=== PATIENT | female | born 1950 | race Caucasian/White ===

== ENCOUNTER 2022-08-27 09:41 | Outpatient (CLI) | payer OTHER, SELFPAY | END 2022-08-27 09:42 | disposition home or self-care (01) | LOC: FRMREF 09:42 | PROVIDERS: PCP Physician Assistant Medical; Visit Provider Physician Assistant Medical | DX: I10 Essential (primary) hypertension (principal); E78.5 Hyperlipidemia, unspecified; E03.9 Hypothyroidism, unspecified | CPT/HCPCS: 80053; 80061; 84443 ==

== ENCOUNTER 2023-01-20 12:47 | Outpatient (CLI) | payer OTHER, SELFPAY ==
--- NOTE | 2023-01-20 13:00 | CRLHL7_ITS ---
For Patients: As a result of the Cures Act, medical imaging exams and procedure reports are released immediately into your electronic medical record. You may view this report before your referring provider. If you have questions, please contact your health care provider. DXA BONE MINERAL DENSITY STUDY, 01/20/2023 Reason for exam: Postmenopausal status. Current height (inches): 63 Weight (lbs.): 188 Menopause age: 44 Ethnicity: White 1. Have you had a previous hip or vertebral fracture? No. 2. Have you had any fractures during your adult life which did not result from significant trauma (e.g., auto accident)? No. 3. Did either of your parents have a hip fracture? No. 4. Do you smoke? No. 5. Have you ever taken Glucocorticoids? No. 6. Do you have rheumatoid arthritis? No. 7. Do you have secondary osteoporosis? No. 8. Do you drink 3 or more alcoholic drinks per day? No. 9. Are you being treated for osteoporosis? No. 10. Have you ever taken any of the following medications: Actonel, Evista, Fosamax, Miacalcin, Reclast, Boniva, Forteo, HRT (i.e., estrogen/hormone therapy), Protelos, Prolia, Vitamin D, Calcium, other ??? please specify. ANSWER: Yes; vitamin D. 11. Do you have any of the following medical conditions: Anorexia or bulimia, asthma or emphysema, end stage renal disease, hyperparathyroidism, any seizure disorders, cancer, inflammatory bowel diseases, hysterectomy, other ??? please specify. ANSWER: No. 12. What was your maximum height (inches)? 64.5. 13. Do you perform weightbearing exercise regularly? No. 14. Do you regularly consume dairy products? No. 15. Do you drink caffeinated beverages? Yes. 16. At what age did your period start? 15. 17. Are you premenopausal? No. 18. How many full-term pregnancies have you had? 3. 19. Have you ever missed your period for more than 6 months in a row (not including or menopause)? No. TECHNIQUE: Bone mineral density study was performed using the [facility]. FINDINGS: The results of the study expressed as bone mineral density (BMD) are as follows: Lumbar Spine L1 to L3: BMD: 0.517 g/cm2. T-score: -4.6. Z-score: -2.5. Neck Left: BMD: 0.537 g/cm2. T-score: -2.8. Z-score: -1.0. Right: BMD: 0.604 g/cm2. T-score: -2.2. Z-score: -0.4. Total Left: BMD: 0.644 g/cm2. T-score: -2.4. Z-score: -0.9. Right: BMD: 0.700 g/cm2. T-score: -2.0. Z-score: -0.5. IMPRESSION: Osteoporosis. DERIC MONROY M.D. Diagnostic Radiologist [email or web address] Transcribed: 3:[address]/Dictated by: Deric Monroy MD @ 01/21/2023 1:47:00 PM (Electronically Signed)
== END 2023-01-20 12:48 | disposition home or self-care (01) ==
PROVIDERS: PCP Physician Assistant Medical; Visit Provider Physician Assistant Medical
DX: Z78.0 Asymptomatic menopausal state (principal); M81.0 Age-related osteoporosis without current pathological fracture
CPT/HCPCS: 77080

== ENCOUNTER 2023-12-09 10:43 | Outpatient (CLI) | payer OTHER, SELFPAY | END 2023-12-09 10:44 | disposition home or self-care (01) | LOC: NFLDREF 12-20 13:07 | PROVIDERS: PCP Physician Assistant Medical; Referring Provider Physician Assistant Medical; Visit Provider Physician Assistant Medical | DX: E03.9 Hypothyroidism, unspecified (principal); E78.2 Mixed hyperlipidemia; I10 Essential (primary) hypertension; M81.0 Age-related osteoporosis without current pathological fracture; K21.9 Gastro-esophageal reflux disease without esophagitis; Z79.01 Long term (current) use of anticoagulants; I71.40 Abdominal aortic aneurysm, without rupture, unspecified | CPT/HCPCS: 80053; 80061; 84443 ==

== ENCOUNTER 2024-02-20 14:13 | Emergency (ER) | payer OTHER, SELFPAY ==
[2024-02-20 14:22] VITALS: BP 157/94; PULSE 96; RESP 18; TEMP 37.4; O2SAT 99; BMI 31.9
--- NOTE | 2024-02-20 14:48 | ED_ITS ---
HPI - General Adult General Chief complaint: Epistaxis/Nosebleed Stated complaint: Bloody nose since 1:10p-on Warfarin Time Seen by Provider: 02/20/24 14:15 History of Present Illness HPI narrative: Patient is a 73-year-old female who has anticoagulation and takes Coumadin for a aortic valve replacement. She has had multiple nosebleeds over the last month. Today it. Started and has not stopped. It has been bleeding for couple of hours. The patient is not lightheaded or dizzy or have chest pain. She denies trauma or injury. Related Data Home Medications Medication Instructions Recorded Confirmed meperidine 100 mg/mL injection 100 mg IM ONCE PRN 05/06/22 02/20/24 solution albuterol sulfate 90 mcg/actuation g inhalation 08/28/22 12/23/23 aerosol inhaler bimatoprost 0.01 % eye drops drp ophthalmic (eye) 08/28/22 12/23/23 (Lumigan) oxycodone-acetaminophen 5 mg-325 1 tab PO PRN 08/28/22 12/23/23 mg tablet timolol maleate 0.25 % eye drops 1 drp ophthalmic (eye) BID 08/28/22 02/20/24 diphenhydramine HCl 50 mg/mL 50 mg IM Q4-6H PRN 04/21/23 02/20/24 injection solution Previous Rx's Medication Instructions Recorded warfarin 2 mg tablet 2 mg PO DIRECTED #90 tabs 02/11/23 warfarin 4 mg tablet 4 mg PO DIRECTED #90 tabs 09/01/23 atorvastatin 80 mg tablet 80 mg PO .HS #90 tabs 12/09/23 levothyroxine 100 mcg tablet 100 mcg PO DAILY #90 tabs 12/09/23 losartan 25 mg tablet 25 mg PO DAILY #90 tabs 12/09/23 metoprolol tartrate 25 mg tablet 25 mg PO DAILY #90 tabs 12/09/23 topiramate 100 mg tablet 100 mg PO QHS #90 tabs 12/09/23 cholecalciferol (vitamin D3) 25 See Rx Instructions .Route 01/04/24 mcg (1,000 unit) tablet .COMPLEX #90 tabs famotidine 20 mg tablet 20 mg PO QHS #90 tabs 01/06/24 hydroxyzine HCl 50 mg tablet 50 mg PO TID PRN for 02/09/24 nausea/vomiting #90 tabs aspirin 81 mg tablet,delayed 81 mg PO DAILY #90 tabs 02/17/24 release warfarin 3 mg tablet 9 mg (3 x 3 mg) PO .ud #39 tabs 02/17/24 cephalexin 500 mg capsule 500 mg PO QID 5 days #20 caps 02/20/24 Allergies Allergy/AdvReac Type Severity Reaction Status Date / Time alendronate sodium AdvReac Intermediate Headache Verified 02/20/24 14:27 Review of Systems Status of ROS: Reports: 6 or more systems reviewed and unremarkable except as noted in History and below [facility] Medical History Depression ?F32.A - Depression, unspecified (ICD-10) Incidental pulmonary nodule ?R91.1 - Solitary pulmonary nodule (ICD-10) History of compression fracture of spine ?Z87.81 - Personal history of (healed) traumatic fracture (ICD-10) Surgical History History of right cataract extraction ?Z98.41 - Cataract extraction status, right eye (ICD-10) History of repair of left rotator cuff (02/22/19) ?Z98.890 - Other specified postprocedural states (ICD-10) Status post transposition of nerve ?Z98.890 - Other specified postprocedural states (ICD-10) History of cataract extraction with lens replacement History of colonoscopy ?Z98.890 - Other specified postprocedural states (ICD-10) History of tubal ligation ?Z98.51 - Tubal ligation status (ICD-10) History of appendectomy ?Z90.49 - Acquired absence of other specified parts of digestive tract (ICD- 10) History of laparoscopic adjustable gastric banding ?Z98.84 - Bariatric surgery status (ICD-10) History of aortic valve replacement ?Z95.2 - Presence of prosthetic heart valve (ICD-10) Family History Mother Diabetes Father Heart disease Social History Narrative: does not drink alcohol, does not use illicit drugs, nonsmoker What is your current living situation?: I presently have a place to live Problems where you live: no known problems In the past 12 months, utilities in danger of being shut off: no In past 12 months, lack of transportation kept you from medical appts, meetings, work, or getting things needed for daily living: no In the past 12 mos, have been you worried that your food would run out before you had money to buy more?: never true In the past 12 mos, the food you bought just didn't last and you didn't have money to buy more?: never true Smoking Status: Never smoker Do you use any of these nicotine containing products: None Second hand tobacco smoke exposure: No How often do you have a drink containing alcohol: never AUDIT-C Alcohol total score: 0 Non-prescribed substance use: denies use How often does anyone, including family, friends and others, physically hurt you : never How often does anyone, including family, friends and others, insult or talk down to you: never How often does anyone, including family, friends and others, threaten you with harm: never How often does anyone, including family, friends and others, scream or curse at you: never Little interest or pleasure in doing things: not at all Feeling down, depressed, or hopeless: not at all Exam Narrative: Exam Narrative: Objective: Patient's vital signs look largely within normal limits She is alert oriented x3 HEENT shows a lot of blood along the septum on the left and friability of the part of the septum and I can see the right nostril appears fairly clear. She does report that the left nostril is been the 1 that is been primarily bleeding. She has also had some blood coming out of her mouth. She reports she gets a INR done weekly and last time it was about 3. Const: Vital Signs, click to edit/add: Vital Signs - 24 hr 02/20/24 14:22 Temperature 99.4 F Pulse Rate [Pulse Oximeter] 96 Respiratory Rate 18 Blood Pressure [Ri ght Upper Arm] 157/94 H Pulse Oximetry 99 Oxygen Delivery Me thod Room Air Course Vital Signs Vital signs: Initial Vital Signs Temperature 99.4 F 02/20/24 14:22 Temperature Source Temporal Artery Scan 02/20/24 14:22 Pulse Rate 96 02/20/24 14:22 Respiratory Rate 18 02/20/24 14:22 Blood Pressure 157/94 H 02/20/24 14:22 Blood Pressure Mean 115 H 02/20/24 14:22 Blood Pressure Position Sitting 02/20/24 14:22 Pulse Oximetry 99 02/20/24 14:22 Oxygen Delivery Method Room Air 02/20/24 14:22 Vital Signs Temperature 99.4 F 02/20/24 14:22 Pulse Rate 96 02/20/24 14:22 Respiratory Rate 18 02/20/24 14:22 Blood Pressure 157/94 H 02/20/24 14:22 Pulse Oximetry 99 02/20/24 14:22 Oxygen Delivery Method Room Air 02/20/24 14:22 Temperature 99.4 F 02/20/24 14:22 Pulse Rate 96 02/20/24 14:22 Respiratory Rate 18 02/20/24 14:22 Blood Pressure 157/94 H 02/20/24 14:22 Pulse Oximetry 99 02/20/24 14:22 Oxygen Delivery Method Room Air 02/20/24 14:22 Medications Administered Medications: Discontinued Medications Generic Name Dose Route Start Last Admin Trade Name Freq PRN Reason Stop Dose Admin Cephalexin HCl 500 mg 02/20/24 15:04 02/20/24 15:13 Cephalexin 500 Mg Capsule PO 02/20/24 15:05 500 mg ONCE ONE Administration Medical Decision Making MDM Narrative Medical decision making narrative: 73-year-old female on Coumadin with a nose bleed. CT based on the patient's pretty significant bleeding right now a large rhino rocket was placed with relative ease x1 on the left nostril. She has pure to have pretty good stoppage of bleeding there still little bit of dripping in a nasal sling was placed. Will check a CBC and an INR. She will need to see Dr. Russo and in follow-up, she does have an appointment in March but I think it be reasonable to see him ashly farhana. She will need to be put on Keflex antibiotic for the next 5 days and recommend nasal pack removal in about 3 days provided that it does stop the bleeding today. Addendum 3:41 p.m.: The patient's INR is 2-1/2, hemoglobin is normal. Her bleeding has stopped. She has a nasal sling on as tolerated that well. I think she should be on Keflex for 5 days also be faxed into her pharmacy will also have her see Dr. Russo in if you could please give her number 2 Dr. Russo to call to be seen sooner than March. Needs to see primary care in the next 2 days to get nasal pack removed. Return if problems or concerns avoid no nasal trauma or injury or rubbing. Return as needed Lab Data Labs: Lab Results 02/20/24 Range/Units 15:08 WBC 4.43 L (4.50-11.00) K/uL RBC 4.24 (4.00-5.20) m/uL Hgb 13.0 (12.0-16.0) gm/dL Hct 38.7 (33.0-51.0) % MCV 91 (80-100) fL MCH 31 (26-34) pg MCHC 34 (32-36) gm/dL RDW Coeff of Fan 13.3 (11.5-15.5) % Plt Count 264 (140-440) K/uL Neut % (Auto) 62.6 (42.0-72.0) % Lymph % (Auto) 21.4 (20-44) % Murray % (Auto) 8.8 (0.0-11.0) % Eos % (Auto) 6.8 (0.0-7.0) % Baso % (Auto) 0.2 (0.0-3.0) % Neut # (Auto) 2.80 (1.7-7.0) K/uL Lymph # (Auto) 0.90 (0.90-2.90) K/uL Murray # (Auto) 0.40 (0.00-0.90) K/UL Eos # (Auto) 0.30 (0.00-0.50) K/uL Baso # (Auto) 0.00 (0.00-0.30) K/uL Abs Immat Gran (auto) 0.00 (0.00-0.30) K/uL Imm/Tot Granulo (auto) 0.2 % INR 2.69 H (0.91-1.10) Discharge Plan Discharge Clinical Impression: Epistaxis, watermaster current use of anticoagulants with INR goal of 2.0-3.0 Patient Disposition: Home w/ Parent or Adult Condition: Improved Additional Instructions: Please give Dr. Fall number to be seen within the next week, should see primary care within the next 2 days to get pack removed. Keflex 500 q.i.d. x5 days. Light activity recommended. Return if heavy bleeding or other concern. May continue home medications including Coumadin. Activity Level: Light activity Discharge Diet: Regular Prescriptions: New cephalexin 500 mg capsule 500 mg PO QID 5 Days Qty: 20 0RF No Action diphenhydramine HCl 50 mg/mL solution 50 mg IM Q4-6H PRN timolol maleate 0.25 % drops 1 drp ophthalmic (eye) BID oxycodone-acetaminophen 5-325 mg tablet 1 tab PO PRN Lumigan 0.01 % drops ophthalmic (eye) albuterol sulfate 90 mcg/actuation HFA aerosol inhaler inhalation Patient Comments: INHALE 2 PUFFS EVERY 4 HOURS NEEDED meperidine 100 mg/mL solution 100 mg IM ONCE PRN warfarin 2 mg tablet 2 mg PO DIRECTED Qty: 90 0RF Protocol: Dose Management Condition: Wednesday Dose/Route: 3 mg Instruction: 1 x 3 mg tablet Condition: Wednesday Dose/Route: 4 mg Instruction: 1 x 4 mg tablet Condition: Wednesday Dose/Route: 4 mg Instruction: 1 x 4 mg tablet Condition: Wednesday Dose/Route: 4 mg Instruction: 1 x 4 mg tablet Condition: Dose/Route: 4 mg Instruction: 1 x 4 mg tablet Condition: Wednesday Dose/Route: 4 mg Instruction: 1 x 4 mg tablet Condition: Wednesday Dose/Route: 3 mg Instruction: 1 x 3 mg tablet Protocol Text: Adjustment Start Date: Wednesday02/16/24 INR Value: 3.0 INR Date: 02/16/24 Recheck Date: 02/23/24 Rx Instructions: Take 3mg , , Wed; 4mg Wed, Wed, Wed, Wed. warfarin 4 mg tablet 4 mg PO DIRECTED Qty: 90 0RF Protocol: Dose Management Condition: Wednesday Dose/Route: 3 mg Instruction: 1 x 3 mg tablet Condition: Wednesday Dose/Route: 4 mg Instruction: 1 x 4 mg tablet Condition: Wednesday Dose/Route: 4 mg Instruction: 1 x 4 mg tablet Condition: Wednesday Dose/Route: 4 mg Instruction: 1 x 4 mg tablet Condition: Dose/Route: 4 mg Instruction: 1 x 4 mg tablet Condition: Wednesday Dose/Route: 4 mg Instruction: 1 x 4 mg tablet Condition: Wednesday Dose/Route: 3 mg Instruction: 1 x 3 mg tablet Protocol Text: Adjustment Start Date: Wednesday02/16/24 INR Value: 3.0 INR Date: 02/16/24 Recheck Date: 02/23/24 Rx Instructions: Take 4mg Mon, Wed, Wed; and 3mg all other days of the week. atorvastatin 80 mg tablet 80 mg PO .HS Qty: 90 3RF levothyroxine 100 mcg tablet 100 mcg PO DAILY Qty: 90 3RF losartan 25 mg tablet 25 mg PO DAILY Qty: 90 3RF metoprolol tartrate 25 mg tablet 25 mg PO DAILY Qty: 90 3RF topiramate 100 mg tablet 100 mg PO QHS Qty: 90 3RF cholecalciferol (vitamin D3) 25 mcg (1,000 unit) tablet See Rx Instructions .ROUTE .COMPLEX Qty: 90 3RF Dose Instruction: TAKE 1 TABLET BY MOUTH EVERY DAY Rx Instructions: TAKE 1 TABLET BY MOUTH EVERY DAY famotidine 20 mg tablet 20 mg PO QHS Qty: 90 0RF hydroxyzine HCl 50 mg tablet 50 mg PO TID PRN (Reason: for nausea/vomiting) Qty: 90 1RF aspirin 81 mg tablet,delayed release (DR/EC) 81 mg PO DAILY Qty: 90 3RF warfarin 3 mg tablet 9 mg PO .ud Qty: 39 2RF Follow Up/Referrals: Kimberly Tierney PA-C [Primary Care Provider] - Stand Alone Forms: [facility] Info Instructions
[2024-02-20] MEDS: cephALEXin 500 MG CAPSULE PO (15:13)
[2024-02-20 15:14] LABS: Basophils Percent Auto 0.2 % (0.0-3.0); Eosinophils Percent Auto 6.8 % (0.0-7.0); Hematocrit 38.7 % (33.0-51.0); Immature Granulocytes Pct Auto 0.2 %; Lymphocytes Percent Auto 21.4 % (20-44); Mean Corpuscular HGB Conc 34 gm/dL (32-36); Mean Corpuscular Hemoglobin 31 pg (26-34); Mean Corpuscular Volume 91 fL (80-100); Monocytes Percent Auto 8.8 % (0.0-11.0); Neutrophils Percent Auto 62.6 % (42.0-72.0); Platelet Count* 264 K/uL (140-440); RDW Coefficient of Variation % 13.3 % (11.5-15.5); Red Blood Count 4.24 m/uL (4.00-5.20); White Blood Count* 4.43 K/uL (4.50-11.00)
[2024-02-20 15:17] LABS: Slide Review Reflex No
[2024-02-20 15:29] LABS: INR 2.69 (0.91-1.10); Prothrombin Time 30.7 Seconds
== END 2024-02-20 15:55 | disposition home or self-care (01) ==
PROVIDERS: Emergency Provider Family Medicine; PCP Physician Assistant Medical
DX: R04.0 Epistaxis (principal); Z79.01 Long term (current) use of anticoagulants
CPT/HCPCS: 30901; 36415; 85025; 85610; 99283; 99284; A9270

== ENCOUNTER 2024-02-21 11:32 | Emergency (ER) | payer OTHER, SELFPAY ==
[2024-02-21 11:38] VITALS: BP 133/85; PULSE 99; RESP 18; TEMP 36.5; O2SAT 98; BMI 31.9
--- NOTE | 2024-02-21 12:09 | ED.EPISTAXIS ---
History of Present Illness General Chief Complaint: Epistaxis/Nosebleed Stated Complaint: nose bleed Time Seen by Provider: 02/21/24 11:41 History of Present Illness HPI Narrative: This 73-year-old female comes in because of recurrent epistaxis. She was seen yesterday and had a Merocel placed. She comes back today because of persistent bleeding in the anterior left nostril. She states that she has had 9 episodes of bleeding from her left nostril over the past couple months. She is on Coumadin and did hold her Coumadin last evening. She was seen yesterday and had labs drawn. Her INR was in therapeutic range. She does not report any lightheadedness or shortness of breath. She states that she does have a mild headache. Related Data Home Medications Medication Instructions Recorded Confirmed meperidine 100 mg/mL injection 100 mg IM ONCE PRN 05/06/22 02/20/24 solution albuterol sulfate 90 mcg/actuation g inhalation 08/28/22 12/23/23 aerosol inhaler bimatoprost 0.01 % eye drops drp ophthalmic (eye) 08/28/22 12/23/23 (Erasmoigan) oxycodone-acetaminophen 5 mg-325 1 tab PO PRN 08/28/22 12/23/23 mg tablet timolol maleate 0.25 % eye drops 1 drp ophthalmic (eye) BID 08/28/22 02/20/24 diphenhydramine HCl 50 mg/mL 50 mg IM Q4-6H PRN 04/21/23 02/20/24 injection solution Previous Rx's Medication Instructions Recorded warfarin 2 mg tablet 2 mg PO DIRECTED #90 tabs 02/11/23 warfarin 4 mg tablet 4 mg PO DIRECTED #90 tabs 09/01/23 atorvastatin 80 mg tablet 80 mg PO .HS #90 tabs 12/09/23 levothyroxine 100 mcg tablet 100 mcg PO DAILY #90 tabs 12/09/23 losartan 25 mg tablet 25 mg PO DAILY #90 tabs 12/09/23 metoprolol tartrate 25 mg tablet 25 mg PO DAILY #90 tabs 12/09/23 topiramate 100 mg tablet 100 mg PO QHS #90 tabs 12/09/23 cholecalciferol (vitamin D3) 25 See Rx Instructions .Route 01/04/24 mcg (1,000 unit) tablet .COMPLEX #90 tabs famotidine 20 mg tablet 20 mg PO QHS #90 tabs 01/06/24 hydroxyzine HCl 50 mg tablet 50 mg PO TID PRN for 02/09/24 nausea/vomiting #90 tabs aspirin 81 mg tablet,delayed 81 mg PO DAILY #90 tabs 02/17/24 release warfarin 3 mg tablet 9 mg (3 x 3 mg) PO .ud #39 tabs 02/17/24 cephalexin 500 mg capsule 500 mg PO QID 5 days #20 caps 02/20/24 Allergies Allergy/AdvReac Type Severity Reaction Status Date / Time alendronate sodium AdvReac Intermediate Headache Verified 02/20/24 14:27 Review of Systems Status of ROS: Reports: 10 or more systems reviewed and unremarkable except as noted in History and below Narrative: Constitutional: No fevers, no weight gain or loss. Eyes: No discharge. No vision changes. HENT: No congestion, no sore throat, no ear pain. Recurrent epistaxis as described above. Cardiovascular: No chest pain, no palpitations. Respiratory: No shortness of breath, no wheezes, no cough. Gastrointestinal: No abdominal pain, no vomiting, no diarrhea. Genitourinary: No dysuria, no hematuria. Musculoskeletal: Normal range of motion. Skin: No rashes, no pruritis. Neurological: No dizziness, weakness, sensory change, speech change. Endo/Heme/Allergies: No bruising or bleeding. No polydipsia. Pysch: no suicidality, no anxiety, no insomnia. All other systems reviewed and are negative. [facility] Medical History Depression ?F32.A - Depression, unspecified (ICD-10) Incidental pulmonary nodule ?R91.1 - Solitary pulmonary nodule (ICD-10) History of compression fracture of spine ?Z87.81 - Personal history of (healed) traumatic fracture (ICD-10) Surgical History History of right cataract extraction ?Z98.41 - Cataract extraction status, right eye (ICD-10) History of repair of left rotator cuff (02/22/19) ?Z98.890 - Other specified postprocedural states (ICD-10) Status post transposition of nerve ?Z98.890 - Other specified postprocedural states (ICD-10) History of cataract extraction with lens replacement History of colonoscopy ?Z98.890 - Other specified postprocedural states (ICD-10) History of tubal ligation ?Z98.51 - Tubal ligation status (ICD-10) History of appendectomy ?Z90.49 - Acquired absence of other specified parts of digestive tract (ICD-10) History of laparoscopic adjustable gastric banding ?Z98.84 - Bariatric surgery status (ICD-10) History of aortic valve replacement ?Z95.2 - Presence of prosthetic heart valve (ICD-10) Family History Mother Diabetes Father Heart disease Social History Narrative: does not drink alcohol, does not use illicit drugs, nonsmoker What is your current living situation?: I presently have a place to live Problems where you live: no known problems In the past 12 months, utilities in danger of being shut off: no In past 12 months, lack of transportation kept you from medical appts, meetings, work, or getting things needed for daily living: no In the past 12 mos, have been you worried that your food would run out before you had money to buy more?: never true In the past 12 mos, the food you bought just didn't last and you didn't have money to buy more?: never true Smoking Status: Never smoker Do you use any of these nicotine containing products: None Second hand tobacco smoke exposure: No How often do you have a drink containing alcohol: never AUDIT-C Alcohol total score: 0 Non-prescribed substance use: denies use How often does anyone, including family, friends and others, physically hurt you: never How often does anyone, including family, friends and others, insult or talk down to you: never How often does anyone, including family, friends and others, threaten you with harm: never How often does anyone, including family, friends and others, scream or curse at you: never Little interest or pleasure in doing things: not at all Feeling down, depressed, or hopeless: not at all Exam Narrative: Exam Narrative: Constitutional: Well-developed, well-nourished, no acute distress. HEENT: Normocephalic, atraumatic. No active bleeding in the left nostril currently but there is bright red blood in the anterior aspect. Posterior to this is a Merocel in place. No evidence of blood in the oropharynx or other sign of posterior bleeding. Neck: Normal range of motion. Nontender. Supple. Heart: Intact distal pulses. Lungs: No chest discomfort. No wheezes, rhonchi, or rales. Abdomen: Nontender. Back: Normal range of motion. Extremities: Normal range of motion. No injury. Skin: Intact. No rash. Warm. No erythema or pallor. Neurologic: No altered sensation. No weakness. Alert and oriented. Psychiatric: No suicidality. No anxiety or depression. No insomnia. Nursing notes and vitals signs are reviewed. Const: Vital Signs, click to edit/add: Vital Signs - 24 hr 02/21/24 11:38 Temperature 97.7 F Pulse Rate [Right Pulse Oximeter] 99 Respiratory Rate 18 Blood Pressure [Ri ght Upper Arm] 133/85 Pulse Oximetry 98 Oxygen Delivery Me thod Room Air Course Vital Signs Vital signs: Initial Vital Signs Temperature 97.7 F 02/21/24 11:38 Temperature Source Temporal Artery Scan 02/21/24 11:38 Pulse Rate 99 02/21/24 11:38 Pulse Rhythm Regular 02/21/24 11:38 Respiratory Rate 18 02/21/24 11:38 Blood Pressure 133/85 02/21/24 11:38 Blood Pressure Mean 101 02/21/24 11:38 Blood Pressure Position Sitting 02/21/24 11:38 Pulse Oximetry 98 02/21/24 11:38 Oxygen Delivery Method Room Air 02/21/24 11:38 Vital Signs Temperature 97.7 F 02/21/24 11:38 Pulse Rate 99 02/21/24 11:38 Respiratory Rate 18 02/21/24 11:38 Blood Pressure 133/85 02/21/24 11:38 Pulse Oximetry 98 02/21/24 11:38 Oxygen Delivery Method Room Air 02/21/24 11:38 Temperature 97.7 F 02/21/24 11:38 Pulse Rate 99 02/21/24 11:38 Respiratory Rate 18 02/21/24 11:38 Blood Pressure 133/85 02/21/24 11:38 Pulse Oximetry 98 02/21/24 11:38 Oxygen Delivery Method Room Air 02/21/24 11:38 MDM - Epistaxis MDM Narrative Medical decision making narrative: This patient has recurrent nose bleeds and is on Coumadin because of a mechanical heart valve. Her INR has been therapeutic and she did not take her Coumadin last evening. She has a Merocel in place but comes in today because of bleeding anterior to nasal tampon. She does not have any active bleeding currently. There is bright red blood on the septum of the left nostril on the anterior aspect. It seems appropriate to leave the Merocel in place. I did pack her anterior nose with cotton soaked in TXA. She is not having any current bleeding. She does have a follow-up appointment with your nose and throat clinic in 2 days. She does have a nasal clamp and understands what measures to take if rebleeding occurs. If needed she can always return here. 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 Follow up with ear nose and throat clinic as scheduled. Return if worsening. Prescriptions: No Action diphenhydramine HCl 50 mg/mL solution 50 mg IM Q4-6H PRN timolol maleate 0.25 % drops 1 drp ophthalmic (eye) BID oxycodone-acetaminophen 5-325 mg tablet 1 tab PO PRN Lumigan 0.01 % drops ophthalmic (eye) albuterol sulfate 90 mcg/actuation HFA aerosol inhaler inhalation Patient Comments: INHALE 2 PUFFS EVERY 4 HOURS NEEDED cephalexin 500 mg capsule 500 mg PO QID 5 Days Qty: 20 0RF meperidine 100 mg/mL solution 100 mg IM ONCE PRN warfarin 2 mg tablet 2 mg PO DIRECTED Qty: 90 0RF Protocol: Dose Management Condition: Wednesday Dose/Route: 3 mg Instruction: 1 x 3 mg tablet Condition: Wednesday Dose/Route: 4 mg Instruction: 1 x 4 mg tablet Condition: Wednesday Dose/Route: 4 mg Instruction: 1 x 4 mg tablet Condition: Wednesday Dose/Route: 4 mg Instruction: 1 x 4 mg tablet Condition: Dose/Route: 4 mg Instruction: 1 x 4 mg tablet Condition: Wednesday Dose/Route: 4 mg Instruction: 1 x 4 mg tablet Condition: Wednesday Dose/Route: 3 mg Instruction: 1 x 3 mg tablet Protocol Text: Adjustment Start Date: Wednesday02/16/24 INR Value: 3.0 INR Date: 02/16/24 Recheck Date: 02/23/24 Rx Instructions: Take 3mg , , Wed; 4mg Sun, Wed, Wed, Wed. warfarin 4 mg tablet 4 mg PO DIRECTED Qty: 90 0RF Protocol: Dose Management Condition: Wednesday Dose/Route: 3 mg Instruction: 1 x 3 mg tablet Condition: Wednesday Dose/Route: 4 mg Instruction: 1 x 4 mg tablet Condition: Wednesday Dose/Route: 4 mg Instruction: 1 x 4 mg tablet Condition: Wednesday Dose/Route: 4 mg Instruction: 1 x 4 mg tablet Condition: Dose/Route: 4 mg Instruction: 1 x 4 mg tablet Condition: Wednesday Dose/Route: 4 mg Instruction: 1 x 4 mg tablet Condition: Wednesday Dose/Route: 3 mg Instruction: 1 x 3 mg tablet Protocol Text: Adjustment Start Date: Wednesday02/16/24 INR Value: 3.0 INR Date: 02/16/24 Recheck Date: 02/23/24 Rx Instructions: Take 4mg Wed, Wed, Wed; and 3mg all other days of the week. atorvastatin 80 mg tablet 80 mg PO .HS Qty: 90 3RF levothyroxine 100 mcg tablet 100 mcg PO DAILY Qty: 90 3RF losartan 25 mg tablet 25 mg PO DAILY Qty: 90 3RF metoprolol tartrate 25 mg tablet 25 mg PO DAILY Qty: 90 3RF topiramate 100 mg tablet 100 mg PO QHS Qty: 90 3RF cholecalciferol (vitamin D3) 25 mcg (1,000 unit) tablet See Rx Instructions .ROUTE .COMPLEX Qty: 90 3RF Dose Instruction: TAKE 1 TABLET BY MOUTH EVERY DAY Rx Instructions: TAKE 1 TABLET BY MOUTH EVERY DAY famotidine 20 mg tablet 20 mg PO QHS Qty: 90 0RF hydroxyzine HCl 50 mg tablet 50 mg PO TID PRN (Reason: for nausea/vomiting) Qty: 90 1RF aspirin 81 mg tablet,delayed release (DR/EC) 81 mg PO DAILY Qty: 90 3RF warfarin 3 mg tablet 9 mg PO .ud Qty: 39 2RF Follow Up/Referrals: Kimberly Tierney, PAStalinC [Primary Care Provider] - Stand Alone Forms: [facility] Info Instructions
[2024-02-21] MEDS: TRANEXAMIC ACID 100 MG/ML INJ 1000 MG TOPICAL (12:15)
== END 2024-02-21 12:52 | disposition home or self-care (01) ==
PROVIDERS: Emergency Provider Emergency Medicine Emergency Medical Services; PCP Physician Assistant Medical
DX: R04.0 Epistaxis (principal)
CPT/HCPCS: 30901; 99283; 99284

== ENCOUNTER 2025-01-03 13:45 | Outpatient (CLI) | payer OTHER, SELFPAY | END 2025-01-03 13:46 | disposition home or self-care (01) | PROVIDERS: PCP Physician Assistant Medical; Referring Provider Physician Assistant Medical; Visit Provider Physician Assistant Medical | DX: I10 Essential (primary) hypertension (principal); E03.9 Hypothyroidism, unspecified; E78.2 Mixed hyperlipidemia; R05.9 Cough, unspecified; M81.0 Age-related osteoporosis without current pathological fracture; G43.409 Hemiplegic migraine, not intractable, without status migrainosus; G47.33 Obstructive sleep apnea (adult) (pediatric); R05.2 Subacute cough | CPT/HCPCS: 80053; 80061; 82728; 84439; 84443 ==

== ENCOUNTER 2025-03-29 14:17 | Outpatient (CLI) | payer OTHER, SELFPAY ==
--- OUTSIDE RECORDS SUMMARY | 2023-07-08 07:15 | XMS_ITS | Continuity of Care Document ---
Author Organization [facility] enter Address [address] [place] [phone] Phone Care Team Providers Care Energy Project Engineer Name Role Phone [facility] Unavailable Unava ilable Procedures Procedure Date Dest by neurolytic agt, genicular nv br w\guid Dest by neurolytic agt, genicular nv br w\guid FLUOROGUIDE FOR SPINE INJECT Inj anes agt/steroid; gen ne br,w/guidan ce Inj anes agt/steroid; gen ne br,w/guidan ce Inj anes agt/steroid; gen ne br,w/guidan ce Inj anes agt/steroid; gen ne br,w/guidan ce Advance Directives Directive Yes / No Effective Date File Name No Information Encounters Encounter Description Practice Location Reason(s) For Visit Diagnoses Date Provider Providers Copied on Encounter [facility], [address] [place] [address], [id number], [place] tel:[phone] [facility] No Information [facility]. [address] [place] [address], [id number], . tel:[phone] Referring Provider: Jeane Day, [address] [facility] [place], [address] . tel:[phone] [facility], [address] [place] [address], [id number], tel:[phone] [facility] No Information [facility]. [address] [place] [address], [id number], . tel:[phone] Referring Provider: Jeane Day, [address] [facility] [place], [address] . tel:[phone] [facility], [address] [place] [address], [id number], tel:[phone] [place] [address] No Information [facility]. [address] [place] [address], [id number], . tel:[phone] Referring Provider: Jeane Day, [address] [facility] [place], [address] . tel:[phone] Family History Family Member Type Diagnosis Age At Onset No Information Payers Payer name Insurance type Covered constitution party ID Omar denise(s) ABIGAIL TOBIN [facility] [place] [id number] Social History Type Description Quantity Date Captured Comments Sex Female Smoking Status No Information Chief Complaint And Reason For Visit No Information Reason For Referral Reason For Referral No Information History Of Present Illness Encounter Date Complaint History Of Prese nt Illness No Information Functional Status Date Functional Assessmen t No Information Instructions Date Instruction Additional Infor mation No Information Assessments Type Assessment Date No Information Patient Care Teams Name Effective Dates (start - stop) Status Members No Information
--- OUTSIDE RECORDS SUMMARY | 2023-07-13 09:03 | XMS_ITS | Continuity of Care Document ---
Author Organization [facility] Address [address] [place] [address] Care Team Providers Care It Risk Advisor Name Role Phone Gilles Echevarria CRNA Unavailable Unavailable Procedures Procedure Date ANESTH, NERVE BLOCK/INJ ANESTH, NERVE BLOCK/INJ Advance Directives Directive Yes / No Effective Date File Name No Information Encounters Encounter Description Practice Location Reason(s) For Visit Diagnoses Date Provider Providers Copied on Encounter [facility], [address] [place] [address], [id number], [facility] No Information [address] [address]. [address] [place] [address], [place], [place], [id number] , . [phone] Referring Provider: Jeane Day, [address] [place] [address], [address] . tel:[phone] [facility], [address] [place] [address], [id number], [facility] No Information 3 Shawnee Shaw. [facility], [address] [place] [address], [id number] , . tel:[phone] Referring Provider: Jeane Day, [address] [place] [address], [address] . tel:[phone] Family History Family Member Type Diagnosis Age At Onset No Information Payers Payer name Insurance type Covered green party ID Omar denise(s) ABIGAIL TOBIN [facility] Replacement [id number] Social History Type Description Quantity Date Captured [...]
--- OUTSIDE RECORDS SUMMARY | 2024-08-02 06:37 | XMS_ITS | Continuity of Care Document ---
Author Organization [facility] Address [address] [place] [address] Phone Care Team Providers Care Pricing Clerk Name Role Phone Cassy Gibbs DNP Unavailable Unavailab le Allergies, Adverse Reactions, Alerts Substance Reaction Status Criticality No Known Allergies Active No Inform ation Medications Medication Instructions Dosage Effective Dates (start - stop) Status Comments metoprolol succinate ER 25 mg tablet,extended release 24 hr Take 1 tablet (25 mg) by mouth daily - Active Vitamin D2 1,250 mcg (50,000 unit) capsule daily - Active Aimovig Autoinjector 70 mg/mL subcutaneous auto-injector inject (70MG) by subcutaneous route every month in the abdomen, thigh, or outer area of upper arm 70 MG - Active fluticasone propionate 50 mcg/actuation nasal spray,suspension [place] 1 spray into both nostrils daily - Active timolol maleate 0.5 % eye drops Place 1 drop into both eyes daily. - Active warfarin 2.5 mg tablet take 1 tablet by oral route every day 2.5 MG - Active atorvastatin 80 mg tablet take 1 tablet by oral route every day 80 MG - Active Tirosint 75 mcg capsule take 1 capsule by oral route every day 75 MCG - Active losartan 25 mg tablet take 1 tablet by oral route every day 25 MG - Active metoprolol tartrate 25 mg tablet take 1 tablet by oral route 2 times every day 25 MG - Active aspirin 81 mg chewable tablet chew 1 tablet by oral route every day 81 MG - Active topiramate 25 mg tablet take 1 tablet by oral route every day 25 MG - Active Lumigan 0.01 % eye drops - Active latanoprost 0.005 % eye drops instill 1 drop by ophthalmic route every day into affected eye(s) in the evening 1.00 drop - Active Betimol 0.25 % eye drops instill 1 drop by ophthalmic route 2 times every day into affected eye(s) 1.00 drop - Active Percocet 5 mg-325 mg tablet Take 1 tablet every 8 hours as needed for chronic pain for 30 days - No Longer Active Procedures Procedure Date OFFICE VISIT, EST TELEMEDICINE OFFICE/OUTPATIENT VISIT, EST Drug test def 15-21 classes Drug Urine Toxology With Chromatography OFFICE VISIT, EST TELEMEDICINE OFFICE VISIT, EST TELEMEDICINE OFFICE/OUTPATIENT VISIT, EST INJ TRIGGER POINT, 1/2 MUSCL Kenalog Triamcinolone acetonide inj Drug Urine Toxology With Chromatography Drug test def 15-21 classes No Charge For Visit Per Prov RT Major Joint Or Bursa Inj With Ultraso und Kenalog Triamcinolone acetonide inj OFFICE VISIT, EST TELEMEDICINE OFFICE VISIT, EST TELEMEDICINE OFFICE/OUTPATIENT VISIT, EST Drug Urine Toxology With Chromatography RF genicular nerve With Imaging FLUOROGUIDE FOR SPINE INJECTION OFFICE VISIT, EST TELEMEDICINE Inj anes agt/steroid; gen [place] br,w/chalino thompson Bilat OFFICE VISIT, EST TELEMEDICINE Inj anes agt/steroid; gen ne br,w/chalino thompson Bilat OFFICE/OUTPATIENT VISIT, EST OFFICE VISIT, EST TELEMEDICINE Foll-up eval q3mo opiod tx OFFICE VISIT, EST TELEMEDICINE OFFICE/OUTPATIENT VISIT, EST Foll-up eval q3mo opiod tx Drug Urine Toxology With Chromatography Drug test def 15-21 classes Foll-up eval q3mo opiod tx OFFICE VISIT, EST TELEMEDICINE Foll-up eval q3mo opiod tx PT-FOCUSED HLTH RISK ASSMT OFFICE/OUTPATIENT VISIT, EST Drug Urine Toxology With Chromatography Foll-up eval q3mo opiod tx OFFICE VISIT, EST TELEMEDICINE Foll-up eval q3mo opiod tx OFFICE VISIT, EST TELEMEDICINE Foll-up eval q3mo opiod tx OFFICE VISIT, EST TELEMEDICINE OFFICE/OUTPATIENT VISIT, EST Drug Urine Toxology With Chromatography Drug test def 8-14 classes Foll-up eval q3mo opiod tx OFFICE VISIT, EST TELEMEDICINE Foll-up eval q3mo opiod tx OFFICE VISIT, EST TELEMEDICINE 22 Foll-up eval q3mo opiod tx OFFICE VISIT, EST TELEMEDICINE Botulinum toxin a per unit Botulinum toxin a per unit Destroy Nerve Face For Chronic Migraine Foll-up eval q3mo opiod tx OFFICE VISIT, EST TELEMEDICINE Foll-up eval q3mo opiod tx OFFICE VISIT, EST TELEMEDICINE Foll-up eval q3mo opiod tx OFFICE/OUTPATIENT VISIT, EST ROUTINE BLOOD DRAW Drug Urine Toxology With Chromatography Botulinum toxin a per unit Botulinum toxin a per unit Destroy Nerve Face For Chronic Migraine Foll-up eval q3mo opiod tx OFFICE/OUTPATIENT VISIT, EST Foll-up eval q3mo opiod tx OFFICE/OUTPATIENT VISIT, EST Botulinum toxin a per unit Destroy Nerve Face For Chronic Migraine Botulinum toxin a per unit Foll-up eval q3mo opiod tx OFFICE/OUTPATIENT VISIT, EST Foll-up eval q3mo opiod tx OFFICE/OUTPATIENT VISIT, EST Botulinum toxin a per unit Destroy Nerve Face For Chronic Migraine Botulinum toxin a per unit Foll-up eval q3mo opiod tx OFFICE VISIT, EST TELEMEDICINE OFFICE VISIT, EST TELEMEDICINE Foll-up eval q3mo opiod tx Botulinum toxin a per unit Destroy Nerve Face For Chronic Migraine Botulinum toxin a per unit OFFICE VISIT, EST TELEMEDICINE Foll-up eval q3mo opiod tx OFFICE VISIT, EST TELEMEDICINE Foll-up eval q3mo opiod tx Botulinum toxin a per unit Destroy Nerve Face For Chronic Migraine Botulinum toxin a per unit Foll-up eval q3mo opiod tx OFFICE/OUTPATIENT VISIT, EST Foll-up eval q3mo opiod tx OFFICE/OUTPATIENT VISIT, EST Foll-up eval q3mo opiod tx OFFICE/OUTPATIENT VISIT, EST Botulinum toxin a per unit Destroy Nerve Face For Chronic Migraine Botulinum toxin a per unit Foll-up eval q3mo opiod tx OFFICE VISIT, EST TELEMEDICINE Foll-up eval q3mo opiod tx OFFICE VISIT, EST TELEMEDICINE 20 Foll-up eval q3mo opiod tx OFFICE VISIT, EST TELEMEDICINE 20 Botulinum toxin a per unit Destroy Nerve Face For Chronic Migraine Botulinum toxin a per unit Drug test def 8-14 classes Drug Urine Toxology With Chromatography Foll-up eval q3mo opiod tx OFFICE/OUTPATIENT VISIT, EST Foll-up eval q3mo opiod tx OFFICE/OUTPATIENT VISIT, EST Botulinum toxin a per unit Destroy Nerve Face For Chronic Migraine OFFICE/OUTPATIENT VISIT, EST Foll-up eval q3mo opiod tx Foll-up eval q3mo opiod tx OFFICE/OUTPATIENT VISIT, EST OFFICE/OUTPATIENT VISIT, EST Botulinum toxin a per unit Destroy Nerve Face For Chronic Migraine OFFICE/OUTPATIENT VISIT, EST PT-FOCUSED HLTH RISK ASSMT OFFICE/OUTPATIENT VISIT, NEW Drug test def 22+ classes Drug Urine Toxology With Chromatography Advance Directives Directive Yes / No Effective Date File Name No Information Encounters Encounter Description Practice Location Reason(s) For Visit Diagnoses Date Provider Providers Copied on Encounter [facility], [address] [place], [place], [id number] , [place] tel:[phone] [facility] Gary No Information 4 Bernie Cassy. [address], [place], [place], [id number], [place]. tel:[phone] OFFICE VISIT, EST TELEMEDICINE [facility], [address], [place], [id number] , [place] tel:[phone] [facility] headache (chief complaint) Hemiplegic migraine, intractable, without status migrainosusChro seb pain syndromeLong term (current) use of opiate analgesic 4 Bernie Madera. [address], [place], [place], [id number], [place]. tel:[phone] OFFICE/OUTPAT IENT VISIT, [facility], [address] [place] [address], [id number] , [place] tel:[phone] [facility] headache (chief complaint) Hemiplegic migraine, intractable, without status migrainosusChro seb pain syndromeLong term (current) use of opiate analgesicEncoun ter for therapeutic drug level monitoring 4 Lynnette Donaldson. [address] [place] [address], [id number], [place]. tel:[phone] Referring Provider: Mendoza Schumacher, [address] [place] [address], [id number]. tel:[phone] OFFICE VISIT, [facility] TELEMEDICINE [facility], [address] [place] [address], [id number] , [place] tel:[phone] [facility] headache (chief complaint) Hemiplegic migraine, intractable, without status migrainosusChro seb migraine without aura, intractable, without status migrainosusChro seb pain syndromeBilater al primary osteoarthritis of kneePrimary OA of right kneePain in right shoulderPain in right kneePain in left kneeLong term (current) use of opiate analgesic 4 Melissa Postview, [address] [facility], [place], [address], [place]. tel:[phone] OFFICE VISIT, [facility] TELEMEDICINE [facility], [address] [place] [address], [id number] , [place] tel:[phone] [facility] headache (chief complaint) Hemiplegic migraine, intractable, without status migrainosusChro seb migraine without aura, intractable, without status migrainosusChro seb pain syndromeBilater al primary osteoarthritis of kneePrimary OA of right kneePain in right shoulderPain in right kneePain in left kneeMyalgia, other siteLong term (current) use of opiate analgesic 4 Melissa Suazo [place], [address] [place], [address], [place]. tel:[phone] Referring Provider: Mendoza Schumacher, [address] [place] [address], [id number]. tel:[phone] OFFICE/OUTPAT IENT VISIT, EST [facility], [address] [place] [address], [id number] , [place] tel:[phone] [facility] headache (chief complaint) Hemiplegic migraine, intractable, without status migrainosusChro seb migraine without aura, intractable, without status migrainosusChro seb pain syndromeBilater al primary osteoarthritis of kneePrimary OA of right kneePain in right kneePain in left kneeLong term (current) use of opiate analgesicPain in right shoulderMyalgia , other siteEncounter for therapeutic drug level monitoring 4 Melissa Suazo [place], [address] [place], [address], [place]. tel:[phone] Referring Provider: Mendoza Schumacher, [address] [place] [address], [id number]. tel:[phone] [facility], [address] [place] [address], [id number] , [place] tel:[phone] [facility] No Information 4 Will Mendoza. [address] [place] [address], [id number], [place]. tel:[phone] Referring Provider: Mendoza Schumacher, [address] [place] [address], [id number]. tel:[phone] [facility], [address] [place] [address], [id number] , [place] tel:[phone] [facility] Pain in right knee 4 Will Mendoza. [address] [place] [address], [id number], [place]. tel:[phone] OFFICE VISIT, EST TELEMEDICINE [facility], [address] [place] [address], [id number] , [place] tel:[phone] [facility] headache (chief complaint) Hemiplegic migraine, intractable, without status migrainosusChro seb migraine without aura, intractable, without status migrainosusChro seb pain syndromeBilater al primary osteoarthritis of kneePain in right kneePain in left kneeLong term (current) use of opiate analgesicPrimar y OA of right knee Viraj- 4 Melissa Postview, [address] [place], [address], [place]. [phone] OFFICE VISIT, EST TELEMEDICINE [facility], [address], [place], [id number] , [place] [phone] [facility] headache (chief complaint) Hemiplegic migraine, intractable, without status migrainosusChro seb migraine without aura, intractable, without status migrainosusChro seb pain syndromeBilater al primary osteoarthritis of kneePain in right kneePain in left kneeLong term (current) use of opiate analgesic Sep- 3 Melissa Varela, [address] [place], [address], [place]. [phone] OFFICE/OUTPAT IENT VISIT, [facility], [address] [place] [address], [id number] , [place] tel:[phone] [facility] headache (chief complaint) Hemiplegic migraine, intractable, without status migrainosusChro seb migraine without aura, intractable, without status migrainosusChro seb pain syndromeBilater al primary osteoarthritis of kneePain in right kneePain in left kneeLong term (current) use of opiate analgesicEncoun ter for therapeutic drug level monitoring 3 Melissa Postview, [address] [place], [address], [place]. tel:[phone] Referring Provider: Mendoza Schumacher, [address] [place], [address]. tel:[phone] [facility], [address], [place], [id number] , [place] tel:[phone] [facility] No Information Nov-0 3 Torres Kelvin. [place], [address] [place], [address], [place]. [phone] [facility], [address] [place] [address], [id number] , [place] [phone] [facility] Pain in right kneePain in left knee Sep-2 3 Barb Jeane. [address] [place] [address], [id number], [place]. tel:[phone] Referring Provider: Mendoza Schumacher, [address] [place] [address], [id number]. tel:[phone] OFFICE VISIT, EST TELEMEDICINE [facility], [address] [place] [address], [id number] , [place] tel:[phone] [facility] headache (chief complaint) Hemiplegic migraine, intractable, without status migrainosusChro seb migraine without aura, intractable, without status migrainosusChro seb pain syndromeBilater al primary osteoarthritis of kneeLong term (current) use of opiate analgesicPain in left kneePain in right knee Sep-1 3 Torres Kelvin. [place], [address] [place], [address], [place]. [phone] [facility], [address] [place] [address], [id number] , [place] tel:[phone] [facility] Pain in left kneePain in right knee Sep-0 3 Torres Kelvin. [place], [address] [place], [address], [place]. [phone] [facility], [address] [place] [address], [id number] , [place] tel: [phone] [facility] Pain in right kneePain in left knee Aug-3 3 Kokayejose Jeane. [address] [place] [address], [id number], [place]. tel:[phone] Referring Provider: Mendoza Schumacher, [address] [place] [address], [id number]. tel:[phone] OFFICE VISIT, EST TELEMEDICINE [facility], [address] [place] [address], [id number] , [place] [phone] [facility] headache (chief complaint) Hemiplegic migraine, intractable, without status migrainosusChro seb migraine without aura, intractable, without status migrainosusChro seb pain syndromeBilater al primary osteoarthritis of kneeLong term (current) use of opiate analgesic 3 Melissa Suazo [place], [address] [place], [address], [place]. tel:[phone] [facility], [address] [place] [address], [id number] , [place] [phone] [facility] Pain in left kneePain in right knee 3 Melissa Suazo [place], [address] [place], [address], [place]. [phone] [facility], [address] [place] [address], [id number] , [place] [phone] [facility] Bilateral primary osteoarthritis of knee 3 Barb Ching. [address] [place] [address], [id number], [place]. tel:[phone] Referring Provider: Mendoza Schumacher, [address] [place] [address], [id number]. tel:[phone] OFFICE/OUTPAT IENT VISIT, [facility], [address] [place] [address], [id number] , [place] [phone] [facility] headache (chief complaint) Hemiplegic migraine, intractable, without status migrainosusChro seb migraine without aura, intractable, without status migrainosusChro seb pain syndromeBilater al primary osteoarthritis of kneeLong term (current) use of opiate analgesic 3 Melissa [place], [address] [place], [address], [place]. tel:[phone] Referring Provider: Mendoza Schumacher, [address] [place] [address], [id number]. tel:[phone] OFFICE VISIT, [facility] TELEMEDICINE [facility], [address] [place] [address], [id number] , [place] tel:[phone] [facility] headache (chief complaint) Hemiplegic migraine, intractable, without status migrainosusChro seb migraine without aura, intractable, without status migrainosusChro seb pain syndromeLong term (current) use of opiate analgesicBilate ral primary osteoarthritis of knee February- 3 Melissa [place], [address] [place], [address], [place]. tel:[phone] Referring Provider: Mendoza Schumacher, [address] [place] [address], [id number]. tel:[phone] OFFICE VISIT, [facility], [address] [place] [address], [id number] , [place] tel:[phone] [facility] headache (chief complaint) Hemiplegic migraine, intractable, without status migrainosusChro seb migraine without aura, intractable, without status migrainosusChro seb pain syndromeLong term (current) use of opiate analgesic 3 Melissa Postview, [address] [place], [address], [place]. tel:[phone] Referring Provider: Mendoza Schumacher, [address] [place] [address], [id number]. tel:[phone] OFFICE/OUTPAT IENT VISIT, [facility], [address] [place] [address], [id number] , [place] tel:[phone] [facility] headache (chief complaint) Hemiplegic migraine, intractable, without status migrainosusChro seb migraine without aura, intractable, without status migrainosusChro seb pain syndromeLong term (current) use of opiate analgesic Dec-0 3 Melissa Postview, [address] [place], [address], [place]. tel:[phone] Referring Provider: Mendoza Schumacher, [address] [place] [address], [id number]. tel:[phone] [facility], [address] [place] [address], [id number] , [phone] [facility] No Information 3 Melissa Postview, [address] [place], [place], [facility], [place]. tel:[phone] Referring Provider: Mendoza Schumacher, [address] [place] [address], [id number]. tel:[phone] OFFICE VISIT, EST TELEMEDICINE [facility], [address] [place] [address], [id number] , [place] tel:[phone] [facility] headache (chief complaint) Hemiplegic migraine, intractable, without status migrainosusChro seb migraine without aura, intractable, without status migrainosusChro seb pain syndromeLong term (current) use of opiate analgesic 3 Melissa Postview, [address] [place], [address], [place]. tel:[phone] OFFICE/OUTPAT IENT VISIT, EST [facility], [address] [place] [address], [id number] , [place] tel: [phone] [facility] headache (chief complaint) Hemiplegic migraine, intractable, without status migrainosusChro seb migraine without aura, intractable, without status migrainosusChro seb pain syndromeLong term (current) use of opiate analgesicEncoun ter for screening for other disorder 2 Melissa Postview, [address] [place], [address], [place]. tel:[phone] Referring Provider: Mendoza Schumacher, [address] [place] [address], [id number]. tel:[phone] [facility], [address] [place] [address], [id number] , [place] tel:[phone] [facility] No Information Dec-0 2 Torres Kelvin. [place], [address] [place], [address], [place]. tel:[phone] OFFICE VISIT, [facility], [address] [place] [address], [id number] , [place] tel:[phone] [facility] headache (chief complaint) Hemiplegic migraine, intractable, without status migrainosusChro seb migraine without aura, intractable, without status migrainosusChro seb pain syndromeLong term (current) use of opiate analgesic Nov-0 2 Torres Kelvin. [place], [address] [place], [address], [place]. tel:[phone] Referring Provider: Mendoza Schumacher, [address] [place] [address], [id number]. tel:[phone] OFFICE VISIT, [facility], [address] [place] [address], [id number] , [place] tel:[phone] [facility] headache (chief complaint) Hemiplegic migraine, intractable, without status migrainosusChro seb migraine without aura, intractable, without status migrainosusChro seb pain syndromeLong term (current) use of opiate analgesic Sep-2 2 Torres Kelvin. [place], [address] [place], [address], [place]. [phone] OFFICE VISIT, [facility], [address] [place] [address], [id number] , [place] [phone] [facility] headache (chief complaint) Hemiplegic migraine, intractable, without status migrainosusChro seb migraine without aura, intractable, without status migrainosusChro seb pain syndromeLong term (current) use of opiate analgesic May- 2 Torres Kelvin. [place], [address] [place], [address], [place]. [phone] OFFICE/OUTPAT IENT VISIT, [facility], [address] [place] [address], [id number] , [place] tel:[phone] [facility] headache (chief complaint) Hemiplegic migraine, intractable, without status migrainosusChro seb migraine without aura, intractable, without status migrainosusChro seb pain syndromeLong term (current) use of opiate analgesic 2 Torres Kelvin. [place], [address] [place], [place], [facility], [place]. tel:[phone] Referring Provider: Mendoza Schumacher, [address] [place] [address], [id number]. tel:[phone] [facility], [address] [place] [address], [id number] , [place] tel:[phone] [facility] No Information 2 Torres Kelvin. [place], [address] [place], [address], [place]. tel:[phone] Referring Provider: Mendoza Schumacher, [address] [place] [address], [id number]. tel:[phone] OFFICE VISIT, EST TELEMEDICINE [facility], [address] [place] [address], [id number] , [place] tel:[phone] [facility] headache (chief complaint) Hemiplegic migraine, intractable, without status migrainosusChro seb migraine without aura, intractable, without status migrainosusChro seb pain syndromeLong term (current) use of opiate analgesic 2 Torres Kelvin. [place], [address] [place], [address], [place]. tel:[phone] Referring Provider: Mendoza Schumacher, [address] [place] [address], [id number]. tel:[phone] OFFICE VISIT, EST TELEMEDICINE [facility], [address] [place] [address], [id number] , [place] tel:[phone] [facility] Headache (chief complaint) Hemiplegic migraine, intractable, without status migrainosusChro seb migraine without aura, intractable, without status migrainosusChro seb pain syndromeLong term (current) use of opiate analgesic Apr-0 - 2 Torres Dan. [place], [address] [place], [place], [facility], [place]. tel:[phone] OFFICE VISIT, EST TELEMEDICINE [facility], [address] [place] [address], [id number] , [place] tel:[phone] [facility] headache (chief complaint) Chronic migraine without aura, intractable, without status migrainosusChro seb pain syndromeHemiple gic migraine, intractable, without status migrainosusLong term (current) use of opiate analgesic Mar-0 - 2 Torres Dan. [place], [address] [place], [place], [facility], [place]. [phone] [facility], [address] [place] [address], [id number] , [place] tel:[phone] [facility] Chronic migraine without aura, intractable, without status migrainosus Feb-0 4- 2 Melissa Varela, [address] [place], [address], [place]. tel:[phone] Referring Provider: Mendoza Schumacher, [address] [place] [address], [id number]. tel:[phone] OFFICE VISIT, [facility] [facility], [address] [place] [address], [id number] , [place] [phone] [facility] headache (chief complaint) Chronic pain syndromeHemiple gic migraine, intractable, without status migrainosusChro seb migraine without aura, intractable, without status migrainosusLong term (current) use of opiate analgesic Feb-0 2- 2 Melissa Postview, [address] [place], [address], [place]. tel:[phone] Referring Provider: Mendoza Schumacher, [address] [place] [address], [id number]. tel:[phone] OFFICE VISIT, EST [facility], [address] [place] [address], [id number] , [place] tel:[phone] [facility] headache (chief complaint) Chronic migraine without aura, intractable, without status migrainosusChro seb pain syndromeHemiple gic migraine, intractable, without status migrainosusLong term (current) use of opiate analgesic 1 Torresmima Postview, [address] [place], [address], [place]. tel:[phone] Referring Provider: Mendoza Schumacher, [address] [place] [address], [id number]. tel:[phone] OFFICE/OUTPAT IENT VISIT, EST [facility], [address] [place] [address], [id number] , [place] tel:[phone] [facility] Headache (chief complaint) headache (chief complaint) Chronic migraine without aura, intractable, without status migrainosusChro seb pain syndromeHemiple gic migraine, intractable, without status migrainosusLong term (current) use of opiate analgesic 1 Melissa Postview, [address] [place], [address], [place]. tel:[phone] Referring Provider: Mendoza Schumacher, [address] [place] [address], [id number]. tel:[phone] [facility], [address] [place] [address], [id number] , [place] tel:[phone] [facility] No Information 1 Torresmima Suazo [place], [address] [place], [address], [place]. tel:[phone] Referring Provider: Mendoza Schumacher, [address] [place] [address], [address]. tel:[phone] [facility], [address] [place] [address], [id number] , [place] tel:[phone] [facility] Chronic migraine without aura, intractable, without status migrainosus 1 Torressuzette Varela, [address] [place], [address], [place]. tel:[phone] Referring Provider: Mendoza Schumacher, [address] [place] [address], [address]. tel:[phone] OFFICE/OUTPAT IENT VISIT, [facility], [address] [place] [address], [id number] , [place] [phone] [facility] headache (chief complaint) Chronic pain syndromeHemiple gic migraine, intractable, without status migrainosusChro seb migraine without aura, intractable, without status migrainosusLong term (current) use of opiate analgesicNausea Anxiety 1 Melissa Postview, [address] [place], [address], [place]. tel:[phone] Referring Provider: Mendoza Schumacher, [address] [place] [address], [address]. tel:[phone] OFFICE/OUTPAT IENT VISIT, [facility], [address] [place] [address], [id number] , [place] [phone] [facility] headache (chief complaint) Chronic migraine without aura, intractable, without status migrainosusHemi plegic migraine, intractable, without status migrainosusChro seb pain syndromeLong term (current) use of opiate analgesicNausea Anxiety 1 Melissa Postview, [address] [place], [address], [place]. tel:[phone] Referring Provider: Mendoza Schumacher, [address] [place] [address], [id number]. tel:[phone] [place] [address], [address] [place] [address], [id number] , [place] tel:[phone] [facility] Chronic migraine without aura, intractable, without status migrainosus 1 Melissa Varela, [address] [place], [address], [place]. tel:[phone] Referring Provider: Mendoza Schumacher, [address] [place] [address], [id number]. tel:[phone] OFFICE/OUTPAT IENT VISIT, [facility], [address] [place] [address], [id number] , [place] [phone] [facility] Headache (chief complaint) Chronic migraine without aura, intractable, without status migrainosusHemi plegic migraine, intractable, without status migrainosusChro seb pain syndromeLong term (current) use of opiate analgesicNausea Anxiety 1 Torres Dan. [place], [address] [place], [place], [facility], [place]. tel:[phone] Referring Provider: Mendoza Schumacher, [address] [place] [address], [address]. tel:[phone] OFFICE/OUTPAT IENT VISIT, [facility], [address] [place] [address], [id number] , [place] [phone] [facility] Headache (chief complaint) Chronic migraine without aura, intractable, without status migrainosusHemi plegic migraine, intractable, without status migrainosusChro seb pain syndromeLong term (current) use of opiate analgesicNausea Anxiety 1 Torres Dan. [place], [address] [place], [place], [facility], [place]. tel:[phone] Referring Provider: Mendoza Schumacher, [address] [place] [address], [id number]. tel:[phone] [place] [address] [facility], [address] [place] [address], [id number] , [place] tel: [phone] [facility] Chronic migraine without aura, intractable, without status migrainosus 1 Torressuzette Suazo [place], [address] [place], [place], [facility], [place]. tel:[phone] Referring Provider: Mendoza Schumacher, [address] [place] [address], [address]. [phone] OFFICE VISIT, EST TELEMEDICINE [facility], [address] [place] [address], [id number] , [place] tel:[phone] [facility] Headache (chief complaint) Chronic migraine without aura, intractable, without status migrainosusHemi plegic migraine, intractable, without status migrainosusChro seb pain syndromeLong term (current) use of opiate analgesicNausea Anxiety 1 Melissa Suazo [place], [address] [place], [place], [facility], [place]. [phone] OFFICE VISIT, EST TELEMEDICINE [facility], [address] [place] [address], [id number] , [place] tel:[phone] [facility] Headache (chief complaint) Chronic migraine without aura, intractable, without status migrainosusHemi plegic migraine, intractable, without status migrainosusChro seb pain syndromeLong term (current) use of opiate analgesicNausea Anxiety 1 Melissa Suazo [place], [address] [place], [address], [place]. tel:[phone] Referring Provider: Mendoza Schumacher, [address] [place] [address], [address]. [phone] [facility], [address] [place] [address], [id number] , [place] [phone] [facility] Chronic migraine without aura, intractable, without status migrainosus 1 Melissa Suazo [place], [address] [place], [address], [place]. tel:[phone] Referring Provider: Mendoza Schumacher, [address] [place] [address], [address]. [phone] OFFICE VISIT, EST TELEMEDICINE [facility], [address] [place] [address], [id number] , [place] [phone] [facility] Headache (chief complaint) Chronic migraine w/o aura, intractable, w/o stat migrHemiplegic migraine, intractable, without status migrainosusChro seb pain syndromeLong term (current) use of opiate analgesicNausea Anxiety Dec-2 0 Melissa Suazo [place], [address] [place], [address], [place]. tel:[phone] Referring Provider: Mendoza Schumacher, [address] [place] [address], [address]. tel:[phone] OFFICE VISIT, [facility] TELEMEDICINE [facility], [address] [place] [address], [id number] , [place] tel:[phone] [facility] Headache (chief complaint) Chronic migraine w/o aura, intractable, w/o stat migrHemiplegic migraine, intractable, without status migrainosusChro seb pain syndromeLong term (current) use of opiate analgesicNausea Anxiety Nov-0 0 Melissa Warren. [place], [address] [place], [address], [place]. tel:[phone] Referring Provider: Mendoza Schumacher, [address] [place] [address], [address]. tel:[phone] [facility], [address] [place] [address], [id number] , [place] tel:[phone] [facility] Chronic migraine without aura, intractable, without status migrainosus Jul- 0 Melissa Postview, [address] [place], [address], [place]. tel:[phone] Referring Provider: Mendoza Schumacher, [address] [place] [address], [address]. tel:[phone] OFFICE/OUTPAT IENT VISIT, [facility], [address] [place] [address], [id number] , [place] tel:[phone] [facility] Headache (chief complaint) Chronic migraine w/o aura, intractable, w/o stat migrHemiplegic migraine, intractable, without status migrainosusChro seb pain syndromeLong term (current) use of opiate analgesicNausea Anxiety Sep-2 3-202 0 Melissa Postview, [address] [place], [address], [place]. tel:[phone] Referring Provider: Mendoza Schumacher, [address] [place] [address], [address]. tel:[phone] OFFICE/OUTPAT IENT VISIT, [facility], [address] [place] [address], [id number] , [place] tel:[phone] [facility] Headache (chief complaint) Chronic migraine w/o aura, intractable, w/o stat migrHemiplegic migraine, intractable, without status migrainosusChro seb pain syndromeLong term (current) use of opiate analgesicNausea Anxiety 0 Melissa Postview, [address] [place], [address], [place]. tel:[phone] Referring Provider: Mendoza Schumacher, [address] [place] [address], [address]. tel:[phone] OFFICE/OUTPAT IENT VISIT, [facility], [address] [place] [address], [id number] , [place] tel:[phone] [facility] Headache (chief complaint) Chronic migraine w/o aura, intractable, w/o stat migrHemiplegic migraine, intractable, without status migrainosusChro seb pain syndromeLong term (current) use of opiate analgesicNausea Anxiety 0 Melissa Postview, [address] [place], [address], [place]. tel:[phone] Referring Provider: Mendoza Schumacher, [address] [place] [address], [address]. tel:[phone] [facility], [address] [place] [address], [id number] , [place] tel:[phone] [facility] Chronic migraine w/o aura, intractable, w/o stat migr Apr- 0 Melissa Postview, [address] [place], [address], [place]. tel:[phone] Referring Provider: Mendoza Schumacher, [address] [place] [address], [address]. tel:[phone] [facility], [address] [place] [address], [id number] , [place] [phone] [facility] Migraine w/o aura, intractable, without status migrainosus 0 Torres Kelvin. [place], [address] [place], [address], [place]. tel:[phone] OFFICE VISIT, EST TELEMEDICINE [facility], [address] [place] [address], [id number] , [place] [phone] [facility] Headache (chief complaint) Hemiplegic migraine, intractable, without status migrainosusChro seb pain syndromeLong term (current) use of opiate analgesicAnxiet yNausea 0 Torres Kelvin. [place], [address] [place], [address], [place]. tel:[phone] Referring Provider: Mendoza Schumacher, [address] [place] [address], [address]. tel:[phone] OFFICE VISIT, EST TELEMEDICINE [facility], [address] [place] [address], [id number] , [place] tel:[phone] [facility] headache (chief complaint) Hemiplegic migraine, intractable, without status migrainosusChro seb pain syndromeLong term (current) use of opiate analgesic 0 Torres Kelvin. [place], [address] [place], [address], [place]. tel:[phone] Referring Provider: Mendoza Schumacher, [address] [place] [address], [address]. tel:[phone] OFFICE VISIT, EST TELEMEDICINE [facility], [address] [place] [address], [id number] , [place] tel:[phone] [facility] headache (chief complaint) Hemiplegic migraine, intractable, without status migrainosusChro seb pain syndromeLong term (current) use of opiate analgesic Jan-2 0 Torres Kelvin. [place], [address] [place], [address], [place]. tel:[phone] Referring Provider: Mendoza Schumacher, [address] [place] [address], [address]. tel:[phone] [place] [address] [facility], [address] [place] [address], [id number] , [place] tel:[phone] [facility] Hemiplegic migraine, intractable, without status migrainosus Dec-- 0 Torres Kelvin. [place], [address] [place], [address], [place]. tel:[phone] Referring Provider: Mendoza Schumacher, [address] [place] [address], [address]. tel:[phone] OFFICE/OUTPAT IENT VISIT, [facility], [address] [place] [address], [id number] , [place] tel:[phone] [facility] headache (chief complaint) Hemiplegic migraine, intractable, without status migrainosusLong term (current) use of opiate analgesicChroni c pain syndrome Fe- 0 Melissa Warren. [place], [address] [place], [address], [place]. tel:[phone] Referring Provider: Mendoza Schumacher, [address] [place] [address], [address]. tel:[phone] OFFICE/OUTPAT IENT VISIT, [facility], [address] [place] [address], [id number] , [place] tel:[phone] [facility] headache (chief complaint) Hemiplegic migraine, intractable, without status migrainosusLong term (current) use of opiate analgesicChroni c pain syndrome Oct- 0 Torres Kelvin. [place], [address] [place], [address], [place]. tel:[phone] Referring Provider: Mendoza Schumacher, [address] [place] [address], [address]. tel:[phone] [facility], [address] [place] [address], [id number] , [place] [phone] [facility] Hemiplegic migraine, intractable, without status migrainosus Dec- 9- 9 Torres Kelvin. [place], [address] [place], [address], [place]. tel:[phone] Referring Provider: Mendoza Schumacher, [address] [place] [address], [address]. [phone] OFFICE/OUTPAT IENT VISIT, [facility], [address] [place] [address], [id number] , [place] [phone] [facility] headache (chief complaint) halfway (current) use of opiate analgesicHemipl egic migraine, intractable, without status migrainosusChro seb pain syndrome Dec-0 5-201 9 Torres Kelvin. [place], [address] [place], [address], [place]. tel:[phone] Referring Provider: Mendoza Schumacher, [address] [place] [address], [address]. tel:[phone] OFFICE/OUTPAT IENT VISIT, [facility], [address] [place] [address], [id number] , [place] [phone] [facility] Headache (chief complaint) halfway (current) use of opiate analgesicHemipl egic migraine, intractable, without status migrainosusChro seb pain syndrome Nov-0 7-201 9 Torres Kelvin. [place], [address] [place], [address], [place]. tel:[phone] Referring Provider: Mendoza Schumacher, [address] [place] [address], [address]. tel:[phone] OFFICE/OUTPAT IENT VISIT, [facility], [address] [place] [address], [id number] , [place] tel:[phone] [facility] headache (chief complaint) Chronic pain syndromeHemiple gic migraine, intractable, without status migrainosusLong term (current) use of opiate analgesic Oct- 0- 9 Melissa Suazo [place], [address] [place], [address], [place]. tel:[phone] Referring Provider: Mendoza Schumacher, [address] [place] [address], [address]. [phone] [facility], [address] [place] [address], [id number] , [place] [phone] [facility] Hemiplegic migraine, intractable, without status migrainosus Sep- 9 Melissa Suazo [place], [address] [place], [address], [place]. tel:[phone] Referring Provider: Mendoza Schumacher, [address] [place] [address], [address]. tel:[phone] OFFICE/OUTPAT IENT VISIT, [facility], [address] [place] [address], [id number] , [place] [phone] [facility] headache (chief complaint) Chronic pain syndromeHemiple gic migraine, intractable, without status migrainosusLong term (current) use of opiate analgesicEncoun ter for therapeutic drug level monitoringAnxie ty Jun- 9 Melissa Postview, [address] [place], [address], [place]. tel:[phone] Referring Provider: Mendoza Schumacher, [address] [place] [address], [address]. tel:[phone] OFFICE/OUTPAT IENT VISIT, [facility], [address] [place] [address], [id number] , [place] tel:[phone] [facility] Headache (chief complaint) Chronic pain syndromeHemiple gic migraine, intractable, without status migrainosus 9 Catie Rodrigues. [facility], [address], [place], [address], [place]. tel:[phone] Referring Provider: Prabhakar Cho [facility] [address] [facility], [place], [address]. tel:[phone] Family History Family Member Type Diagnosis Age At Onset No Information Payers Payer name Insurance type Covered libertarian ID Authoriza tibright(s) [employer] [facility] Replacement [id number] Social History Type Description Quantity Date Captured Comments Alcohol Use Details Unknown Caffeine Use Details Unknown Tobacco Use Status No Information Smoking Status No Information Sex Female Chief Complaint And Reason For Visit No Information Reason For Referral Reason For Referral No Information Plan Of Treatment Date Type Action Status Goal OARS. Due on due Goal Tobacco Use. Due on 024 due Goal Height. Due on d ue Goal Medication Recon ciliation. Due on due Goal Zoster vaccine ( 1st). Due on due Goal Order Annual PT. Due on due Goal FIT-DNA. Due on due Goal Update Social Hi story. Due on due Goal CT-Colonography. Due on due Goal Hepatitis C scre ening. Due on due Goal AST (SGOT). Due on due Goal UDT. Due on due Goal ALT (SGPT). Due on due Goal Creatinine. Due on due Goal PHQ-9. Due on du e Goal HEEL NAILING MACHINE OPERATOR Paperwork. Due on due Goal Lipid panel. Due on due Goal Review Allergy L ist. Due on due Goal Weight. Due on d ue Goal FIT. Due on due Goal BUS STEWARD Scanned. Due on due Goal Unhealthy drug u se screening. Due on due Goal FIT-DNA. Due on due Goal Unhealthy drug u se screening. Due on due Goal Creatinine. Due on due Goal Tobacco Use. Due on due Goal AST (SGOT). Due on due Goal Order Annual PT. Due on due Goal PHQ-9. Due on du e Goal Medication Recon ciliation. Due on due Goal UDT. Due on due Goal Zoster vaccine ( 1st). Due on due Goal Hepatitis C scre ening. Due on due Goal Weight. Due on d ue Goal FIT. Due on due Goal BUS STEWARD Scanned. Due on due Goal Lipid panel. Due on due Goal Height. Due on d ue Goal CT-Colonography. Due on due Goal Update Social Hi story. Due on due Goal ALT (SGPT). Due on due Goal HEEL NAILING MACHINE OPERATOR Paperwork. Due on due Goal OARS. Due on due Goal Review Allergy L ist. Due on due Goal FIT-DNA. Due on due Goal Lipid panel. Due on due Goal Weight. Due on d ue Goal Unhealthy drug u se screening. Due on due Goal Tobacco Use. Due on due Goal CT-Colonography. Due on due Goal Zoster vaccine ( 1st). Due on due Goal Medication Recon ciliation. Due on due Goal FIT. Due on due Goal Update Social Hi story. Due on due Goal AST (SGOT). Due on due Goal Creatinine. Due on due Goal Hepatitis C scre ening. Due on due Goal Review Allergy L ist. Due on due Goal PHQ-9. Due on du e Goal HEEL NAILING MACHINE OPERATOR Paperwork. Due on due Goal ALT (SGPT). Due on due Goal Order Annual PT. Due on due Goal OARS. Due on due Goal UDT. Due on due Goal BUS STEWARD Scanned. Due on due Goal Height. Due on d ue Goal Lifestyle educat ion regarding diet completed Goal BUS STEWARD Scanned. Due on due Goal HEEL NAILING MACHINE OPERATOR Paperwork. Due on due Goal FIT. Due on due Goal Medication Recon ciliation. Due on due Goal OARS. Due on due Goal Order Annual PT. Due on due Goal Weight. Due on d ue Goal Zoster vaccine ( 1st). Due on due Goal Creatinine. Due on due Goal AST (SGOT). Due on due Goal UDT. Due on due Goal Lipid panel. Due on due Goal ALT (SGPT). Due on due Goal Height. Due on d ue Goal Hepatitis C scre ening. Due on due Goal PHQ-9. Due on du e Goal Unhealthy drug u se screening. Due on due Goal Review Allergy L ist. Due on due Goal Tobacco Use. Due on due Goal CT-Colonography. Due on due Goal Update Social Hi story. Due on due Goal FIT-DNA. Due on due Goal Unhealthy drug u se screening. Due on due Goal Height. Due on d ue Goal PHQ-9. Due on du e Goal Medication Recon ciliation. Due on due Goal Lipid panel. Due on due Goal Zoster vaccine ( 1st). Due on due Goal FIT. Due on due Goal Review Allergy L ist. Due on due Goal BUS STEWARD Scanned. Due on due Goal Tobacco Use. Due on due Goal Hepatitis C scre ening. Due on due Goal Creatinine. Due on due Goal HEEL NAILING MACHINE OPERATOR Paperwork. Due on due Goal Weight. Due on d ue Goal CT-Colonography. Due on due Goal OARS. Due on due Goal AST (SGOT). Due on due Goal UDT. Due on due Goal ALT (SGPT). Due on due Goal Update Social Hi story. Due on due Goal Order Annual PT. Due on due Goal FIT-DNA. Due on due Goal Order Annual PT. Due on due Goal Update Social Hi story. Due on due Goal UDT. Due on due Goal Weight. Due on d ue Goal ALT (SGPT). Due on due Goal AST (SGOT). Due on due Goal HEEL NAILING MACHINE OPERATOR Paperwork. Due on due Goal BUS STEWARD Scanned. Due on due Goal FIT. Due on due Goal Creatinine. Due on due Goal Review Allergy L ist. Due on due Goal Zoster vaccine ( 1st). Due on due Goal Tobacco Use. Due on due Goal Unhealthy drug u se screening. Due on due Goal Height. Due on d ue Goal Lipid panel. Due on due Goal FIT-DNA. Due on due Goal Hepatitis C scre ening. Due on due Goal PHQ-9. Due on du e Goal Medication Recon ciliation. Due on due Goal OARS. Due on due Goal CT-Colonography. Due on due Goal Lifestyle educat ion regarding diet completed Goal FIT-DNA. Due on due Goal CT-Colonography. Due on due Goal Update Social Hi story. Due on due Goal Weight. Due on d ue Goal AST (SGOT). Due on due Goal BUS STEWARD Scanned. Due on due Goal OARS. Due on due Goal HEEL NAILING MACHINE OPERATOR Paperwork. Due on due Goal Zoster vaccine ( 1st). Due on due Goal Order Annual PT. Due on due Goal Review Allergy L ist. Due on due Goal Lipid panel. Due on due Goal ALT (SGPT). Due on due Goal Creatinine. Due on due Goal UDT. Due on due Goal Height. Due on d ue Goal Unhealthy drug u se screening. Due on due Goal Hepatitis C scre ening. Due on due Goal FIT. Due on due Goal Medication Recon ciliation. Due on due Goal PHQ-9. Due on du e Goal Tobacco Use. Due on due Goal Weight. Due on d ue Goal Tobacco Use. Due on due Goal Medication Recon ciliation. Due on due Goal FIT. Due on due Goal HEEL NAILING MACHINE OPERATOR Paperwork. Due on due Goal Hepatitis C scre ening. Due on due Goal Unhealthy drug u se screening. Due on due Goal CT-Colonography. Due on due Goal Lipid panel. Due on due Goal Height. Due on d ue Goal PHQ-9. Due on du e Goal Zoster vaccine ( 1st). Due on due Goal Update Social Hi story. Due on due Goal FIT-DNA. Due on due Goal AST (SGOT). Due on due Goal OARS. Due on due Goal UDT. Due on due Goal Order Annual PT. Due on due Goal BUS STEWARD Scanned. Due on due Goal Creatinine. Due on due Goal ALT (SGPT). Due on due Goal Review Allergy L ist. Due on due Goal Tobacco Use. Due on due Goal FIT-DNA. Due on due Goal BUS STEWARD Scanned. Due on due Goal Update Social Hi story. Due on due Goal Order Annual PT. Due on due Goal Zoster vaccine ( 1st). Due on due Goal ALT (SGPT). Due on due Goal Lipid panel. Due on due Goal Creatinine. Due on due Goal OARS. Due on due Goal HEEL NAILING MACHINE OPERATOR Paperwork. Due on due Goal CT-Colonography. Due on due Goal Medication Recon ciliation. Due on due Goal Weight. Due on d ue Goal AST (SGOT). Due on due Goal FIT. Due on due Goal Review Allergy L ist. Due on due Goal UDT. Due on due Goal PHQ-9. Due on du e Goal Height. Due on d ue Goal Hepatitis C scre ening. Due on due Goal Unhealthy drug u se screening. Due on due Goal ALT (SGPT). Due on due Goal Order Annual PT. Due on due Goal OARS. Due on due Goal FIT-DNA. Due on due Goal Unhealthy drug u se screening. Due on due Goal HEEL NAILING MACHINE OPERATOR Paperwork. Due on due Goal Height. Due on d ue Goal Lipid panel. Due on 023 due Goal Hepatitis C scre ening. Due on due Goal UDT. Due on due Goal Zoster vaccine ( 1st). Due on due Goal CT-Colonography. Due on due Goal BUS STEWARD Scanned. Due on 023 due Goal FIT. Due on due Goal AST (SGOT). Due on due Goal Creatinine. Due on due Goal Weight. Due on d ue Goal PHQ-9. Due on du e Goal Tobacco Use. Due on due Goal Medication Recon ciliation. Due on due Goal Update Social Hi story. Due on due Goal Review Allergy L ist. Due on due Goal UDT. Due on due Goal ALT (SGPT). Due on due Goal Order Annual PT. Due on due Goal OARS. Due on due Goal Unhealthy drug u se screening. Due on due Goal FIT-DNA. Due on due Goal CT-Colonography. Due on due Goal FIT. Due on due Goal Height. Due on d ue Goal AST (SGOT). Due on due Goal Creatinine. Due on due Goal Hepatitis C scre ening. Due on due Goal Zoster vaccine ( 1st). Due on due Goal Lipid panel. Due on due Goal Update Social Hi story. Due on due Goal HEEL NAILING MACHINE OPERATOR Paperwork. Due on due Goal Medication Recon ciliation. Due on due Goal BUS STEWARD Scanned. Due on due Goal Tobacco Use. Due on due Goal PHQ-9. Due on du e Goal Review Allergy L ist. Due on due Goal Weight. Due on d ue Goal Tobacco Use. Due on due Goal FIT. Due on due Goal ALT (SGPT). Due on due Goal CT-Colonography. Due on due Goal HEEL NAILING MACHINE OPERATOR Paperwork. Due on due Goal AST (SGOT). Due on due Goal BUS STEWARD Scanned. Due on due Goal Creatinine. Due on due Goal Order Annual PT. Due on due Goal OARS. Due on due Goal Unhealthy drug u se screening. Due on due Goal Review Allergy L ist. Due on due Goal UDT. Due on due Goal Weight. Due on d ue Goal Zoster vaccine ( 1st). Due on due Goal Height. Due on d ue Goal Medication Recon ciliation. Due on due Goal Update Social Hi story. Due on due Goal PHQ-9. Due on du e Goal FIT-DNA. Due on due Goal Hepatitis C scre ening. Due on due Goal Lipid panel. Due on due Goal FIT-DNA. Due on due Goal Weight. Due on d ue Goal Height. Due on d ue Goal Hepatitis C scre ening. Due on due Goal AST (SGOT). Due on due Goal OARS. Due on due Goal BUS STEWARD Scanned. Due on due Goal Unhealthy drug u se screening. Due on due Goal CT-Colonography. Due on due Goal Order Annual PT. Due on due Goal ALT (SGPT). Due on due Goal UDT. Due on due Goal Tobacco Use. Due on due Goal Review Allergy L ist. Due on due Goal FIT. Due on due Goal Zoster vaccine ( 1st). Due on due Goal Medication Recon ciliation. Due on due Goal HEEL NAILING MACHINE OPERATOR Paperwork. Due on due Goal Update Social Hi story. Due on due Goal Lipid panel. Due on due Goal Creatinine. Due on due Goal PHQ-9. Due on du e Goal HEEL NAILING MACHINE OPERATOR Paperwork. Due on due Goal PHQ-9. Due on du e Goal Unhealthy drug u se screening. Due on due Goal Update Social Hi story. Due on due Goal Creatinine. Due on due Goal BUS STEWARD Scanned. Due on due Goal Tobacco Use. Due on due Goal Hepatitis C scre ening. Due on due Goal FIT-DNA. Due on due Goal CT-Colonography. Due on due Goal Weight. Due on d ue Goal AST (SGOT). Due on due Goal OARS. Due on due Goal Height. Due on d ue Goal ALT (SGPT). Due on due Goal Lipid panel. Due on due Goal Order Annual PT. Due on due Goal Zoster vaccine ( 1st). Due on due Goal UDT. Due on due Goal Medication Recon ciliation. Due on due Goal Review Allergy L ist. Due on due Goal FIT. Due on due Goal AST (SGOT). Due on due Goal FIT-DNA. Due on due Goal BUS STEWARD Scanned. Due on due Goal Order Annual PT. Due on due Goal OARS. Due on due Goal ALT (SGPT). Due on due Goal HEEL NAILING MACHINE OPERATOR Paperwork. Due on due Goal UDT. Due on due Goal Creatinine. Due on due Goal Medication Recon ciliation. Due on due Goal FIT. Due on due Goal CT-Colonography. Due on due Goal Weight. Due on d ue Goal PHQ-9. Due on du e Goal Zoster vaccine ( 1st). Due on due Goal Hepatitis C scre ening. Due on due Goal Height. Due on d ue Goal Lipid panel. Due on due Goal Update Social Hi story. Due on due Goal Tobacco Use. Due on due Goal Unhealthy drug u se screening. Due on due Goal Review Allergy L ist. Due on due Goal AST (SGOT). Due on due Goal ALT (SGPT). Due on due Goal OARS. Due on due Goal UDT. Due on due Goal FIT-DNA. Due on due Goal HEEL NAILING MACHINE OPERATOR Paperwork. Due on due Goal Weight. Due on d ue Goal Creatinine. Due on due Goal BUS STEWARD Scanned. Due on due Goal Order Annual PT. Due on due Goal CT-Colonography. Due on due Goal Lipid panel. Due on due Goal PHQ-9. Due on du e Goal Tobacco Use. Due on due Goal Update Social Hi story. Due on due Goal Unhealthy drug u se screening. Due on due Goal Zoster vaccine ( 1st). Due on due Goal Medication Recon ciliation. Due on due Goal Height. Due on d ue Goal Review Allergy L ist. Due on due Goal FIT. Due on due Goal Hepatitis C scre ening. Due on due Goal Order Annual PT. Due on due Goal Medication Recon ciliation. Due on due Goal AST (SGOT). Due on due Goal Lipid panel. Due on due Goal Weight. Due on d ue Goal Hepatitis C scre ening. Due on due Goal Height. Due on d ue Goal Creatinine. Due on due Goal FIT-DNA. Due on due Goal FIT. Due on due Goal OARS. Due on due Goal UDT. Due on due Goal Unhealthy drug u se screening. Due on due Goal Review Allergy L ist. Due on due Goal Update Social Hi story. Due on due Goal HEEL NAILING MACHINE OPERATOR Paperwork. Due on due Goal Zoster vaccine ( 1st). Due on due Goal BUS STEWARD Scanned. Due on due Goal ALT (SGPT). Due on due Goal Tobacco Use. Due on due Goal CT-Colonography. Due on due Goal PHQ-9. Due on du e Goal Hepatitis C scre ening. Due on due Goal FIT. Due on due Goal Weight. Due on d ue Goal FIT-DNA. Due on due Goal CT-Colonography. Due on due Goal HEEL NAILING MACHINE OPERATOR Paperwork. Due on due Goal UDT. Due on due Goal Order Annual PT. Due on due Goal BUS STEWARD Scanned. Due on due Goal Creatinine. Due on due Goal Review Allergy L ist. Due on due Goal Height. Due on d ue Goal Medication Recon ciliation. Due on due Goal Lipid panel. Due on due Goal Zoster vaccine ( 1st). Due on due Goal Tobacco Use. Due on due Goal PHQ-9. Due on du e Goal Update Social Hi story. Due on due Goal Unhealthy drug u se screening. Due on due Goal ALT (SGPT). Due on due Goal OARS. Due on due Goal AST (SGOT). Due on due Goal Weight. Due on d ue Goal Height. Due on d ue Goal Lipid panel. Due on due Goal Zoster vaccine ( 1st). Due on due Goal HEEL NAILING MACHINE OPERATOR Paperwork. Due on due Goal Order Annual PT. Due on due Goal Medication Recon ciliation. Due on due Goal Creatinine. Due on due Goal UDT. Due on due Goal Hepatitis C scre ening. Due on due Goal FIT. Due on due Goal OARS. Due on due Goal ALT (SGPT). Due on due Goal PHQ-9. Due on du e Goal Review Allergy L ist. Due on due Goal FIT-DNA. Due on due Goal Tobacco Use. Due on due Goal BUS STEWARD Scanned. Due on due Goal AST (SGOT). Due on due Goal Update Social Hi story. Due on due Goal Unhealthy drug u se screening. Due on due Goal CT-Colonography. Due on due Goal PHQ-9. Due on du e Goal Medication Recon ciliation. Due on due Goal Lipid panel. Due on due Goal Hepatitis C scre ening. Due on due Goal Update Social Hi story. Due on due Goal CT-Colonography. Due on due Goal Unhealthy drug u se screening. Due on due Goal FIT. Due on due Goal Review Allergy L ist. Due on due Goal Height. Due on d ue Goal OARS. Due on due Goal Weight. Due on d ue Goal AST (SGOT). Due on due Goal Creatinine. Due on due Goal FIT-DNA. Due on due Goal ALT (SGPT). Due on due Goal UDT. Due on due Goal Tobacco Use. Due on due Goal Zoster vaccine ( 1st). Due on due Goal HEEL NAILING MACHINE OPERATOR Paperwork. Due on due Goal Order Annual PT. Due on due Goal BUS STEWARD Scanned. Due on due Goal HEEL NAILING MACHINE OPERATOR Paperwork. Due on due Goal UDT. Due on due Goal ALT (SGPT). Due on due Goal AST (SGOT). Due on due Goal Creatinine. Due on due Goal OARS. Due on due Goal Review Allergy L ist. Due on due Goal Medication Recon ciliation. Due on due Goal Height. Due on d ue Goal FIT-DNA. Due on due Goal Weight. Due on d ue Goal Zoster vaccine ( 1st). Due on due Goal Tobacco Use. Due on due Goal Order Annual PT. Due on due Goal BUS STEWARD Scanned. Due on due Goal Hepatitis C scre ening. Due on due Goal Unhealthy drug u se screening. Due on due Goal Update Social Hi story. Due on due Goal PHQ-9. Due on du e Goal FIT. Due on due Goal Lipid panel. Due on due Goal CT-Colonography. Due on due Goal PHQ-9. Due on du e Goal BUS STEWARD Scanned. Due on due Goal Zoster vaccine ( 1st). Due on due Goal AST (SGOT). Due on due Goal Creatinine. Due on due Goal Medication Recon ciliation. Due on due Goal Review Allergy L ist. Due on due Goal Update Social Hi story. Due on due Goal FIT. Due on due Goal Hepatitis C scre ening. Due on due Goal HEEL NAILING MACHINE OPERATOR Paperwork. Due on due Goal Weight. Due on d ue Goal Height. Due on d ue Goal CT-Colonography. Due on due Goal Tobacco Use. Due on due Goal OARS. Due on due Goal Order Annual PT. Due on due Goal UDT. Due on due Goal Unhealthy drug u se screening. Due on due Goal ALT (SGPT). Due on due Goal FIT-DNA. Due on due Goal Lipid panel. Due on due Goal Hepatitis C scre ening. Due on due Goal FIT. Due on due Goal Weight. Due on d ue Goal AST (SGOT). Due on due Goal BUS STEWARD Scanned. Due on due Goal Creatinine. Due on due Goal Update Social Hi story. Due on due Goal OARS. Due on due Goal Lipid panel. Due on due Goal ALT (SGPT). Due on due Goal Medication Recon ciliation. Due on due Goal CT-Colonography. Due on due Goal UDT. Due on due Goal Review Allergy L ist. Due on due Goal Order Annual PT. Due on due Goal PHQ-9. Due on du e Goal Tobacco Use. Due on due Goal Zoster vaccine ( 1st). Due on due Goal HEEL NAILING MACHINE OPERATOR Paperwork. Due on due Goal Unhealthy drug u se screening. Due on due Goal Height. Due on d ue Goal FIT-DNA. Due on due Goal Unhealthy drug u se screening. Due on due Goal FIT. Due on due Goal Height. Due on d ue Goal Review Allergy L ist. Due on due Goal ALT (SGPT). Due on due Goal Hepatitis C scre ening. Due on due Goal Medication Recon ciliation. Due on due Goal FIT-DNA. Due on due Goal BUS STEWARD Scanned. Due on due Goal Update Social Hi story. Due on due Goal AST (SGOT). Due on due Goal Creatinine. Due on due Goal Order Annual PT. Due on due Goal Tobacco Use. Due on due Goal HEEL NAILING MACHINE OPERATOR Paperwork. Due on due Goal UDT. Due on due Goal Weight. Due on d ue Goal OARS. Due on due Goal Zoster vaccine ( 1st). Due on due Goal PHQ-9. Due on du e Goal Lipid panel. Due on due Goal CT-Colonography. Due on due Goal Unhealthy drug u se screening. Due on due Goal AST (SGOT). Due on due Goal UDT. Due on due Goal Lipid panel. Due on due Goal PHQ-9. Due on du e Goal FIT-DNA. Due on due Goal Medication Recon ciliation. Due on due Goal Zoster vaccine ( 1st). Due on due Goal CT-Colonography. Due on due Goal ALT (SGPT). Due on due Goal Height. Due on d ue Goal Update Social Hi story. Due on due Goal HEEL NAILING MACHINE OPERATOR Paperwork. Due on due Goal Order Annual PT. Due on due Goal OARS. Due on due Goal BUS STEWARD Scanned. Due on due Goal Weight. Due on d ue Goal Hepatitis C scre ening. Due on due Goal Review Allergy L ist. Due on due Goal FIT. Due on due Goal Creatinine. Due on due Goal Tobacco Use. Due on due Goal Tobacco Use. Due on due Goal Lipid panel. Due on due Goal Update Social Hi story. Due on due Goal Review Allergy L ist. Due on due Goal FIT-DNA. Due on due Goal Weight. Due on d ue Goal Medication Recon ciliation. Due on due Goal Zoster vaccine ( 1st). Due on due Goal HEEL NAILING MACHINE OPERATOR Paperwork. Due on due Goal AST (SGOT). Due on due Goal UDT. Due on due Goal OARS. Due on due Goal ALT (SGPT). Due on due Goal BUS STEWARD Scanned. Due on due Goal Creatinine. Due on due Goal Order Annual PT. Due on due Goal CT-Colonography. Due on due Goal Hepatitis C scre ening. Due on due Goal Unhealthy drug u se screening. Due on due Goal Height. Due on d ue Goal PHQ-9. Due on du e Goal FIT. Due on due Goal Hepatitis C scre ening. Due on due Goal BUS STEWARD Scanned. Due on due Goal AST (SGOT). Due on due Goal OARS. Due on due Goal Height. Due on d ue Goal UDT. Due on due Goal FIT-DNA. Due on due Goal HEEL NAILING MACHINE OPERATOR Paperwork. Due on due Goal Review Allergy L ist. Due on due Goal Order Annual PT. Due on due Goal Tobacco Use. Due on due Goal FIT. Due on due Goal CT-Colonography. Due on due Goal Medication Recon ciliation. Due on due Goal Lipid panel. Due on due Goal Creatinine. Due on due Goal PHQ-9. Due on du e Goal Weight. Due on d ue Goal Unhealthy drug u se screening. Due on due Goal ALT (SGPT). Due on due Goal Zoster vaccine ( ). Due on due Goal Update Social Hi story. Due on due Goal Hepatitis C scre ening. Due on due Goal Height. Due on d ue Goal Review Allergy L ist. Due on due Goal CT-Colonography. Due on due Goal Unhealthy drug u se screening. Due on due Goal Weight. Due on d ue Goal Update Social Hi story. Due on due Goal Zoster vaccine ( ). Due on due Goal FIT-DNA. Due on due Goal FIT. Due on due Goal PHQ-9. Due on du e Goal ALT (SGPT). Due on due Goal UDT. Due on due Goal OARS. Due on due Goal AST (SGOT). Due on due Goal Tobacco Use. Due on due Goal Medication Recon ciliation. Due on due Goal HEEL NAILING MACHINE OPERATOR Paperwork. Due on due Goal BUS STEWARD Scanned. Due on due Goal Creatinine. Due on due Goal Order Annual PT. Due on due Goal Lipid panel. Due on due Goal Hepatitis C scre ening. Due on due Goal CT-Colonography. Due on due Goal Medication Recon ciliation. Due on due Goal Lipid panel. Due on due Goal ALT (SGPT). Due on due Goal OARS. Due on due Goal Order Annual PT. Due on due Goal AST (SGOT). Due on due Goal Creatinine. Due on due Goal Height. Due on d ue Goal Review Allergy L ist. Due on due Goal FIT-DNA. Due on due Goal Unhealthy drug u se screening. Due on due Goal Zoster vaccine ( 1st). Due on due Goal BUS STEWARD Scanned. Due on due Goal Update Social Hi story. Due on due Goal UDT. Due on due Goal Weight. Due on d ue Goal Tobacco Use. Due on due Goal PHQ-9. Due on du e Goal FIT. Due on due Goal HEEL NAILING MACHINE OPERATOR Paperwork. Due on due Goal Hepatitis C scre ening. Due on due Goal Creatinine. Due on due Goal HEEL NAILING MACHINE OPERATOR Paperwork. Due on due Goal Order Annual PT. Due on due Goal Lipid panel. Due on due Goal FIT-DNA. Due on due Goal FIT. Due on due Goal Unhealthy drug u se screening. Due on due Goal Review Allergy L ist. Due on due Goal Zoster vaccine ( 1st). Due on due Goal ALT (SGPT). Due on due Goal PHQ-9. Due on du e Goal Update Social Hi story. Due on due Goal CT-Colonography. Due on due Goal Height. Due on d ue Goal Medication Recon ciliation. Due on due Goal Weight. Due on d ue Goal Tobacco Use. Due on due Goal UDT. Due on due Goal OARS. Due on due Goal AST (SGOT). Due on due Goal BUS STEWARD Scanned. Due on due Goal UDT. Due on due Goal AST (SGOT). Due on due Goal Update Social Hi story. Due on due Goal Weight. Due on d ue Goal ALT (SGPT). Due on due Goal FIT. Due on due Goal BUS STEWARD Scanned. Due on due Goal Creatinine. Due on due Goal OARS. Due on due Goal Order Annual PT. Due on due Goal CT-Colonography. Due on due Goal Hepatitis C scre ening. Due on due Goal Tobacco Use. Due on due Goal HEEL NAILING MACHINE OPERATOR Paperwork. Due on due Goal Review Allergy L ist. Due on due Goal Unhealthy drug u se screening. Due on due Goal PHQ-9. Due on du e Goal Height. Due on d ue Goal Medication Recon ciliation. Due on due Goal Lipid panel. Due on due Goal Zoster vaccine ( ). Due on due Goal FIT-DNA. Due on due Goal Order Annual PT. Due on due Goal FIT. Due on due Goal Creatinine. Due on due Goal Unhealthy drug u se screening. Due on due Goal HEEL NAILING MACHINE OPERATOR Paperwork. Due on due Goal ALT (SGPT). Due on due Goal Hepatitis C scre ening. Due on due Goal Tobacco Use. Due on due Goal UDT. Due on due Goal OARS. Due on due Goal Height. Due on d ue Goal BUS STEWARD Scanned. Due on due Goal CT-Colonography. Due on due Goal Weight. Due on d ue Goal AST (SGOT). Due on due Goal FIT-DNA. Due on due Goal Update Social Hi story. Due on due Goal Lipid panel. Due on due Goal Zoster vaccine ( ). Due on due Goal PHQ-9. Due on du e Goal Medication Recon ciliation. Due on due Goal Review Allergy L ist. Due on due Goal Order Annual PT. Due on due Goal Update Social Hi story. Due on due Goal Lipid panel. Due on due Goal PHQ-9. Due on du e Goal Review Allergy L ist. Due on due Goal Medication Recon ciliation. Due on due Goal Height. Due on d ue Goal CT-Colonography. Due on due Goal Unhealthy drug u se screening. Due on due Goal FIT-DNA. Due on due Goal FIT. Due on due Goal Weight. Due on d ue Goal Tobacco Use. Due on due Goal Creatinine. Due on due Goal ALT (SGPT). Due on due Goal OARS. Due on due Goal AST (SGOT). Due on due Goal UDT. Due on due Goal BUS STEWARD Scanned. Due on due Goal Hepatitis C scre ening. Due on due Goal Zoster vaccine ( 1st). Due on due Goal HEEL NAILING MACHINE OPERATOR Paperwork. Due on due Goal ALT (SGPT). Due on due Goal OARS. Due on due Goal Order Annual PT. Due on due Goal UDT. Due on due Goal HEEL NAILING MACHINE OPERATOR Paperwork. Due on due Goal Creatinine. Due on due Goal BUS STEWARD Scanned. Due on due Goal AST (SGOT). Due on due Goal Review Allergy L ist. Due on due Goal Tobacco Use. Due on due Goal PHQ-9. Due on du e Goal Medication Recon ciliation. Due on due Goal Height. Due on d ue Goal Update Social Hi story. Due on due Goal Weight. Due on d ue Goal UDT. Due on due Goal Review Allergy L ist. Due on due Goal Tobacco Use. Due on due Goal AST (SGOT). Due on due Goal HEEL NAILING MACHINE OPERATOR Paperwork. Due on due Goal ALT (SGPT). Due on due Goal BUS STEWARD Scanned. Due on due Goal OARS. Due on due Goal Order Annual PT. Due on due Goal Weight. Due on d ue Goal Update Social Hi story. Due on due Goal Medication Recon ciliation. Due on due Goal Height. Due on d ue Goal PHQ-9. Due on du e Goal Creatinine. Due on due Goal PHQ-9. Due on du e Goal Review Allergy L ist. Due on due Goal Medication Recon ciliation. Due on due Goal HEEL NAILING MACHINE OPERATOR Paperwork. Due on due Goal Order Annual PT. Due on due Goal Update Social Hi story. Due on due Goal Tobacco Use. Due on due Goal OARS. Due on due Goal AST (SGOT). Due on due Goal ALT (SGPT). Due on due Goal Height. Due on d ue Goal Weight. Due on d ue Goal UDT. Due on due Goal Creatinine. Due on due Goal BUS STEWARD Scanned. Due on due Goal Weight. Due on d ue Goal HEEL NAILING MACHINE OPERATOR Paperwork. Due on due Goal PHQ-9. Due on du e Goal OARS. Due on due Goal Height. Due on d ue Goal UDT. Due on due Goal Tobacco Use. Due on due Goal Order Annual PT. Due on due Goal Update Social Hi story. Due on due Goal BUS STEWARD Scanned. Due on due Goal ALT (SGPT). Due on due Goal Medication Recon ciliation. Due on due Goal Review Allergy L ist. Due on due Goal AST (SGOT). Due on due Goal Creatinine. Due on due Goal OARS. Due on due Goal ALT (SGPT). Due on due Goal PHQ-9. Due on du e Goal BUS STEWARD Scanned. Due on due Goal Creatinine. Due on due Goal Order Annual PT. Due on due Goal Height. Due on d ue Goal Tobacco Use. Due on due Goal Weight. Due on d ue Goal UDT. Due on due Goal AST (SGOT). Due on due Goal HEEL NAILING MACHINE OPERATOR Paperwork. Due on due Goal Update Social Hi story. Due on due Goal Review Allergy L ist. Due on due Goal Medication Recon ciliation. Due on due Goal Tobacco Use. Due on due Goal ALT (SGPT). Due on due Goal UDT. Due on due Goal Medication Recon ciliation. Due on due Goal HEEL NAILING MACHINE OPERATOR Paperwork. Due on due Goal Height. Due on d ue Goal Review Allergy L ist. Due on due Goal BUS STEWARD Scanned. Due on due Goal Update Social Hi story. Due on due Goal Creatinine. Due on due Goal OARS. Due on due Goal Order Annual PT. Due on due Goal PHQ-9. Due on du e Goal AST (SGOT). Due on due Goal Weight. Due on d ue Goal PHQ-9. Due on du e Goal Weight. Due on d ue Goal OARS. Due on due Goal Creatinine. Due on due Goal ALT (SGPT). Due on due Goal Medication Recon ciliation. Due on due Goal UDT. Due on due Goal Order Annual PT. Due on due Goal Review Allergy L ist. Due on due Goal BUS STEWARD Scanned. Due on due Goal Update Social Hi story. Due on due Goal Tobacco Use. Due on due Goal HEEL NAILING MACHINE OPERATOR Paperwork. Due on due Goal Height. Due on d ue Goal AST (SGOT). Due on due Goal Update Social Hi story. Due on due Goal Order Annual PT. Due on due Goal BUS STEWARD Scanned. Due on due Goal Tobacco Use. Due on due Goal OARS. Due on due Goal UDT. Due on due Goal HEEL NAILING MACHINE OPERATOR Paperwork. Due on due Goal Weight. Due on d ue Goal Creatinine. Due on due Goal PHQ-9. Due on du e Goal AST (SGOT). Due on due Goal Height. Due on d ue Goal ALT (SGPT). Due on due Goal Medication Recon ciliation. Due on due Goal Review Allergy L ist. Due on due Goal Height. Due on d ue Goal AST (SGOT). Due on due Goal Update Social Hi story. Due on due Goal UDT. Due on due Goal Order Annual PT. Due on due Goal Weight. Due on d ue Goal Review Allergy L ist. Due on due Goal Creatinine. Due on due Goal OARS. Due on due Goal BUS STEWARD Scanned. Due on due Goal HEEL NAILING MACHINE OPERATOR Paperwork. Due on due Goal Tobacco Use. Due on due Goal PHQ-9. Due on du e Goal Medication Recon ciliation. Due on due Goal ALT (SGPT). Due on due Goal ALT (SGPT). Due on due Goal Height. Due on d ue Goal UDT. Due on due Goal OARS. Due on due Goal Tobacco Use. Due on due Goal Medication Recon ciliation. Due on due Goal Review Allergy L ist. Due on due Goal Creatinine. Due on due Goal Order Annual PT. Due on due Goal PHQ-9. Due on du e Goal Weight. Due on d ue Goal AST (SGOT). Due on due Goal HEEL NAILING MACHINE OPERATOR Paperwork. Due on due Goal BUS STEWARD Scanned. Due on due Goal Update Social Hi story. Due on due Goal Update Social Hi story. Due on due Goal AST (SGOT). Due on due Goal OARS. Due on due Goal PHQ-9. Due on du e Goal Order Annual PT. Due on due Goal Weight. Due on d ue Goal Medication Recon ciliation. Due on due Goal Review Allergy L ist. Due on due Goal ALT (SGPT). Due on due Goal Tobacco Use. Due on due Goal BUS STEWARD Scanned. Due on due Goal UDT. Due on due Goal Height. Due on d ue Goal HEEL NAILING MACHINE OPERATOR Paperwork. Due on due Goal Creatinine. Due on due Goal HEEL NAILING MACHINE OPERATOR Paperwork. Due on due Goal BUS STEWARD Scanned. Due on due Goal AST (SGOT). Due on due Goal UDT. Due on due Goal PHQ-9. Due on du e Goal Weight. Due on d ue Goal ALT (SGPT). Due on due Goal Creatinine. Due on 21 due Goal Tobacco Use. Due on 021 due Goal OARS. Due on due Goal Order Annual PT. Due on due Goal Review Allergy L ist. Due on due Goal Medication Recon ciliation. Due on due Goal Height. Due on d ue Goal Update Social Hi story. Due on due Referral Ordered: Shahab Young MD -Allopathic & Osteopathic Physicians : Family Medicine (related to Hemiplegic migraine, intractable, without status migrainosus) ordered Referral Referred To: Shahab Young MD [address] [place], [place], [id number] Ordered: Referrals: Allopathic & Osteopathic Physicians : Family Medicine. Shahab Young MD ordered Future Order: Radiology Order MR Shoulder WO Right ([id number]), Body Site: Patient requests IV sedation., Sent on: Sent Future Order: Radiology Order MR Shoulder WO Right ([id number]), Body Site: Patient requests IV sedation., Sent on: Sent Future Order: Lab Order Drug Ling t Def 22+ Classes (G0483), Ordered on: Ordered Future Order: Lab Order Drug Ling t Def 22+ Classes (G0483), Ordered on: Ordered Future Order: Lab Order COMPLIAN CE DRUG ANALYSIS, URINE, WITH MED REPORT ([id number]), Ordered on: Ordered History Of Present Illness Encounter Date Complaint History Of Prese nt Illness Comments: This i s my first evaluation of the patient, previously followed by Kelvin Torres PA-C. Previous clinic notes, records, and imaging reviewed.Kari presents virtually for a follow up and medication refill. Patient c/o chronic hemiplegic migraine pain. DE SOUZA pain has been overall stable this past month, although does report a recent hemoplegic migraine on 07/12/24. Had tried taking Ubrelvy after she got the migraine, but didn't find benefit. Was only provided two tabs of Ubrelvy to sample. Has found Demerol to be the most beneficial for abortive therapy previously, but hasn't found a provider to take this over. Has an appt with [facility] to discuss this in 2 weeks.States she typically takes Percocet when she believes she will have a migraine.Medication provides significant pain relief and allows for increased functionality per patient intake. Denies side effects from current medication regimen. No other concerns today. headache Severity: 0. Dur ation: chronic. The problem is unchanged. Comments: This i s my first evaluation of the patient, previously followed by Kelvin Torres PA-C. Previous clinic notes, imaging, and records reviewed.-Describes a hemiplegic migraine, which starts as numbness in her hand or face, followed by severe head and face pain. Previously used Demerol for migraine abortive therapy. -Started Aimovig in April, Last hemiplegic migraine in February, but states that she has barely left her house due to the fear of getting a migraine and not having Demerol available. -Saw. Dr. Paredes at [facility], who may be willing to continue Demerol. -Patient received a RX of Ubrelvly to trial fro Dr. Paredes, has yet to trial, but plans to do so. -Currently has no pain when she doesn't have a headache. Takes a Percocet with the start of a migraine, uses only PRN. -No other concerns today. headache Severity: 0. It occurs intermittently. Duration: chronic. Symptom is aggravated by everything. Relieving factors include heat, prescription drugs, rest and darkness. Pertinent negatives include fever, nausea and vomiting. headache Severity: 6. It occurs constantly, has chronic duration, and is unchanged. Location is entire head. Comments: Jana sharif presents virtually for a follow up and medication refill. Patient c/o chronic hemiplegic migraine pain. DE SOUZA pain has been overall stable this past month. Reports 2 migraines since she was last seen on 03/03 and 04/14.States that she was able to manage her migraine on 03/03 with her last dose of Demerol, but her 04/14 migraine was torture as she did not have any remaining and [facility] can no longer rx her Demerol. States half of her body went numb and she was in so much pain, she was unable to think clearly and call someone to bring her to the hospital. Reports taking some Percocet with benefit after ~3 hours. Is grateful to have her Percocet, but it is not as quick-acting as Demerol. Following her episode she was sick for 3 days. States she dose not leave her apartment now d/t fear of the onset of a migraine and not having her Demerol for rescue therapy. She has been managed on Demerol since 1971 and has been in and out of the ER since she was 15 d/t her migraines. She was unsuccessful in finding a specialist to take over her Demerol, but she is still searching.Follow up with her neurologist and was started on Emovig. Is unsure of the benefit yet because she has only had one dose.Medication provides significant pain relief and allows for increased functionality per patient intake. Presents with a surplus of the prescribed medication. Is understanding that she needs to follow up more routinely per her [facility] contract for her Percocet. Denies side effects from current medication regimen. No other concerns today. headache Severity: 8. It occurs constantly, has chronic duration, and is unchanged. Comments: Jana sharif presents virtually for a follow up and medication refill. Patient c/o chronic hemiplegic migraine pain. DE SOUZA pain has been overall stable this past month. Reports 1 migraine this month on 01/06/24 following her Botox treatment.S/p right knee joint injection on 11/09/23 with significant relief. Discussed with patient that we will no longer manage her Demerol. Informed her that she will need to establish with another pain clinic in order to continue otherwise she will have to see urgent care when she has severe headaches for rescue therapy. Of note, she has been managed on Demerol since 1971 and has been in and out of the ER since she was 15 d/t her migraines.Medication provides significant pain relief and allows for increased functionality per patient intake. Presents with a surplus of the prescribed medication. Denies side effects from current medication regimen. No other concerns today. headache Severity: 7. It occurs constantly, has chronic duration, and is worse. Location is right shoulder. Symptom is aggravated by lying down. Relieving factors include heat and prescription drugs. Pertinent negatives include fever, nausea and vomiting. Comments: Jana sharif presents in clinic for a follow a up and medication refill. Patient c/o chronic hemiplegic migraine pain. DE SOUZA pain has been worse over the past month. Reports 2 migraines this month on 11/12 and 11/23.States she went to urgent care on 12/14 because of a jabbing pain in her shoulder. Notes it feels like a there's a needle sticking in to the area. Was given prednisone but was fearful of taking it d/t her migraines. Interested in TPIs with steroid in the area today and will complete imaging. Of note, she will need IV sedation for an MRI.S/p right knee joint injection on 11/09/23 with significant relief. Medication provides 90% pain relief and allows for increased functionality per patient intake. Presents with a surplus of the prescribed medication. Denies side effects from current medication regimen. No other concerns today. Comments: Jana sharif presents via [facility] today for virtual follow a up and medication refill. Patient c/o chronic hemiplegic migraine pain. DE SOUZA pain has overall stable over the past month with no migraines to report.S/p BL genicular nerve RFA on 07/08/23 reports significant relief with pain free ROM and better ambulation to her left knee. Now her right knee has started to become bothersome. Endorses swelling and pain radiating up through the back of her thigh. Agreeable to pursue a right knee joint injection and right knee DE SOUZA injection one series.Medication provides 95% pain relief and allows for increased functionality per patient intake. Presents with a surplus of the prescribed medication. Denies side effects from current medication regimen. No other concerns today. headache Severity: 6. It occurs constantly, has chronic duration, and is unchanged. Location is entire head. headache Severity: 3. It occurs constantly, has chronic duration, and is unchanged. Location is head. Comments: Jana sharif presents via [facility] today for virtual follow a up and medication refill. Patient c/o chronic hemiplegic migraine pain. DE SOUZA pain has overall stable over the past month, besides one migraine on 08/18/23 for which she had to use her Demerol.She has Botox scheduled for later this month through her neurologist.S/p BL genicular nerve RFA on 07/08/23 reports significant relief with pain free ROM and better ambulation.Medication provides 90% pain relief and allows for increased functionality per patient intake. Presents with a surplus of the prescribed medication. Denies side effects from current medication regimen. No other concerns today. Comments: Jana sharif presents in clinic today for follow a up and medication refill. Patient c/o chronic hemiplegic migraine pain. DE SOUZA pain has overall stable over the past month, besides one migraine on 07/11/23.S/p BL genicular nerve RFA on 07/08/23 reports significant relief now that the post-procedural has subsided. States it was painful for a few days after but she now has pain free ROM and can ambulate much better. The burning sensation has also subsided.Of note, she presents today with increased swelling and soreness in BLE. States the onset correlates with when she started taking metoprolol and she plans to see her PCP again to adjust her dose or d/c it.Medication provides 90% pain relief and allows for increased functionality per patient intake. Presents with a surplus of the prescribed medication. Denies side effects from current medication regimen. No other concerns today. headache Severity: 6. Dur ation: chronic. The problem is unchanged. Pertinent negatives include fever, nausea and vomiting. Comments: Jana sharif presents virtually for follow up and medication refill. Patient c/o chronic hemiplegic migraine pain. DE SOUZA pain has been stable since last visit, but her knees have been bothersome. No migraines to report.Continues to feel an increase in pain and swelling in her bilateral knees (R>L) and states the pain impacts her sleep. Pain is described as burning sensation. S/p confirmatory genicular nerve RFW on 06/10/23 reports >80% relief. She has her BL genicular nerve RFA scheduled for 07/08/23 which she is looking forward to.Medication provides 90% pain relief and allows for increased functionality per patient intake. Presents with a surplus of the prescribed medication. Denies side effects from current medication regimen. No other concerns today. headache Severity: 3. It occurs constantly, has chronic duration, and is unchanged. Location is knees and hips. headache Severity: 2. It occurs constantly, has chronic duration, and is unchanged. Comments: Jana sharif presents virtually for follow up and medication refill. Patient c/o chronic hemiplegic migraine pain. DE SOUZA pain has been stable since last visit, but her knees have been bothersome. No migraines to report.Continues to feel an increase in pain and swelling in her bilateral knees (R>L) and states the pain impacts her sleep. Pain is described as burning sensation. S/p diagnostic genicular nerve RFW reports >80% relief. She is looking forward to her confirmatory.Medication provides 90% pain relief and allows for increased functionality per patient intake. Presents on track with prescribed medication. Denies side effects from current medication regimen. No other concerns today. headache Duration: chroni c. Symptom is aggravated by bending and lying down. Relieving factors include heat and ice. Pertinent negatives include fever, nausea and vomiting. Comments: Jana sharif presents in clinic follow up and medication refill. Patient c/o chronic hemiplegic migraine pain. Pain has been stable since last visit, however, she notes 2 bad migraines since [facility]. She completed her last Botox on 03/17 and reports the onset of a hemiplegic migraine 2 days later on 03/19. Most recent headache happened over the 13 of April weekend.Continues to feel an increase in pain and swelling in her bilateral knees (R>L) and states the pain impacts her sleep. Pain is described as burning sensation. She has previously followed with an orthopedic clinic in [place] and has had knee injections done with them in the past. Open to pursuing genicular nerve ablation.Medication provides significant pain relief and allows for increased functionality per patient intake. Presents on track with prescribed medication. Requests refill of Demerol. Denies side effects from current medication regimen. No other concerns today. headache Severity: 1. Dur ation: chronic. The problem is unchanged. Pertinent negatives include fever, nausea and vomiting. Comments: Jana sharif presents for virtual follow up and medication refill. Patient c/o chronic hemiplegic migraine pain. Pain has been stable since last visit, however, she notes she had a hemiplegic migraine earlier this morning and had to utilize Demerol.Notes she's had an increase in pain and swelling in her bilateral knees (R>L) of late and states the pain impacts her sleep. She has previously followed with an orthopedic clinic in [place] and has had knee injections done with them in the past. She is open to updating her knee imaging; needs IV sedation d/t her headaces.Of note, patient recently got a wood tick bite and is worried it may be Lyme's.Medication provides 95% pain relief and allows for increased functionality per patient intake. Presents on track with prescribed medication. Requests refill of Demerol. Denies side effects from current medication regimen. No other concerns today. Comments: Jana sharif presents for virtual follow up and medication refill. Patient c/o chronic hemiplegic migraine pain. Pain has been stable since last visit. Reports having a migraine 12/13/22 and had to utilize Demerol.Continues Botox through [facility] with appreciable benefit. States she has glaucoma and causes issues with her sight. Wonders if this contributes to her migraines.Medication provides 95% pain relief and allows for increased functionality per patient intake. Presents with surplus of prescribed medication. Requests refill of Demerol. Denies side effects from current medication regimen. No other concerns today. headache Severity: 1. It occurs intermittently, has chronic duration, and is unchanged. headache Severity: 2. It occurs intermittently, has chronic duration, and is unchanged. The describes it as sharp. Symptom is aggravated by anxiety, exercise, stress, housework and movement. Relieving factors include darkness, prescription drugs, sleep and laying down. Pertinent negatives include fever, nausea and vomiting. Comments: Jana chante presents for follow up and medication refill. Patient c/o chronic hemiplegic migraine pain. Pain has been stable since last visit. She has not had any episodes this month. Denies recent flares or new concerns.S/p Botox on 09/28/2022 through [facility] with appreciable benefit. Next scheduled for 12/23/22. She has not needed to utilize Demerol 100mg/mL injection for rescue therapy this month. Notes her last headache was in August. Notes in 2021 she had #11 migraines, which is less than in previous years.Medication provides 95% pain relief and allows for increased functionality per patient intake. Presents with surplus of prescribed medication. Denies side effects from current medication regimen. No other concerns today. headache It occurs consta ntly, has chronic duration, and is unchanged. Comments: Jana sharif presents for a virtual follow up and medication refill. Patient c/o chronic hemiplegic migraine pain. Pain has been stable since last visit. She has not had any episodes this month. S/p Botox on 09/28/2022 through [facility] with appreciable benefit. She has not needed to utilize Demerol 100mg/mL injection for rescue therapy this month. Medication provides 90% pain relief and allows for increased functionality per patient intake. Denies side effects from current medication regimen. No other concerns today. Comments: Jana sharif presents for follow up and medication refill. Patient c/o chronic hemiplegic migraine pain. Pain has been stable since last visit. Reports having 2 headaches in the past month, on 09/06/22 (L>R) and 09/07/2022 (R>L).S/p Botox 06/02/2022 through [facility] with appreciable benefit. States she missed her last Botox appt, which may have resulted in her 2 headaches. Scheduled for Botox 09/28/22.Medication provides 90% pain relief and allows for increased functionality per patient intake. Presents with a surplus of prescribed mediation. She did need to utilize Demerol 100mg/mL injection this month. Denies side effects from current medication regimen. No other concerns today. headache Severity: 3. It occurs intermittently, has chronic duration, and is unchanged. The describes it as aching. Symptom is aggravated by exercise, noise, stress and weather. Relieving factors include darkness, heat, prescription drugs and rest. Pertinent negatives include fever, nausea and vomiting. headache It occurs interm ittently, has chronic duration, and is unchanged. The describes it as sharp and stabbing. Symptom is aggravated by stress. Comments: Jana sharif presents for a virtual follow up and medication refill. Patient c/o chronic hemiplegic migraine pain. Pain has been stable since last visit. Reports she experienced a severe headache last week.S/p Botox 06/02/2022 through [facility] with appreciable benefit. She is looking forward to her next Botox next month.Medication provides moderate relief and allows for increased functionality per patient intake. She did need to utilize Demerol 100mg/mL injection this month. Denies side effects from current medication regimen. No other concerns today. Comments: Jana sharif presents for a virtual follow up and medication refill. Patient c/o chronic hemiplegic migraine pain. Pain has been stable since last visit. Reports she has only experienced mild DE SOUZA episodes. S/p Botox through 06/02/2022 through [facility] with appreciable benefit. Medication provides moderate relief and allows for increased functionality per patient intake. Notes she has not needed to utilize Demerol 100mg/mL injection this month. Denies side effects from current medication regimen. No other concerns today. headache It occurs consta ntly, has chronic duration, and is unchanged. Pertinent negatives include fever, nausea and vomiting. headache Severity: 6. It occurs constantly, has chronic duration, and is unchanged. The describes it as aching. Symptom is aggravated by anxiety, exercise, movement and housework. Relieving factors include heat, prescription drugs, sleep and lying down. Pertinent negatives include fever, nausea and vomiting. Comments: Jana sharif presents for virtual follow-up and medication refills. She is followed for hemiplegic migraines. Pain has been overall stable since [facility]. Reports having 2 migraines 05/01/22 and 05/05/22 since [facility]. Previously had not had a headache for 3 months. Hopes her headaches will improve this month.Reports Botox injections provided significant relief. Scheduled to repeat 06/02/22.Reports current medication regimen provides at least 98% pain relief. Denies side effects from current medication regimen. Presents on track with prescribed medication. Utilized Demerol once this month. Requests refill of medications. No other concerns today. headache Severity: 5. It occurs constantly, has chronic duration, and is unchanged. The describes it as aching. Relieving factors include heat, prescription drugs, heat and rest. Pertinent negatives include fever, nausea and vomiting. Comments: Jana sharif presents for a follow-up and medication refills. She is followed for hemiplegic migraines. Pain has been overall stable since [facility]. Reports an incoming migraine today. She denies additional updates since last OV.Reports Botox injections provided significant relief. Will repeat as needed.Reports current medication regimen provides at least 98% pain relief. Denies side effects from current medication regimen. Presents on track with prescribed medication. Reports no use of Demerol over the past month. No other concerns today. Comments: Jana sharif presents for a virtual follow-up and medication refills. She is followed for hemiplegic migraines. Details frustration as she had a migraine on 01/28/22 and 02/09/22. She utilized Demerol injections which continues to provide 100% relief. She denies additional updates since last OV.Reports Botox injections provided significant relief.Of note, she has been spending some time with a friend in her building. Notes her family is doing well.Reports current medication regimen provides at least 98% pain relief. Denies side effects from current medication regimen. Presents on track with prescribed medication. No other concerns today. headache Severity: 8. It occurs intermittently, has chronic duration, and is worse. The describes it as dull and sharp. Symptom is aggravated by movement. Relieving factors include heat and lying down. Pertinent negatives include fever, nausea and vomiting. Headache Severity: 8. It occurs intermittently, has chronic duration, and is worse. Location is entire head, frontal left, ocular right and temporal right. There is radiation to anterior, posterior and neck. The describes it as dull and sharp. Symptom is aggravated by anxiety and stress. Relieving factors include analgesics and prescription drugs. Pertinent negatives include fever, nausea and vomiting. Comments: Jana sharif presents for a virtual follow-up and medication refills. She is followed for hemiplegic migraines. Details frustration as she had a migraine on 12/27/21. She utilized a Demerol injection which continues to provide 100% relief. She denies additional updates since last OV. Reports current medication regimen provides at least 98% pain relief. Denies side effects from current medication regimen. No other concerns today. headache Severity: 0. It occurs constantly, has chronic duration, and is unchanged. Location is head. The describes it as sharp and aching. Symptom is aggravated by movement. Relieving factors include heat, prescription drugs and rest. Pertinent negatives include fever, nausea and vomiting. headache (comments) Kari pres ents for a virtual follow-up and medication refills. She is followed for hemiplegic migraines. The headaches have been manageable, My last migraine was on October 14. She has not needed to take the Demerol injections this month. Reports current medication regimen provides at least 98% pain relief. Denies side effects from current medication regimen. No other concerns today. headache (comments) Kari is h ere for follow-up and medication refills. She is followed for hemiplegic migraines. Patient reports that on 10/13/21 she developed a L-sided hemiplegic migraine and on 10/16/21 she developed a R-sided hemiplegic migraine. She states that she thinks the migraines were brought on by the cold. Prior to October, she had not had a hemiplegic migraine since 08/04/21. States she has one more demerol shot left. Of note, she states she also slipped and fell on the ice since last OV. Details increased lower back pain. She denies need for work-up at this time. Reports current medication regimen provides at least 98% pain relief. Denies side effects from current medication regimen. No other concerns today. headache Severity: 8. It occurs intermittently, has chronic duration, and is unchanged. Location is headaches. The describes it as blinding, dull and sharp. Symptom is aggravated by movement. Relieving factors include heat and supine. Pertinent negatives include fever, nausea and vomiting. headache Severity: 5. It occurs constantly, has chronic duration, and is unchanged. The describes it as sharp, aching and numbness. Symptom is aggravated by movement. Relieving factors include heat and sleep. headache (comments) Kari is h ere for follow-up and medication refills. Ongoing headaches persists, tolerable with medication. Pain has been relatively stable with occasional flares. States that she has not had a hemiplegic migraine on 08/04. She requests a refill of percocet.Reports current medication regimen provides at least 98% pain relief. Denies side effects from current medication regimen. No other concerns today. Headache (comments) Kari is h ere for follow-up and medication refills. Ongoing headaches persists, tolerable with medication. Pain has been relatively stable with occasional flares. States that she has not had a hemiplegic migraine on 08/04. She requests a refill of percocet.Reports current medication regimen provides at least 50% pain relief. Denies side effects from current medication regimen. No other concerns today. Headache It occurs interm ittently, has chronic duration, and is unchanged. Location is entire head. The describes it as sharp. Symptom is aggravated by lights, smells and movement. Relieving factors include medications and rest. Pertinent negatives include fever, nausea and vomiting. headache headache (comments) Kari is h ere for follow-up and medication refills. Ongoing headaches persists, tolerable with medication. Pain has been relatively stable with occasional flares. States that over the last month, she had one hemiplegic migraine on 06/02. Her R arm became numb followed by the usual symptoms. Continues to report that when she gets a migraine, half of her body becomes numb and she becomes paralyzed. She requests a refill of percocet.Reports current medication regimen provides at least 50% pain relief. Denies side effects from current medication regimen. No other concerns today. headache It occurs interm ittently, has chronic duration, and is unchanged. Location is entire head. Symptom is aggravated by movement. Relieving factors include darkness, supine, rest and heat. headache (comments) Kari is h ere for follow-up and medication refills. Ongoing headaches persists, tolerable with medication. Pain has been relatively stable with occasional flares. She has not had a migraine since 03/18/21, used a demerol injection. Continues to report that when she gets a migraine, half of her body becomes numb and she becomes paralyzed. She requests a refill of percocet.Reports current medication regimen provides at least 50% pain relief. Denies side effects from current medication regimen. No other concerns today. headache It occurs consta ntly, has chronic duration, and is unchanged. Location is entire head. Relieving factors include medications and rest. Headache It occurs consta ntly, has chronic duration, and is resolved. Location is entire head. The describes it as sharp. Denies aggravating factors. Relieving factors include heat and ice. Pertinent negatives include fever, nausea and vomiting. Headache (comments) Kari is h ere for follow-up and medication refills. Ongoing headaches persists, tolerable with medication. Pain has been relatively stable with occasional flares. She had a migraine on 03/18/21 and used a demerol injection. She is looking forward to botox injection on 05/06. She requests a refill of percocet and demerol. Reports current medication regimen provides at least 50% pain relief. Denies side effects from current medication regimen. No other concerns today. Headache Severity: 8. It occurs constantly, has chronic duration, and is unchanged. Location is entire head. The describes it as sharp. Denies relieving factors. Pertinent negatives include fever, nausea and vomiting. Headache (comments) Kari is h ere for follow-up and medication refills. Migraines have been relatively stable. Botox injections in January continue to provide significant relief. She has not used any Demerol in the last month. Notes some family related stressors have caused some flares. She continues to use percocet sparingly and requests a refill. Reports current medication regimen provides at least 50% pain relief. Denies side effects from current medication regimen. No other concerns today. Headache Severity: 7. It occurs constantly, has chronic duration, and is worse. Location is head. The describes it as sharp. Relieving factors include heat, ice and sleep. Headache (comments) Kari is h ere for virtual follow-up and medication refills. Ongoing migraines persists, tolerable with medication. Pain has been worse. She had an eye surgery on 11/15/20 and had a migraine later that day and used a demerol injection. She also tested positive for COVID-19 early in November and recovered a few days ago. She is looking forward to Botox injections in January. She requests a refill of both percocet and demerol.Reports current medication regimen provides at least 50% pain relief. Denies side effects from current medication regimen. No other concerns today. Headache (comments) Kari is h ere for virtual follow-up and medication refills. Ongoing headaches persist, tolerable with medication. Headaches have been stable with no major episodes this month. She is anxious for upcoming cataract surgery this Wednesday. Continues to use percocet sparingly and requests a refill this month. Reports current medication regimen provides at least 50% pain relief. Denies side effects from current medication regimen. No other concerns today. Headache It occurs consta ntly, has chronic duration, and is unchanged. Location is head. The describes it as numbness. Symptom is aggravated by movement. Relieving factors include heat and ice. Pertinent negatives include fever, nausea and vomiting. Headache (comments) Kari is h ere for follow-up and medication refills. She presents with intermittent migraines which has been stable. She explains her eyes have been dry and bothersome which she believes are triggering her migraines. She has an appt with her services rep on 10/14/20 to discuss dry eyes and increase in headaches. Of note, she had a severe migraines on 09/12 and used demerol shot. She is looking forward to Botox injections next month. Reports current medication regimen provides at least 50% pain relief. Denies side effects from current medication regimen. No other concerns today. Headache Severity: 1. It occurs intermittently, has chronic duration, and is unchanged. The describes it as blinding and sharp. Symptom is aggravated by movement. Relieving factors include heat and lying down. Headache (comments) Kari is h ere for follow-up and medication refills. She presents with ongoing headaches which has been worse. She had a severe migraine on 08/11 and used Demerol. She continues to percocet to prevent a migraine. She is looking forward to going up [place] for . She would like to continue with the same regimen. Reports current medication regimen provides at least 50% pain relief. Denies side effects from current medication regimen. No other concerns today. Headache Severity: 8. It occurs constantly, has chronic duration, and is unchanged. Location is side of head. The describes it as blinding and sharp. Symptom is aggravated by movement and twisting. Relieving factors include heat, lying down and medications. Headache It occurs consta ntly, has chronic duration, and is worse. Location is entire head. The patient describes it as blinding and debilitating. Symptom is aggravated by weather and phone. Relieving factors include ice and medication. Pertinent negatives include fever, nausea and vomiting. 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 On 06/04, she got a severe migraine after playing games on her phone and had to use demerol injection. On 06/15, she was helping her son clean his airplane and had a migraine and used a demerol injection. She believes this increase in migraines is d/t changes in weather. Next Botox injections scheduled for 07/22. Reports current medication regimen provides at least 50% pain relief. Denies side effects from current medication regimen. No other concerns today. Headache (comments) Kari is h ere for follow-up and medication refills. She presents with ongoing headaches which have been stable. She has not used demerol shot this month. Notes that she has been catching the headaches before they were got severe. Reports current medication regimen provides at least 50% pain relief. Denies side effects from current medication regimen. No other concerns today. Headache Severity: 7. It occurs constantly, has chronic duration, and is unchanged. Location is headaches. The describes it as aching. Symptom is aggravated by movement. Relieving factors include rest. Pertinent negatives include fever, nausea and vomiting. Headache (comments) Kari is h ere for follow-up and medication refills. Headaches persist this month, tolerable with medication. Botox injections last OV has provided some relief. Last Wednesday she reports a severe headache, L hand numbness, and confusion. She reports using a demerol shot during this flare. Averages one demerol shot a monthReports current medication regimen provides at least 50% pain relief. Denies side effects from current medication regimen. No other concerns today. Headache Severity: 6. It occurs intermittently, has chronic duration, and is unchanged. Location is R side head. The describes it as aching. Symptom is aggravated by bright lights and movement. Relieving factors include heat, rest and lying down. Pertinent negatives include fever, nausea and vomiting. Headache Severity: 1. It occurs daily, has chronic duration, and is improving. Location is temporal left and temporal right. The describes it as achy. Relieving factors include prescription drugs. Pertinent negatives include fever, nausea and vomiting. Headache (comments) Kari pres ents for a virtual follow up and medications refill for her headaches, stable overall. Reports of a headache episode on 03/27 in which she utilized Demerol for relief. States that her last dose of Demerol was back in January prior. She continues to utilize Percocet PRN. Reports current medication regimen provides 98+% pain relief and allows for increased functionality. Denies side effects from current medication regimen.No other concerns today. headache (comments) Kari is h ere for follow up and medications refill via virtual visit for coronavirus prevention efforts. Reports 95% pain relief with current medication regimen. Denies any side effects from current medication regimen.Pt returns for her chronic migraines. Reports migraines have been stable this month. She did not need to use Demerol at all this month and has been controlled off of her Percocet with sparing use. Botox continues to provide good relief, last completed 12/2019. Patient is not accompanied today. No additional questions or concerns. headache Severity: 1. It occurs constantly, has chronic duration, and is unchanged. Symptom is aggravated by movement. Relieving factors include heat, prescription drugs, relaxation and sleep. Pertinent negatives include fever, nausea and vomiting. headache (comments) Kari retu rns for follow up and medication refill regarding intermittent DE SOUZA pain. Details severe DE SOUZA last week, therefore utilized one of her demerol injections. Ongoing Percocet use sparingly. Remains happy with current medication regime and would not like to make any changes at this time. No further questions or concerns. headache Severity: 8. It occurs intermittently, has chronic duration, and is unchanged. The describes it as aching. Symptom is aggravated by movement. Relieving factors include heat and lying down. headache (comments) Kari is h ere today for a followup and medication refill for chronic migraines. She reports her headaches have been stable, tolerable with medications. Utilized one demerol injection this month. Percocet remains helpful for less severe DE SOUZA. Does report increased depression this month. States she had to leave her grandson's hockey game earlier this month because of severe migraine. States her son also had to leave the game to take her home and she feels bad about this. She now expresses some fear with leaving the house, because she is not sure when she is going to experience severe migraine. Current medication regimen provides 85-90% relief and improves daily function. Denies side effects from current medication regimen. Patient is not accompanied today and has no further questions or other concerns. headache Severity: modera te. It occurs intermittently, has chronic duration, and is unchanged. Location is temporal left and temporal right. Relieving factors include medications. Pertinent negatives include fever, nausea and vomiting. headache Severity: modera te. It occurs intermittently, has chronic duration, and is unchanged. Location is temporal left and temporal right. The patient describes it as aching and sharp. Symptom is aggravated by movement. Relieving factors include darkness, heat, lying down, medications and rest. Pertinent negatives include fever, nausea and vomiting. headache (comments) Kari is h ere today for a followup and medication refill for persistent headaches. Reports experiencing two migraines this month which were severe enough to utilize her demerol injections. She states she experiences ongoing benefit with Botox and has next session scheduled in December 2019. Current medication regimen provides 85-90% relief and improves daily function. Denies side effects from current medication regimen. She requests refill of Percocet today for prn use, #10 tablets usually lasts her three months.Patient is not accompanied today and has no further questions or other concerns. headache Severity: modera te. It occurs intermittently, has chronic duration, and is unchanged. Location is frontal left and frontal right. Symptom is aggravated by movement. Relieving factors include prescription drugs. Pertinent negatives include fever, nausea and vomiting. headache (comments) Kari is h ere today for a followup and medication refill for chronic headaches. Pain today is stable, tolerable with medications. Reports increased headache frequency this month. Headaches have been mostly mild, without need for medications. She used one demerol injection this month. Current medication regimen provides 50% relief and improves daily function. Denies side effects from current medication regimen. Patient is not accompanied today and has no further questions or other concerns. Headache (comments) Kari is h ere today for a followup and medication refill for chronic migraines. Had one migraine episode this month and utilized one demerol injection. Inquires today about oxycodone with Tylenol which has provided better relief than her current oxycodone Rx. Current medication regimen provides 80% relief. Denies side effects from current medication regimen.Patient is not accompanied today and has no further questions or other concerns. Headache Severity: modera te. It occurs intermittently, has chronic duration, and is unchanged. The describes it as stabbing. Symptom is aggravated by all activity. Relieving factors include prescription drugs. Pertinent negatives include fever, nausea and vomiting. headache (comments) Kari is h ere today for a followup and medication refill. She presents with #6 oxycodone and #1 demerol. Patient has surplus of medications. Current medication regimen provides 90-100% relief. Denies side effects from current medication regimen. Pain today is stable. Has had one migraine this month and used one demerol injection. Believes Botox injections have been helpful for reducing migraine frequency. Does not request refill of her medications today d/t surplus.Patient is not accompanied today and has no further questions or other concerns. headache Severity: 1. It occurs intermittently, has chronic duration, and is unchanged. Symptom is aggravated by movement. Relieving factors include medications and hot water bottle. Pertinent negatives include fever, nausea and vomiting. headache Severity: 6. It occurs constantly, has chronic duration, and is unchanged. Location is frontal right. There is no radiation. Denies aggravating factors. Relieving factors include prescription drugs and lying down. Pertinent negatives include fever, nausea and vomiting. headache (comments) Kari is h ere today for a followup after initial consult regarding ongoing headaches. States she has had a headache over the past few days but has not required any Demerol. Notes she has Botox scheduled for 06/28/19. Requests [facility] takeover her opioid regimen today. Additionally would like [facility] to takeover vistaril for anxiety. Patient is not accompanied today and has no further questions or other concerns. Headache Severity: 10. It occurs monthly. Duration: chronic. Location is frontal left and frontal right. Symptom is aggravated by movement. Relieving factors include heat, lying down and medications. Headache (comments) Kari is h ere for initial consult for hemiplegic migraines, referred by Dr. Young. Her pain began in adolescence at age 15. Onset suddenly when half her body went numb and she began experiencing severe pain in her temples. Details how she was unable to think, speak, or see upon onset. Continues to experience migraines about twice monthly or less--last migraine in March 2019. Migraines continue to be accompanied by numbness, vision loss, and inability to speak.Has not trialed PT. Has trialed home health care provider and massage without significant benefit. Previously following with [facility] regarding Botox injections and CESIs. Reports previous imaging located at the [facility]. Currently utilizing demerol and Topamax to control migraines. Has been managed on demerol for over 40 years and typically uses two injections per month. Has trialed and failed other opiates, but demerol is only medication which ceases numbness. Rarely takes oxycodone (approximately #15 tablets every few months or so) which is also helpful. Kari is interested in medication management and would like [facility] to assume management of pain care. Functional Status Date Functional Assessmen t No Information Instructions Date Instruction Additional Infor mation Lifestyle education regarding di et Related to Body mass index [BMI] 32.0-32.9, adult Lifestyle education regarding di et Related to Body mass index [BMI] 31.0-31.9, adult Assessments Type Assessment Date No Information Patient Care Teams Name Effective Dates (start - stop) Status Members No Information
--- NOTE | 2025-03-29 14:30 | CRLHL7_ITS ---
For Patients: As a result of the Century Cures Act, medical imaging exams and procedure reports are released immediately into your electronic medical record. You may view this report before your referring provider. If you have questions, please contact your health care provider. DXA BONE MINERAL DENSITY STUDY Current height (in): 63. Weight (lb): 175. Menopause age: 44. Ethnicity: White. 1. Have you had a previous hip or vertebral fracture? No. 2. Have you had any fractures during your adult life which did not result from significant trauma (e.g., auto accident)? No. 3. Did either of your parents have a hip fracture? Yes. 4. Do you smoke? No. 5. Have you ever taken Glucocorticoids? No. 6. Do you have rheumatoid arthritis? Yes. 7. Do you have secondary osteoporosis? Yes. 8. Do you drink 3 or more alcoholic drinks per day? No. 9. Are you being treated for osteoporosis? Yes. 10. Have you ever taken any of the following medications: Actonel, Evista, Fosamax, Miacalcin, Reclast, Boniva, Forteo, HRT (i.e. estrogen/hormone therapy), Protelos, Prolia, Vitamin D, Calcium, other ??? please specify. ANSWER: Yes, Vitamin D, and Calcium. 11. Do you have any of the following medical conditions: Anorexia or bulimia, asthma or emphysema, end stage renal disease, hyperparathyroidism, any seizure disorders, cancer, inflammatory bowel diseases, hysterectomy, other ??? please specify. ANSWER: No. 12. What was your maximum height (inches)? 64.5. 13. Do you perform weight bearing exercise regularly? No. 14. Do you regularly consume dairy products? Yes. 15. Do you drink caffeinated beverages? Yes. 16. At what age did your period start? 15. 17. Are you premenopausal? No. 18. How many full term pregnancies have you had? 3. 19. Have you ever missed your period for more than 6 months in a row (not including or menopause)? No. TECHNIQUE: Bone mineral density study was performed using the [employer]. FINDINGS: The results of the study expressed as bone mineral density (BMD) are as follows: Lumbar spine L1 to L3: BMD: 0.536 g/cm2. T-score: -4.4. Z-score: -2.2. Neck Left: BMD: 0.563 g/cm2. T-score: -2.6. Z-score: -0.6. Right: BMD: 0.600 g/cm2. T-score: -2.2. Z-score: -0.3. Total Left: BMD: 0.644 g/cm2. T-score: -2.4. Z-score: -0.8. Right: BMD: 0.682 g/cm2. T-score: -2.1. Z-score: -0.5. IMPRESSION: Osteoporosis. *Comparison exams done prior to 03/2020 were performed on different unit, [employer]. COMPARISON: Compared with scan of 01/20/2023, the bone mineral density has increased by 3.7 percent at the spine and decreased by 1.3 percent at the hip. Deric Molina M.D. Diagnostic Radiologist [email or web address] TAMMY/kelly DW/Dictated by: Deric Molina MD @ 03/30/2025 9:22:00 AM (Electronically Signed)
--- NOTE | 2025-03-29 15:20 | CRLHL7_ITS ---
For Patients: As a result of the Century Cures Act, medical imaging exams and procedure reports are released immediately into your electronic medical record. You may view this report before your referring provider. If you have questions, please contact your health care provider. INDICATION: BILATERAL SCREENING MAMMOGRAM, ASYMPTOMATIC 74 Y/O FEMALE COMPARISON: 08/09/2023, 03/20/2022 TECHNIQUE: Digital mammogram in CC and MLO projections including computer-aided detection (CAD) and tomosynthesis. BREAST COMPOSITION: The breasts are almost entirely fatty. FINDINGS: No suspicious findings. ASSESSMENT: BI-RADS 1 Negative RECOMMENDATION: Annual screening mammogram. A lay language report of this examination will be provided to the patient. Dictated by: Deric Molina MD @ 03/30/2025 11:43:53 (Electronically Signed)
--- OUTSIDE RECORDS SUMMARY | 2025-03-30 00:55 | XMS_ITS | Encounter Summary ---
Author Organization [facility] Address [address] [place] [address] Care Team Providers Care Barrel Builder Name Role Phone Claritza Delgado MD Primary Care Provider [phone] Maria L Ornelas MD Primary Care Provider Unavailabl e Ariel Young MD Primary Care Provider + Donald Sommers MD Unavailable [phone] Alesha Ballesteros PA-C Unavailable + [phone] Kimberly Tierney PA-C Primary Care Provider [phone] Donald Sommers MD Unavailable [phone] Joseph Ann E DANIAL PRESCHOOL PARAPROFESSIONAL Unavailable [phone] Joseph Ann E CUTTING MACHINE TENDER HELPER PRESCHOOL PARAPROFESSIONAL Unavailable [phone] Donald Sommers MD Unavailable [phone] Encounter Details Date Type Department Care Team (Late st Contact Info) Description 10/21/2012 Office Visit-[facility] [place] [address] [place] [id number] Layo Landry MD XXX XXX [address] [facility] [address] [place] [address] Social History Tobacco Use Types Packs/Day Years Used Date Smoking Tobacco: Former Cigarettes 0 03/15/2007 - 09/14/2007 Comments:4 cigarettes a crista h for 6 months Alcohol Use Standard Drinks/Week Comments No 0 (1 standard drink = 0.6 oz pur e alcohol) Comments No Sex and Gender Information Value Date Recorded Sex Assigned at Not on file 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 DATE: 10/21/2012 TANVIR ISSA DATE OF : 1950 AGE: [age] years old Referring Physician: CLARITZA DELGADO Referring Clinic: [facility] CURRENT DIAGNOSES 1. Aortic Valve Disorders, 424.1 2. - Aortic Valve Replacement, V43.3 3. Other And Unspecified Hyperlipidemia, 272.4 4. - Hypertension, 401.1 ALLERGIES lisinopril, Cough-productive SBE prophylaxis MEDICATIONS (prior to changes made today) 1. Colace 100 mg capsule, 1 p.o. daily 2. Demerol 100 mg Tablet, 1 p.o. PRN as Directed 3. hydroxyzine HCl 50 mg tablet, 1 p.o. PRN as Directed 4. Jantoven 2.5 mg tablet, Take as Directed 5. levothyroxine 75 mcg tablet, 1 p.o. daily 6. Lipitor 80 mg tablet, 1 p.o. daily 7. losartan 25 mg tablet, 1 p.o. daily 8. Lumigan 0.03 % Drops, Take as Directed 9. meclizine 25 mg tablet, 1 p.o. PRN as Directed 10. metoprolol tartrate 25 mg tablet, 1/2 tab twice daily 11. Timolol 0.5 % Drops, Take as Directed 12. Tylenol 8 Hour 650 mg tablet extended release, 1 p.o. PRN as Directed 13. Tylenol-Codeine #3 300-30 mg Tablet, 1 p.o. PRN as Directed CHIEF COMPLAINTS HISTORY OF PRESENT ILLNESS Tanvir Issa was seen in our office today for followup of her aortic valve replacement surgery. As you probably remember, the patient is a 61-year-old female with known bicuspid aortic valve of long standing. I last saw her a few months ago and at that time she was having minimal symptoms. The plans were to follow her closely, although I felt that she would be in need of surgery in the near future. She subsequently decided to go ahead with the surgery. 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 The patient underwent successful aortic valve replacement surgery on September 16, 2012, with a 22 mm supra-annular mechanical prosthesis. The patient has been maintained on Coumadin since then. She is undergoing cardiac rehab. She states that she is slowly regaining her strength. She does have some mild chest wall tenderness but no anginal-sounding chest pain. There has been no PND and no orthopnea. Her physical exam is as listed below. In particular, her lungs were clear to auscultation without rales, rhonchi, or wheezing. The patient had a well-healed mid sternotomy scar, as well as chest tubescars. There was no demonstrable tenderness. The patient was in a regular rate and rhythm with a 1/6 systolic murmur. A crisp S2 was auscultated. There was no aortic insufficiency murmur heard. REVIEW OF SYSTEMS GENERAL fatigue - is getting better, weight loss, approx 4 lbs since 08/25/12, increased energy, appetite is increased INTEGUMENTARY denies any change in hair or nails, rashes, or skin lesions. EYES wears eye glasses/contact lenses, positive for glaucoma EARS, NOSE, THROAT, MOUTH denies any hearing loss, epistaxis, hoarseness or difficulty speaking. RESPIRATORY sleep apnea, c pap, cough, occasional, negative for dyspnea CARDIOVASCULAR chest discomfort, from surgery, negative for palpitations, negative for dizziness, negative for edema ABDOMINAL denies ulcer disease, hematochezia or melena. MUSCULOSKELETAL denies any history of arthritic symptoms or back problems. NEUROLOGICAL migraine headaches PSYCHIATRIC depression ENDOCRINE denies any history of thyroid disease or diabetes mellitus. HEMATOLOGICAL/IMMUNOLOGIC easy bruising PHYSICAL EXAMINATION VITAL SIGNS: Blood Pressure: 127/83Sitting, Right arm, regular cuff Pulse- 82.00/min. Weight- 191.70 lbs. Height- 63.50 BMI Measurement: 33 CONSTITUTIONAL NAD, ambulating halls without difficulty, alert and oriented SKIN warm and dry HEAD atraumatic EYES EOMI, pupils equal ENT speech normal, tongue midline NECK supple CHEST clear without rales/wheezing CARDIAC crisp metallic S2 ABDOMEN non-tender PERIPHERAL PULSES PT 2- bilaterally EXTREMITIES & BACK no edema PSYCHIATRIC appropriate in answers NEUROLOGICAL motor grossly intact MEDICATIONS UPDATED/STARTED TODAY: Colace 100 mg capsule, 1 p.o. daily, #0 (Zero) hydroxyzine HCl 50 mg tablet, 1 p.o. PRN as Directed, #0 (Zero) Jantoven 2.5 mg tablet, Take as Directed, #0 (Zero) levothyroxine 75 mcg tablet, 1 p.o. daily, #0 (Zero) Lipitor 80 mg tablet, 1 p.o. daily, #0 (Zero) losartan 25 mg tablet, 1 p.o. daily, #0 (Zero) Lumigan 0.03 % Drops, Take as Directed, #0 (Zero) metoprolol tartrate 25 mg tablet, 1/2 tab twice daily, #0 (Zero) Tylenol 8 Hour 650 mg tablet extended release, 1 p.o. PRN as Directed, #0 (Zero) MEDICATIONS REFILLED/STOPPED TODAY: Aspirin Low Dose 81 mg tablet,delayed release (DR/EC) 1 p.o. daily #0 (Zero) Physician Order, Calcium 500 with Vitamin D 500 mg(1,250mg) -200 unit Tablet 1 p.o. twice daily Substitution, Levothyroxine 50 mcg Tablet 1 p.o. daily Dosage Increased, losartan 50 mg Tablet 1 p.o. daily #0 (Zero) Dosage Decreased, Sertraline 100 mg Tablet 1/2 tab twice daily Other Physician Order and simvastatin 80 mg Tablet 1 p.o. daily #0 (Zero) Substitution ASSESSMENT/RECOMMENDATIONS: 1. The patient is one month status post aortic valve replacement surgery and appears to be doing well. Essentially no coronary artery disease was seen at that time. 2. I did tell the patient that sheneeds SBE prophylaxis. The patient understood this. 3. The patient has minimal if any coronary artery disease and is on Coumadin. Because of an increased risk of bleeding, I told her that she should stop her aspirin. 4. She is on a very high dose of Lipitor and on angiography minimal coronary artery disease was seen, if any. I would accept an LDL cholesterol of less than 100. She can have this followed through your office. 5. I did stress the need for INR monitoring which apparently is done thr ough your office. 6. Her blood pressure is under good control today. 7. I would like to get an echocardiogram, which would be her first post-surgical echocardiogram, asa baseline. 8. I will see the patient back in approximately six months' time. If she is doing well then, in frequent followup would be necessary on my part. Thank you very much for allowing us to participate in the care of your patient. Should you have anyquestions about this patient or any other patient, please feel free to contact us at any time. TODAYS ORDERS 1. 2D, color flow, doppler 2 weeks 2. Return Visit 6 months Layo Landry M.D. documented in this encounter Plan of Treatment Upcoming Encounters Date Type Department Care Team (Late st Contact Info) Description 05/21/2025 9:45 AM CDT Appointment [address] [phone] Joseph March, CUTTING MACHINE TENDER HELPER PRESCHOOL PARAPROFESSIONAL [address] [place] [id number] 05/21/2025 11:[address] [facility] [address] [place] [address] 06/19/2025 8:45 AM CDT Office Visit [facility] [address] [place] [address] Joseph March, CUTTING MACHINE TENDER HELPER PRESCHOOL PARAPROFESSIONAL [address] [place] [id number] Donald Sommers MD [address] [place] [address] [place] [address] documented as of this encounter Visit Diagnoses Not on filedocumented in this encounter Care Teams Barrel Builder Relationship Specialty Start Date End Date Claritza Delgado MD PCP - General 07/16/12 07/29/16 Maria L Ornelas MD PCP - General Family Practice 07/30/16 09/22/18 Ariel Young MD PCP - General 09/23/18 07/19/23 Kimberly Tierney PA-C [facility] [address] [place] [address] [address] PCP - General 07/20/23 Donald Sommers MD [address] [place] [address] [place] [address] Assigned Heart and Vascular Provider 10/27/20 04/23/23 Alesha Ballesteros PA-C [address] [facility] [address] [place] [address] Assigned Surgical Provider 12/25/20 01/17/22 Donald Sommers MD [address] [place] [address] [place] [id number] Assigned Heart and Vascular Provider 07/24/23 10/01/24 Ann Ruiz APRN PRESCHOOL PARAPROFESSIONAL [address] [place] [address] Nurse Practitioner Cardiovascular Disease 04/14/24 Ann Ruiz APRN PRESCHOOL PARAPROFESSIONAL [address] [place] [address] Assigned Heart and Vascular Provider 10/02/24 Donald Sommers MD [address] [place] [address] [place] [id number] Cardiovascular Disease 02/01/25 documented as of this encounter
--- OUTSIDE RECORDS SUMMARY | 2025-03-30 00:55 | XMS_ITS | Clinical Summary ---
Author Organization [facility] Address [address] [address] Phone Care Team Providers Care Fiberglass Insulation Installer Name Role Phone Claritza Delgado Primary Care Provider Domonique ildanie Allergies No known active allergies Medications levothyroxine Sodium (TIROSINT) 137 MCG CapsuleIndicat ions:Unsure of dose Take 137 mcg by mouth one time a day. Active losartan (COZAAR) 100 MG tabletIndicati ons:Patient unsure of dose Take 100 mg by mouth one time a day. Active topiramate (TOPAMAX) 100 MG tabletIndicati ons:Patient unsure of dose Take 100 mg by mouth two times a day. Do not crush. Active warfarin daily - per pharmacyIndica tions:Patient unsure of dose Take 1 Each by mouth. Active aspirin 81 MG chewable tablet Chew and swallow 81 mg one time a day. Take with food. Active bimatoprost (LUMIGAN) 0.01 % ophthalmic solution 1 Drop at bedtime. Wait 5 minutes after or before instilling other eye drops. Active timolol (TIMOPTIC) 0.25 % Solution 1 Drop two times a day. Active Brimonidine-Do rzolamide 0.15-2 % Solution Apply to eye. Active prednisoLONE (PRELONE) 15 MG/5ML oral solutionIndica tions:Patient unsure of dose Take 2 mg/kg/day by mouth one time a day. Take with food or milk. Active Metoprolol-Hyd rochlorothiazi de (METOPROLOL-HC TZ ER OR)Indications :Patient unsure of dose Take by mouth. Active hydrOXYzine HCl (ATARAX) 10 MG tabletIndicati ons:Patient unsure of dose Take 10 mg by mouth three times a day as needed for Itching. Active oxyCODONE-acet aminophen (PERCOCET) 5-325 MG oral tablet Take 1 Tab by mouth every four hours as needed for Pain. Limit acetaminophen to 4000 mg per day from all sources. Active HYDROcodone-ac etaminophen (NORCO) 5-325 MG oral tablet Take 1 Tab by mouth every six hours as needed for Pain. Limit acetaminophen to 4000 mg per day from all sources. 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 Gender Identity Not on file Sexual Orientation Not on file Obstetrics History Last Filed Vital Signs Vital Sign Reading Time Taken Comments Blood Pressure 143/91 06/09/2018 2:00 PM CDT Pulse 57 06/09/2018 12:40 PM CDT Temperature 36.6 C (97.9 F) 06/09/2018 12:42 PM CDT Respiratory Rate - - Oxygen Saturation 99% 06/09/2018 2:00 PM CDT Inhaled Oxygen Concentration - - Weight 82.1 kg (181 lb) 06/09/2018 12:42 PM CDT Height 160 cm (5' 3) 06/09/2018 12:42 PM CDT Body Mass Index 32.06 06/09/2018 12:42 PM CDT Plan of Treatment Health Maintenance Due Date Last Done Comments CT Colonography 1952 Cologuard 1952 Colonoscopy 1952 Colorectal Cancer Screening 1952 FIT/FOBT 1952 MAMMO,SCREEN 1952 Sigmoidoscopy 1952 PERTUSSIS (Standing Order) 1971 TETANUS (Standing Order) 1971 Pneumococcal Vaccine: 50+ yr s (Standing Order) (1 of 1 - PCV) 2002 Shingrix (Zoster recombinant ) vaccine (Standing Order) (1 of 2) 2002 DXA,FEMALES AGE 65 OR GREATER 2017 COVID-19 Vaccine (2023-2 5 season) 2024 RSV Vaccination (60+ yrs) (Abrysvo/Arexvy) (1 - 1-dose 75+ series) 2027 HPV Vaccine (Standing Order) Aged Out No longer eligible based on patient's age to complete this topic Hepatitis B Vaccine (Standin g Order) Aged Out No longer eligible b ased on patient's age to complete this topic Care Teams Fiberglass Insulation Installer Relationship Specialty Start Date End Date Claritza Delgado MBBS PCP - General Family Medicine 03/23/16
--- OUTSIDE RECORDS SUMMARY | 2025-03-30 00:55 | XMS_ITS | Encounter Summary ---
Author Organization [place] Address [facility] [place] [address] Care Team Providers Care Tile Helper Name Role Phone Claritza Delgado MD Primary Care Provider [phone] Maria L Ornelas MD Primary Care Provider Unavailabl e Ariel Young MD Primary Care Provider + Donald Sommers MD Unavailable [phone] Alesha Ballesteros PA-C Unavailable + [phone] Kimberly TierneyC Primary Care Provider [phone] Donald Sommers MD Unavailable [phone] Ann Ruiz APRN TRACK REPAIR WORKER Unavailable [phone] Ann Ruiz E DANIAL TRACK REPAIR WORKER Unavailable [phone] Donald Sommers MD Unavailable [phone] Encounter Details Date Type Department Care Team (Late st Contact Info) Description 10/13/2012 Office Visit-P INTERFACE P DEPT Trey Shaw MD [address] [facility] [address] [place] [address] Social History Tobacco Use Types Packs/Day Years Used Date Smoking Tobacco: Former Cigarettes 0 03/15/2007 - 09/14/2007 Comments:4 cigarettes a crista h for 6 months Alcohol Use Standard Drinks/Week Comments No 0 (1 standard drink = 0.6 oz pur e alcohol) Comments No Sex and Gender Information Value Date Recorded Sex Assigned at Not on file 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 Glenroy Calvillo. Her procedure went well. Hersubsequent hospitalization was complicated by prolonged vasopressor requirements and nausea, which resolved. She was discharged to home with the assistance of a family member on 09/23/12. She has been having some fatigue and sinus pain that have made her feel like she is not progressing as well as she would like. She will be starting up cardiac rehab soon. She has been having a hard time sleeping. Her appetite is slowly returning. Her mood has been a bit depressed, but is improving. Her breathing has been feeling good. She has been doing a mild amount of exercise, mainly walking around her house, and she is tolerating this well. Medications: APAP PRN, aspirin 81 mg daily, atorvastatin 80 mg daily, bimatoprost, docusate 100 mg bid, hydroxyzine PRN migraines, ibuprofen PRN, levothyroxine 75 mcg daily, losartan 25 daily, meclizine PRN, demerol PRN, metoprolol 12.5 bid, omeprazole 20 mg daily, oxycodone PRN, sertraline 100 mg d aily, timolol Allergies: NKDA Physical Exam: Vitals: BP 136/80, HR 88 General: awake and alert Neuro: grossly intact CV: RRR, no murmur or rub Resp: clear Ext: trace LE edema Incision: healing well, sternum stable A/P: We will order a sinus x-ray to ensure there are no signs of sinusitis. We will have her see her primary doctor within the next week to assess this. She will be starting outpatient cardiac rehab and this should help her physically start to gain some strength back. I will be calling her with theresults of the sinus x-ray. I encouraged her to call us with any questions or concerns in the meantime. I told her that a depressed mood after surgery is common, but that it should be getting better over time, which she agrees it is. I stressed that if she does not feel her mood is improving, to beseen right away. I encouraged her to discuss this with her primary doctor. I encouraged her to return to clinic again if she does not feel she is improving over the next week or so. Seen with Dr. Calvillo. Pura Alfred PA-C Pager # [phone] Electronically signed by:Pura Guillermo Oct 17 2012 5:02PM STRIPPING MACHINE OPERATOR PPING MACHINE OPERATOR PPING MACHINE OPERATOR documented in this encounter Plan of Treatment Upcoming Encounters Date Type Department Care Team (Late st Contact Info) Description 05/21/2025 9:45 AM CDT Appointment [facility] Specialty Care [id number] [place] [address] [address] [place] [address] Ann Ruiz, [employer]ORTS INTER[employer]IP TRACK REPAIR WORKER [address] [place] [address] 05/21/2025 11:00 AM CDT Lab [facility] [address] [facility] [address] [place] [address] 06/19/2025 8:45 AM CDT Office Visit [address] [place] [address] Ann Ruiz, DANIAL TRACK REPAIR WORKER [address] [place] [address] Donald Sommers MD [address] [place] [id number] documented as of this encounter Visit Diagnoses Not on filedocumented in this encounter Care Teams Tile Helper Relationship Specialty Start Date End Date Claritza Delgado MD PCP - General 07/16/12 07/29/16 Maria L Ornelas MD PCP - General Family Practice 07/30/16 09/22/18 Ariel Young MD PCP - General 09/23/18 07/19/23 Kimberly Tierney PA-C [facility] [address] [place] [address] [place] [address] PCP - General 07/20/23 Donald Sommers MD [address] [place] [address] Assigned Heart and Vascular Provider 10/27/20 04/23/23 Alesha Ballesteros PA-C [address] [facility] [address] [place] [address] Assigned Surgical Provider 12/25/20 01/17/22 Donald Sommers MD [address] [place] [address] Assigned Heart and Vascular Provider 07/24/23 10/01/24 Ann Ruiz APRN TRACK REPAIR WORKER [address] [place] [address] Nurse Practitioner Cardiovascular Disease 04/14/24 Ann Ruiz APRN TRACK REPAIR WORKER [address] [place] [address] Assigned Heart and Vascular Provider 10/02/24 Donald Sommers MD [address] [place] [address] Cardiovascular Disease 02/01/25 documented as of this encounter
--- OUTSIDE RECORDS SUMMARY | 2025-03-30 00:55 | XMS_ITS | Encounter Summary ---
Author Organization [place] Address [facility] [place] [address] Care Team Providers Care Navy Seal Name Role Phone Ariel Young MD Primary Care Provider + Donald Sommers MD Unavailable [phone] Kimberly Tierney PA-C Primary Care Provider [phone] Donald Sommers MD Unavailable [phone] Joseph Ann E DANIAL HAIR PREPARER Unavailable [phone] Joseph Ann E DANIAL HAIR PREPARER Unavailable [phone] Donald Sommers MD Unavailable [phone] Encounter Details Date Type Department Care Team (Late st Contact Info) Description 01/26/2023 MyC Medical Advice [facility] [address] [place] [address] Cheyanne Woods, RN Social History Tobacco Use Types Packs/Day Years Used Date Smoking Tobacco: Former Cigarettes Q uit: 09/14/2007 Smokeless Tobacco: Never Alcohol Use Standard Drinks/Week Comments No 0 (1 standard drink = 0.6 oz pur e alcohol) PHQ-2 Answer Date Recorded PHQ-2 Score 0 07/15/2020 Comments No Sex and Gender Information Value Date Recorded Sex Assigned at Not on file 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 No / Unsure 01/26/2023 10:19 AM CDT documented as of this encounter Plan of Treatment Upcoming Encounters Date Type Department Care Team (Late st Contact Info) Description 05/21/2025 9:45 AM CDT Appointment [facility] [address] [facility] [address] [place] [address] Joseph Ann E, SENIOR PRICING ANALYST HAIR PREPARER [address] [place] [address] 05/21/2025 11:00 AM CDT Lab [facility] [address] [facility] [address] [place] [address] 06/19/2025 8:45 AM CDT Office Visit [facility] [address] [facility] [address] [place] [address] Joseph March E, SENIOR PRICING ANALYST HAIR PREPARER [address] [place] [address] Donald Sommers MD [address] [place] [address] documented as of this encounter Visit Diagnoses Not on filedocumented in this encounter Care Teams Navy Seal Relationship Specialty Start Date End Date Ariel Young MD PCP - General 09/23/18 07/19/23 Kimberly Tierney PA-C [facility] [address] [place] [address] PCP - General 07/20/23 Donald Sommers MD [address] [place] [address] Assigned Heart and Vascular Provider 10/27/20 04/23/23 Donald Sommers MD [address] [place] [address] Assigned Heart and Vascular Provider 07/24/23 10/01/24 Ann Ruiz, SENIOR PRICING ANALYST HAIR PREPARER [address] [place] [address] Nurse Practitioner Cardiovascular Disease 04/14/24 Ann Ruiz, SENIOR PRICING ANALYST HAIR PREPARER [address] [place] [address] Assigned Heart and Vascular Provider 10/02/24 Donald Sommers MD [address] [place] [address] Cardiovascular Disease 02/01/25 documented as of this encounter
--- OUTSIDE RECORDS SUMMARY | 2025-03-30 00:55 | XMS_ITS | Encounter Summary ---
Author Organization [place] Address [facility] [place] [address] Care Team Providers Care Mobile Application Developer Name Role Phone Ariel Young MD Primary Care Provider + Donald Sommers MD Unavailable [phone] Alesha Ballesteros PA-C Unavailable + [phone] Kimberly Tierney PA-C Primary Care Provider [phone] Donald Sommers MD Unavailable [phone] Joseph Ann E GLASS NOVELTY MAKER MEDICAL RECEPTION SPECIALIST Unavailable [phone] Joseph Ann E GLASS NOVELTY MAKER MEDICAL RECEPTION SPECIALIST Unavailable [phone] Donald Sommers MD Unavailable [phone] Encounter Details Date Type Department Care Team (Late st Contact Info) Description 07/12/2020 MyC Medical Advice [facility] [address] [place] [address] Sandy Swartz CMA Social History Tobacco Use Types Packs/Day Years Used Date Smoking Tobacco: Former Cigarettes Q uit: 09/14/2007 Smokeless Tobacco: Never Alcohol Use Standard Drinks/Week Comments No 0 (1 standard drink = 0.6 oz pur e alcohol) PHQ-2 Answer Date Recorded PHQ-2 Score 0 07/15/2020 Comments No Sex and Gender Information Value Date Recorded Sex Assigned at Not on file 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 No / Unsure 07/15/2020 10:19 AM CDT documented as of this encounter Plan of Treatment Upcoming Encounters Date Type Department Care Team (Late st Contact Info) Description 05/21/2025 9:45 AM CDT Appointment [facility] Specialty Care [address] [facility] [address] [place] [address] Ann Ruiz E, GLASS NOVELTY MAKER MEDICAL RECEPTION SPECIALIST [address] [place] [address] 05/21/2025 11:00 AM CDT Lab [facility] [address] [facility] [address] [place] [address] 06/19/2025 8:45 AM CDT Office Visit [facility] [address] [facility] [address] [place] [address] Ann Ruiz E, GLASS NOVELTY MAKER MEDICAL RECEPTION SPECIALIST [address] [place] [address] Donald Sommers MD [address] [place] [address] documented as of this encounter Visit Diagnoses Not on filedocumented in this encounter Care Teams Mobile Application Developer Relationship Specialty Start Date End Date Ariel Young MD PCP - General 09/23/18 07/19/23 Kimberly Tierney PA-C [place] [address] [address] PCP - General 07/20/23 Donald Sommers MD [address] [place] [address] Assigned Heart and Vascular Provider 10/27/20 04/23/23 Alesha Ballesteros PA-C [address] [place] [address] [address] [place], [place] [address] Assigned Surgical Provider 12/25/20 01/17/22 Donald Sommers MD [address] [place] [address] Assigned Heart and Vascular Provider 07/24/23 10/01/24 Ann Ruiz APRN MEDICAL RECEPTION SPECIALIST [address] [place] [address] Nurse Practitioner Cardiovascular Disease 04/14/24 Ann Ruiz APRN MEDICAL RECEPTION SPECIALIST [address] [place] [address] Assigned Heart and Vascular Provider 10/02/24 Donald Sommers MD [address] [place] [address] Cardiovascular Disease 02/01/25 documented as of this encounter
--- OUTSIDE RECORDS SUMMARY | 2025-03-30 00:55 | XMS_ITS | Encounter Summary ---
Author Organization [facility] Address [address] [facility] [place] [address] Care Team Providers Care Worm Picker Name Role Phone Doctor, None Primary Care Provider Unavailabl e Doctor, None Primary Care Provider Unavailabl e Kade Gay [id number] Primary Care Pro vider Unavailable Claritza Delgado MD Primary Care Provider [phone] Maria L Ornelas MD Primary Care Provider Unavailabl e Ariel Young MD Primary Care Provider + Donald Sommers MD Unavailable [phone] Alesha Ballesteros PA-C Unavailable + [phone] Kimberly Tierney PA-C Primary Care Provider [phone] Donald Sommers MD Unavailable [phone] Joseph, March E CABLE PLACER RIGGING SUPERVISOR Unavailable [phone] Joseph, MarchN RIGGING SUPERVISOR Unavailable [phone] Donald Sommers MD Unavailable [phone] Encounter Details Date Type Department Care Team (Late st Contact Info) Description 07/09/2010 Office Visit-[facility] [place] [address] [facility] [address] [place] [address] Layo Landry MD XXX XXX [address] [facility] [address] [place] [address] Social History Tobacco Use Types Packs/Day Years Used Date Smoking Tobacco: Never Comments No Sex and Gender Information Value Date Recorded Sex Assigned at Not on file 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 DATE: 07/09/2010 TANVIR ISSA DATE OF : 1950 AGE: [age] years old Referring Physician: KADE ARCHER Referring Clinic: [facility] CURRENT DIAGNOSES 1. Aortic Valve Disorders, 424.1 2. - Hypertension, 401.1 3. Other And Unspecified Hyperlipidemia, 272.4 ALLERGIES SBE prophylaxis MEDICATIONS (prior to changes made today) 1. Multivitamin Tablet, 1 p.o. daily 2. Calcium 500 with Vitamin D 500 mg(1,250mg) -200 unit Tablet, 1 p.o. twice daily 3. Sertraline 100 mg Tablet, 1/2 tab twice daily 4. Levothyroxine 50 mcg Tablet, 1 p.o. daily 5. Topiramate 100 mg Tablet, 1 p.o. daily 6. Timolol 0.5 % Drops, Take as Directed 7. Demerol 100 mg Tablet, 1 p.o. PRN as Directed 8. Alendronate 70 mg Tablet, 1 tab weekly 9. Lisinopril 5 mg Tablet, 1 p.o. twice daily CHIEF COMPLAINTS Aortic stenosis HISTORY OF PRESENT ILLNESS Tanvir Issa was seen in consultation today because the patient wished to transfer her care to thecardiology clinic here at the [facility] site. The patient gave me consent to contact you with this letter. The patient is a very pleasant 59-year-old female who has a history of aortic stenosis. She states,she was evaluated for migraine headaches over 20 years ago and at that time was found to have a heart murmur. She has been followed at the [facility] by Dr. Aguirre and others since at least 2006. In December of 2006, her peak gradient was 52, with a mean of 28 and a valve area of 1.2. She has been followed with what looks like yearly echocardiograms. In March of 2008, the peak gradient was56 and the mean was 32. In March of 2009, a similar reading of a peak of 56 and a mean of 32 was obtained. More recently, the patient underwent a dobutamine stress echocardiogram in October of 2009 asa prelude to gastric banding surgery for bariatric surgery. At that time, the resting gradient was 56, with a mean of 52. The dobutamine stress test was negative for ischemia. There are mentions of echocardiograms showing mild ascending aortic root enlargement being about 4.0 to 4.1. The patient underwent her banding surgery without any difficulty. She initially lost a lot of weight, getting her weight down to 160 some odd pounds. She has gained some weight since the of her fianc. Today she weighs 190 pounds. The patient denies any cardiac symptoms. There has been no paroxysmal nocturnal dyspnea and no orthopnea. She has had no syncope or near syncope. She has had no chest pain, chest pressure or chest heaviness. When specifically asked, the patient believes that she is carrying on her normal activitiesthis year, as she has in the past two to three years. She denies any new limitation of her activity. The patient is somewhat concerned as high blood pressure runs in the family. She apparently was on Cozaar prior to her bariatric surgery. This was not restarted, presumably because they were hoping weight loss would decrease her blood pressure. Her blood pressure today measured 137/81, although shestates that her blood pressure at home is higher, measuring about 150 at times to 90. The patient's physical exam is as listed below. PAST HISTORY Past Medical Illnesses: GERD, HTN, hyperlipidiemia, migraines, depression, hypothyroidism Past Cardiac Illnesses: aortic stenosis Surgeries/Procedures - General: bariatric surgery Cardiology Procedures-Noninvasive: echo 03/19, 03/18, dobutamine stress echo 10/20 PMHx Echo Results: 03/19 bicuspid aortic valve Left Ventricular Ejection Fraction: 03/18 EF 60-65% by echo Nuclear Results: 10/20 moderate aortic strenosis, no ischemia, LVH FAMILY HISTORY: SOCIAL HISTORY Alcohol Use - denies drinking; Smoking - used to smoke but quit; Diet - lap band surgery watching wht she eats; Exercise - exercises daily and walks dog 4-5 days a week; Residence - lives in [place] year round; Place of - [place]; REVIEW OF SYSTEMS GENERAL denies recent weight loss, weight gain, fever or chills or change in exercise tolerance. INTEGUMENTARY denies any change in hair or nails, rashes, or skin lesions. EYES denies diplopia, history of glaucoma or visual field defects. EARS, NOSE, THROAT, MOUTH denies any hearing loss, epistaxis, hoarseness or difficulty speaking. RESPIRATORY sleep apnea, c pap CARDIOVASCULAR dizziness, the last few days ABDOMINAL denies ulcer disease, hematochezia or melena. MUSCULOSKELETAL denies any history of arthritic symptoms or back problems. NEUROLOGICAL migraine headaches PSYCHIATRIC denies any history of depression, substance abuse or change in cognitive functions. ENDOCRINE denies any history of thyroid disease or diabetes mellitus. HEMATOLOGICAL/IMMUNOLOGIC easy bruising PHYSICAL EXAMINATION VITAL SIGNS: Blood Pressure: 137/81Sitting, Left arm, large cuff Pulse- 59.00/min. Weight- 190.10 lbs. Height- 63.50 Temperature- .00 CONSTITUTIONAL NAD, ambulating halls without difficulty SKIN warm and dry to touch HEAD atraumatic EYES EOMI, pupils round and equal ENT tongue midline, no perioral cyanosis NECK supple with transmitted murmur CHEST clear to ascultation CARDIAC RRR with II/ murmur, no AI ABDOMEN non-tender PERIPHERAL PULSES good ankle and radial EXTREMITIES & BACK no edema PSYCHIATRIC appropriate in answers NEUROLOGICAL motor grossly intact MEDICATIONS UPDATED/STARTED TODAY: Alendronate 70 mg Tablet, 1 tab weekly, #0 Demerol 100 mg Tablet, 1 p.o. PRN as Directed, #0 Lisinopril 5 mg Tablet, 1 p.o. twice daily, #60 Timolol 0.5 % Drops, Take as Directed, #0 Topiramate 100 mg Tablet, 1 p.o. daily, #0 MEDICATIONS REFILLED/STOPPED TODAY: Cozaar 50 mg Tablet 1 p.o. daily Physician Order, Zetia 10 mg Tablet 1 p.o. daily Physician Order and Simvastatin 80 mg Tablet 1 p.o. daily Physician Order IMPRESSIONS/PLAN 1. The patient has a bicuspid aortic valve with moderate aortic stenosis. I agree with my colleagues as far as the severity. She has had a stable mean gradient of around 32 mmHg for the last several years. 2. She has asymptomatic moderate aortic stenosis. There is thus far no evidence for ischemia,syncope, heart failure. I did explain to the patient that if she were to develop symptoms or if there was echocardiographic evidence of left ventricular dysfunction or enlargement then valve surgery would be indicated. She does not appear to have any of these at this time. 3. I agree with obtainingperiodic echocardiograms. She last had an echocardiogram in October of this year so we will see simran in six months and arrange for an echocardiogram at that time. If she develops symptoms before that then earlier followup could be arranged. 4. The patient was instructed about the current guidelines about SBE prophylaxis. The patient has no history of endocarditis, as far as I can tell, in thepast. She does not have a prosthetic valve. Current guidelines would say that SBE prophylaxis is not absolutely necessary. I did explain to the patient the rational, i.e. the fact that bacteremia occurs with daily activities, including brushing teeth. 5. The patient does have mild aortic root enlargement measuring 4.0 to 4.1 in the past. This will be check at the time of her echocardiogram in sixmonths' time. By report, it is not of a size that would warrant prophylactic repair. 6. The patientis concerned about her blood pressure. Given her slightly enlarged aortic root, I would like to gether blood pressure lower than what she has been measuring at home. I have given her a prescription of lisinopril 5 mg PO to take b.i.d. She will have a basic metabolic panel checked in a weeks' time to make sure there is no renal failure or hyperkalemia. Thank you very much for allowing us to participate in the care of your patient. Should you have anyquestions about this patient or any other patient, please feel free to contact us at anytime. TODAYS ORDERS 1. Return Visit 6 months 2. BMP 1 week 3. 2D, color flow, doppler 6 months,may include the addition of contrast,bubble study,or the changeto either a limited or complete study-see policy Layo Landry M.D. documented in this encounter Plan of Treatment Upcoming Encounters Date Type Department Care Team (Late st Contact Info) Description 05/21/2025 9:45 AM CDT Appointment [facility] [address] [place] [phone] Ann Ruiz E, CABLE PLACER RIGGING SUPERVISOR [address] [place] [address] 05/21/2025 11:00 AM CDT Lab [facility] [address] [place] [phone] 06/19/2025 8:45 AM CDT Office Visit [address] [place] [phone] Ruiz, Ann E, CABLE PLACER RIGGING SUPERVISOR [address] [place] [id number] Donald Sommers MD [address] [place] [id number] documented as of this encounter Visit Diagnoses Not on filedocumented in this encounter Care Teams Worm Picker Relationship Specialty Start Date End Date Doctor, Yumiko, PCP - General 11/25/01 12/28/10 DoctorYumiko MD PCP - General 12/30/10 05/24/11 Kade Gay Use [id number] [place] [address] PCP - General 05/25/11 07/15/12 Claritza [place] [address] PCP - General 07/16/12 07/29/16 [place] [address] PCP - General Family Practice 07/30/16 09/22/18 [place] [address] PCP - General 09/23/18 07/19/23 Kimberly Tierney PA-C [facility] [address] [place] [address] [place] [id number] PCP - General 07/20/23 Donald Sommers MD [address] [place] [id number] Assigned Heart and Vascular Provider 10/27/20 04/23/23 Alesha Ballesteros PA-C [address] [place] [address] Assigned Surgical Provider 12/25/20 01/17/22 Donald Sommers MD [address] [place] [address] Assigned Heart and Vascular Provider 07/24/23 10/01/24 Ann Ruiz APRN RIGGING SUPERVISOR [address] [place] [address] Nurse Practitioner Cardiovascular Disease 04/14/24 Ann Ruiz APRN RIGGING SUPERVISOR [address] [place] [address] Assigned Heart and Vascular Provider 10/02/24 Donald Sommers MD [address] [place] [address] Cardiovascular Disease 02/01/25 documented as of this encounter
--- OUTSIDE RECORDS SUMMARY | 2025-03-30 00:55 | XMS_ITS | Encounter Summary ---
Author Organization [facility] Address [address] [facility] [place] [address] Care Team Providers Care Supervisor Parking Lot Name Role Phone Claritza Delgado MD Primary Care Provider [phone] Maria L Ornelas MD Primary Care Provider Unavailabl e Ariel Young MD Primary Care Provider + Donald Sommers MD Unavailable [phone] Alesha Ballesteros PA-C Unavailable + [phone] Kimberly Tierney PA-C Primary Care Provider [phone] Donald Sommers MD Unavailable [phone] Joseph Ann E DANIAL MONTESSORI TODDLER TEACHER Unavailable [phone] Joseph Ann E SOCIAL MEDIA JOB TITLES MONTESSORI TODDLER TEACHER Unavailable [phone] Donald Sommers MD Unavailable [phone] Encounter Details Date Type Department Care Team (Late st Contact Info) Description 08/10/2012 Office Visit-[facility] [place] [address] [facility] [address] [place] [address] Layo Landry MD XXX XXX [address] [facility] [address] [place] [address] Social History Tobacco Use Types Packs/Day Years Used Date Smoking Tobacco: Former Alcohol Use Standard Drinks/Week Comments No 0 (1 standard drink = 0.6 oz pur e alcohol) Comments No Sex and Gender Information Value Date Recorded Sex Assigned at Not on file 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 DATE: 08/10/2012 TANVIR ISSA DATE OF : 1950 AGE: [age] years old Referring Physician: CLARITZA DELGADO Referring Clinic: [facility] CURRENT DIAGNOSES 1. Aortic Valve Disorders, 424.1 2. Other And Unspecified Hyperlipidemia, 272.4 3. - Hypertension, 401.1 ALLERGIES lisinopril, Cough-productive SBE prophylaxis MEDICATIONS (prior to changes made today) 1. Calcium 500 with Vitamin D 500 mg(1,250mg) -200 unit Tablet, 1 p.o. twice daily 2. losartan 50 mg Tablet, 1 p.o. daily 3. meclizine 25 mg tablet, 1 p.o. PRN as Directed 4. simvastatin 80 mg Tablet, 1 p.o. daily 5. Tylenol-Codeine #3 300-30 mg Tablet, 1 p.o. PRN as Directed 6. Demerol 100 mg Tablet, 1 p.o. PRN as Directed 7. Levothyroxine 50 mcg Tablet, 1 p.o. daily 8. Sertraline 100 mg Tablet, 1/2 tab twice daily 9. Timolol 0.5 % Drops, Take as Directed CHIEF COMPLAINTS Aortic Stenosis HISTORY OF PRESENT ILLNESS Tanvir Issa was seen in the office today for her aortic stenosis. As you probably remember, the patient is a very pleasant 61-year-old female who has a history of aortic valvular stenosis. The patient was followed by my colleague at the [facility] (Dr. Jourdan Aguirre) until his usp several years ago. The patient transferred her care to me here in [place] as it is closer to her home. In the past, she has had moderate aortic stenosis that was asymptomatic. She has had previous gastric banding surgery for obesity. I last saw her a yearago, and she was feeling well. The patient comes to the office today and states that she has been feeling quite well. Her main complaint is episodes of vertigo, which she initially described as dizziness. On questioning, it soundsmore vertiginous. She was treated with meclizine, and these symptoms have improved. She complains of some mild fatigue during the day. She noticed that over the years she has been a little bit more short of breath with going up stairs, although she denies any real change from a year ago. There has been no PND or orthopnea. She has had no chest pain. She has had no syncope. Her physical exam is as below. It is unchanged. Her murmur sounds are still II/III without any aortic insufficiency. Despite having an unchanged exam, her most recent echocardiogram done a week ago showed progressionof her aortic stenosis. In particular, her mean gradient has increased from 28 to 48. The valve area has dropped from 1.0 to 0.9 cm2. There continues to be only trace to mild aortic insufficiency. Moderate left ventricular hypertrophy has developed. There continues to be good left ventricular function. PAST HISTORY Past Medical Illnesses: GERD, HTN, hyperlipidiemia, migraines, depression, hypothyroidism, YANELI, migraine headaches, trochanteric bursitis Past Cardiac Illnesses: aortic stenosis Surgeries/Procedures - General: bariatric surgery Cardiology Procedures-NonInvasive: echo 03/19, 03/18, dobutamine stress echo 10/20, echocardiogram April 2011, echocardiogram Jul 2012 PMHx Echo Results: 03/19 bicuspid aortic valve, 04/20 mod AV stenosis, mild AR, bicuspid AV, RAHEL 0.99 cm2, mild aortic root dilation, ascending aorta mildly dilated, mild TR, 07/22- EF 60-65%, mod. concentric left ventricular hypertrophy, severe aortic valve stenosis (0.90cm2), asc. aorta mildly dilated Left Ventricular Ejection Fraction: 03/18 EF 60-65% by echo, EF<GT>55% by Echo -April 2011 Nuclear Results: 10/20 moderate aortic strenosis, no ischemia, LVH LVEF of 60-65% documented via echocardiogram on 07/26/2012 FAMILY HISTORY: SOCIAL HISTORY Alcohol Use - denies drinking; Smoking - used to smoke but quit; Diet - lap band surgery watching wht she eats; Exercise - exercises daily and walks dog 4-5 days a week; Seat Belt Use - always; Residence - lives in [place] year round; Place of - [place]; Hours Worked - none; REVIEW OF SYSTEMS GENERAL fatigue, pt feels tired a lot INTEGUMENTARY denies any change in hair or nails, rashes, or skin lesions. EYES wears eye glasses/contact lenses EARS, NOSE, THROAT, MOUTH denies any hearing loss, epistaxis, hoarseness or difficulty speaking. RESPIRATORY sleep apnea, c pap CARDIOVASCULAR dizziness ABDOMINAL denies ulcer disease, hematochezia or melena. MUSCULOSKELETAL denies any history of arthritic symptoms or back problems. NEUROLOGICAL migraine headaches PSYCHIATRIC depression ENDOCRINE denies any history of thyroid disease or diabetes mellitus. HEMATOLOGICAL/IMMUNOLOGIC easy bruising PHYSICAL EXAMINATION VITAL SIGNS: Blood Pressure: 127/79Sitting, Right arm, large cuff Pulse- 64.00/min. Weight- 194.70 lbs. Height- 63.5 BMI Measurement: 34 CONSTITUTIONAL ambulating halls without distress, well developed SKIN non-diaphoretic HEAD atraumatic EYES EOM intact, pupils equal ENT speech normal, tongue midline NECK supple with transmitted murmur CHEST clear without rales/wheezing CARDIAC RRR with II/ systolic murmur, no AI ABDOMEN good BS, non-tender PERIPHERAL PULSES good ankle and radial EXTREMITIES & BACK no pitting edema PSYCHIATRIC non-aggitated. NEUROLOGICAL motor grossly intact MEDICATIONS UPDATED/STARTED TODAY: meclizine 25 mg tablet, 1 p.o. PRN as Directed, #0 (Zero) MEDICATIONS REFILLED/STOPPED TODAY: Alendronate 70 mg Tablet 1 tab weekly #0 Physician Order, lamotrigine 100 mg Tablet and Rapid Dissolve 1 p.o. PRN as Directed #0 (Zero) Physician Order ASSESSMENT/RECOMMENDATIONS: I had a long discussion with the patient. I did explain to her that shehas now severe aortic stenosis. If she were having symptoms (i.e., shortness of breath, symptoms ofheart failure, angina, or syncope), she would definitely require an aortic valve replacement surgery at this time. Likewise if there was evidence of LV enlargement or dysfunction, she would require surgery at this time. From the best that I can tell, she does not appear to be symptomatic (although the valve is severe). I suspect that this will be progressive. Even if we were not to contemplate surgery in the immediate future, I would feel that surgery would be necessary soon (i.e., in one or two years). I had a long discussion with her about the pros and cons of a bioprosthetic versus a mechanical valve. The need of anticoagulation with a mechanical valve was discussed. The longevity of thevarious types of valves was discussed. I also discussed with her the need of assisted antibiotic pr ophylaxis for an artificial valve. I discussed the need of a heart catheterization and the rationale of a heart catheterization prior to any surgery. At this point, the patient wants to think about it. Because her valve has worsened, she will need closer follow up. I have scheduled her to see me back in three months' time. I told her to get her dental work done as any cavities will need to be taken care of prior to any surgery. She was instructed that if she develops shortness of breath, chest pain, syncope, or other cardiac symptoms, she should contact me for earlier follow up. I will arrange close follow up. Thank you very much for allowing us to participate in the care of your patient. Should you have anyquestions about this patient or any other patient, please feel free to contact us at anytime. TODAYS ORDERS 1. Return Visit 3 months Layo Landry M.D. documented in this encounter Plan of Treatment Upcoming Encounters Date Type Department Care Team (Late st Contact Info) Description 05/21/2025 9:45 AM CDT Appointment [facility] [address] [place] [address] [address] [place] [address] Ann Ruiz E, SOCIAL MEDIA JOB TITLES MONTESSORI TODDLER TEACHER [address] [place] [address] 05/21/2025 11:00 AM CDT Lab [facility] [address] [place] [address] 06/19/2025 8:45 AM CDT Office Visit [facility] [address] [place] [address] [address] [place] [address] Ann Ruiz, SOCIAL MEDIA JOB TITLES MONTESSORI TODDLER TEACHER [address] [place] [address] Donald Sommers MD [address] [place] [address] documented as of this encounter Visit Diagnoses Not on filedocumented in this encounter Care Teams Supervisor Parking Lot Relationship Specialty Start Date End Date Claritza Delgado MD PCP - General 07/16/12 07/29/16 Maria L Ornelas MD PCP - General Family Practice 07/30/16 09/22/18 Ariel Young MD PCP - General 09/23/18 07/19/23 Kimberly Tierney PA-C [facility] [address] [facility] [place] [address] PCP - General 07/20/23 Donald Sommers MD [address] [place] [id number] Assigned Heart and Vascular Provider 10/27/20 04/23/23 Alesha Ballesteros PA-C [address] [place] [address] [id number] Assigned Surgical Provider 12/25/20 01/17/22 Donald Sommers MD [address] [place] [id number] Assigned Heart and Vascular Provider 07/24/23 10/01/24 Ann Ruiz, SOCIAL MEDIA JOB TITLES MONTESSORI TODDLER TEACHER [address] [place] [id number] Nurse Practitioner Cardiovascular Disease 04/14/24 Ann Ruiz, SOCIAL MEDIA JOB TITLES MONTESSORI TODDLER TEACHER [address] [place] [id number] Assigned Heart and Vascular Provider 10/02/24 Donald Sommers MD [address] [place] [id number] Cardiovascular Disease 02/01/25 documented as of this encounter
--- OUTSIDE RECORDS SUMMARY | 2025-03-30 00:55 | XMS_ITS | Encounter Summary ---
Author Organization [place] Address [address] [facility] [address] Care Team Providers Care Dryerman/Woman Name Role Phone Kade Gay [phone] Primary Care Pro vider Unavailable Claritza Delgado MD Primary Care Provider [phone] Maria L Ornelas MD Primary Care Provider Unavailabl e Ariel Young MD Primary Care Provider + Donald Sommers MD Unavailable [phone] Alesha Ballesteros PA-C Unavailable + [phone] Kimberly Tierney-C Primary Care Provider [phone] Donald Sommers MD Unavailable [phone] Joseph March E JACQUARD LOOM HEDDLES TIER CHIEF PORT DIRECTOR Unavailable [phone] Joseph, March E JACQUARD LOOM HEDDLES TIER CHIEF PORT DIRECTOR Unavailable [phone] Donald Sommers MD Unavailable [phone] Encounter Details Date Type Department Care Team (Late st Contact Info) Description 07/28/2011 Office Visit-[facility] [place] [address] [facility] [address] [place] [phone] Layo Landry MD XXX XXX [address] [facility] [address] [place] [id number] Social History Tobacco Use Types Packs/Day Years Used Date Smoking Tobacco: Former Alcohol Use Standard Drinks/Week Comments No 0 (1 standard drink = 0.6 oz pur e alcohol) Comments No Sex and Gender Information Value Date Recorded Sex Assigned at Not on file 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 DATE: 07/28/2011 TANVIR ISSA DATE OF : 1950 AGE: [age] years old Referring Physician: KADE BOSCH Referring Clinic: [facility] CURRENT DIAGNOSES 1. Aortic Valve Disorders, 424.1 2. Other And Unspecified Hyperlipidemia, 272.4 3. - Hypertension, 401.1 ALLERGIES lisinopril, Cough-productive SBE prophylaxis MEDICATIONS (prior to changes made today) 1. Alendronate 70 mg Tablet, 1 tab weekly 2. Calcium 500 with Vitamin D 500 mg(1,250mg) -200 unit Tablet, 1 p.o. twice daily 3. Demerol 100 mg Tablet, 1 p.o. PRN as Directed 4. lamotrigine 100 mg Tablet, Rapid Dissolve, 1 p.o. PRN as Directed 5. Levothyroxine 50 mcg Tablet, 1 p.o. daily 6. losartan 50 mg Tablet, 1 p.o. daily 7. Sertraline 100 mg Tablet, 1/2 tab twice daily 8. simvastatin 80 mg Tablet, 1 p.o. daily 9. Timolol 0.5 % Drops, Take as Directed 10. Tylenol-Codeine #3 300-30 mg Tablet, 1 p.o. PRN as Directed CHIEF COMPLAINTS bicuspid AoV HISTORY OF PRESENT ILLNESS Tanvir Issa was seen in the office today for her aortic stenosis. As you probably remember, the patient is a 60-year-old female who has a history of aortic stenosis and was followed by Dr. Jourdan Aguirre at the [facility]. The patient elected to have followup here in [place], as Dr. Aguirre was about to retire. I saw the patient for the first time a year ago and she was asymptomatic from her aortic stenosis. The patient comes back to the clinic today. She continues to be asymptomatic from her aortic stenosis. She denies any shortness of breath, chest pain, or syncope. She is able to carry on her normal activities this year, as she was in the past. Her physical exam is as listed below. A recent echocardiogram done several months ago showed continued good left ventricular function. There was aortic stenosis with a mean gradient of 28. There was mild aortic root dilation at around 4.0. A Bicuspid aortic valve was seen. No significant aortic insufficiency was seen. The echocardiogram was felt to be unchanged from 2008. PAST HISTORY Past Medical Illnesses: GERD, HTN, hyperlipidiemia, migraines, depression, hypothyroidism, YANELI, migraine headaches, trochanteric bursitis Past Cardiac Illnesses: aortic stenosis Surgeries/Procedures - General: bariatric surgery Cardiology Procedures-NonInvasive: echo 03/19, 03/18, dobutamine stress echo 10/20, echocardiogram April 2011 PMHx Echo Results: 03/19 bicuspid aortic valve, 04/20 mod AV stenosis, mild AR, bicuspid AV, RAHEL 0.99 cm2, mild aortic root dilation, ascending aorta mildly dilated, mild TR Left Ventricular Ejection Fraction: 03/18 EF 60-65% by echo, EF<GT>55% by Echo -April 2011 Nuclear Results: 10/20 moderate aortic strenosis, no ischemia, LVH 03/18 EF 60-65% by echo and EF<GT>55% by Echo -April 2011 FAMILY HISTORY: CARDIAC RISK FACTORS SOCIAL HISTORY Alcohol Use - denies drinking; Smoking - used to smoke but quit; Diet - lap band surgery watching wht she eats; Exercise - exercises daily and walks dog 4-5 days a week; Seat Belt Use - always; Residence - lives in [place] year round; Place of - [place]; Hours Worked - none; REVIEW OF SYSTEMS GENERAL denies recent weight loss, weight gain, fever or chills or change in exercise tolerance. INTEGUMENTARY denies any change in hair or nails, rashes, or skin lesions. EYES denies diplopia, history of glaucoma or visual field defects. EARS, NOSE, THROAT, MOUTH denies any hearing loss, epistaxis, hoarseness or difficulty speaking. RESPIRATORY sleep apnea, c pap CARDIOVASCULAR negative for palpitations, chest pain, orthopnea, PND, peripheral edema, syncope or claudication. ABDOMINAL denies ulcer disease, hematochezia or melena. MUSCULOSKELETAL denies any history of arthritic symptoms or back problems. NEUROLOGICAL migraine headaches PSYCHIATRIC depression ENDOCRINE denies any history of thyroid disease or diabetes mellitus. HEMATOLOGICAL/IMMUNOLOGIC easy bruising PHYSICAL EXAMINATION VITAL SIGNS: Blood Pressure: 128/80Sitting, Left arm, large cuff Pulse- 60.00/min. Weight- 205.40 lbs. Height- 63.5 CONSTITUTIONAL NAD, ambulating halls without difficulty SKIN non-diaphoretic HEAD atraumatic EYES EOMI ENT speech normal NECK supple with transmitted murmur CHEST clear to ascultation CARDIAC RRR with II/ systolic murmur, no AI ABDOMEN non-tender PERIPHERAL PULSES good ankle and radial EXTREMITIES & BACK no edema PSYCHIATRIC appropriate in answers NEUROLOGICAL motor grossly intact MEDICATIONS UPDATED/STARTED TODAY: lamotrigine 100 mg Tablet, Rapid Dissolve, 1 p.o. PRN as Directed, #0 (Zero) losartan 50 mg Tablet,1 p.o. daily, #0 (Zero) simvastatin 80 mg Tablet, 1 p.o. daily, #0 (Zero) Tylenol-Codeine #3 300-30 mg Tablet, 1 p.o. PRN as Directed, #0 (Zero) MEDICATIONS REFILLED/STOPPED TODAY: Lisinopril 5 mg Tablet 1 p.o. twice daily #60 Physician Order, Multivitamin Tablet 1 p.o. daily Patient Terminated and Topiramate 100 mg Tablet 1 p.o. daily #0 Physician Order ASSESSMENT/RECOMMENDATIONS: 1. The patient does have asymptomatic aortic stenosis on the basis of a bicuspid aortic valve. There has been no interval change in her degree of stenosis, as well as her mild aortic root enlargement. 2. At this point, she is asymptomatic and does not have any indication for surgery at this time. Her stenosis is edhyuwfr-sq-vsogva but asymptomatic. She is not having any chest pain, syncope, evidence of heart failure, or angina. Her aortic root is not enlarged enough to warrant prophylactic surgery. I have discussed this with her. We will follow her in a years' time. If she develops symptoms prior to that, earlier followup could be arranged. 3. The patient did have some problems with a coughto the lisinopril and she is now on losartan, which I agree with. 4. Her blood pressure is good today, as it measures 128/80. Thank you very much for allowing us to participate in the care of your patient. Should you have anyquestions about this patient or any other patient, please feel free to contact us at anytime. TODAYS ORDERS 1. Return Visit 1 year 2. 2D, color flow, doppler 1 year Layo Landry M.D. documented in this encounter Plan of Treatment Upcoming Encounters Date Type Department Care Team (Late st Contact Info) Description 05/21/2025 9:45 AM CDT Appointment [facility] [address] [place] [address] [place] [phone] Ann Ruiz E, JACQUARD LOOM HEDDLES TIER CHIEF PORT DIRECTOR [address] [place] [address] 05/21/2025 11:00 AM CDT Lab [facility] [address] [place] [address] [place] [phone] 06/19/2025 8:45 AM CDT Office Visit [facility] [address] [place] [phone] Ann Ruiz, JACQUARD LOOM HEDDLES TIER CHIEF PORT DIRECTOR [address] [place] [address] Donald Sommers MD [address] [place] [address] [place] [id number] documented as of this encounter Visit Diagnoses Not on filedocumented in this encounter Care Teams Dryerman/Woman Relationship Specialty Start Date End Date Dup Kade Bosch Use [id number] [place] [address] PCP - General 05/25/11 07/15/12 Clarit[place] [address] PCP - General 07/16/12 07/29/16 [place] [address] PCP - General Family Practice 07/30/16 09/22/18 [place] [address] PCP - General 09/23/18 07/19/23 Kimberly Tierney PA-C [place] [address] [place] [address] PCP - General 07/20/23 Donald Sommers MD [address] [place] [address] [place] [address] Assigned Heart and Vascular Provider 10/27/20 04/23/23 Alesha Ballesteros PA-C [address] [place] [address] [address] [place], [place] [id number] Assigned Surgical Provider 12/25/20 01/17/22 Donald Sommers MD [address] [place] [address] [place] [address] Assigned Heart and Vascular Provider 07/24/23 10/01/24 Ann Ruiz APRN CHIEF PORT DIRECTOR [address] [place] [address] Nurse Practitioner Cardiovascular Disease 04/14/24 Ann Ruiz APRN CHIEF PORT DIRECTOR [address] [place] [address] Assigned Heart and Vascular Provider 10/02/24 Donald Sommers MD [address] [place] [address] [place] [address] Cardiovascular Disease 02/01/25 documented as of this encounter
--- OUTSIDE RECORDS SUMMARY | 2025-03-30 00:55 | XMS_ITS | Clinical Summary ---
Author Organization [employer] [facility] [employer] [facility] Address [address] [place] [address] Care Team Providers Care Job Spotter Name Role Phone Kimberly Tierney PA-C Primary Care Provider [phone] Allergies No known active allergies Medications XALATAN 0.005 % EYE DROPS instill 1 drop into affected eye(s) by ophthalmic route once daily in the evening 0 05/05/20 06 Active timolol maleate (TIMOPTIC) 0.25 % ophthalmic solution Place 1 Drop into both eyes once daily. 1 Bottle 0 11/23/19 13 Active meperidine (DEMEROL) 100 mg/mL injection Inject 1 mL intramuscular every 4 hours if needed for Pain. 0 01/11/20 13 Active bimatoprost (LUMIGAN) 0.01 % ophthalmic solution 1 Drop once daily in the evening. 1 Bottle 0 02/27/20 14 Active topiramate (TOPAMAX) 25 mg tabletIndicatio ns:Migraine Take 2 tablets by mouth 2 times daily. Prescription from neurology 0 10/23/19 15 Active hydrOXYzine HCl (ATARAX) 50 mg tablet Take 1 tablet by mouth 4 times daily. As needed if anxiety attacks 30 tablet 0 02/14/20 15 Active medication order composer Diphenhydraimine 50 mg injection as needed for pain 0 11/06/19 16 Active aspirin (ECOTRIN) 81 mg enteric coated tabletIndicatio ns:H/O prosthetic aortic valve replacement Take 1 tablet by mouth once daily with a meal. 0 12/15/19 17 Active oxyCODONE-aceta minophen, 5-325 mg, (PERCOCET) 5-325 mg per tabletIndicatio ns:Acute midline low back pain without sciatica Take 1-2 tablets by mouth every 6 hours if needed for Pain Max acetaminophen dose: 4000mg in 24 hrs. 12 tablet 06/02/20 17 Active amoxicillin (AMOXIL) 500 mg capsuleIndicati ons:H/O prosthetic aortic valve replacement TAKE 4 CAPSULES BY MOUTH 30 MINUTES TO ONE HOUR BEFORE DENTAL APPOINTMENT 4 capsule 2 10/07/20 17 Active warfarin (COUMADIN) 2 mg tabletIndicatio ns:Anticoagulat ion monitoring, INR range 2-3,H/O prosthetic aortic valve replacement Take 4 mg (2 mg x 2) on Mon; 3 mg (2 mg x 1.5) all other days or as directed. 150 tablet 02/24/20 18 Active levothyroxine (SYNTHROID) 75 mcg tabletIndicatio ns:Hypothyroidi sm, unspecified type TAKE ONE TABLET BY MOUTH EVERY DAY 90 tablet 07/15/20 18 Active losartan (COZAAR) 25 mg tabletIndicatio ns:HTN (hypertension) TAKE ONE TABLET BY MOUTH EVERY DAY 30 tablet 10/17/19 19 Active atorvastatin (LIPITOR) 80 mg tabletIndicatio ns:Hyperlipemia TAKE ONE TABLET BY MOUTH EVERY DAY 30 tablet 03/07/20 19 Active Active Problems Problem Noted Date Diagnosed Date Chronic insomnia 08/31/2019 Hypothyroidism (acquired) 06/29/2016 Aortic aneurysm without rupture 11/06/2015 Overview (06/29/2016): Thoracic post aortic valve replacement. Followed by [facility]ated LFTs 10/21/2013 Arthritis of knee 01/15/2013 Overview (02/23/2013): Right > Left. January 2013: Right knee pes bursa cortisone, vastly improved with pes bursa injection but only for 1 week. February 2013: right knee joint injection. 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 6 Overview (12/28/2005): RLL Hemiplegic migraine 12/28/2005 LATTICE DEGENERATION-BOTH WITH ATROPHIC HOLES GERD (gastroesophageal reflux disease) Adjustment disorder Overview (09/11/2011): hx ?depression at [facility] Status following gastric banding surgery for vivek ght loss Resolved Problems Problem Noted Date Diagnosed Date Resolved Date YANELI 03/14/2008 AHI-24 05/20/2017 07/27/20 Heart murmur 11/09/2011 03/11/2018 Unspecified hypothyroidism 09/01/2011 1 YANELI (obstructive sleep apnea) 07/27/2017 Immunizations Immunization Administration Dates Next Due Influenza A (H1N1), Inactivated 11/20/2009 Influenza, High-dose Inactivated 07/25/2014 Influenza, IIV3 (Age >=3 years) 10/17/19 14,08/23/2012,11/20/2009,2008,10/27/2006,09/27/2001,08/06/1999 Influenza, IIV4 06/10/2017, 6,08/29/2015,2013 Pneumococcal Poly,23-Valent (Pneumovax) 09/23/2012,09/27/2001 Td (Age >=7 Years) 02/05/2004 Tdap 09/16/2012,01/20/2008 Family History Medical History Relation Name Comments Glaucoma Father Heart attack Father Cancer-breast Maternal Aunt Dementia Mother Diabetes type II Mother Genetic Other 1 glaucoma-dad Genetic Other 2 glaucoma-dad~HT N, Diabetes-mom~migraines-son Genetic Other 3 glaucoma-dad, b rother~HTN, Diabetes-mom~migraines-son Cancer-breast Paternal Aunt Cancer Sister 1 Relation Name Status Comments Brother Alive Father Maternal Aunt (Age 80) Diagnosed at 74 Mother Other 1 Other 2 Other 3 Paternal Aunt Alive Sister 1 Alive Sister 2 Alive Social History Tobacco Use Types Packs/Day Years Used Date Smoking Tobacco: Passive Smo ke Exposure - Never Smoker Smokeless Tobacco: Never Tobacco Cessation:Counseling Given: Yes Comments:children smoke Alcohol Use Standard Drinks/Week Comments No 0 (1 standard drink = 0.6 oz pur e alcohol) Comments No Sex and Gender Information Value Date Recorded Sex Assigned at Not on file Legal Sex Female 7:02 AM STUNNER ANIMAL Gender Identity Not on file Sexual Orientation Not on file Obstetrics History Last Filed Vital Signs Vital Sign Reading Time Taken Comments Blood Pressure 123/76 08/31/2019 11:08 AM STUNNER ANIMAL Pulse 56 08/31/2019 11:08 AM STUNNER ANIMAL Temperature 36.6 C (97.9 F) 08/31/2019 11:06 AM STUNNER ANIMAL Respiratory Rate 14 06/02/2017 3:29 PM CDT Oxygen Saturation 98% 08/31/2019 11: 06 AM STUNNER ANIMAL Inhaled Oxygen Concentration - - Weight 83.8 kg (184 lb 12.8 oz) 019 11:06 AM STUNNER ANIMAL Height 160 cm (5' 2.99) 08/31/2019 11: 06 AM STUNNER ANIMAL Body Mass Index 32.74 08/31/2019 11:06 AM STUNNER ANIMAL Plan of Treatment Health Maintenance Due Date Last Done Comments Hepatitis C screening for age 18-79 1970 Zoster (shingles) series for age 50+ (1 of 2) 2002 Pneumococcal series for age 50+ (2 of 2 - PCV) 09/23/2013 09/23/2012, 09/27/2001 DEXA/DXA scan for age 65+ 2017 Medicare Wellness for age 65+ 2017 02/08/2013 Depression screening for age 12+ 12/07/2017 12/07/2016, 11/06/2015 Fecal testing non-DNA (FIT,FOBT,iFOBT) for age 45-75 02/26/2019 02/26/2018 BMI (ht and wt on same day) for age 18+ 08/31/2020 08/31/2019, 03/11/2018, 02/03/2018, Additional history exists Lipids for age 45-75 07/27/2022 07/27/2017, 06/29/2016, 10/17/2013, Additional history exists Tetanus booster 09/16/2022 09/16/2012, 01/09, 08/27/2007, Additional history exists COVID-19 vaccine series () 06/11/2024 03/18/2021, 02/25/2021 Mammogram for age 45-75 08/09/2024 08/09/20 23, 03/20/2022, 10/15/2020, Additional history exists Influenza Vaccine (Season Ended) 2025 06/10/2017, 06/29/2016, 08/29/2015, Additional history exists RSV vaccine for adults or (1 - 1-dose 75+ series) 2027 Tdap Completed 09/16/2012, 01/20/2008 Hepatitis B series for 19+ Aged Out N o longer eligible based on patient's age to complete this topic Procedures Procedure Name Priority Date/Time Associated Diagnosis Comments XR MAMMO [place] BILAT SCREEN Routine 08/09/2023 12:36 PM CDT Visit for screening mammogram OCCULT BLOOD IFOBT STOOL Routine 02/26/2018 8:00 AM CDT Screening for colorectal cancer LIPID PANEL W REFLEX MEASURED LDL Routine 07/27/2017 3:06 PM CDT HTN (hypertension) from Last 3 Months or Most Recently Relevant to Health Maintenance Results * XR MAMMO [place] BILAT SCREEN (08/09/2023 12:36 PM CDT) Anatomical Region Laterality Modality BREASTS, Breast Left, Breast Right Bilateral Mammography Impressions 08/10/2023 11:38 AM CDT There is no radiographic evidence for malignancy. Recommend annual mammograms. MAMMOGRAM ASSESSMENT: ACR 1 Negative PATIENTS: You will also receive a letter with your examination results in an easy to read format. If you have questions about your results, please contact your referring provider. Narrative 08/10/2023 11:38 AM CDT For Patients: As a result of the 21st Century Cures Act, medical imaging exams and procedure reports are released immediately into your electronic medical record. You may view this report before your referring provider. If you have questions, please contact your health care provider. XR MAMMO [place] BILAT SCREEN [[id number]] CLINICAL HISTORY: This is an asymptomatic 72 y.o. patient. INDICATION FOR EXAM: Mammogram Screening. TECHNIQUE: CC & MLO views were obtained. This study was evaluated with the assistance of Computer-Aided Detection. Breast Tomosynthesis was used in interpretation. COMPARISON FILM: Yes 03/20/22 [facility] 10/15/20 [facility] FINDINGS: The breasts are almost entirely fatty. There are no dominant masses, suspicious micro calcifications or areas of architectural distortion. Nileshdeja Karyn Tierney PA-C MAMMO Final Result * OCCULT BLOOD IFOBT STOOL (02/26/2018 8:00 AM CDT) STOOL BLOOD ,IFOBT Negative Negative 03/03/2018 11:22 AM CDT [facility] Stool STOOL SPECIMEN / Unknown Non-Blood / Unknown 02/26/2018 8:00 AM CDT 03/03/2018 8:23 AM CDT Maria L Ornelas MD LABORATORY Final Resul t [facility] [address] [place] [address], [place] [phone] * LIPID PANEL W REFLEX MEASURED LDL (07/27/2017 3:06 PM CDT) CHOLESTEROL,TOTAL 163 100 - 199 mg/dL 07/27/2017 8:05 PM CDT [facility] TRAL LABORATORY TRIGLYCERIDES 96 <150 mg/dL 07/27/2017 8:05 PM CDT [facility]-[place] TRAL LABORATORY HDL CHOLESTEROL 44 >40 mg/dL 7 8:05 PM CDT [facility] NON-HDL CHOLESTEROL 119 <145 mg/dl 07/27/2017 8:05 PM CDT [facility] TRAL LABORATORY CHOL/HDL RATIO 3.70 <4.50 07/27/2017 8:05 PM CDT [facility] LDL CHOLESTEROL 100 <=130 mg/dL 07/27/2017 8:05 PM CDT [facility] TRAL LABORATORY PROVIDER ORDERED STATUS RANDOM 07/27/2017 8:05 PM CDT [facility] TRAL LABORATORY Blood BLOOD SPECIMEN / Unknown Venipuncture / Unknown 07/27/2017 3:06 PM CDT 07/27/2017 3:06 PM CDT us Maria L Ornelas MD CHEMISTRY Final Resul t [facility] [address] [place] [address], [place] from Last 3 Months or Most Recently Relevant to Health Maintenance Insurance [facility] Care Teams Job Spotter Relationship Specialty Start Date End Date Kimberly Tierney PA-C [address] [place] [id number] PCP - General Physician [employer] Florist 03/19/22
--- OUTSIDE RECORDS SUMMARY | 2025-03-30 00:55 | XMS_ITS | Encounter Summary ---
Author Organization [place] Address [facility] [place] [address] Care Team Providers Care Plane Runner Name Role Phone Claritza Delgado MD Primary Care Provider [phone] Maria L Ornelas MD Primary Care Provider Unavailabl e Ariel Young MD Primary Care Provider + Donald Sommers MD Unavailable [phone] Alesha Ballesteros PA-C Unavailable + [phone] Kimberly Tierney-C Primary Care Provider [phone] Donald Sommers MD Unavailable Joseph Ann E DANIAL ROLLER PRINTING SUPERVISOR Unavailable [phone] Joseph Ann E FLIGHT COMMUNICATIONS SPECIALIST ROLLER PRINTING SUPERVISOR Unavailable [phone] Donald Sommers MD Unavailable [phone] Encounter Details Date Type Department Care Team (Late st Contact Info) Description 08/25/2012 Office Visit-[facility] INTERFACE P DEPT Glenroy Calvillo MD XXX RESIGNED XXX MERY RUELAS [id number] Social History Tobacco Use Types Packs/Day Years Used Date Smoking Tobacco: Former Alcohol Use Standard Drinks/Week Comments No 0 (1 standard drink = 0.6 oz pur e alcohol) Comments No Sex and Gender Information Value Date Recorded Sex Assigned at Not on file Legal Sex Female 3:37 AM BATCH WEIGHER Gender Identity Not on file Sexual Orientation Not on file documented as of this encounter Progress Notes * Glenroy Calvillo MD - 08/25/2012 3:30 PM CST Chief Radiology: Rajinder Glenroy Status: Final - Signature Encounter: 2012-08-25 15:30:00.000 Type: CV Surgery Letter Department of Surgery Division of Cardiovascular and Thoracic Surgery [place] Mail Code [address] [address] [facility] Cardiothoracic Surgery [address] [facility] [address] [facility] [address] August 25, 2012 Layo Landry MD [facility], [facility] [address] [facility]. , [address] [place] [address] Claritza Delgado MD [facility]--[address] [address] RE: Kari Garcia : 1950 NELI: 08/25/2012 Dear Doctors: Thanks for the opportunity to see your nice patient, Kari Garcia. This 61-year-old woman has known aortic valvular stenosis which has been followed for several years. She recently had a cardiac echo as part of a followup examination which shows that her mean gradient has increased from 28 to 48 mmHg, and her valve area is now 0.9 cm2 down from 1.0 cm2. There is trace mild aortic insufficiency. The patient's weight has been stable, but she reports that she notices that her hands and perhaps her feet are swollen in the morning when she awakens. She is somewhat more short of breath with activity. She, as you know, has undergone LAP-BAND surgery for weight reduction approximately 2 years ago. She denies any chest discomfort. She does report some symptoms as dizziness, which is felt to be true vertigo, treated with meclizine; and these symptoms have improved. The patient is referred at this time for consideration for future aortic valve replacement. She is scheduled for angiography in the next week or so. She has already been to her dentist, who has given her a clean bill of health. Her past medical history is positive for gastroesophageal reflux disease, hypertension, hyperlipidemia, migraine headaches, depression, hypothyroidism and some trochanteric bursitis. She has undergone bariatric surgery approximately 2 years ago. She has been followed for aortic valve stenosis probably secondary to a bicuspid valve. Her ejection fraction is 60-65% with mild concentric left ventricular hypertrophy noted. Her family history is positive for parents both of whom had premature coronary artery disease, her father having undergone triple bypass surgery and her mother having had myocardial infarction from which she has recovered and is still living. On social history, the patient does not smoke. She is reasonably active. She does not drink. She lives in [place]. She walks her dog 4-5 days a week. Her review of systems is otherwise completely negative except as noted in the History and Physical. Physical examination shows an alert, oriented, well-nourished, well-developed woman. Blood pressureis 130/80. Pulse is 65. The patient's weight is 194 pounds. Cranial nerves II-XII are intact. Respirations are 18 and unlabored. She is afebrile. Her neck is supple. There are transmitted somewhat low-pitched bruits bilaterally. Her lungs are clear to auscultation bilaterally. There are no rubs or rhonchi. Her cardiac exam is positive for a grade 2/6 somewhat high-pitched murmur heard across the precordium somewhat stronger in the right 2nd intercostal space. The abdomen is still soft and mildly obese. Extremities are warm without cyanosis or edema. Motion and sensation are intact. I have had a further discussion with Ms. Garcia about the different kinds of valves, the need for Coumadin and followup necessary. She right now is tending toward a mechanical valve and as we noted will be having her angiogram in the near future. We talked about the procedure of aortic valve replacement including risks, complications, benefits and alternative methods of treatment. She may be a candidate for a minimally invasive approach or partial sternotomy, although this was not discussed secondary to her pending angiogram. She will be getting back to us to schedule surgery in the near future. Thanks for the opportunity to participate in her care. Prior to her surgery, we will be getting a carotid ultrasound and a vein mapping if necessary. Once again, thanks for the opportunity. Sincerely, Glenroy Calvillo MD Department of Surgery [id number] Electronically signed by:Glenroy Calvillo M.D. Sep 13 2012 1:48PM BATCH WEIGHER H WEIGHER H WEIGHER documented in this encounter Plan of Treatment Upcoming Encounters Date Type Department Care Team (Late st Contact Info) Description 05/21/2025 9:45 AM CDT Appointment [facility] Specialty Care [id number] [place] [address] [address] [place] [address] Ann Ruiz E, FLIGHT COMMUNICATIONS SPECIALIST ROLLER PRINTING SUPERVISOR [address] [place] [address] 05/21/2025 11:00 AM CDT Lab [facility] [address] [facility] [address] [place] [address] 06/19/2025 8:45 AM CDT Office Visit [facility] [address] [place] [address] [address] [place] [address] Ann Ruiz, FLIGHT COMMUNICATIONS SPECIALIST ROLLER PRINTING SUPERVISOR [address] [place] [address] Donald Sommers MD [address] [place] [address] documented as of this encounter Visit Diagnoses Not on filedocumented in this encounter Care Teams Plane Runner Relationship Specialty Start Date End Date Claritza Delgado MD PCP - General 07/16/12 07/29/16 Maria L Ornelas MD PCP - General Family Practice 07/30/16 09/22/18 Ariel Young MD PCP - General 09/23/18 07/19/23 Kimberly Tierney PA-C [facility] [address] [place] [address] PCP - General 07/20/23 Donald Sommers MD [address] [place] [address] Assigned Heart and Vascular Provider 10/27/20 04/23/23 Alesha Ballesteros PA-C [address] [place] [address] [address] [place], [place] [address] Assigned Surgical Provider 12/25/20 01/17/22 Donald Sommers MD [address] [place] [address] Assigned Heart and Vascular Provider 07/24/23 10/01/24 Ann Ruiz, FLIGHT COMMUNICATIONS SPECIALIST ROLLER PRINTING SUPERVISOR [address] [place] [address] Nurse Practitioner Cardiovascular Disease 04/14/24 Ann Ruiz, DANIAL ROLLER PRINTING SUPERVISOR [address] [place] [address] Assigned Heart and Vascular Provider 10/02/24 Donald Sommers MD [address] [place] [address] Cardiovascular Disease 02/01/25 documented as of this encounter
--- OUTSIDE RECORDS SUMMARY | 2025-03-30 00:55 | XMS_ITS | Clinical Summary ---
Author Organization [place] Address [address] [place] [address] Care Team Providers Care T[employer] Stripper Name Role Phone Kimberly Tierney PA-C Primary Care Provider [phone] Joseph Ann E PRINCIPAL ADMINISTRATIVE CLERK [facility] Unavailable [phone] Joseph March E PRINCIPAL ADMINISTRATIVE CLERK [facility] Unavailable [phone] Donald Sommers MD Unavailable [phone] Allergies No known active allergies Medications timolol (TIMOPTIC) 0.5 % ophthalmic solution Place 1 drop into both eyes daily. Active bimatoprost (LUMIGAN) 0.03 % ophthalmic dropsIndications: Open-Angle Glaucoma Place 1 drop into both eyes At Bedtime. Pt has own Indications: Wide-Angle Glaucoma Active Meperidine HCl (DEMEROL IJ) Inject 100 mg as directed as needed. Demerol injection usually combined with 50 mg of hydroxyzine Active topiramate (TOPAMAX) 100 MG tablet Take 100 mg by mouth daily Active oxyCODONE-acetami nophen (PERCOCET) 5-325 MG per tablet Take 1 tablet by mouth every 6 hours as needed for moderate to severe pain Active hydrOXYzine (ATARAX) 50 MG tablet Take 50 mg by mouth 3 times daily as needed for itching Active aspirin (ASA) 81 MG EC tabletIndications :S/P AVR Take 1 tablet (81 mg) by mouth daily 90 tablet 3 09/27/20 18 Active amoxicillin (AMOXIL) 500 MG tabletIndications :take four capsules by mouth 30 minutes to one hour before dental appointment Take 2,000 mg by mouth once Prior to dental work Active warfarin ANTICOAGULANT (COUMADIN) 3 MG tablet Take 3 mg by mouth daily 1 tablet every , , Sat, Sun Active warfarin ANTICOAGULANT (COUMADIN) 4 MG tablet Take 4 mg by mouth daily 1 tablet every Mon, Wed, Fri Active diphenhydrAMINE (BENADRYL) 50 mg/mL Inject 1 mg/kg into the vein every 6 hours as needed for itching Active albuterol (PROAIR HFA/PROVENTIL HFA/VENTOLIN HFA) 108 (90 Base) MCG/ACT inhaler Inhale 2 puffs into the lungs every 6 hours as needed for shortness of breath, wheezing or cough Active levothyroxine (SYNTHROID/LEVOTH ROID) 100 MCG tablet Take 100 mcg by mouth daily Active Cholecalciferol (VITAMIN D-3 PO) Act ivy dorzolamide-timol ol PF (COSOPT PF) 2-0.5 % opthalmic solutionh 1 drop 2 times daily Active cycloSPORINE (RESTASIS) 0.05 % ophthalmic emulsion 1 drop 2 times daily Active metoprolol succinate ER (TOPROL XL) 25 MG 24 hr tabletIndications :S/P AVR Take 1 tablet (25 mg) by mouth daily. 90 tablet 4 08/02/20 24 Active erenumab-aooe (AIMOVIG) 70 MG/ML injection Inject subcutaneously every 30 days. Active atorvastatin (LIPITOR) 80 MG tabletIndications :Hyperlipidemia LDL goal <70 Take 1 tablet (80 mg) by mouth daily. 90 tablet 3 09/20/20 24 Active losartan (COZAAR) 25 MG tabletIndications :Primary hypertension Take one tablet ( 25 MG ) twice daily by mouth 180 tablet 3 09/20/20 24 Active famotidine (PEPCID) 20 MG tablet Take 20 mg by mouth 2 times daily. Active Active Problems Problem Noted Date Diagnosed Date Hyperlipidemia 08/08/2014 Overview (08/12/2015): Diagnosis updated by automated process. Provider to review and confirm. Hypertension 08/08/2014 Hyperglycemia 09/26/2012 Aortic valve replaced 09/16/2012 YANELI (obstructive sleep apnea) Overview (10/24/2018): doesn't use cpap Thyroid disease Heart murmur Overview (10/24/2018): aortic valve stenosis GERD (gastroesophageal reflux disease) Hiatal hernia Overview (10/24/2018): much improved after lap band and hiatal hernia repair Resolved Problems Problem Noted Date Diagnosed Date Resolved Date Cervicalgia 07/01/2010 08/18/2010 Spasm of muscle 07/01/2010 08/18/2010 Tension headache 07/01/2010 08/18/2010 Encounters Date Type Department Care Team Description 02/01/2025 [facility] [address] [facility] [address] [place] [address] Donald Sommers MD Medication Question (metoprolol succinate ER (TOPROL XL) 25 MG 24 hr tablet) from Last 3 Months Immunizations Immunization Administration Dates Next Due Influenza (H1N1) 11/20/2009 Influenza (IIV3) PF 10/17/2013, 2,11/20/2009,11/09/2008, 7,09/27/2001,08/06/1999 Pneumococcal 23 valent 09/23/2012,09/27/2001 TD,PF 7+ (Tenivac) 02/05/2004 TDAP (Adacel,Boostrix) 01/20/2008 Family History Relation Status Comments Father Mother Social History Tobacco Use Types Packs/Day Years Used Date Smoking Tobacco: Former Cigarettes Q uit: 09/14/2007 Smokeless Tobacco: Never Alcohol Use Standard Drinks/Week Comments No 0 (1 standard drink = 0.6 oz pur e alcohol) PHQ-2 Answer Date Recorded PHQ-2 Score 0 09/20/2024 Adolescent Education Answer Date Record ed Getting School Help Needed Not on file 07/06 Comments No Sex and Gender Information Value Date Recorded Sex Assigned at Not on file Legal Sex Female 3:37 AM ACCOUNTANT COST Gender Identity Not on file Sexual Orientation Not on file Last Filed Vital Signs Vital Sign Reading Time Taken Comments Blood Pressure 110/62 11/21/2024 8:51 AM [facility] Pulse 54 11/21/2024 8:51 AM [facility] Temperature 36.8 C (98.2 F) 07/15/2020 10:28 AM CDT Respiratory Rate 16 01/25/2019 1:55 PM CDT Oxygen Saturation 100% 09/20/2024 1:15 PM [facility]OUNT[facility] Inhaled Oxygen Concentration - - Weight 79.4 kg (175 lb) 11/21/2024 8:51 AM [facility] Height 162.6 cm (5' 4) 11/21/2024 8:51 AM [facility] Body Mass Index 30.04 11/21/2024 8:51 AM [facility] Plan of Treatment Upcoming Encounters Date Type Department Care Team (Late st Contact Info) Description 05/21/2025 9:45 AM CDT Appointment [facility] [address] [place] [address] [address] [place] [address] Ann Ruiz, PRINCIPAL ADMINISTRATIVE CLERK [facility] [address] [place] [id number] 05/21/2025 11:00 AM CDT Lab [facility] [address] [place] [address] 06/19/2025 8:45 AM CDT Office Visit [facility] [address] [facility] [address] [place] [address] Ann Ruiz, PRINCIPAL ADMINISTRATIVE CLERK [employer] [facility] [address] [place] [address] Donald Sommers MD [address] [place] [address] Health Maintenance Due Date Last Done Comments ADVANCE CARE PLANNING 1950 ANNUAL REVIEW OF HM ORDERS 1950 CT COLONOGRAPHY 1952 FLEX SIG 1952 sDNA (Cologuard) 1952 COLONOSCOPY 1962 HEPATITIS C SCREENING 1970 TSH W/FREE T4 REFLEX 04/14/2012 04/14/2011, 06/24/2009, 11/09/2008, Additional history exists PNEUMOCOCCAL VACCINE 50+ YEARS (2 of 2 - PCV) 09/23/2013 09/23/2012, 09/27/2001 FALL RISK ASSESSMENT 2017 MEDICARE ANNUAL WELLNESS VISIT 2017 COLORECTAL CANCER SCREENING 02/26/2019 FIT 02/26/2019 02/26/2018 DEXA 12/13/2021 12/13/2006, 12/13/2006 ZOSTER VACCINE (2 of 2) 06/19/2022 04/24/2022 COVID-19 VACCINE (3 - season) 2024 03/18/2021, 02/25/2021 PHQ-2 (once per calendar year) 2024 09/20/2024, 07/20/2023, 07/15/2020 MAMMO SCREENING 08/09/2025 08/09/2023, 07/13, 03/20/2022, Additional history exists LIPID 09/20/2025 09/20/2024, 06/11, 11/06/2011, Additional history exists BMP 11/20/2025 11/20/2024, 09/10, 06/29/2016, Additional history exists RSV VACCINE (1 - 1-dose 75+ series) 2027 DIABETES SCREENING 11/20/2027 11/20/2024, 1 11/21/2023, 01/09/2019, Additional history exists DTAP/TDAP/TD VACCINE (4 - Td or Tdap) 12/08/2033 12/09/2023, 09/16/2012, 01/20/2008, Additional history exists LUNG CANCER SCREENING Discontinued 09/03/2015 INFLUENZA VACCINE Completed 07/03/2024, , 08/27/2022, Additional history exists HPV VACCINE Aged Out No longer eligi ble based on patient's age to complete this topic MENINGITIS VACCINE Aged Out No longer eligible based on patient's age to complete this topic Medical Devices Implanted Type Area Field Technician Device Identifier Shelf Expiration Date Model / Serial / Lot Valve Aortic Ats 22mm [facility] [id number] Implanted:Qty: 1 on 09/16/2012 by Glenroy Calvillo MD at [facility] N/A: [employer] 06/09/2015 [id number] / [id number] / Procedures Procedure Name Priority Date/Time Associated Diagnosis Comments BASIC METABOLIC PANEL Routine 11/20/2024 11:18 AM [facility]ST Primary hypertension LIPID PROFILE Routine 09/20/2024 2:04 PM [facility] [employer] Hyperlipidemia LDL goal <70 CTA CHEST WITH CONTRAST Routine 09/03/2015 1:50 PM [facility]ST Thoracic aortic aneurysm without rupture TSH WITH FREE T4 REFLEX Routine 04/14/2011 12:18 PM CDT HC MAMMO SCREEN BILATATERAL, INCL CAD WHEN PERF Routine 03/12/2009 2:12 PM CDT HC DEXA BONE DENSITY, >=1 SITE, AXIAL SKELETON Routine 12/13/2006 3:26 PM ACCOUNT[facility] COST from Last 3 Months or Most Recently Relevant to Health Maintenance Results * (ABNORMAL) Basic metabolic panel (11/20/2024 11:18 AM ACC[facility]ST) Sodium 139 135 - 145 mmol/L 11/20/2024 11:51 AM [facility] Potassium 4.4 3.4 - 5.3 mmol/L 11/20/2024 11:51 AM [facility] Chloride 110(H) 98 - 107 mmol/L 11/20/2024 11:51 AM [facility] Carbon Dioxide (CO2) 19(L) 22 - 29 mmol/L 11/20/2024 11:51 AM [facility] Anion Gap 10 7 - 15 mmol/L 11/20/2024 11:51 AM [facility] Urea Nitrogen 20.7 8.0 - 23.0 mg/dL 11/20/2024 11:51 AM [facility] Creatinine 1.25(H) 0.51 - 0.95 mg/dL 11/20/2024 11:51 AM [facility] GFR Estimate 46(L) >60 mL/min/1.7 3m2 11/20/2024 11:51 AM [facility] Comment:eGFR calculated usin 2020 CKD-EPI equation. Calcium 10.3 8.8 - 10.4 mg/dL 11/20/2024 11:51 AM [facility] Glucose 92 70 - 99 mg/dL 11/20/2024 11:51 AM [facility] Blood STRUCTURE OF LEFT UPPER LIMB / Unknown Venipuncture / Unknown 11/20/2024 11:18 AM [facility]ST 11/20/2024 11:23 AM [facility]ST us Ann E Ruiz PRINCIPAL ADMINISTRATIVE CLERK [employer]RE[employer] [facility]ICER [facility] LAB - BLOOD ORDERABLES Fin al Result [facility] [address] Lab (1st floor, no room number) [place] [address], [facility] * Lipid Profile (09/20/2024 2:04 PM [facility]OUNT[facility] COST) Cholesterol 156 <200 mg/dL 09/20/2024 9:16 PM [facility]ST [facility] Triglycerides 134 <150 mg/dL 09/20/2024 9:16 PM [facility] Direct Measure HDL 56 >=50 mg/dL 2023 9:16 PM [facility]ST [facility] LDL Cholesterol Calculated 73 <100 mg/dL 09/20/2024 9:16 PM [facility]OUNT[facility] COST [facility] Non HDL Cholesterol 100 <130 mg/dL 09/20/2024 9:16 PM ACCOUNT[facility] COST [facility] Patient Fasting > 8hrs? No 09/20/2024 9:16 PM ACCOUNT[facility]ST [facility] Blood STRUCTURE OF LEFT UPPER LIMB / Unknown Venipuncture / Unknown 09/20/2024 2:04 PM [facility]OUNT[facility]ST 09/20/2024 2:04 PM ACCOUNTANT COST Narrative [facility] - 09/20/2024 9:16 PM [facility]OUNT[facility] COST Cholesterol Desirable: < 200 mg/dL Borderline High: 200 - 239 mg/dL High: >= 240 mg/dL Triglycerides Normal: < 150 mg/dL Borderline High: 150 - 199 mg/dL High: 200-499 mg/dL Very High: >= 500 mg/dL Direct Measure HDL Female: >= 50 mg/dL Male: >= 40 mg/dL LDL Cholesterol Desirable: < 100 mg/dL Above Desirable: 100 - 129 mg/dL Borderline High: 130 - 159 mg/dL High: 160 - 189 mg/dL Very High: >= 190 mg/dL Non HDL Cholesterol Desirable: < 130 mg/dL Above Desirable: 130 - 159 mg/dL Borderline High: 160 - 189 mg/dL High: 190 - 219 mg/dL Very High: >= 220 mg/dL us Ann Ruiz APRN [facility]RECTION OFFICER [facility] LAB - BLOOD ORDERABLES Fin al Result [facility] [address], [address] [place] [address], [facility] [address] Lab (1st floor, no room number) [place] [address] * CT Chest Angio w/o & w Contrast (09/03/2015 1:50 PM ACCOUNT[facility] COST) Anatomical Region Laterality Modality Chest, SUBRAD IR PROCEDURE, UMP CT CTA Computed Tomography Impressions 09/04/2015 10:44 AM ACCOUNTANT COST IMPRESSION: 1. Ascending thoracic aorta measures up to 4.2 cm AP by 4.1 cm transverse. Descending thoracic aorta is normal in size and appearance. 2. Status post gastric bypass surgery. 3. Bilateral renal hypodensities, too small for adequate characterization. 4. Two 3 mm nodules in the right lung. If the patient is considered high risk with history of smoking, malignancy, among others, recommend repeat CT examination in six months; otherwise, recommend repeat CT examination in 12 months. JESUS JOY MD Narrative 09/04/2015 10:44 AM ACCOUNT[facility] COST CTA ANGIOGRAM CHEST WITH CONTRAST September 03, 2015 at 1350 hours HISTORY: 64-year-old woman with history of thoracic aortic aneurysm. Patient is status post aortic valve repair in 2011. COMPARISON: None available. TECHNIQUE: Multiplanar and multiformatted CTA images were performed from the lung apices through the lung bases after the uneventful administration of Isovue-370 intravenous contrast given for a total of 100 mL. 3-D reformatted images were created at a separate workstation. FINDINGS: The visible thyroid gland is unremarkable. No mediastinal lymphadenopathy. Heart size is normal without pericardial effusion. No pleural effusion. Patient is status post gastric bypass surgery. The visualized liver, gallbladder, spleen, adrenal glands, pancreas are unremarkable. Small hypodensity in the left kidney measures 9 mm, too small to fully characterize. Tiny hypodensity in the cortex of the right kidney, posteriorly unable to characterize. Median sternotomy wires. No acute osseous abnormality. 3 mm nodule is noted in the right middle lobe. An additional 3 mm nodule noted more inferiorly in the right middle lobe. Minimal bibasilar atelectasis. If patient is considered high-risk with history of smoking, malignancy, among others, consider repeat CT examination in six months. Otherwise, recommend followup CT examination in 12 months. Aortic valve repair is noted. At the sinuses of Valsalva, the aorta measures up to 3.3 cm and at the sinotubular junction, the aorta measures up to 3.1 cm. The ascending thoracic aorta at its widest diameter is 4.2 cm AP by 4.1 cm transverse. Bovine aortic arch is incidentally identified. The aortic arch at its widest diameter measures up to 3.6 cm. The descending thoracic aorta at the level of the radha is 2.2 cm AP by 2.3 cm transverse. The descending thoracic aorta appears widely patent and normal. The celiac axis, SMA, and bilateral renal arteries are patent. Procedure Note Jesus Joy MD - 09/04/2015 CTA ANGIOGRAM CHEST WITH CONTRAST September 03, 2015 at 1350 hours HISTORY: 64-year-old woman with history of thoracic aortic aneurysm. Patient is status post aortic valve repair in 2011. COMPARISON: None available. TECHNIQUE: Multiplanar and multiformatted CTA images were performed from the lung apices through the lung bases after the uneventful administration of Isovue-370 intravenous contrast given for a total of 100 mL. 3-D reformatted images were created at a separate workstation. FINDINGS: The visible thyroid gland is unremarkable. No mediastinal lymphadenopathy. Heart size is normal without pericardial effusion. No pleural effusion. Patient is status post gastric bypass surgery. The visualized liver, gallbladder, spleen, adrenal glands, pancreas are unremarkable. Small hypodensity in the left kidney measures 9 mm, too small to fully characterize. Tiny hypodensity in the cortex of the right kidney, posteriorly unable to characterize. Median sternotomy wires. No acute osseous abnormality. 3 mm nodule is noted in the right middle lobe. An additional 3 mm nodule noted more inferiorly in the right middle lobe. Minimal bibasilar atelectasis. If patient is considered high-risk with history of smoking, malignancy, among others, consider repeat CT examination in six months. Otherwise, recommend followup CT examination in 12 months. Aortic valve repair is noted. At the sinuses of Valsalva, the aorta measures up to 3.3 cm and at the sinotubular junction, the aorta measures up to 3.1 cm. The ascending thoracic aorta at its widest diameter is 4.2 cm AP by 4.1 cm transverse. Bovine aortic arch is incidentally identified. The aortic arch at its widest diameter measures up to 3.6 cm. The descending thoracic aorta at the level of the radha is 2.2 cm AP by 2.3 cm transverse. The descending thoracic aorta appears widely patent and normal. The celiac axis, SMA, and bilateral renal arteries are patent. IMPRESSION IMPRESSION: 1. Ascending thoracic aorta measures up to 4.2 cm AP by 4.1 cm transverse. Descending thoracic aorta is normal in size and appearance. 2. Status post gastric bypass surgery. 3. Bilateral renal hypodensities, too small for adequate characterization. 4. Two 3 mm nodules in the right lung. If the patient is considered high risk with history of smoking, malignancy, among others, recommend repeat CT examination in six months; otherwise, recommend repeat CT examination in 12 months. JESUS JOY MD Donald Sommers MD IMG CT ORDERABLES Final Result * TSH with free T4 reflex (04/14/2011 12:18 PM CDT) TSH 4.60 0.4 - 5.0 mU/L [facility] 04/14/2011 12:1 8 PM CDT 04/14/2011 12:19 PM CDT Kade Bosch MD LAB - BLOOD ORDERABLES Ariana l Result [facility] [address] [place] [address] * SCREENING MAMMOGRAPHY DIGITAL (BILAT) (03/12/2009 2:12 PM CDT) Anatomical Region Laterality Modality Other 03/12/2009 2:12 PM CDT Impressions 03/14/2009 4:26 PM CDT Examination: Bilateral digital screening mammography with computer aided detection. Comparison: 02/15/2008 12/20/2006 and 02/11/2004. History:Benign breast biopsy. Aunt diagnosed breast cancer in her 40s. Findings: The breast is almost entirely fat. There has been no change since the comparison study. Impression: BI-RADS 1. Negative. Recommendation: Routine screening mammography. I have personally reviewed the image and initial interpretation and agree with the findings. us Kade Bosch MD SPECIAL IMAGING STUDIES Aric elaina * DEXA,BONE DENSITY,AXIAL SKELETON (12/13/2006 3:26 PM ACCOUNTANT COST) Anatomical Region Laterality Modality Other 12/13/2006 3:26 PM ACCOUNTANT COST Impressions 12/15/2006 4:42 PM [facility]OUNT[facility] COST Conclusions: Patient Name: Kari Garcia Ordering Provider: Dr. Ondina Bosch MR#: [id number] : 54 DOScan: 12/13/06 [id number] Comparison: 02/11/04 Densitometer make/model: [employer] Technical quality: For the purpose of this exam, the lumbar spine is represented by L1 - L2. Wrist was not scanned in 2003 As the non-dominant left wrist had been fractured, the dominant right wrist was scanned. Left hip slightly more abducted on 2006 scan. TO VIEW READABLE FORMATTED RESULTS TABLE, GO TO: [facility] (CHART VIEWER), DXA SCAN - GRECIA 1. Based on the lowest and valid T-score of -3.9 at the level of the L1 - L2 lumbar spine according to WHO criteria (see Ref. #1), this individual has OSTEOPOROSIS . (see Ref. #4) The risk of osteoporotic fracture increases approximately 2-fold for each 1.0 SD decrease in T-score. Low bone density is not the only risk factor for fracture; also consider factors such as patient's age, risk of falling, risk of injury, previous osteoporotic fracture, family history of osteoporosis, etc. 2. Taking into account the precision errors for this center, the calculated valid changes in BMD at the level of the lumbar spine (-4.75%), L1 - L2 (-6.65%) are significant. (see Ref.#7) [ Please note that the differential diagnosis of BMD increase in the spine includes improvement due to pharmacotherapy vs inter-current progression of spine degeneration or fracture. ] 3. Note the wide range in BMD values and T- scores within the lumbar spine [ L1 T-score: -4.2, L3 T-score: -3.1 ] . This pattern suggests degenerative joint disease or occult fractures at the lumbar level that would limit the detection of low bone density in the L1 - L4 spine region. The lumbar spine is therefore represented by L1 - L2 4. a fracture history after age 50 is indication for Vertebral Fracture Assessment (VFA) (see Ref # 4), as the discovery of a fracture might influence clinical management . Suggest that the ordering provider consider a VFA if the forearm fracture occurred after age 50. 5. Note the very negative Z- score of -4.3 within the lumbar spine . This suggests secondary causes of osteoporosis might be present. 6. Suggestion for investigation is to consider metabolic testing, looking for secondary causes of osteoporosis. 7. Clinical correlation recommended. Principal result wireless sales consultant: Lazaro Negro MD, [facility] Managertoaster operator Division of Rheumatic and Autoimmune Diseases [facility] [phone] Kade Bosch MD SPECIAL IMAGING STUDIES Aric elaina from Last 3 Months or Most Recently Relevant to Health Maintenance Insurance [facility] DUAL [facility] D[facility] Advance Directives For more information, please contact: [phone] * Full Code (Latest Code Status on File) Date Activated Date Inactivated Comments 09/23/2012 10:37 AM 01/25/2019 8:13 AM Care Teams Tire Stripper Relationship Specialty Start Date End Date Kimberly Tierney PA-C [facility] [place] [id number] [place] [id number] PCP - General 07/20/23 Ann Ruiz, PRINCIPAL ADMINISTRATIVE CLERK [employer] [address] [place] [address] Nurse Practitioner Cardiovascular Disease 04/14/24 Ann Ruiz, PRINCIPAL ADMINISTRATIVE CLERK [employer] [facility] [address] [place] [id number] Assigned Heart and Vascular Provider 10/02/24 Donald Sommers MD [address] [facility] [address] [place] [id number] Cardiovascular Disease 02/01/25
--- OUTSIDE RECORDS SUMMARY | 2025-03-30 00:55 | XMS_ITS | Encounter Summary ---
Author Organization [place] Address [address] [facility] [place] [address] Care Team Providers Care Applications Architect Name Role Phone Claritza Delgado MD Primary Care Provider [phone] Maria L Ornelas MD Primary Care Provider Unavailabl e Ariel Young MD Primary Care Provider + Donald Sommers MD Unavailable [phone] Alesha Ballesteros PA-C Unavailable + [phone] Kimberly Tierney PA-C Primary Care Provider [phone] Donald Sommers MD Unavailable [phone] Joseph Ann E DANIAL ENGINEER SOILS Unavailable [phone] Joseph Ann E AIRLINE TICKET AGENT ENGINEER SOILS Unavailable [phone] Donald Sommers MD Unavailable [phone] Encounter Details Date Type Department Care Team (Late st Contact Info) Description 05/30/2013 Office Visit-[facility] [place] [address] [facility] [address] [place] [address] Layo Landry MD XXX XXX [address] [facility] [address] [place] [address] Social History Tobacco [...] on file Legal Sex Female 3:37 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 DATE: 05/30/2013 TANVIR ISSA DATE OF : 1950 AGE: [age] years old Referring Physician: CLARITZA DELGADO Referring Clinic: [facility] CURRENT DIAGNOSES 1. Aortic Valve Disorders, 424.1 [...] mg Tablet, 1 p.o. PRN as Directed 14. verapamil 80 mg tablet, 1 p.o. as Directed CHIEF COMPLAINTS HISTORY OF PRESENT ILLNESS Tanvir Issa was seen in our office today for followup of her aortic stenosis and aortic valve replacement surgery. As you probably remember, the patient is a 62-year-old female who underwent aortic valve replacement surgery at [facility] in September,, because of aortic stenosis. The patient was seen by me in October of this year and was doing well. An echocardiogram after that did show some mild aortic insufficiency consisting of two small jets. She was arranged earlier followup to see me today with a repeat echocardiogram done earlier this month to make sure there has been no worsening of her aortic insufficiency. The patient states that she feels much better since her surgery. Her shortness of breath and cardiac symptoms prior to surgery have improved with the new valve. She denies any neurologic complaints. There has been no chest pain, chest pressure, or chest heaviness. She denies any PND and there has been no orthopnea. Her physical exam is as listed below. In particular, she has a crisp aortic sound with no audible AI. She has no significant peripheral edema and her lungs are clear to auscultation. An echocardiogram earlier this month again showed a small amount of aortic insufficiency with two small jets. The ejection fraction was normal. There was mild pulmonary hypertension seen. No regionalwall motion abnormality was seen. A mean gradient of only 10 mmHg across the prosthetic aortic valve was seen, which is within normal limits. PAST HISTORY Past Medical Illnesses: GERD, HTN, hyperlipidiemia, migraines, depression, hypothyroidism, YANELI, migraine headaches, trochanteric bursitis Past Cardiac Illnesses: aortic stenosis Surgeries/Procedures - General: bariatric surgery Cardiac and Vascular Surgeries: Aortic valve replacement with 22 mm supra annular mechanical prosthesis Cardiology Procedures-NonInvasive: dobutamine stress echo 10/20, echocardiogram March 2008, March 2009, April 2011, Jul 2012, December 2012, May 2013 PMHx Echo Results: 03/19 bicuspid aortic valve, 04/20 mod AV stenosis, mild AR, bicuspid AV, RAHEL 0.99 cm2, mild aortic root dilation, ascending aorta mildly dilated, mild TR, 07/22- EF 60-65%, mod. concentric left ventricular hypertrophy, severe aortic valve stenosis (0.90cm2), asc. aorta mildly dilated, 12/21- mild concentric LV hypertrophy, grade I LV diastolic dysfunction, no regional wall motion abnormalities, mech.AoV with mean gradient of 12 mmHg, asc.aorta 4.2 cm/ arch 3.5 cm-mild dilatation, 05/23 no significant change - LA mild-mod dilated, mild MR, mild TR, mild pulm HTN, normal functioning mech AV with 2small regurgitant jets, mild aortic root dilatation 4.0 cm, trivial pericardial effusion Left Ventricular Ejection Fraction: 03/18 EF 60-65% by echo, EF<GT>55% by Echo -April 2011, 12/21- EF 60-65% by echo December 2012, EF<GT>55% by Echo -May 2013 Nuclear Results: 10/20 moderate aortic strenosis, no ischemia, LVH LVEF of 65-70% documented via echocardiogram on 05/15/2013 FAMILY HISTORY: SOCIAL HISTORY Alcohol Use - denies drinking; Smoking - Never really smoke - just tried it when younger; Diet - lap band surgery watching what she eats and caffeine use-rare - occas hot tea; Lifestyle - , drives car and children; Exercise - some exercise and walks dog; Seat Belt Use - always; Occupation -disabled; Residence - lives in [place] year round and lives alone; Place of - [place]; [facility] shopandsave Worked - none; REVIEW OF SYSTEMS GENERAL fatigue, weight loss, approx 6 lbs since last OV, appetite is good INTEGUMENTARY itching, at incision site EYES wears eye glasses/contact lenses, positive for glaucoma EARS, NOSE, THROAT, MOUTH denies any hearing loss, epistaxis, hoarseness or difficulty speaking. RESPIRATORY sleep apnea, c pap, cough, occasional, negative for dyspnea CARDIOVASCULAR Pt states she hears valve clicking, itching at incision ABDOMINAL denies ulcer disease, hematochezia or melena. MUSCULOSKELETAL denies any history of arthritic symptoms or back problems. NEUROLOGICAL migraine headaches PSYCHIATRIC depression ENDOCRINE denies any history of thyroid disease or diabetes mellitus. HEMATOLOGICAL/IMMUNOLOGIC easy bruising PHYSICAL EXAMINATION VITAL SIGNS: Blood Pressure: 112/58Sitting, Right arm, regular cuff Pulse- 66.00/min. Weight- 185.60 lbs. Height- 63.50 BMI Measurement: 32 CONSTITUTIONAL NAD, ambulating halls without difficulty, alert and oriented SKIN warm and dry HEAD atraumatic EYES EOMI ENT speech normal, tongue midline NECK supple CHEST clear without rales/wheezing CARDIAC no audible AI, I/ systolic murmur ABDOMEN non-tender PERIPHERAL PULSES PT 2- bilaterally EXTREMITIES & BACK no edema PSYCHIATRIC appropriate in answers NEUROLOGICAL motor grossly intact MEDICATIONS UPDATED/STARTED TODAY: verapamil 80 mg tablet, 1 p.o. as Directed, #0 (Zero) ASSESSMENT/RECOMMENDATIONS: 1. The patient is about eight months status post aortic valve replacement surgery with improvement of her symptoms. She continues to have good left ventricular function. 2. The patient did have a repeat echocardiogram recently just to make sure that her aortic insufficiency/perivalvular leak has not worsened. It appears to be unchanged and continues to be mild. At this point it does not warrant any correction. 3. The patient is on Coumadin because of her prosthetic valve. Her INR is being checked through your clinic. 4. Her blood pressure is under good control. 5. I did discuss with her the need for SBE prophylaxis. She is also to contact me if she develops any unexplained fever or chills. Thank you very much for allowing us to participate in the care of your patient. Should you have anyquestions about this patient or any other patient, please feel free to contact us at any time. TODAYS ORDERS 1. Return Visit 1 year Layo Landry M.D. documented in this encounter Plan of Treatment Upcoming Encounters Date Type Department Care Team (Late st Contact Info) Description 05/21/2025 9:[address] [facility] [id number] [place] [address] [address] [place] [address] Ann Ruiz E, AIRLINE TICKET AGENT ENGINEER SOILS [address] [place] [id number] 05/21/2025 11:[address] [facility] [address] [facility] [address] [place] [address] 06/19/2025 8:45 AM CDT Office Visit [facility] [id number] [place] [address] [address] [place] [address] Ann Ruiz, AIRLINE TICKET AGENT ENGINEER SOILS [address] [place] [address] Donald Sommers MD [address] [place] [address] documented as of this encounter Visit Diagnoses Not on filedocumented in this encounter Care Teams Applications Architect Relationship Specialty Start Date End Date Claritza Delgado MD PCP - General 07/16/12 07/29/16 Maria L Ornelas MD PCP - General Family Practice 07/30/16 09/22/18 Ariel Young MD PCP - General 09/23/18 07/19/23 Kimberly Tierney PA-C [facility] [address] [place] [address] PCP - General 07/20/23 Donald Sommers MD [address] [place] [address] Assigned Heart and Vascular Provider 10/27/20 04/23/23 Alesha Ballesteros PA-C [address] [place] [address] [address] [place] [address] Assigned Surgical Provider 12/25/20 01/17/22 Donald Sommers MD [address] [place] [address] Assigned Heart and Vascular Provider 07/24/23 10/01/24 Ann Ruiz APRN ENGINEER SOILS [address] [place] [address] Nurse Practitioner Cardiovascular Disease 04/14/24 Ann Ruiz, DANIAL ENGINEER SOILS [address] [place] [address] Assigned Heart and Vascular Provider 10/02/24 Donald Sommers MD [address] [place] [address] Cardiovascular Disease 02/01/25 documented as of this encounter
--- OUTSIDE RECORDS SUMMARY | 2025-03-30 00:56 | XMS_ITS | Encounter Summary ---
Author Organization [place] Address [facility] [facility] [place] [address] Care Team Providers Care Home Teaching Grades 7 And 8 Teacher Name Role Phone Claritza Delgado MD Primary Care Provider [phone] Maria L Ornelas MD Primary Care Provider Unavailabl e Ariel Young MD Primary Care Provider + Donald Sommers MD Unavailable [phone] Alesha Ballesteros PA-C Unavailable + [phone] Kimberly Tierney-C Primary Care Provider [phone] Donald Sommers MD Unavailable [phone] Joseph Ann E DANIAL BIOLOGICAL SCIENCE TECHNICIAN FISH Unavailable [phone] Joseph Ann E DANIAL BIOLOGICAL SCIENCE TECHNICIAN FISH Unavailable [phone] Donald Sommers MD Unavailable [phone] Encounter Details Date Type Department Care Team (Late st Contact Info) Description 09/06/2012 Office Visit-[facility] [address] [place] [address] Unknown, Doctor, Social History Tobacco Use Types Packs/Day Years Used Date Smoking Tobacco: Former Cigarettes Comments:4 cigarettes a crista h for 6 months Alcohol Use Standard Drinks/Week Comments No 0 (1 standard drink = 0.6 oz pur e alcohol) Comments No Sex and Gender Information Value Date Recorded Sex Assigned at Not on file Legal Sex Female 3:37 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 Aortic Valve Disorders, 424.1 2. Anemia Unspecified, 285.9 3. Other And Unspecified Hyperlipidemia, 272.4 4. - Hypertension, 401.1 ALLERGIES lisinopril, Cough-productive SBE prophylaxis MEDICATIONS (prior to changes made today) 1. Calcium 500 with Vitamin D 500 mg(1,250mg) -200 unit Tablet, 1 p.o. twice daily 2. Demerol 100 mg Tablet, 1 p.o. PRN as Directed 3. Levothyroxine 50 mcg Tablet, 1 p.o. daily 4. losartan 50 mg Tablet, 1 p.o. daily 5. meclizine 25 mg tablet, 1 p.o. PRN as Directed 6. Sertraline 100 mg Tablet, 1/2 tab twice daily 7. simvastatin 80 mg Tablet, 1 p.o. daily 8. Timolol 0.5 % Drops, Take as Directed 9. Tylenol-Codeine #3 300-30 mg Tablet, 1 p.o. PRN as Directed CHIEF COMPLAINTS HISTORY OF PRESENT ILLNESS PAST HISTORY Past Medical Illnesses: GERD, HTN, [...] Use - always; Residence - lives in [place] year round; Place of - [place]; Hours Worked - none; REVIEW OF SYSTEMS [...] bruising PHYSICAL EXAMINATION VITAL SIGNS: Blood Pressure: BMI Measurement: 34 CONSTITUTIONAL ambulating halls without [...] NEUROLOGICAL motor grossly intact MEDICATIONS UPDATED/STARTED TODAY: IMPRESSIONS/PLAN (Enter Doctor Dictated Impressions Here) CAYETANO Tong documented in this encounter Plan of Treatment Upcoming Encounters Date Type Department Care Team (Late st Contact Info) Description 05/21/2025 9:[address] [facility] [address] [facility] [address] [place] [phone] Ann Ruiz E, SHEET MANAGER BIOLOGICAL SCIENCE TECHNICIAN FISH [address] [place], [place] [id number] 05/21/2025 11:00 AM CDT Lab [facility] [address] [facility] [address] [place] [address] 06/19/2025 8:45 AM CDT Office Visit [facility] [address] [facility] [address] [place] [phone] Ann Ruiz , SHEET MANAGER BIOLOGICAL SCIENCE TECHNICIAN FISH [address] [place], [place] [id number] Donald Sommers MD [address] [place] [id number] documented as of this encounter Visit Diagnoses Not on filedocumented in this encounter Care Teams Home Teaching Grades 7 And 8 Teacher Relationship Specialty Start Date End Date Claritza Delgado MD PCP - General 07/16/12 07/29/16 Maria L Ornelas MD PCP - General Family Practice 07/30/16 09/22/18 Ariel Young MD PCP - General 09/23/18 07/19/23 Kimberly Tierney PA-C [address] [address] PCP - General 07/20/23 Donald Sommers MD [address] [place] [id number] Assigned Heart and Vascular Provider 10/27/20 04/23/23 Alesha Ballesteros PA-C [address] [place] [id number] Assigned Surgical Provider 12/25/20 01/17/22 Donald Sommers MD [address] [place] [id number] Assigned Heart and Vascular Provider 07/24/23 10/01/24 Ann Ruiz APRN BIOLOGICAL SCIENCE TECHNICIAN FISH [address] [place] [address] Nurse Practitioner Cardiovascular Disease 04/14/24 Ann Ruiz APRN CNP [address] [place] [address] Assigned Heart and Vascular Provider 10/02/24 Donald Sommers MD [address] [place] [place] [address] Cardiovascular Disease 02/01/25 documented as of this encounter
--- OUTSIDE RECORDS SUMMARY | 2025-03-30 00:56 | XMS_ITS | Clinical Summary ---
[facility] Address [address] [place] [address] Care Team Providers Care Binder Coverstitch Name Role Phone Dawood Gambino MD Primary Care Provider Unavail able Source Comments You are receiving this document as you are listed as the primary care provider,follow-up provider, or the patient has been referred to you for consultation.This is in compliance with the Medicare and[facility] EHR Incentive Program,which states Providers who transition their patient to another setting of careor provider of care or refers their patient to another provider of care shouldprovide summary care record for each transition of care or referral. [facility] Allergies No known active allergies Medications ibuprofen (AKA MOTRIN) 200 MG tablet Take 1-2 tablets by mouth 3 times daily. LW Addl Instr:Take with food. 1 Active UNKNOWN MEDICATION Indications: PN: 1 Active DRUG NOT IN COMPUTER LW Comment:Record drug name/strength/f orm LW Addl Instr:pt taking loratab-prn pain 1 Active warfarin (COUMADIN) 2.5 MG tablet Take 2.5 mg by mouth. Active topiramate (TOPAMAX) 25 MG tablet Take 25 mg by mouth. Active metoprolol tartrate (LOPRESSOR) 25 MG tablet Take 12.5 mg by mouth. 2 Active oxyCODONE-aceta minophen (PERCOCET) 5-325 MG tablet Take 1 Tab by mouth. Active timolol (TIMOPTIC) 0.5 % eye drop solution Place 1 Drop into eye(s). Active meperidine (DEMEROL) 25 MG/ML injection 100 mg. Acti ve meclizine (ANTIVERT) 25 MG tablet Take 25 mg by mouth. Active losartan (COZAAR) 25 MG tablet Take 25 mg by mouth. 2 Active levothyroxine (SYNTHROID) 25 MCG tablet Take 75 mcg by mouth. Active hydrOXYzine HCl (VISTARIL) 25 MG/ML injection Inject 50 mg intramuscularly . Active diphenhydrAMINE (BENADRYL) 50 MG/ML injection Administer 1 mg/kg intravenously. Active bimatoprost (LUMIGAN) 0.03 % eye drop solution Place 1 Drop into eye(s). Active atorvastatin (LIPITOR) 10 MG tablet Take 80 mg by mouth. Active aspirin EC 81 MG enteric coated tablet Take 81 mg by mouth. 7 Active Active Problems No known active problems Social History Tobacco Use Types Packs/Day Years Used Date Smoking Tobacco: Never Smokeless Tobacco: Never Comments Unknown Sex and Gender Information Value Date Recorded Sex Assigned at Not on file Legal Sex Female 10:32 AM CDT Gender Identity Not on file Sexual Orientation Not on file Last Filed Vital Signs Vital Sign Reading Time Taken Comments Blood Pressure 158/74 06/02/2017 2:49 PM CDT Pulse 64 06/02/2017 2:49 PM CDT Temperature 36.8 C (98.3 F) 06/02/2017 2:49 PM CDT Respiratory Rate 20 06/02/2017 2:49 PM CDT Oxygen Saturation 100% 06/02/2017 2:4 9 PM CDT Inhaled Oxygen Concentration - - Weight 83.5 kg (183 lb 15.9 oz) 011 12:50 PM CDT C: 83.5kg Height 162.6 cm (5' 4) 02/12/2011 12:5 0 PM CDT C: 162.6cm Body Mass Index 31.58 02/12/2011 12:50 PM CDT Plan of Treatment Health Maintenance Due Date Last Done Comments Colon Cancer Screening Plan Due 1950 Hep C Screening (Preventive Services) 1950 Mammogram 1950 Cholesterol 1997 Zoster/Shingles Vaccine (1 o f 2) 2002 Pneumococcal Vaccine 50+ Yrs (2 of 2 - PCV) 09/23/2013 09/23/2012, 09/27/2001 DTaP/Tdap/Td Vaccine (2 - Tdap) 09/16/2022 09/16/2012, 02/05/2004 COVID-19 Vaccine ( - 2023-2 5 season) 2024 Medicare Annual Wellness Visit 10/11/2024 Influenza Vaccine (Season Ended) 2025 RSV Vaccine (1 - 1-dose 75+ series) 2027 HepA Vaccine Aged Out No longer eligi ble based on patient's age to complete this topic HepB Vaccine Aged Out No longer eligi ble based on patient's age to complete this topic Hib Vaccine Aged Out No longer eligi ble based on patient's age to complete this topic IPV (Polio) Vaccine Aged Out No longe r eligible based on patient's age to complete this topic MCV4 Vaccine Aged Out No longer eligi ble based on patient's age to complete this topic Meningococcal B Vaccine Aged Out No l onger eligible based on patient's age to complete this topic [place] [address] [place] [address] [employer] MEDICARE Care Teams Binder Coverstitch Relationship Specialty Start Date End Date Dawood Gambino MD PCP - General 01/11/11
== END 2025-03-29 14:18 | disposition home or self-care (01) ==
LOC: RAD 14:17
PROVIDERS: PCP Physician Assistant Medical; Visit Provider Physician Assistant Medical
DX: Z12.31 Encounter for screening mammogram for malignant neoplasm of breast (principal); M81.0 Age-related osteoporosis without current pathological fracture; M85.89 Other specified disorders of bone density and structure, multiple sites
CPT/HCPCS: 77063; 77067; 77080

== ENCOUNTER 2025-04-18 13:00 | Outpatient (CLI) | payer OTHER, SELFPAY | END 2025-04-18 13:01 | disposition home or self-care (01) | LOC: NFLDREF 04-22 06:53 | PROVIDERS: PCP Physician Assistant Medical; Referring Provider Physician Assistant Medical; Visit Provider Physician Assistant Medical | DX: R79.0 Abnormal level of blood mineral (principal); Z79.01 Long term (current) use of anticoagulants | CPT/HCPCS: 82728 ==

== ENCOUNTER 2025-07-02 13:11 | Emergency (ER) | payer OTHER, SELFPAY ==
--- OUTSIDE RECORDS SUMMARY | 2023-07-08 07:15 | XMS_ITS | Continuity of Care Document ---
Author Organization [facility] enter Address [address] [place] [address] Phone Care Team Providers Care Tax Representative Name Role Phone [facility] Unavailable Unava ilable Procedures Procedure Date Dest [...] Diagnoses Date Provider Providers Copied on Encounter [facility], [address] [place] [address], [id number], [place] tel:[phone] [facility] No Information [facility]. [address] [place] [address], [id number], . tel:[phone] Referring Provider: Jeane Day, [address] [facility] [place], [address] . tel:[phone] [facility], [address] [place] [address], [id number], tel:[phone] [facility] No Information [facility]. [address] [place] [address], [id number], . tel:[phone] Referring Provider: Jeane Day, [address] [facility] [place], [address] . tel:[phone] [facility], [address] [place] [address], [id number], tel:[phone] [place] [address] No Information [facility]. [address] [place] [address], [id number], . tel:[phone] Referring Provider: Jeane Day, [address] [facility] [place], [address] . tel:[phone] Family History Family Member Type Diagnosis Age At Onset No Information Payers Payer name Insurance type Covered constitution party ID Omar denise(s) ABIGAIL TOBIN [facility] [id number] Social History Type Description Quantity Date Captured [...]
--- OUTSIDE RECORDS SUMMARY | 2023-07-08 07:15 | XMS_ITS | Continuity of Care Document ---
Author Organization [facility] enter Address [address] [place] [phone] Phone Care Team Providers Care Hand Gluer And Slicer Name Role Phone [facility] Unavailable Unava ilable Procedures Procedure Date Dest [...] Diagnoses Date Provider Providers Copied on Encounter [facility], [address] [place] [address], [id number], [place] tel:[phone] [facility] No Information [facility]. [address] [place] [address], [id number], . tel:[phone] Referring Provider: Jeane Day, [address] [facility] [place], [address] . tel:[phone] [facility], [address] [place] [address], [id number], tel:[phone] [facility] No Information [facility]. [address] [place] [address], [id number], . tel:[phone] Referring Provider: Jeane Day, [address] [facility] [place], [address] . tel:[phone] [facility], [address] [place] [address], [id number], tel:[phone] [place] [address] No Information [facility]. [address] [place] [address], [id number], . tel:[phone] Referring Provider: Jeane Day, [address] [facility] [place], [address] . tel:[phone] Family History Family Member Type Diagnosis Age At Onset No Information Payers Payer name Insurance type Covered green party ID Omar denise(s) ABIGAIL TOBIN [facility] [id number] Social History Type Description Quantity Date Captured [...]
--- OUTSIDE RECORDS SUMMARY | 2023-07-13 09:03 | XMS_ITS | Continuity of Care Document ---
Author Organization [facility] Address [address] [place] [address] Care Team Providers Care Rn Immunology Name Role Phone Gilles Echevarria CRNA Unavailable Unavailable Procedures Procedure Date ANESTH, NERVE BLOCK/INJ ANESTH, NERVE BLOCK/INJ Advance Directives Directive Yes / No Effective Date File Name No Information Encounters Encounter Description Practice Location Reason(s) For Visit Diagnoses Date Provider Providers Copied on Encounter [facility], [address] [place] [address], [id number], [facility] No Information [address]. [address] [place] [address], [place], [place], [id number] , . tel:[phone] Referring Provider: Jeane Day, [address] [place] [address], [address] . tel:[phone] [facility], [address] [place] [address], [id number], [facility] No Information 3 Shawnee Shaw. [facility], [address] [place] [address], [id number] , . tel:[phone] Referring Provider: Jeane Day, [address] [place] [address], [address] . tel:[phone] Family History Family Member Type Diagnosis Age At Onset No Information Payers Payer name Insurance type Covered alliance party ID Omar denise(s) ABIGAIL TOBIN [facility] [id number] Social History Type Description Quantity Date Captured [...]
--- OUTSIDE RECORDS SUMMARY | 2023-07-13 09:03 | XMS_ITS | Continuity of Care Document ---
Author Organization [facility] Address [address] [place] [phone] Care Team Providers Care Chiropractic Physician Name Role Phone Gilles Echevarria CRNA Unavailable Unavailable Procedures Procedure Date ANESTH, NERVE BLOCK/INJ ANESTH, NERVE BLOCK/INJ Advance Directives Directive Yes / No Effective Date File Name No Information Encounters Encounter Description Practice Location Reason(s) For Visit Diagnoses Date Provider Providers Copied on Encounter [facility], [address] [place] [address], [id number], [facility] No Information [address] Camp[facility]. [address] [place] [address], [place], [place], [id number] , . tel:[phone] Referring Provider: Jeane Day, [address] [place] [address], [address] . tel:[phone] [facility], [address] [place] [address], [id number], [facility] No Information 3 Shawnee Shaw. [facility], [address] [place] [address], [id number] , . tel:[phone] Referring Provider: Jeane Day, [address] [place] [address], [address] . tel:[phone] Family History Family Member Type Diagnosis Age At Onset No Information Payers Payer name Insurance type Covered alliance party ID Omar denise(s) ABIGAIL TOBIN [facility] [id number] Social History Type Description Quantity Date Captured [...]
--- OUTSIDE RECORDS SUMMARY | 2024-08-02 06:37 | XMS_ITS | Continuity of Care Document ---
Author Organization [facility] se[facility] Address [address] [place] [address] Phone Care Team Providers Care [employer] Architect Name Role Phone Cassy Gibbs DNP Unavailable [...] Active fluticasone propionate 50 mcg/actuation nasal spray,suspension Bowlus 1 spray into both nostrils daily - [...] Diagnoses Date Provider Providers Copied on Encounter [facility], [address], [place], [id number] , [place] tel:[phone] [facility] [place] No Information 4 Bernie Cassy. [address], [place], [place], [id number], [place]. tel:[phone] OFFICE VISIT, EST TELEMEDICINE [facility], [address], [place], [id number] , [place] tel:[phone] [facility] headache (chief complaint) Hemiplegic migraine, intractable, without status migrainosusChro seb pain syndromeLong term (current) use of opiate analgesic 4 Bernie Madera. [address], [place], [place], [id number], [place]. tel:[phone] OFFICE/OUTPAT IENT VISIT, [facility], [address] [place] [address], [id number] , [place] tel:[phone] [facility] headache (chief complaint) Hemiplegic migraine, intractable, without status migrainosusChro seb pain syndromeLong term (current) use of opiate analgesicEncoun ter for therapeutic drug level monitoring 4 Lynnette Donaldson. [address] [place] [address], [id number], [place]. tel:[phone] Referring Provider: Mendoza Schumacher, [address] [place] [address], [id number]. tel:[phone] OFFICE VISIT, [facility] TELEMEDICINE [facility], [address] [place] [address], [id number] , [place] tel:[phone] [facility] headache (chief complaint) Hemiplegic migraine, intractable, without status migrainosusChro seb migraine without aura, intractable, without status migrainosusChro seb pain syndromeBilater al primary osteoarthritis of kneePrimary OA of right kneePain in right shoulderPain in right kneePain in left kneeLong term (current) use of opiate analgesic 4 Melissa [place], [address] [facility], [place], [address], [place]. tel:[phone] OFFICE VISIT, [facility] TELEMEDICINE [facility], [address] [place] [address], [id number] , [place] tel:[phone] [facility] headache (chief complaint) Hemiplegic migraine, intractable, without status migrainosusChro seb migraine without aura, intractable, without status migrainosusChro seb pain syndromeBilater al primary osteoarthritis of kneePrimary OA of right kneePain in right shoulderPain in right kneePain in left kneeMyalgia, other siteLong term (current) use of opiate analgesic 4 Melissa Suazo [place], [address] [place], [address], [place]. tel:[phone] Referring Provider: Mendoza Schumacher, [address] [place] [address], [id number]. tel:[phone] OFFICE/OUTPAT IENT VISIT, EST [facility], [address] [place] [address], [id number] , [place] tel:[phone] [facility] headache (chief complaint) Hemiplegic migraine, intractable, without status migrainosusChro seb migraine without aura, intractable, without status migrainosusChro seb pain syndromeBilater al primary osteoarthritis of kneePrimary OA of right kneePain in right kneePain in left kneeLong term (current) use of opiate analgesicPain in right shoulderMyalgia , other siteEncounter for therapeutic drug level monitoring 4 Melissa Suazo [place], [address] [place], [address], [place]. tel:[phone] Referring Provider: Mendoza Schumacher, [address] [place] [address], [address]. tel:[phone] [facility], [address] [place] [address], [id number] , [place] tel:[phone] [facility] No Information 4 Will Mendoza. [address] [place] [address], [id number], [place]. tel:[phone] Referring Provider: Mendoza Schumacher, [address] [place] [address], [address]. tel:[phone] [facility], [address] [place] [address], [id number] , [place] tel:[phone] [facility] Pain in right knee 4 Will Mendoza. [address] [place] [address], [id number], [place]. tel:[phone] OFFICE VISIT, EST TELEMEDICINE [facility], [address] [place] [address], [id number] , [place] tel:[phone] [facility] headache (chief complaint) Hemiplegic migraine, intractable, without status migrainosusChro seb migraine without aura, intractable, without status migrainosusChro seb pain syndromeBilater al primary osteoarthritis of kneePain in right kneePain in left kneeLong term (current) use of opiate analgesicPrimar y OA of right knee Viraj- 4 Melissa [place], [address] [place], [address], [place]. [phone] OFFICE VISIT, EST TELEMEDICINE [facility], [address], [place], [id number] , [place] [phone] [facility] headache (chief complaint) Hemiplegic migraine, intractable, without status migrainosusChro seb migraine without aura, intractable, without status migrainosusChro seb pain syndromeBilater al primary osteoarthritis of kneePain in right kneePain in left kneeLong term (current) use of opiate analgesic Sep- 3 Melissa Varela, [address] [place], [address], [place]. [phone] OFFICE/OUTPAT IENT VISIT, [facility], [address] [place] [address], [id number] , [place] tel:[phone] [facility] headache (chief complaint) Hemiplegic migraine, intractable, without status migrainosusChro seb migraine without aura, intractable, without status migrainosusChro seb pain syndromeBilater al primary osteoarthritis of kneePain in right kneePain in left kneeLong term (current) use of opiate analgesicEncoun ter for therapeutic drug level monitoring 3 Melissa [place], [address] [place], [address], [place]. tel:[phone] Referring Provider: Mendoza Schumacher, [address] [place], [address]. tel:[phone] [facility], [address], [place], [id number] , [place] tel:[phone] [facility] No Information Nov-0 3 Torres Kelvin. [place], [address] [place], [address], [place]. [phone] [facility], [address] [place] [address], [id number] , [place] [phone] [facility] Pain in right kneePain in left knee Sep-2 3 Barb Jeane. [address] [place] [address], [id number], [place]. tel:[phone] Referring Provider: Mendoza Schumacher, [address] [place] [address], [address]. tel:[phone] OFFICE VISIT, EST TELEMEDICINE [facility], [address] [place] [address], [id number] , [place] tel:[phone] [facility] headache (chief complaint) Hemiplegic migraine, intractable, without status migrainosusChro seb migraine without aura, intractable, without status migrainosusChro seb pain syndromeBilater al primary osteoarthritis of kneeLong term (current) use of opiate analgesicPain in left kneePain in right knee Sep-1 3 Torres Kelvin. [place], [address] [place], [address], [place]. [phone] [facility], [address] [place] [address], [id number] , [place] tel:[phone] [facility] Pain in left kneePain in right knee Sep-0 3 Torres Kelvin. [place], [address] [place], [address], [place]. [phone] [facility], [address] [place] [address], [id number] , [place] [phone] [facility] Pain in right kneePain in left knee Aug-3 3 Kokayejose Jeane. [address] [place] [address], [id number], [place]. tel:[phone] Referring Provider: Mendoza Schumacher, [address] [place] [address], [address]. tel:[phone] OFFICE VISIT, EST TELEMEDICINE [facility], [address] [place] [address], [id number] , [place] [phone] [facility] headache (chief complaint) Hemiplegic migraine, intractable, without status migrainosusChro seb migraine without aura, intractable, without status migrainosusChro seb pain syndromeBilater al primary osteoarthritis of kneeLong term (current) use of opiate analgesic 3 Melissa Suazo [place], [address] [place], [address], [place]. tel:[phone] [facility], [address] [place] [address], [id number] , [place] [phone] [facility] Pain in left kneePain in right knee 3 Melissa Suazo [place], [address] [place], [address], [place]. [phone] [facility], [address] [place] [address], [id number] , [place] [phone] [facility] Bilateral primary osteoarthritis of knee 3 Barb Ching. [address] [place] [address], [id number], [place]. tel:[phone] Referring Provider: Mendoza Schumacher, [address] [place] [address], [address]. tel:[phone] OFFICE/OUTPAT IENT VISIT, [facility], [address] [place] [address], [id number] , [place] [phone] [facility] headache (chief complaint) Hemiplegic migraine, intractable, without status migrainosusChro seb migraine without aura, intractable, without status migrainosusChro seb pain syndromeBilater al primary osteoarthritis of kneeLong term (current) use of opiate analgesic 3 Melissa [place], [address] [place], [address], [place]. tel:[phone] Referring Provider: Mendoza Schumacher, [address] [place] [address], [address]. tel:[phone] OFFICE VISIT, [facility] TELEMEDICINE [facility], [address] [place] [address], [id number] , [place] tel:[phone] [facility] headache (chief complaint) Hemiplegic migraine, intractable, without status migrainosusChro seb migraine without aura, intractable, without status migrainosusChro seb pain syndromeLong term (current) use of opiate analgesicBilate ral primary osteoarthritis of knee February- 3 Melissa [place], [address] [place], [address], [place]. tel:[phone] Referring Provider: Mendoza Schumacher, [address] [place] [address], [id number]. tel:[phone] OFFICE VISIT, [facility], [address] [place] [address], [id number] , [place] tel:[phone] [facility] headache (chief complaint) Hemiplegic migraine, intractable, without status migrainosusChro seb migraine without aura, intractable, without status migrainosusChro seb pain syndromeLong term (current) use of opiate analgesic 3 Melissa [place], [address] [place], [address], [place]. tel:[phone] Referring Provider: Mendoza Schumacher, [address] [place] [address], [address]. tel:[phone] OFFICE/OUTPAT IENT VISIT, [facility], [address] [place] [address], [id number] , [place] tel:[phone] [facility] headache (chief complaint) Hemiplegic migraine, intractable, without status migrainosusChro seb migraine without aura, intractable, without status migrainosusChro seb pain syndromeLong term (current) use of opiate analgesic Dec-0 3 Melissa Postview, [address] [place], [address], [place]. tel:[phone] Referring Provider: Mendoza Schumacher, [address] [place] [address], [address]. tel:[phone] [facility], [address] [place] [address], [id number] , [phone] [facility] No Information 3 Melissa [place], [address] [place], [place], [facility], [place]. tel:[phone] Referring Provider: Mendoza Schumacher, [address] [place] [address], [address]. tel:[phone] OFFICE VISIT, EST TELEMEDICINE [facility], [address] [place] [address], [id number] , [place] tel:[phone] [facility] headache (chief complaint) Hemiplegic migraine, intractable, without status migrainosusChro seb migraine without aura, intractable, without status migrainosusChro seb pain syndromeLong term (current) use of opiate analgesic 3 Melissa [place], [address] [place], [address], [place]. tel:[phone] OFFICE/OUTPAT IENT VISIT, EST [facility], [address] [place] [address], [id number] , [place] tel:[phone] [facility] headache (chief complaint) Hemiplegic migraine, intractable, without status migrainosusChro seb migraine without aura, intractable, without status migrainosusChro seb pain syndromeLong term (current) use of opiate analgesicEncoun ter for screening for other disorder 2 Melissa [place], [address] [place], [address], [place]. tel:[phone] Referring Provider: Mendoza Schumacher, [address] [place] [address], [address]. tel:[phone] [facility], [address] [place] [address], [id number] , [place] tel:[phone] [facility] No Information Dec-0 2 Torres Kelvin. [place], [address] [place], [address], [place]. tel:[phone] OFFICE VISIT, [facility], [address] [place] [address], [id number] , [place] tel:[phone] [facility] headache (chief complaint) Hemiplegic migraine, intractable, without status migrainosusChro seb migraine without aura, intractable, without status migrainosusChro seb pain syndromeLong term (current) use of opiate analgesic Nov-0 2 Torres Kelvin. [place], [address] [place], [address], [place]. tel:[phone] Referring Provider: Mendoza Schumacher, [address] [place] [address], [address]. tel:[phone] OFFICE VISIT, [facility], [address] [place] [address], [id number] , [place] tel:[phone] [facility] headache (chief complaint) Hemiplegic migraine, intractable, without status migrainosusChro seb migraine without aura, intractable, without status migrainosusChro seb pain syndromeLong term (current) use of opiate analgesic Sep-2 2 Torres Kelvin. [place], [address] [place], [address], [place]. [phone] OFFICE VISIT, [facility], [address] [place] [address], [id number] , [place] [phone] [facility] headache (chief complaint) Hemiplegic migraine, intractable, without status migrainosusChro seb migraine without aura, intractable, without status migrainosusChro seb pain syndromeLong term (current) use of opiate analgesic May- 2 Torres Kelvin. [place], [address] [place], [address], [place]. [phone] OFFICE/OUTPAT IENT VISIT, [facility], [address] [place] [address], [id number] , [place] tel:[phone] [facility] headache (chief complaint) Hemiplegic migraine, intractable, without status migrainosusChro seb migraine without aura, intractable, without status migrainosusChro seb pain syndromeLong term (current) use of opiate analgesic 2 Torres Kelvin. [place], [address] [place], [place], [facility], [place]. tel:[phone] Referring Provider: Mendoza Schumacher, [address] [place] [address], [address]. tel:[phone] [facility], [address] [place] [address], [id number] , [place] tel:[phone] [facility] No Information 2 Torres Kelvin. [place], [address] [place], [address], [place]. tel:[phone] Referring Provider: Mendoza Schumacher, [address] [place] [address], [address]. tel:[phone] OFFICE VISIT, EST TELEMEDICINE [facility], [address] [place] [address], [id number] , [place] tel:[phone] [facility] headache (chief complaint) Hemiplegic migraine, intractable, without status migrainosusChro seb migraine without aura, intractable, without status migrainosusChro seb pain syndromeLong term (current) use of opiate analgesic 2 Torres Kelvin. [place], [address] [place], [address], [place]. tel:[phone] Referring Provider: Mendoza Schumacher, [address] [place] [address], [address]. tel:[phone] OFFICE VISIT, EST TELEMEDICINE [facility], [address] [place] [address], [id number] , [place] tel:[phone] [facility] Headache (chief complaint) Hemiplegic migraine, intractable, without status migrainosusChro seb migraine without aura, intractable, without status migrainosusChro seb pain syndromeLong term (current) use of opiate analgesic Apr-0 - 2 Torres Dan. [place], [address] [place], [place], [facility], [place]. tel:[phone] OFFICE VISIT, EST TELEMEDICINE [facility], [address] [place] [address], [id number] , [place] tel:[phone] [facility] headache (chief complaint) Chronic migraine without aura, intractable, without status migrainosusChro seb pain syndromeHemiple gic migraine, intractable, without status migrainosusLong term (current) use of opiate analgesic Mar-0 - 2 Torres Dan. [place], [address] [place], [address], [place]. [phone] [facility], [address] [place] [address], [id number] , [place] tel:[phone] [facility] Chronic migraine without aura, intractable, without status migrainosus Feb-0 4- 2 Melissa Varela, [address] [place], [address], [place]. tel:[phone] Referring Provider: Mendoaz Schumacher, [address] [place] [address], [address]. tel:[phone] OFFICE VISIT, [facility], [address] [place] [address], [id number] , [place] [phone] [facility] headache (chief complaint) Chronic pain syndromeHemiple gic migraine, intractable, without status migrainosusChro seb migraine without aura, intractable, without status migrainosusLong term (current) use of opiate analgesic Feb-0 2- 2 Melissa [place], [address] [place], [address], [place]. tel:[phone] Referring Provider: Mendoza Schumacher, [address] [place] [address], [address]. tel:[phone] OFFICE VISIT, EST [facility], [address] [place] [address], [id number] , [place] tel:[phone] [facility] headache (chief complaint) Chronic migraine without aura, intractable, without status migrainosusChro seb pain syndromeHemiple gic migraine, intractable, without status migrainosusLong term (current) use of opiate analgesic 1 Torresmima [place], [address] [place], [address], [place]. tel:[phone] Referring Provider: Mendoza Schumacher, [address] [place] [address], [address]. tel:[phone] OFFICE/OUTPAT IENT VISIT, EST [facility], [address] [place] [address], [id number] , [place] tel:[phone] [facility] Headache (chief complaint) headache (chief complaint) Chronic migraine without aura, intractable, without status migrainosusChro seb pain syndromeHemiple gic migraine, intractable, without status migrainosusLong term (current) use of opiate analgesic 1 Melissa [place], [address] [place], [address], [place]. tel:[phone] Referring Provider: Mendoza Schumacher, [address] [place] [address], [address]. tel:[phone] [facility], [address] [place] [address], [id number] , [place] tel:[phone] [facility] No Information 1 Torresmima Suazo [place], [address] [place], [address], [place]. tel:[phone] Referring Provider: Mendoza Schumacher, [address] [place] [address], [address]. tel:[phone] [facility], [address] [place] [address], [id number] , [place] tel:[phone] [facility] Chronic migraine without aura, intractable, without status migrainosus 1 Torressuzette Varela, [address] [place], [address], [place]. tel:[phone] Referring Provider: Mendoza Schumacher, [address] [place] [address], [address]. tel:[phone] OFFICE/OUTPAT IENT VISIT, [facility], [address] [place] [address], [id number] , [place] [phone] [facility] headache (chief complaint) Chronic pain syndromeHemiple gic migraine, intractable, without status migrainosusChro seb migraine without aura, intractable, without status migrainosusLong term (current) use of opiate analgesicNausea Anxiety 1 Melissa [place], [address] [place], [address], [place]. tel:[phone] Referring Provider: Mendoza Schumacher, [address] [place] [address], [address]. tel:[phone] OFFICE/OUTPAT IENT VISIT, [facility], [address] [place] [address], [id number] , [place] tel: [phone] [facility] headache (chief complaint) Chronic migraine without aura, intractable, without status migrainosusHemi plegic migraine, intractable, without status migrainosusChro seb pain syndromeLong term (current) use of opiate analgesicNausea Anxiety 1 Melissa [place], [address] [place], [address], [place]. tel:[phone] Referring Provider: Mendoza Schumacher, [address] [place] [address], [address]. tel:[phone] [place] [address], [address] [place] [address], [id number] , [place] tel: [phone] [facility] Chronic migraine without aura, intractable, without status migrainosus 1 Melissa Varela, [address] [place], [address], [place]. tel:[phone] Referring Provider: Mendoza Schumacher, [address] [place] [address], [address]. tel:[phone] OFFICE/OUTPAT IENT VISIT, [facility], [address] [place] [address], [id number] , [place] [phone] [facility] Headache (chief complaint) Chronic migraine without aura, intractable, without status migrainosusHemi plegic migraine, intractable, without status migrainosusChro seb pain syndromeLong term (current) use of opiate analgesicNausea Anxiety 1 Torres Dan. [place], [address] [place], [place], [facility], [place]. tel:[phone] Referring Provider: Mendoza Schumacher, [address] [place] [address], [address]. tel:[phone] OFFICE/OUTPAT IENT VISIT, [facility], [address] [place] [address], [id number] , [place] [phone] [facility] Headache (chief complaint) Chronic migraine without aura, intractable, without status migrainosusHemi plegic migraine, intractable, without status migrainosusChro seb pain syndromeLong term (current) use of opiate analgesicNausea Anxiety 1 Torres Dan. [place], [address] [place], [place], [facility], [place]. tel:[phone] Referring Provider: Mendoza Schumacher, [address] [place] [address], [address]. tel:[phone] [place] [address] [facility], [address] [place] [address], [id number] , [place] [phone] [facility] Chronic migraine without aura, intractable, without status migrainosus 1 Torressuzette Suazo [place], [address], [place], [facility], [place]. tel:[phone] Referring Provider: Mendoza Schumacher, [address] [place] [address], [address]. [phone] OFFICE VISIT, EST TELEMEDICINE [facility], [address] [place] [address], [id number] , [place] tel:[phone] [facility] Headache (chief complaint) Chronic migraine without aura, intractable, without status migrainosusHemi plegic migraine, intractable, without status migrainosusChro seb pain syndromeLong term (current) use of opiate analgesicNausea Anxiety 1 Melissa Suazo [place], [address], [place], [facility], [place]. [phone] OFFICE VISIT, EST TELEMEDICINE [facility], [address] [place] [address], [id number] , [place] tel:[phone] [facility] Headache (chief complaint) Chronic migraine without aura, intractable, without status migrainosusHemi plegic migraine, intractable, without status migrainosusChro seb pain syndromeLong term (current) use of opiate analgesicNausea Anxiety 1 Melissa Suazo [place], [address] [place], [address], [place]. tel:[phone] Referring Provider: Mendoza Schumacher, [address] [place] [address], [address]. [phone] [facility], [address] [place] [address], [id number] , [place] tel:[phone] [facility] Chronic migraine without aura, intractable, without status migrainosus 1 Melissa Suazo [place], [address] [place], [address], [place]. tel:[phone] Referring Provider: Mendoza Schumacher, [address] [place] [address], [address]. [phone] OFFICE VISIT, EST TELEMEDICINE [facility], [address] [place] [address], [id number] , [place] [phone] [facility] Pain [facility] Headache (chief complaint) Chronic migraine w/o aura, intractable, w/o stat migrHemiplegic migraine, intractable, without status migrainosusChro seb pain syndromeLong term (current) use of opiate analgesicNausea Anxiety Dec-2 0 Melissa Suazo [place], [address] [place], [address], [place]. tel:[phone] Referring Provider: Mendoza Schumacher, [address] [place] [address], [address]. tel:[phone] OFFICE VISIT, [facility] TELEMEDICINE [facility], [address] [place] [address], [id number] , [place] tel:[phone] [facility] Headache (chief complaint) Chronic migraine w/o aura, intractable, w/o stat migrHemiplegic migraine, intractable, without status migrainosusChro seb pain syndromeLong term (current) use of opiate analgesicNausea Anxiety Nov-0 0 Melissa Warren. [place], [address] [place], [address], [place]. tel:[phone] Referring Provider: Mendoza Schumacher, [address] [place] [address], [address]. tel:[phone] [facility], [address] [place] [address], [id number] , [place] tel:[phone] [facility] Chronic migraine without aura, intractable, without status migrainosus Jul- 0 Melissa [place], [address] [place], [address], [place]. tel:[phone] Referring Provider: Mendoza Schumacher, [address] [place] [address], [address]. tel:[phone] OFFICE/OUTPAT IENT VISIT, [facility], [address] [place] [address], [id number] , [place] tel:[phone] [facility] Headache (chief complaint) Chronic migraine w/o aura, intractable, w/o stat migrHemiplegic migraine, intractable, without status migrainosusChro seb pain syndromeLong term (current) use of opiate analgesicNausea Anxiety Sep-2 3-202 0 Melissa [place], [address] [place], [address], [place]. tel:[phone] Referring Provider: Mendoza Schumacher, [address] [place] [address], [address]. tel:[phone] OFFICE/OUTPAT IENT VISIT, [facility], [address] [place] [address], [id number] , [place] tel:[phone] [facility] Headache (chief complaint) Chronic migraine w/o aura, intractable, w/o stat migrHemiplegic migraine, intractable, without status migrainosusChro seb pain syndromeLong term (current) use of opiate analgesicNausea Anxiety 0 Melissa [place], [address] [place], [address], [place]. tel:[phone] Referring Provider: Mendoza Schumacher, [address] [place] [address], [address]. tel:[phone] OFFICE/OUTPAT IENT VISIT, [facility], [address] [place] [address], [id number] , [place] tel:[phone] [facility] Headache (chief complaint) Chronic migraine w/o aura, intractable, w/o stat migrHemiplegic migraine, intractable, without status migrainosusChro seb pain syndromeLong term (current) use of opiate analgesicNausea Anxiety 0 Melissa [place], [address] [place], [address], [place]. tel:[phone] Referring Provider: Mendoza Schumacher, [address] [place] [address], [address]. tel:[phone] [facility], [address] [place] [address], [id number] , [place] tel:[phone] [facility] Chronic migraine w/o aura, intractable, w/o stat migr Apr- 0 Melissa [place], [address] [place], [address], [place]. tel:[phone] Referring Provider: Mendoza Schumacher, [address] [place] [address], [address]. tel:[phone] [facility], [address] [place] [address], [id number] , [place] [phone] [facility] Migraine w/o aura, intractable, without status migrainosus 0 Torres Kelvin. [place], [address] [place], [address], [place]. tel:[phone] OFFICE VISIT, EST TELEMEDICINE [facility], [address] [place] [address], [id number] , [place] [phone] [facility] Headache (chief complaint) Hemiplegic migraine, intractable, without status migrainosusChro seb pain syndromeLong term (current) use of opiate analgesicAnxiet yNausea 0 Torres Kelvin. [place], [address] [place], [address], [place]. tel:[phone] Referring Provider: Mendoza Schumacher, [address] [place] [address], [address]. tel:[phone] OFFICE VISIT, EST TELEMEDICINE [facility], [address] [place] [address], [id number] , [place] tel:[phone] [facility] headache (chief complaint) Hemiplegic migraine, intractable, without status migrainosusChro seb pain syndromeLong term (current) use of opiate analgesic 0 Torres Kelvin. [place], [address] [place], [address], [place]. tel:[phone] Referring Provider: Mendoza Schumacher, [address] [place] [address], [address]. tel:[phone] OFFICE VISIT, EST TELEMEDICINE [facility], [address] [place] [address], [id number] , [place] tel:[phone] [facility] headache (chief complaint) Hemiplegic migraine, intractable, without status migrainosusChro seb pain syndromeLong term (current) use of opiate analgesic Jan-2 0 Torres Kelvin. [place], [address] [place], [address], [place]. tel:[phone] Referring Provider: Mendoza Schumacher, [address] [place] [address], [address]. tel:[phone] [place] [address] [facility], [address] [place] [address], [id number] , [place] tel:[phone] [facility] Hemiplegic migraine, intractable, without status migrainosus Dec-- 0 Torres Kelvin. [place], [address] [place], [address], [place]. tel:[phone] Referring Provider: Mendoza Schumacher, [address] [place] [address], [address]. tel:[phone] OFFICE/OUTPAT IENT VISIT, [facility], [address] [place] [address], [id number] , [place] tel:[phone] [facility] headache (chief complaint) Hemiplegic migraine, intractable, without status migrainosusLong term (current) use of opiate analgesicChroni c pain syndrome Fe- 0 Melissa Warren. [place], [address], [address], [place]. tel:[phone] Referring Provider: Mendoza Schumacher, [address] [place] [address], [address]. tel:[phone] OFFICE/OUTPAT IENT VISIT, [facility], [address] [place] [address], [id number] , [place] tel:[phone] [facility] headache (chief complaint) Hemiplegic migraine, intractable, without status migrainosusLong term (current) use of opiate analgesicChroni c pain syndrome Oct- 0 Torres Kelvin. [place], [address] [place], [address], [place]. tel:[phone] Referring Provider: Mendoza Schumacher, [address] [place] [address], [address]. tel:[phone] [facility], [address] [place] [address], [id number] , [place] [phone] [facility] Hemiplegic migraine, intractable, without status migrainosus Dec- 9- 9 Torres Kelvin. [place], [address] [place], [address], [place]. tel:[phone] Referring Provider: Mendoza Schumacher, [address] [place] [address], [address]. [phone] OFFICE/OUTPAT IENT VISIT, [facility], [address] [place] [address], [id number] , [place] [phone] [facility] headache (chief complaint) terminal clerk (current) use of opiate analgesicHemipl egic migraine, intractable, without status migrainosusChro seb pain syndrome Dec-0 5-201 9 Torres Kelvin. [place], [address] [place], [address], [place]. tel:[phone] Referring Provider: Mendoza Schumacher, [address] [place] [address], [address]. tel:[phone] OFFICE/OUTPAT IENT VISIT, [facility], [address] [place] [address], [id number] , [place] [phone] [facility] Headache (chief complaint) terminal clerk (current) use of opiate analgesicHemipl egic migraine, intractable, without status migrainosusChro seb pain syndrome Nov-0 7-201 9 Torres Kelvin. [place], [address] [place], [address], [place]. tel:[phone] Referring Provider: Mendoza Schumacher, [address] [place] [address], [address]. tel:[phone] OFFICE/OUTPAT IENT VISIT, [facility], [address] [place] [address], [id number] , [place] tel:[phone] [facility] headache (chief complaint) Chronic pain syndromeHemiple gic migraine, intractable, without status migrainosusLong term (current) use of opiate analgesic Oct- 0- 9 Melissa Suazo [place], [address] [place], [address], [place]. tel:[phone] Referring Provider: Mendoza Schumacher, [address] [place] [address], [address]. [phone] [facility], [address] [place] [address], [id number] , [place] [phone] [facility] Hemiplegic migraine, intractable, without status migrainosus Sep- 9 Melissa Suazo [place], [address] [place], [address], [place]. tel:[phone] Referring Provider: Mendoza Schumacher, [address] [place] [address], [address]. tel:[phone] OFFICE/OUTPAT IENT VISIT, [facility], [address] [place] [address], [id number] , [place] [phone] [facility] headache (chief complaint) Chronic pain syndromeHemiple gic migraine, intractable, without status migrainosusLong term (current) use of opiate analgesicEncoun ter for therapeutic drug level monitoringAnxie ty Jun- 9 Melissa [place], [address] [place], [address], [place]. tel:[phone] Referring Provider: Mendoza Schumacher, [address] [place] [address], [address]. tel:[phone] OFFICE/OUTPAT IENT VISIT, [facility], [address] [place] [address], [id number] , [place] tel:[phone] [facility] Headache (chief complaint) Chronic pain syndromeHemiple gic migraine, intractable, without status migrainosus 9 Catie Rodrigues. [facility], [address], [place], [address], [place]. tel:[phone] Referring Provider: Prabhakar Cho [facility] [address] [facility], [place], [address]. tel:[phone] Family History Family Member Type Diagnosis Age At Onset No Information Payers Payer name Insurance type Covered democrat ID Authoriza tibright(s) [employer] [facility] [id number] Social History Type Description Quantity Date Captured Comments Alcohol Use Details Unknown Caffeine Use Details Unknown Tobacco Use Status No Information Smoking Status No Information Sex Female Chief Complaint And Reason For Visit No Information Reason For Referral Reason For Referral No Information Plan Of Treatment Date Type Action Status Goal Order Annual PT. Due on due Goal ANODIZE MACHINE OPERATOR Scanned. Due on due Goal FIT-DNA. Due on due Goal Update Social Hi story. Due on due Goal CT-Colonography. Due on due Goal Hepatitis C scre ening. Due on due Goal AST (SGOT). Due on due Goal UDT. Due on due Goal ALT (SGPT). Due on due Goal Creatinine. Due on due Goal PHQ-9. Due on du e Goal SENIOR WIND TURBINE TECHNICIAN Paperwork. Due on due Goal Lipid panel. Due on due Goal Review Allergy L ist. Due on due Goal Weight. Due on d ue Goal FIT. Due on due Goal Unhealthy drug u se screening. Due on due Goal OARS. Due on due Goal Tobacco Use. Due on due Goal Height. Due on d ue Goal Medication Recon ciliation. Due on due Goal Zoster vaccine ( 1st). Due on due Goal Height. Due on d ue Goal Lipid panel. Due on due Goal CT-Colonography. Due on due Goal Update Social Hi story. Due on due Goal ALT (SGPT). Due on due Goal SENIOR WIND TURBINE TECHNICIAN Paperwork. Due on due Goal OARS. Due [...] ue Goal FIT. Due on due Goal ANODIZE MACHINE OPERATOR Scanned. Due on due Goal ANODIZE MACHINE OPERATOR Scanned. Due on due Goal Lipid panel. Due on due Goal UDT. Due on due Goal Tobacco Use. Due on due Goal CT-Colonography. Due on due Goal Zoster vaccine ( ). Due on due Goal Medication Recon ciliation. Due on due Goal FIT. Due on due Goal Update Social Hi story. Due on due Goal AST (SGOT). Due on due Goal Creatinine. Due on due Goal Hepatitis C scre ening. Due on due Goal Review Allergy L ist. Due on due Goal PHQ-9. Due on du e Goal SENIOR WIND TURBINE TECHNICIAN Paperwork. Due on due Goal ALT (SGPT). Due on due Goal Order Annual PT. Due on due Goal OARS. Due on due Goal Weight. Due on d ue Goal Unhealthy drug u se screening. Due on due Goal Height. Due on d ue Goal FIT-DNA. Due on due Goal Lifestyle educat ion regarding diet completed Goal PHQ-9. Due on du e Goal Unhealthy drug u se screening. Due on due Goal Review Allergy L ist. Due on due Goal Tobacco Use. Due on due Goal CT-Colonography. Due on due Goal Update Social Hi story. Due on due Goal FIT-DNA. Due on due Goal Height. Due on d ue Goal ANODIZE MACHINE OPERATOR Scanned. Due on due Goal SENIOR WIND TURBINE TECHNICIAN Paperwork. Due on due Goal Medication Recon [...] due Goal FIT. Due on due Goal ANODIZE MACHINE OPERATOR Scanned. Due on due Goal Hepatitis C scre ening. Due on due Goal Creatinine. Due on due Goal SENIOR WIND TURBINE TECHNICIAN Paperwork. Due on due Goal Weight. Due [...] Goal Lipid panel. Due on due Goal FIT. Due on due Goal Review Allergy L ist. Due on due Goal FIT-DNA. Due on due Goal Tobacco Use. Due on due Goal Height. Due on d ue Goal Lipid panel. Due on due Goal Unhealthy drug u se screening. Due on due Goal Hepatitis C scre ening. Due on due Goal SENIOR WIND TURBINE TECHNICIAN Paperwork. Due on due Goal CT-Colonography. Due on due Goal Order Annual PT. Due on due Goal Update Social Hi story. Due on due Goal UDT. Due on due Goal Weight. Due on d ue Goal ALT (SGPT). Due on due Goal AST (SGOT). Due on due Goal PHQ-9. Due on du e Goal Medication Recon ciliation. Due on due Goal OARS. Due on due Goal FIT. Due on due Goal Creatinine. Due on due Goal Review Allergy L ist. Due on due Goal Zoster vaccine ( ). Due on due Goal ANODIZE MACHINE OPERATOR Scanned. Due on due Goal Lifestyle educat ion regarding diet completed Goal Zoster vaccine ( ). Due on [...] Goal AST (SGOT). Due on due Goal ANODIZE MACHINE OPERATOR Scanned. Due on due Goal OARS. Due on due Goal SENIOR WIND TURBINE TECHNICIAN Paperwork. Due on due Goal SENIOR WIND TURBINE TECHNICIAN Paperwork. Due on due Goal Hepatitis C scre ening. Due on due Goal Unhealthy drug u se screening. Due on due Goal CT-Colonography. Due on due Goal Review Allergy L ist. Due on due Goal Zoster vaccine ( 1st). Due on due Goal Update Social Hi story. Due on due Goal FIT-DNA. Due on due Goal AST (SGOT). Due on due Goal OARS. Due on due Goal Weight. Due on d ue Goal Tobacco Use. Due on due Goal Lipid panel. Due on due Goal Height. Due on d ue Goal PHQ-9. Due on du e Goal UDT. Due on due Goal Order Annual PT. Due on due Goal Creatinine. Due on due Goal ALT (SGPT). Due on due Goal ANODIZE MACHINE OPERATOR Scanned. Due on due Goal Medication Recon ciliation. Due on due Goal FIT. Due on due Goal Lipid panel. Due on due Goal SENIOR WIND TURBINE TECHNICIAN Paperwork. Due on due Goal CT-Colonography. Due [...] due Goal FIT-DNA. Due on due Goal ANODIZE MACHINE OPERATOR Scanned. Due on due Goal Update Social Hi story. Due on due Goal Order Annual PT. Due on due Goal Zoster vaccine ( ). Due on due Goal ALT (SGPT). Due on due Goal Zoster vaccine ( 1st). Due on due Goal FIT. Due on due Goal FIT-DNA. Due on due Goal Creatinine. Due on due Goal Unhealthy drug u se screening. Due on due Goal ALT (SGPT). Due on due Goal Order Annual PT. Due on due Goal OARS. Due on due Goal CT-Colonography. Due on due Goal ANODIZE MACHINE OPERATOR Scanned. Due on due Goal AST (SGOT). Due on due Goal SENIOR WIND TURBINE TECHNICIAN Paperwork. Due on due Goal Height. Due [...] Social Hi story. Due on due Goal SENIOR WIND TURBINE TECHNICIAN Paperwork. Due on due Goal Medication Recon ciliation. Due on due Goal ANODIZE MACHINE OPERATOR Scanned. Due on due Goal Tobacco Use. Due on due Goal PHQ-9. Due on du e Goal Review Allergy L ist. Due on due Goal UDT. Due on due Goal ALT (SGPT). Due on due Goal Order Annual PT. Due on due Goal OARS. Due on due Goal Weight. Due on d ue Goal ALT (SGPT). Due on due Goal OARS. Due on due Goal Unhealthy drug u se screening. Due on due Goal Review Allergy L ist. Due on due Goal CT-Colonography. Due on due Goal SENIOR WIND TURBINE TECHNICIAN Paperwork. Due on due Goal AST (SGOT). Due on due Goal ANODIZE MACHINE OPERATOR Scanned. Due on due Goal Order Annual PT. Due on due Goal Creatinine. Due on due Goal UDT. Due on due Goal Tobacco Use. Due on due Goal FIT. Due on due Goal Medication Recon ciliation. Due on due Goal Weight. Due on d ue Goal PHQ-9. Due on du e Goal FIT-DNA. Due on due Goal Update Social Hi story. Due on due Goal Hepatitis C scre ening. Due on due Goal Lipid panel. Due on due Goal Zoster vaccine ( 1st). Due on due Goal Height. Due on d ue Goal ANODIZE MACHINE OPERATOR Scanned. Due on due Goal Weight. Due on d ue Goal Unhealthy drug u se screening. Due on due Goal CT-Colonography. Due on due Goal Tobacco Use. Due on due Goal Review Allergy L ist. Due on due Goal FIT. Due on due Goal Lipid panel. Due on due Goal Creatinine. Due on due Goal PHQ-9. Due on du e Goal FIT-DNA. Due on due Goal Height. Due on d ue Goal Hepatitis C scre ening. Due on due Goal AST (SGOT). Due on due Goal OARS. Due on due Goal Order Annual PT. Due on due Goal ALT (SGPT). Due on due Goal UDT. Due on due Goal Zoster vaccine ( 1st). Due on due Goal Medication Recon ciliation. Due on due Goal SENIOR WIND TURBINE TECHNICIAN Paperwork. Due on due Goal Update Social Hi story. Due on due Goal Unhealthy drug u se screening. Due on due Goal CT-Colonography. Due on due Goal Update Social Hi story. Due on due Goal Creatinine. Due on due Goal ANODIZE MACHINE OPERATOR Scanned. Due on due Goal Tobacco Use. Due on due Goal Hepatitis C scre ening. Due on due Goal FIT-DNA. Due on due Goal OARS. Due on [...] Goal AST (SGOT). Due on due Goal SENIOR WIND TURBINE TECHNICIAN Paperwork. Due on due Goal PHQ-9. Due on du e Goal SENIOR WIND TURBINE TECHNICIAN Paperwork. Due on due Goal UDT. Due on due Goal Creatinine. Due on due Goal AST (SGOT). Due on due Goal FIT-DNA. Due on due Goal OARS. Due on due Goal ALT (SGPT). Due on due Goal Order Annual PT. Due on due Goal ANODIZE MACHINE OPERATOR Scanned. Due on due Goal CT-Colonography. Due on due Goal Medication Recon ciliation. Due on due Goal Lipid panel. Due on due Goal Weight. Due on d ue Goal PHQ-9. Due on du e Goal Zoster vaccine ( ). Due on due Goal Hepatitis C scre ening. Due on due Goal Height. Due on d ue Goal FIT. Due on due Goal Update Social Hi story. Due on due Goal Tobacco Use. Due on due Goal Unhealthy drug u se screening. Due on due Goal Review Allergy L ist. Due on due Goal SENIOR WIND TURBINE TECHNICIAN Paperwork. Due on due Goal Zoster vaccine ( ). Due on due Goal Weight. Due on d ue Goal Creatinine. Due on due Goal ANODIZE MACHINE OPERATOR Scanned. Due on due Goal Order Annual PT. Due on due Goal AST (SGOT). Due on due Goal Medication Recon ciliation. [...] u se screening. Due on due Goal OARS. Due on due Goal ALT (SGPT). Due on due Goal UDT. Due on due Goal FIT-DNA. Due on due Goal FIT-DNA. Due on due Goal Height. Due on d ue Goal FIT. Due on due Goal SENIOR WIND TURBINE TECHNICIAN Paperwork. Due on due Goal Zoster vaccine ( 1st). Due on due Goal ANODIZE MACHINE OPERATOR Scanned. Due on due Goal ALT (SGPT). Due on due Goal Tobacco Use. Due on [address]-Colonography. Due on due Goal PHQ-9. Due on du e Goal Creatinine. Due on due Goal OARS. [...] Goal AST (SGOT). Due on due Goal SENIOR WIND TURBINE TECHNICIAN Paperwork. Due on due Goal UDT. Due on due Goal Order Annual PT. Due on due Goal Unhealthy drug u se screening. Due on due Goal Hepatitis C scre ening. Due on due Goal FIT. Due on due Goal Weight. Due on d ue Goal FIT-DNA. Due on due Goal Review Allergy L ist. Due on due Goal Height. Due on d ue Goal Medication Recon ciliation. Due on due Goal Lipid panel. Due on due Goal Zoster vaccine ( 1st). Due on due Goal Tobacco Use. Due on due Goal PHQ-9. Due on du e Goal CT-Colonography. Due on due Goal OARS. Due on due Goal ALT (SGPT). Due on due Goal ANODIZE MACHINE OPERATOR Scanned. Due on due Goal Creatinine. Due on due Goal Update Social Hi story. Due on due Goal Review Allergy L ist. Due on due Goal FIT-DNA. Due on due Goal Tobacco Use. Due on due Goal ANODIZE MACHINE OPERATOR Scanned. Due on due Goal AST (SGOT). Due on due Goal Update Social Hi story. Due on due Goal Weight. Due on d ue Goal Height. Due on d ue Goal Lipid panel. Due on due Goal Zoster vaccine ( 1st). Due on due Goal SENIOR WIND TURBINE TECHNICIAN Paperwork. Due on due Goal Order Annual PT. Due on due Goal Medication Recon ciliation. Due on due Goal Creatinine. Due on due Goal UDT. Due on due Goal Hepatitis C scre ening. Due on due Goal FIT. Due on due Goal OARS. Due on due Goal PHQ-9. Due on du e Goal ALT (SGPT). Due on due Goal Unhealthy drug u se screening. Due on due Goal CT-Colonography. Due on due Goal Hepatitis C scre ening. Due on due Goal Lipid panel. Due on due Goal Update Social Hi story. Due on due Goal Height. Due on [...] vaccine ( 1st). Due on due Goal SENIOR WIND TURBINE TECHNICIAN Paperwork. Due on due Goal Creatinine. Due on due Goal FIT-DNA. Due on due Goal OARS. Due on due Goal Weight. Due on d ue Goal AST (SGOT). Due on due Goal Order Annual PT. Due on due Goal ANODIZE MACHINE OPERATOR Scanned. Due on due Goal Order Annual PT. Due on due Goal ANODIZE MACHINE OPERATOR Scanned. Due on due Goal SENIOR WIND TURBINE TECHNICIAN Paperwork. Due on due Goal ALT (SGPT). Due on due Goal UDT. Due on due Goal AST (SGOT). Due on due Goal Creatinine. Due on due Goal OARS. Due on due Goal Update Social Hi [...] Allergy L ist. Due on due Goal SENIOR WIND TURBINE TECHNICIAN Paperwork. Due on due Goal Weight. Due [...] Goal Lipid panel. Due on due Goal ANODIZE MACHINE OPERATOR Scanned. Due on due Goal Creatinine. Due on due Goal PHQ-9. Due on du e Goal Zoster vaccine ( 1st). Due on due Goal AST (SGOT). Due on due Goal Medication Recon ciliation. Due on due Goal Review Allergy L ist. Due on due Goal Update Social Hi story. Due on due Goal FIT. Due on due Goal Hepatitis C scre ening. Due on due Goal AST (SGOT). Due on due Goal ANODIZE MACHINE OPERATOR Scanned. Due on due Goal Creatinine. Due on due Goal ALT (SGPT). Due on due Goal FIT. Due on due Goal Medication Recon ciliation. Due on due Goal CT-Colonography. Due on due Goal UDT. Due on due Goal Review Allergy L ist. Due on due Goal Order Annual PT. Due on due Goal Hepatitis C scre ening. Due on due Goal Weight. Due on d ue Goal Update Social Hi story. Due on due Goal OARS. Due on due Goal Lipid panel. Due on due Goal PHQ-9. Due on du e Goal Tobacco Use. Due on due Goal Zoster vaccine ( ). Due on due Goal SENIOR WIND TURBINE TECHNICIAN Paperwork. Due on due Goal Unhealthy drug u se screening. Due on due Goal Height. Due on d ue Goal FIT-DNA. Due on due Goal Zoster vaccine ( 1st). Due on due Goal CT-Colonography. Due on due Goal PHQ-9. Due on du e Goal Lipid panel. Due on due Goal Unhealthy drug u se screening. Due on due Goal FIT. Due on due Goal Height. Due on d ue Goal Review Allergy L ist. Due on due Goal ALT (SGPT). Due on due Goal Hepatitis C scre ening. Due on due Goal Medication Recon ciliation. Due on due Goal FIT-DNA. Due on due Goal ANODIZE MACHINE OPERATOR Scanned. Due on due Goal Update Social Hi story. Due on due Goal AST (SGOT). Due on due Goal Creatinine. Due on due Goal Order Annual PT. Due on due Goal Tobacco Use. Due on due Goal SENIOR WIND TURBINE TECHNICIAN Paperwork. Due on due Goal UDT. Due on due Goal Weight. Due on d ue Goal OARS. Due on due Goal Tobacco Use. Due on due Goal AST (SGOT). Due on due Goal PHQ-9. Due on du e Goal FIT-DNA. Due on due Goal CT-Colonography. Due on due Goal ALT (SGPT). Due on due Goal Height. Due on d ue Goal Update Social Hi story. Due on due Goal SENIOR WIND TURBINE TECHNICIAN Paperwork. Due on due Goal Order Annual PT. Due on due Goal OARS. Due on due Goal ANODIZE MACHINE OPERATOR Scanned. Due on due Goal Weight. Due on d ue Goal Hepatitis C scre ening. Due on due Goal Review Allergy L ist. Due on due Goal Medication Recon ciliation. Due on due Goal Zoster vaccine ( 1st). Due on due Goal Unhealthy drug u se screening. Due on due Goal UDT. Due on due Goal Lipid panel. Due on due Goal FIT. Due on due Goal Creatinine. Due on due Goal CT-Colonography. Due on due Goal Hepatitis C scre ening. Due on due Goal Review Allergy L ist. Due on due Goal FIT-DNA. Due on due Goal Weight. Due on d ue Goal Medication Recon ciliation. Due on due Goal Zoster vaccine ( 1st). Due on due Goal Tobacco Use. Due on due Goal Lipid panel. Due on due Goal SENIOR WIND TURBINE TECHNICIAN Paperwork. Due on due Goal AST (SGOT). Due on due Goal Order Annual PT. Due on due Goal OARS. Due on due Goal ALT (SGPT). Due on due Goal ANODIZE MACHINE OPERATOR Scanned. Due on due Goal Creatinine. Due on due Goal UDT. Due on due Goal Unhealthy drug u se screening. Due on due Goal Height. Due on d ue Goal PHQ-9. Due on du e Goal Update Social Hi story. Due on due Goal FIT. Due on due Goal Tobacco Use. Due on due Goal ANODIZE MACHINE OPERATOR Scanned. Due on due Goal FIT. Due on due Goal Update Social Hi story. Due on due Goal AST (SGOT). Due on due Goal OARS. Due on due Goal Height. Due on d ue Goal UDT. Due on due Goal FIT-DNA. Due on due Goal SENIOR WIND TURBINE TECHNICIAN Paperwork. Due on due Goal Review Allergy [...] Goal Tobacco Use. Due on due Goal ANODIZE MACHINE OPERATOR Scanned. Due on due Goal Creatinine. Due on due Goal Order Annual PT. Due on due Goal ALT (SGPT). Due on due Goal UDT. Due on due Goal OARS. Due on due Goal AST (SGOT). Due on due Goal SENIOR WIND TURBINE TECHNICIAN Paperwork. Due on due Goal Height. Due on d ue Goal Review Allergy L ist. Due on due Goal CT-Colonography. Due on due Goal Unhealthy drug u se screening. Due on due Goal Zoster vaccine ( ). Due on due Goal FIT-DNA. Due on due Goal Medication Recon ciliation. Due on due Goal Hepatitis C scre ening. Due on due Goal Weight. Due on d ue Goal Unhealthy drug u se screening. Due on due Goal Lipid panel. Due on due Goal Zoster vaccine ( ). Due on due Goal Update Social Hi story. Due on due Goal UDT. Due on due Goal Weight. Due on d ue Goal Tobacco Use. Due on due Goal ANODIZE MACHINE OPERATOR Scanned. Due on due Goal ALT (SGPT). Due on due Goal OARS. Due on due Goal Order Annual PT. Due on due Goal AST (SGOT). Due on due Goal Creatinine. Due on due Goal Height. Due on d ue Goal Review Allergy L ist. Due on due Goal PHQ-9. Due on du e Goal FIT. Due on due Goal SENIOR WIND TURBINE TECHNICIAN Paperwork. Due on due Goal Hepatitis C scre ening. Due on due Goal FIT-DNA. Due on due Goal CT-Colonography. Due on due Goal Medication Recon ciliation. Due on due Goal FIT-DNA. Due on due Goal Zoster vaccine ( 1st). Due on due Goal ALT (SGPT). Due on due Goal PHQ-9. Due on du e Goal Update Social Hi story. Due on due Goal CT-Colonography. Due on due Goal Height. Due on d ue Goal Medication Recon ciliation. Due on due Goal Weight. Due on d ue Goal Tobacco Use. Due on 022 due Goal FIT. Due on due Goal Unhealthy drug u se screening. Due on due Goal Review Allergy L ist. Due on due Goal UDT. Due on due Goal OARS. Due on due Goal AST (SGOT). Due on due Goal ANODIZE MACHINE OPERATOR Scanned. Due on due Goal Hepatitis C scre ening. Due on due Goal Creatinine. Due on due Goal SENIOR WIND TURBINE TECHNICIAN Paperwork. Due on due Goal Order Annual PT. Due on due Goal Lipid panel. Due on due Goal AST (SGOT). Due on due Goal ALT (SGPT). Due on due Goal FIT. Due on due Goal ANODIZE MACHINE OPERATOR Scanned. Due on due Goal Creatinine. Due on due Goal OARS. Due on due Goal Order Annual PT. Due on due Goal CT-Colonography. Due on due Goal Hepatitis C scre ening. Due on due Goal Tobacco Use. Due on due Goal Update Social Hi story. Due on due Goal Weight. Due on d ue Goal SENIOR WIND TURBINE TECHNICIAN Paperwork. Due on due Goal UDT. Due on due Goal Lipid panel. Due on due Goal Zoster vaccine ( 1st). Due on due Goal FIT-DNA. Due on due Goal Review Allergy L ist. Due on due Goal Unhealthy drug u se screening. Due on due Goal Height. Due on d ue Goal Medication Recon ciliation. Due on due Goal PHQ-9. Due on du e Goal Lipid panel. Due on due Goal FIT. Due on due Goal Creatinine. Due on due Goal Unhealthy drug u se screening. Due on due Goal SENIOR WIND TURBINE TECHNICIAN Paperwork. Due on due Goal ALT (SGPT). [...] Goal Height. Due on d ue Goal ANODIZE MACHINE OPERATOR Scanned. Due on due Goal CT-Colonography. Due on due Goal Order Annual PT. Due on due Goal Zoster vaccine ( 1st). Due on due Goal Review Allergy L [...] Goal Weight. Due on d ue Goal SENIOR WIND TURBINE TECHNICIAN Paperwork. Due on due Goal Creatinine. Due on due Goal OARS. Due on due Goal AST (SGOT). Due on due Goal Order Annual PT. Due on due Goal ALT (SGPT). Due on due Goal UDT. Due on due Goal ANODIZE MACHINE OPERATOR Scanned. Due on due Goal Zoster vaccine ( 1st). Due on due Goal Height. Due on d ue Goal CT-Colonography. Due on due Goal Unhealthy drug u se screening. Due on due Goal SENIOR WIND TURBINE TECHNICIAN Paperwork. Due on due Goal Creatinine. Due on due Goal ANODIZE MACHINE OPERATOR Scanned. Due on due Goal AST (SGOT). [...] Goal AST (SGOT). Due on due Goal SENIOR WIND TURBINE TECHNICIAN Paperwork. Due on due Goal ALT (SGPT). Due on due Goal ANODIZE MACHINE OPERATOR Scanned. Due on due Goal OARS. Due on due Goal Order Annual PT. Due on due Goal Weight. Due on d ue Goal Update Social Hi story. Due on due Goal UDT. Due on due Goal Medication Recon ciliation. Due on due Goal Height. Due on d ue Goal PHQ-9. Due on du e Goal Creatinine. Due on due Goal Review [...] due Goal Creatinine. Due on due Goal ANODIZE MACHINE OPERATOR Scanned. Due on due Goal PHQ-9. Due on du e Goal Order Annual PT. Due on due Goal Review Allergy L ist. Due on due Goal Medication Recon ciliation. Due on due Goal SENIOR WIND TURBINE TECHNICIAN Paperwork. Due on due Goal Weight. Due on d ue Goal SENIOR WIND TURBINE TECHNICIAN Paperwork. Due on due Goal PHQ-9. Due on du e Goal OARS. Due on due Goal Height. Due on d ue Goal UDT. Due on due Goal Tobacco Use. Due on due Goal Order Annual PT. Due on due Goal Update Social Hi story. Due on due Goal ANODIZE MACHINE OPERATOR Scanned. Due on due Goal ALT (SGPT). Due on due Goal Medication Recon ciliation. Due on due Goal Review Allergy L ist. Due on due Goal AST (SGOT). Due on due Goal Creatinine. Due on due Goal PHQ-9. Due on du e Goal ANODIZE MACHINE OPERATOR Scanned. Due on due Goal Creatinine. Due on due Goal Order Annual PT. Due on due Goal Height. Due on d ue Goal Tobacco Use. Due on due Goal Weight. Due on d ue Goal UDT. Due on due Goal AST (SGOT). Due on due Goal SENIOR WIND TURBINE TECHNICIAN Paperwork. Due on due Goal Update Social Hi story. Due on due Goal OARS. Due on due Goal ALT (SGPT). Due on due Goal Medication Recon ciliation. Due on due Goal Review Allergy L ist. Due on due Goal OARS. Due on [...] Allergy L ist. Due on due Goal ANODIZE MACHINE OPERATOR Scanned. Due on due Goal Update Social Hi story. Due on due Goal Creatinine. Due on due Goal SENIOR WIND TURBINE TECHNICIAN Paperwork. Due on due Goal Height. Due on d ue Goal Medication Recon ciliation. Due on due Goal UDT. Due on due Goal Order Annual PT. Due on due Goal Review Allergy L ist. Due on due Goal ANODIZE MACHINE OPERATOR Scanned. Due on due Goal Update Social Hi story. Due on due Goal Tobacco Use. Due on due Goal SENIOR WIND TURBINE TECHNICIAN Paperwork. Due on due Goal Height. Due on d ue Goal AST (SGOT). Due on due Goal OARS. Due on due Goal Creatinine. Due on due Goal PHQ-9. Due on du e Goal Weight. Due on d ue Goal ALT (SGPT). Due on due Goal Review Allergy L ist. Due on due Goal ANODIZE MACHINE OPERATOR Scanned. Due on due Goal Tobacco Use. Due on due Goal OARS. Due on due Goal UDT. Due on due Goal SENIOR WIND TURBINE TECHNICIAN Paperwork. Due on due Goal Weight. Due [...] due Goal OARS. Due on due Goal ANODIZE MACHINE OPERATOR Scanned. Due on due Goal ALT (SGPT). Due on due Goal Height. Due on d ue Goal Medication Recon ciliation. Due on due Goal SENIOR WIND TURBINE TECHNICIAN Paperwork. Due on due Goal Tobacco Use. [...] Goal AST (SGOT). Due on due Goal SENIOR WIND TURBINE TECHNICIAN Paperwork. Due on due Goal ANODIZE MACHINE OPERATOR Scanned. Due on due Goal Update Social [...] Goal Tobacco Use. Due on due Goal ANODIZE MACHINE OPERATOR Scanned. Due on due Goal UDT. Due on due Goal AST (SGOT). Due on due Goal Height. Due on d ue Goal SENIOR WIND TURBINE TECHNICIAN Paperwork. Due on due Goal Creatinine. Due [...] Social Hi story. Due on due Goal Height. Due on d ue Goal SENIOR WIND TURBINE TECHNICIAN Paperwork. Due on due Goal ANODIZE MACHINE OPERATOR Scanned. Due on 021 due Referral Ordered: Shahab Young MD -Allopathic & Osteopathic Physicians : Family Medicine (related to Hemiplegic migraine, intractable, without status migrainosus) ordered Referral Referred To: Shahab Young MD [address], [place], [phone] Ordered: Referrals: Allopathic & Osteopathic Physicians : [...] CE DRUG ANALYSIS, URINE, WITH MED REPORT (07874), Ordered on: Ordered History Of Present Illness Encounter Date Complaint History Of Prese nt Illness headache Severity: 0. Dur ation: chronic. The [...] take this over. Has an appt with [facility] to discuss this in 2 weeks.States she [...] negatives include fever, nausea and vomiting. Comments: This i s my first evaluation [...] having Demerol available. -Saw. Dr. Paredes at [facility], who may be willing to continue Demerol. -Patient received a RX of Ubrelvly to trial fro Dr. Paredes, has yet to trial, but plans to do so. -Currently has no pain when she doesn't have a headache. Takes a Percocet with the start of a migraine, uses only PRN. -No other concerns today. headache Severity: 6. It [...] she did not have any remaining and [facility] can no longer rx her Demerol. States [...] to follow up more routinely per her [facility] contract for her Percocet. Denies [...] concerns today. Comments: Jana sharif presents via [facility] today for virtual follow a up and [...] and is unchanged. Location is entire head. Dec-13-2023 headache Severity: 3. It occurs constantly, has chronic duration, and is unchanged. Location is head. Comments: Jana sharif presents via [facility] today for virtual follow a up and [...] previously followed with an orthopedic clinic in [place] and has had knee injections done with [...] previously followed with an orthopedic clinic in [place] and has had knee injections done with [...] intermittently, has chronic duration, and is unchanged. Comments: Jana chante presents for virtual follow up and medication refill. Patient c/o chronic hemiplegic migraine pain. Pain has been stable since last visit. Reports having a migraine 12/13/22 and had to utilize Demerol.Continues Botox through [facility] with appreciable benefit. States she has glaucoma and causes issues with her sight. Wonders if this contributes to her migraines.Medication provides 95% pain relief and allows for increased functionality per patient intake. Presents with surplus of prescribed medication. Requests refill of Demerol. Denies side effects from current medication regimen. No other concerns today. Comments: Jana chante presents for follow up and medication refill. Patient c/o chronic hemiplegic migraine pain. Pain has been stable since last visit. She has not had any episodes this month. Denies recent flares or new concerns.S/p Botox on 09/28/2022 through [facility] with appreciable benefit. Next scheduled for [...] regimen. No other concerns today. headache Severity: 2. It occurs intermittently, has chronic duration, and is unchanged. The describes it as sharp. Symptom is aggravated by anxiety, exercise, stress, housework and movement. Relieving factors include darkness, prescription drugs, sleep and laying down. Pertinent negatives include fever, nausea and vomiting. headache It occurs consta ntly, has chronic duration, and is unchanged. Comments: Jana sharif presents for a virtual follow up and medication refill. Patient c/o chronic hemiplegic migraine pain. Pain has been stable since last visit. She has not had any episodes this month. S/p Botox on 09/28/2022 through [facility] with appreciable benefit. She has not needed [...] (L>R) and 09/07/2022 (R>L).S/p Botox 06/02/2022 through [facility] with appreciable benefit. States she missed her [...] severe headache last week.S/p Botox 06/02/2022 through [facility] with appreciable benefit. She is looking [...] SOUZA episodes. S/p Botox through 06/02/2022 through [facility] with appreciable benefit. Medication provides moderate relief [...] migraines. Pain has been overall stable since [facility]. Reports having 2 migraines 05/01/22 and 05/05/22 since [facility]. Previously had not had a headache [...] the past month. No other concerns today. headache Severity: 8. [...] with prescribed medication. No other concerns today. Headache Severity: 8. It occurs intermittently, has [...] No other concerns today. headache (comments) Kari pres ents for a [...] vomiting. headache (comments) Kari is h ere for [...] include darkness, supine, rest and heat. headache It occurs consta ntly, has chronic duration, and is unchanged. Location is entire head. Relieving factors include medications and rest. headache (comments) Kari is h ere for [...] migraines. She has an appt with her hydrologic modeler on 10/14/20 to discuss dry eyes and [...] [place] She would like to continue [...] from current medication regimen.No other concerns today. Headache Severity: 1. It occurs daily, has chronic duration, and is improving. Location is temporal left and temporal right. The describes it as achy. Relieving factors include prescription drugs. Pertinent negatives include fever, nausea and vomiting. headache (comments) Kari is h ere for [...] include fever, nausea and vomiting. headache Severity: 8. It occurs intermittently, has chronic duration, and is unchanged. The describes it as aching. Symptom is aggravated by movement. Relieving factors include heat and lying down. headache (comments) Kari retu rns for follow up and medication refill regarding intermittent DE SOUZA pain. Details severe DE SOUZA last week, therefore utilized one of her demerol injections. Ongoing Percocet use sparingly. Remains happy with current medication regime and would not like to make any changes at this time. No further questions or concerns. headache (comments) Kari is h ere today [...] vomiting. Headache (comments) Kari is h ere today [...] no further questions or other concerns. headache (comments) Kari is h ere today [...] her opioid regimen today. Additionally would like TCP to takeover vistaril for anxiety. Patient is not accompanied today and has no further questions or other concerns. headache Severity: 6. It occurs constantly, has [...] to speak.Has not trialed PT. Has trialed daycare teacher and massage without significant benefit. Previously following with [facility] regarding Botox injections and CESIs. Reports previous imaging located at the [facility]. Currently utilizing demerol and Topamax to control migraines. Has been managed on demerol for over 40 years and typically uses two injections per month. Has trialed and failed other opiates, but demerol is only medication which ceases numbness. Rarely takes oxycodone (approximately #15 tablets every few months or so) which is also helpful. Kari is interested in medication management and would like [facility] to assume management of pain care. Headache Severity: 10. It occurs monthly. Duration: chronic. Location is frontal left and frontal right. Symptom is aggravated by movement. Relieving factors include heat, lying down and medications. Functional Status Date Functional Assessmen t No [...]
--- OUTSIDE RECORDS SUMMARY | 2024-08-02 06:37 | XMS_ITS | Continuity of Care Document ---
Author Organization [facility] Address [address] [place] [address] Phone Care Team Providers Care Relay Associate Name Role Phone Cassy Gibbs DNP Unavailable [...] Active fluticasone propionate 50 mcg/actuation nasal spray,suspension [place] 1 spray into both nostrils daily - [...] Diagnoses Date Provider Providers Copied on Encounter [facility], [address], [place], [id number] , [place] tel:[phone] [facility] [place] No Information 4 Bernie Cassy. [address], [place], [place], [id number], [place]. tel:[phone] OFFICE VISIT, EST TELEMEDICINE [facility], [address], [place], [id number] , [place] tel:[phone] [facility] headache (chief complaint) Hemiplegic migraine, intractable, without status migrainosusChro seb pain syndromeLong term (current) use of opiate analgesic 4 Bernie Madera. [address], [place], [place], [id number], [place]. tel:[phone] OFFICE/OUTPAT IENT VISIT, [facility], [address] [place] [address], [id number] , [place] tel:[phone] [facility] headache (chief complaint) Hemiplegic migraine, intractable, without status migrainosusChro seb pain syndromeLong term (current) use of opiate analgesicEncoun ter for therapeutic drug level monitoring 4 Lynnette Donaldson. [address] [place] [address], [id number], [place]. tel:[phone] Referring Provider: Mendoza Schumacher, [address] [place] [address], [id number]. tel:[phone] OFFICE VISIT, [facility] TELEMEDICINE [facility], [address] [place] [address], [id number] , [place] tel:[phone] [facility] headache (chief complaint) Hemiplegic migraine, intractable, without status migrainosusChro seb migraine without aura, intractable, without status migrainosusChro seb pain syndromeBilater al primary osteoarthritis of kneePrimary OA of right kneePain in right shoulderPain in right kneePain in left kneeLong term (current) use of opiate analgesic 4 Melissa Postview, [address] [facility], [place], [address], [place]. tel:[phone] OFFICE VISIT, [facility] TELEMEDICINE [facility], [address] [place] [address], [id number] , [place] tel:[phone] [facility] headache (chief complaint) Hemiplegic migraine, intractable, without status migrainosusChro seb migraine without aura, intractable, without status migrainosusChro seb pain syndromeBilater al primary osteoarthritis of kneePrimary OA of right kneePain in right shoulderPain in right kneePain in left kneeMyalgia, other siteLong term (current) use of opiate analgesic 4 Melissa Suazo [place], [address] [place], [address], [place]. tel:[phone] Referring Provider: Mendoza Schumacher, [address] [place] [address], [id number]. tel:[phone] OFFICE/OUTPAT IENT VISIT, EST [facility], [address] [place] [address], [id number] , [place] tel:[phone] [facility] headache (chief complaint) Hemiplegic migraine, intractable, without status migrainosusChro seb migraine without aura, intractable, without status migrainosusChro seb pain syndromeBilater al primary osteoarthritis of kneePrimary OA of right kneePain in right kneePain in left kneeLong term (current) use of opiate analgesicPain in right shoulderMyalgia , other siteEncounter for therapeutic drug level monitoring 4 Melissa Suazo [place], [address] [place], [address], [place]. tel:[phone] Referring Provider: Mendoza Schumacher, [address] [place] [address], [id number]. tel:[phone] [facility], [address] [place] [address], [id number] , [place] tel:[phone] [facility] No Information 4 Will Mendoza. [address] [place] [address], [id number], [place]. tel:[phone] Referring Provider: Mendoza Schumacher, [address] [place] [address], [id number]. tel:[phone] [facility], [address] [place] [address], [id number] , [place] tel:[phone] [facility] Pain in right knee 4 Will Mendoza. [address] [place] [address], [id number], [place]. tel:[phone] OFFICE VISIT, EST TELEMEDICINE [facility], [address] [place] [address], [id number] , [place] tel:[phone] [facility] headache (chief complaint) Hemiplegic migraine, intractable, without status migrainosusChro seb migraine without aura, intractable, without status migrainosusChro seb pain syndromeBilater al primary osteoarthritis of kneePain in right kneePain in left kneeLong term (current) use of opiate analgesicPrimar y OA of right knee Viraj- 4 Melissa Postview, [address] [place], [address], [place]. [phone] OFFICE VISIT, EST TELEMEDICINE [facility], [address], [place], [id number] , [place] [phone] [facility] headache (chief complaint) Hemiplegic migraine, intractable, without status migrainosusChro seb migraine without aura, intractable, without status migrainosusChro seb pain syndromeBilater al primary osteoarthritis of kneePain in right kneePain in left kneeLong term (current) use of opiate analgesic Sep- 3 Melissa Varela, [address] [place], [address], [place]. [phone] OFFICE/OUTPAT IENT VISIT, [facility], [address] [place] [address], [id number] , [place] tel:[phone] [facility] headache (chief complaint) Hemiplegic migraine, intractable, without status migrainosusChro seb migraine without aura, intractable, without status migrainosusChro seb pain syndromeBilater al primary osteoarthritis of kneePain in right kneePain in left kneeLong term (current) use of opiate analgesicEncoun ter for therapeutic drug level monitoring 3 Melissa Postview, [address] [place], [address], [place]. tel:[phone] Referring Provider: Mendoza Schumacher, [address] [place], [address]. tel:[phone] [facility], [address], [place], [id number] , [place] tel:[phone] [facility] No Information Nov-0 3 Torres Kelvin. [place], [address] [place], [address], [place]. [phone] [facility], [address] [place] [address], [id number] , [place] [phone] [facility] [place] Pain in right kneePain in left knee Sep-2 3 Barb Jeane. [address] [place] [address], [id number], [place]. tel:[phone] Referring Provider: Mendoza Schumacher, [address] [place] [address], [address]. tel:[phone] OFFICE VISIT, EST TELEMEDICINE [facility], [address] [place] [address], [id number] , [place] tel:[phone] [facility] headache (chief complaint) Hemiplegic migraine, intractable, without status migrainosusChro seb migraine without aura, intractable, without status migrainosusChro seb pain syndromeBilater al primary osteoarthritis of kneeLong term (current) use of opiate analgesicPain in left kneePain in right knee Sep-1 3 Torres Kelvin. [place], [address] [place], [address], [place]. [phone] [facility], [address] [place] [address], [id number] , [place] tel:[phone] [facility] [place] Pain in left kneePain in right knee Sep-0 3 Torres Kelvin. [place], [address] [place], [address], [place]. [phone] [facility], [address] [place] [address], [id number] , [place] [phone] [facility] [place] Pain in right kneePain in left knee Aug-3 3 Kokayejose Jeane. [address] [place] [address], [id number], [place]. tel:[phone] Referring Provider: Mendoza Schumacher, [address] [place] [address], [id number]. tel:[phone] OFFICE VISIT, EST TELEMEDICINE [facility], [address] [place] [address], [id number] , [place] [phone] [facility] headache (chief complaint) Hemiplegic migraine, intractable, without status migrainosusChro seb migraine without aura, intractable, without status migrainosusChro seb pain syndromeBilater al primary osteoarthritis of kneeLong term (current) use of opiate analgesic 3 Melissa Suazo [place], [address] [place], [address], [place]. tel:[phone] [facility], [address] [place] [address], [id number] , [place] [phone] [facility] Pain in left kneePain in right knee 3 Melissa Suazo [place], [address] [place], [address], [place]. [phone] [facility], [address] [place] [address], [id number] , [place] [phone] [facility] Bilateral primary osteoarthritis of knee 3 Barb Ching. [address] [place] [address], [id number], [place]. tel:[phone] Referring Provider: Mendoza Schumacher, [address] [place] [address], [id number]. tel:[phone] OFFICE/OUTPAT IENT VISIT, [facility], [address] [place] [address], [id number] , [place] [phone] [facility] headache (chief complaint) Hemiplegic migraine, intractable, without status migrainosusChro esb migraine without aura, intractable, without status migrainosusChro seb pain syndromeBilater al primary osteoarthritis of kneeLong term (current) use of opiate analgesic 3 Melissa [place], [address] [place], [address], [place]. tel:[phone] Referring Provider: Mendoza Schumacher, [address] [place] [address], [id number]. tel:[phone] OFFICE VISIT, [facility] TELEMEDICINE [facility], [address] [place] [address], [id number] , [place] tel:[phone] [facility] headache (chief complaint) Hemiplegic migraine, intractable, without status migrainosusChro seb migraine without aura, intractable, without status migrainosusChro seb pain syndromeLong term (current) use of opiate analgesicBilate ral primary osteoarthritis of knee February- 3 Melissa Postview, [address] [place], [address], [place]. tel:[phone] Referring Provider: Mendoza Schumacher, [address] [place] [address], [address]. tel:[phone] OFFICE VISIT, [facility], [address] [place] [address], [id number] , [place] tel:[phone] [facility] headache (chief complaint) Hemiplegic migraine, intractable, without status migrainosusChro seb migraine without aura, intractable, without status migrainosusChro seb pain syndromeLong term (current) use of opiate analgesic 3 Melissa Postview, [address] [place], [address], [place]. tel:[phone] Referring Provider: Mendoza Schumacher, [address] [place] [address], [id number]. tel:[phone] OFFICE/OUTPAT IENT VISIT, [facility], [address] [place] [address], [id number] , [place] tel:[phone] [facility] headache (chief complaint) Hemiplegic migraine, intractable, without status migrainosusChro seb migraine without aura, intractable, without status migrainosusChro seb pain syndromeLong term (current) use of opiate analgesic Dec-0 3 Melissa Postview, [address] [place], [address], [place]. tel:[phone] Referring Provider: Mendoza Schumacher, [address] [place] [address], [id number]. tel:[phone] [facility], [address] [place] [address], [id number] , [phone] [facility] No Information 3 Melissa Postview, [address] [place], [place], [facility], [place]. tel:[phone] Referring Provider: Mendoza Schumacher, [address] [place] [address], [id number]. tel:[phone] OFFICE VISIT, EST TELEMEDICINE [facility], [address] [place] [address], [id number] , [place] tel:[phone] [facility] headache (chief complaint) Hemiplegic migraine, intractable, without status migrainosusChro seb migraine without aura, intractable, without status migrainosusChro seb pain syndromeLong term (current) use of opiate analgesic 3 Melissa Postview, [address] [place], [address], [place]. tel:[phone] OFFICE/OUTPAT IENT VISIT, EST [facility], [address] [place] [address], [id number] , [place] tel:[phone] [facility] headache (chief complaint) Hemiplegic migraine, intractable, without status migrainosusChro seb migraine without aura, intractable, without status migrainosusChro seb pain syndromeLong term (current) use of opiate analgesicEncoun ter for screening for other disorder 2 Melissa Postview, [address] [place], [address], [place]. tel:[phone] Referring Provider: Mendoza Schumacher, [address] [place] [address], [address]. tel:[phone] [facility], [address] [place] [address], [id number] , [place] tel:[phone] [facility] No Information Dec-0 2 Torres Kelvin. [place], [address] [place], [address], [place]. tel:[phone] OFFICE VISIT, [facility], [address] [place] [address], [id number] , [place] tel:[phone] [facility] headache (chief complaint) Hemiplegic migraine, intractable, without status migrainosusChro seb migraine without aura, intractable, without status migrainosusChro seb pain syndromeLong term (current) use of opiate analgesic Nov-0 2 Torres Kelvin. [place], [address] [place], [address], [place]. tel:[phone] Referring Provider: Mendoza Schumacher, [address] [place] [address], [address]. tel:[phone] OFFICE VISIT, [facility], [address] [place] [address], [id number] , [place] tel:[phone] [facility] headache (chief complaint) Hemiplegic migraine, intractable, without status migrainosusChro seb migraine without aura, intractable, without status migrainosusChro seb pain syndromeLong term (current) use of opiate analgesic Sep-2 2 Torres Kelvin. [place], [address] [place], [address], [place]. [phone] OFFICE VISIT, [facility], [address] [place] [address], [id number] , [place] [phone] [facility] headache (chief complaint) Hemiplegic migraine, intractable, without status migrainosusChro seb migraine without aura, intractable, without status migrainosusChro seb pain syndromeLong term (current) use of opiate analgesic May- 2 Torres Kelvin. [place], [address] [place], [address], [place]. [phone] OFFICE/OUTPAT IENT VISIT, [facility], [address] [place] [address], [id number] , [place] tel:[phone] [facility] headache (chief complaint) Hemiplegic migraine, intractable, without status migrainosusChro seb migraine without aura, intractable, without status migrainosusChro seb pain syndromeLong term (current) use of opiate analgesic 2 Torres Kelvin. [place], [address] [place], [place], [facility], [place]. tel:[phone] Referring Provider: Mendoza Schumacher, [address] [place] [address], [address]. tel:[phone] [facility], [address] [place] [address], [id number] , [place] tel:[phone] [facility] No Information 2 Torres Kelvin. [place], [address] [place], [address], [place]. tel:[phone] Referring Provider: Mendoza Schumacher, [address] [place] [address], [address]. tel:[phone] OFFICE VISIT, EST TELEMEDICINE [facility], [address] [place] [address], [id number] , [place] tel:[phone] [facility] headache (chief complaint) Hemiplegic migraine, intractable, without status migrainosusChro seb migraine without aura, intractable, without status migrainosusChro seb pain syndromeLong term (current) use of opiate analgesic 2 Torres Kelvin. [place], [address] [place], [address], [place]. tel:[phone] Referring Provider: Mendoza Schumacher, [address] [place] [address], [address]. tel:[phone] OFFICE VISIT, EST TELEMEDICINE [facility], [address] [place] [address], [id number] , [place] tel:[phone] [facility] Headache (chief complaint) Hemiplegic migraine, intractable, without status migrainosusChro seb migraine without aura, intractable, without status migrainosusChro seb pain syndromeLong term (current) use of opiate analgesic Apr-0 - 2 Torres Dan. [place], [address] [place], [place], [facility], [place]. tel:[phone] OFFICE VISIT, EST TELEMEDICINE [facility], [address] [place] [address], [id number] , [place] tel:[phone] [facility] headache (chief complaint) Chronic migraine without aura, intractable, without status migrainosusChro seb pain syndromeHemiple gic migraine, intractable, without status migrainosusLong term (current) use of opiate analgesic Mar-0 - 2 Torres Dan. [place], [address] [place], [address], [place]. [phone] [facility], [address] [place] [address], [id number] , [place] tel:[phone] [facility] Chronic migraine without aura, intractable, without status migrainosus Feb-0 4- 2 Melissa Varela, [address] [place], [address], [place]. tel:[phone] Referring Provider: Mendoza Schumacher, [address] [place] [address], [id number]. tel:[phone] OFFICE VISIT, [facility], [address] [place] [address], [id number] , [place] [phone] [facility] headache (chief complaint) Chronic pain syndromeHemiple gic migraine, intractable, without status migrainosusChro seb migraine without aura, intractable, without status migrainosusLong term (current) use of opiate analgesic Feb-0 2- 2 Melissa Postview, [address] [place], [address], [place]. tel:[phone] Referring Provider: Mendoza Schumacher, [address] [place] [address], [address]. tel:[phone] OFFICE VISIT, EST [facility], [address] [place] [address], [id number] , [place] tel:[phone] [facility] headache (chief complaint) Chronic migraine without aura, intractable, without status migrainosusChro seb pain syndromeHemiple gic migraine, intractable, without status migrainosusLong term (current) use of opiate analgesic 1 Torresmima [place], [address] [place], [address], [place]. tel:[phone] Referring Provider: Mendoza Schumacher, [address] [place] [address], [address]. tel:[phone] OFFICE/OUTPAT IENT VISIT, EST [facility], [address] [place] [address], [id number] , [place] tel:[phone] [facility] Headache (chief complaint) headache (chief complaint) Chronic migraine without aura, intractable, without status migrainosusChro seb pain syndromeHemiple gic migraine, intractable, without status migrainosusLong term (current) use of opiate analgesic 1 Melissa Postview, [address] [place], [address], [place]. tel:[phone] Referring Provider: Mendoza Schumacher, [address] [place] [address], [address]. tel:[phone] [facility], [address] [place] [address], [id number] , [place] tel:[phone] [facility] No Information 1 Torresmima Suazo [place], [address] [place], [address], [place]. tel:[phone] Referring Provider: Mendoza Schumacher, [address] [place] [address], [address]. tel:[phone] [facility], [address] [place] [address], [id number] , [place] tel:[phone] [facility] Chronic migraine without aura, intractable, without status migrainosus 1 Torrsesuzette Varela, [address] [place], [address], [place]. tel:[phone] Referring Provider: Mendoza Schumacher, [address] [place] [address], [address]. tel:[phone] OFFICE/OUTPAT IENT VISIT, [facility], [address] [place] [address], [id number] , [place] [phone] [facility] headache (chief complaint) Chronic pain syndromeHemiple gic migraine, intractable, without status migrainosusChro seb migraine without aura, intractable, without status migrainosusLong term (current) use of opiate analgesicNausea Anxiety 1 Melissa Postview, [address] [place], [address], [place]. tel:[phone] Referring Provider: Mendoza Schumacher, [address] [place] [address], [address]. tel:[phone] OFFICE/OUTPAT IENT VISIT, [facility], [address] [place] [address], [id number] , [place] [phone] [facility] headache (chief complaint) Chronic migraine without aura, intractable, without status migrainosusHemi plegic migraine, intractable, without status migrainosusChro seb pain syndromeLong term (current) use of opiate analgesicNausea Anxiety 1 Melissa Postview, [address] [place], [address], [place]. tel:[phone] Referring Provider: Mendoza Schumacher, [address] [place] [address], [address]. tel:[phone] [place] [address], [address] [place] [address], [id number] , [place] tel:[phone] [facility] Chronic migraine without aura, intractable, without status migrainosus 1 Melissa Varela, [address] [place], [address], [place]. tel:[phone] Referring Provider: Mendoza Schumacher, [address] [place] [address], [address]. tel:[phone] OFFICE/OUTPAT IENT VISIT, [facility], [address] [place] [address], [id number] , [place] [phone] [facility] Headache (chief complaint) Chronic migraine without aura, intractable, without status migrainosusHemi plegic migraine, intractable, without status migrainosusChro seb pain syndromeLong term (current) use of opiate analgesicNausea Anxiety 1 Torres Dan. [place], [address] [place], [place], [facility], [place]. tel:[phone] Referring Provider: Mendoza Schumacher, [address] [place] [address], [id number]. tel:[phone] OFFICE/OUTPAT IENT VISIT, [facility], [address] [place] [address], [id number] , [place] [phone] [facility] Headache (chief complaint) Chronic migraine without aura, intractable, without status migrainosusHemi plegic migraine, intractable, without status migrainosusChro seb pain syndromeLong term (current) use of opiate analgesicNausea Anxiety 1 Torres Dan. [place], [address] [place], [place], [facility], [place]. tel:[phone] Referring Provider: Mendoza Schumacher, [address] [place] [address], [id number]. tel:[phone] [place] [address] Pain [facility], [address] [place] [address], [id number] , [place] [phone] [facility] Chronic migraine without aura, intractable, without status migrainosus 1 Torressuzette Suazo [place], [address] [place], [place], [facility], [place]. tel:[phone] Referring Provider: Mendoza Schumacher, [address] [place] [address], [address]. [phone] OFFICE VISIT, EST TELEMEDICINE [facility], [address] [place] [address], [id number] , [place] tel:[phone] [facility] Headache (chief complaint) Chronic migraine without aura, intractable, without status migrainosusHemi plegic migraine, intractable, without status migrainosusChro seb pain syndromeLong term (current) use of opiate analgesicNausea Anxiety 1 Melissa Suazo [place], [address] [place], [place], [facility], [place]. [phone] OFFICE VISIT, EST TELEMEDICINE [facility], [address] [place] [address], [id number] , [place] tel:[phone] [facility] Headache (chief complaint) Chronic migraine without aura, intractable, without status migrainosusHemi plegic migraine, intractable, without status migrainosusChro seb pain syndromeLong term (current) use of opiate analgesicNausea Anxiety 1 Melissa Suazo Lignum, [address] [place], [address], [place]. tel:[phone] Referring Provider: Mendoza Schumacher, [address] [place] [address], [id number]. [phone] [facility], [address] [place] [address], [id number] , [place] tel:[phone] [facility] Chronic migraine without aura, intractable, without status migrainosus 1 Melisas Suazo Lignum, [address] [place], [address], [place]. tel:[phone] Referring Provider: Mendoza Schumacher, [address] [place] [address], [id number]. [phone] OFFICE VISIT, EST TELEMEDICINE [facility], [address] [place] [address], [id number] , [place] [phone] [facility] Headache (chief complaint) Chronic migraine w/o aura, intractable, w/o stat migrHemiplegic migraine, intractable, without status migrainosusChro seb pain syndromeLong term (current) use of opiate analgesicNausea Anxiety Dec-2 0 Melissa Suazo Lignum, [address] [place], [address], [place]. tel:[phone] Referring Provider: Mendoza Schumacher, [address] [place] [address], [id number]. tel:[phone] OFFICE VISIT, [facility] TELEMEDICINE [facility], [address] [place] [address], [id number] , [place] tel:[phone] [facility] Headache (chief complaint) Chronic migraine w/o aura, intractable, w/o stat migrHemiplegic migraine, intractable, without status migrainosusChro seb pain syndromeLong term (current) use of opiate analgesicNausea Anxiety Nov-0 0 Melissa Warren. [facility], [address] [place], [address], [place]. tel:[phone] Referring Provider: Mendoza Schumacher, [address] [place] [address], [address]. tel:[phone] [facility], [address] [place] [address], [id number] , [place] tel:[phone] [facility] Chronic migraine without aura, intractable, without status migrainosus Jul- 0 Melissa Postview, [address] [place], [address], [place]. tel:[phone] Referring Provider: Mendoza Schumacher, [address] [place] [address], [address]. tel:[phone] OFFICE/OUTPAT IENT VISIT, [facility], [address] [place] [address], [id number] , [place] tel:[phone] [facility] Headache (chief complaint) Chronic migraine w/o aura, intractable, w/o stat migrHemiplegic migraine, intractable, without status migrainosusChro seb pain syndromeLong term (current) use of opiate analgesicNausea Anxiety Sep-2 3-202 0 Melissa Postview, [address] [place], [address], [place]. tel:[phone] Referring Provider: Mendoza Schumacher, [address] [place] [address], [id number]. tel:[phone] OFFICE/OUTPAT IENT VISIT, [facility], [address] [place] [address], [id number] , [place] tel:[phone] [facility] Headache (chief complaint) Chronic migraine w/o aura, intractable, w/o stat migrHemiplegic migraine, intractable, without status migrainosusChro seb pain syndromeLong term (current) use of opiate analgesicNausea Anxiety 0 Melissa Postview, [address] [place], [address], [place]. tel:[phone] Referring Provider: Mendoza Schumacher, [address] [place] [address], [id number]. tel:[phone] OFFICE/OUTPAT IENT VISIT, [facility], [address] [place] [address], [id number] , [place] tel:[phone] [facility] Headache (chief complaint) Chronic migraine w/o aura, intractable, w/o stat migrHemiplegic migraine, intractable, without status migrainosusChro seb pain syndromeLong term (current) use of opiate analgesicNausea Anxiety 0 Melissa Postview, [address] [place], [address], [place]. tel:[phone] Referring Provider: Mendoza Schumacher, [address] [place] [address], [id number]. tel:[phone] [facility], [address] [place] [address], [id number] , [place] tel:[phone] [facility] Chronic migraine w/o aura, intractable, w/o stat migr Apr- 0 Melissa Postview, [address] [place], [address], [place]. tel:[phone] Referring Provider: Mendoza Schumacher, [address] [place] [address], [id number]. tel:[phone] [facility], [address] [place] [address], [id number] , [place] [phone] [facility] Migraine w/o aura, intractable, without status migrainosus 0 Torres Kelvin. [facility], [address] [place], [address], [place]. tel:[phone] OFFICE VISIT, EST TELEMEDICINE [facility], [address] [place] [address], [id number] , [place] [phone] [facility] Headache (chief complaint) Hemiplegic migraine, intractable, without status migrainosusChro seb pain syndromeLong term (current) use of opiate analgesicAnxiet yNausea 0 Torres Kelvin. [facility], [address] [place], [address], [place]. tel:[phone] Referring Provider: Mendoza Schumacher, [address] [place] [address], [address]. tel:[phone] OFFICE VISIT, EST TELEMEDICINE [facility], [address] [place] [address], [id number] , [place] tel:[phone] [facility] headache (chief complaint) Hemiplegic migraine, intractable, without status migrainosusChro seb pain syndromeLong term (current) use of opiate analgesic 0 Torres Kelvin. [facility], [address] [place], [address], [place]. tel:[phone] Referring Provider: Mendoza Schumacher, [address] [place] [address], [id number]. tel:[phone] OFFICE VISIT, EST TELEMEDICINE [facility], [address] [place] [address], [id number] , [place] tel:[phone] [facility] headache (chief complaint) Hemiplegic migraine, intractable, without status migrainosusChro seb pain syndromeLong term (current) use of opiate analgesic Jan-2 0 Torres Kelvin. [facility], [address] [place], [address], [place]. tel:[phone] Referring Provider: Mendoza Schumacher, [address] [place] [address], [id number]. tel:[phone] [place] [address] Pain [facility], [address] [place] [address], [id number] , [place] tel:[phone] [facility] Hemiplegic migraine, intractable, without status migrainosus Dec-- 0 Torres Kelvin. [facility], [address] [place], [address], [place]. tel:[phone] Referring Provider: Mendoza Schumacher, [address] [place] [address], [address]. tel:[phone] OFFICE/OUTPAT IENT VISIT, [facility], [address] [place] [address], [id number] , [place] tel:[phone] [facility] headache (chief complaint) Hemiplegic migraine, intractable, without status migrainosusLong term (current) use of opiate analgesicChroni c pain syndrome Fe- 0 Melissa Warren. [facility], [address] [place], [address], [place]. tel:[phone] Referring Provider: Mendoza Schumacher, [address] [place] [address], [address]. tel:[phone] OFFICE/OUTPAT IENT VISIT, [facility], [address] [place] [address], [id number] , [place] tel:[phone] [facility] headache (chief complaint) Hemiplegic migraine, intractable, without status migrainosusLong term (current) use of opiate analgesicChroni c pain syndrome Oct- 0 Torres Kelvin. [facility], [address] [place], [address], [place]. tel:[phone] Referring Provider: Mendoza Schumacher, [address] [place] [address], [address]. tel:[phone] [facility], [address] [place] [address], [id number] , [place] [phone] [facility] Hemiplegic migraine, intractable, without status migrainosus Dec- 9- 9 Torres Kelvin. [facility], [address] [place], [address], [place]. tel:[phone] Referring Provider: Mendoza Schumacher, [address] [place] [address], [address]. [phone] OFFICE/OUTPAT IENT VISIT, [facility], [address] [place] [address], [id number] , [place] [phone] [facility] headache (chief complaint) exterminator helper (current) use of opiate analgesicHemipl egic migraine, intractable, without status migrainosusChro seb pain syndrome Dec-0 5-201 9 Torres Kelvin. [facility], [address] [place], [address], [place]. tel:[phone] Referring Provider: Mendoza Schumacher, [address] [place] [address], [id number]. tel:[phone] OFFICE/OUTPAT IENT VISIT, [facility], [address] [place] [address], [id number] , [place] [phone] [facility] Headache (chief complaint) exterminator helper (current) use of opiate analgesicHemipl egic migraine, intractable, without status migrainosusChro seb pain syndrome Nov-0 7-201 9 Torres Kelvin. [facility], [address] [place], [address], [place]. tel:[phone] Referring Provider: Mendoza Schumacher, [address] [place] [address], [address]. tel:[phone] OFFICE/OUTPAT IENT VISIT, [facility], [address] [place] [address], [id number] , [place] tel:[phone] [facility] headache (chief complaint) Chronic pain syndromeHemiple gic migraine, intractable, without status migrainosusLong term (current) use of opiate analgesic Oct- 0- 9 Melissa Suazo Lignum, [address] [place], [address], [place]. tel:[phone] Referring Provider: Mendoza Schumacher, [address] [place] [address], [address]. [phone] [facility], [address] [place] [address], [id number] , [place] [phone] [facility] Hemiplegic migraine, intractable, without status migrainosus Sep- 9 Melissa Suazo Lignum, [address] [place], [address], [place]. tel:[phone] Referring Provider: Mendoza Schumacher, [address] [place] [address], [address]. tel:[phone] OFFICE/OUTPAT IENT VISIT, [facility], [address] [place] [address], [id number] , [place] [phone] [facility] headache (chief complaint) Chronic pain syndromeHemiple gic migraine, intractable, without status migrainosusLong term (current) use of opiate analgesicEncoun ter for therapeutic drug level monitoringAnxie ty Jun- 9 Melissa Postview, [address] [place], [address], [place]. tel:[phone] Referring Provider: Mendoza Schumacher, [address] [place] [address], [address]. tel:[phone] OFFICE/OUTPAT IENT VISIT, [facility], [address] [place] [address], [id number] , [place] tel:[phone] [facility] Headache (chief complaint) Chronic pain syndromeHemiple gic migraine, intractable, without status migrainosus 9 Catie Rodrigues. [facility], [address] [facility] [address], [place], [address], [place]. tel:[phone] Referring Provider: Prabhakar [facility] [address] [facility], [place], [address]. tel:[phone] Family History Family Member Type Diagnosis Age At Onset No Information Payers Payer name Insurance type Covered constitution party ID Authorfeliciano denise(s) ABIGAIL TOBIN [facility] [id number] Social History Type Description Quantity Date Captured Comments Alcohol Use Details Unknown Caffeine Use Details Unknown Tobacco Use Status No Information Smoking Status No Information Sex Female Chief Complaint And Reason For Visit No Information Reason For Referral Reason For Referral No Information Plan Of Treatment Date Type Action Status Goal Unhealthy drug u se screening. Due on due Goal OARS. Due on due Goal Tobacco Use. Due on 024 due Goal Height. Due on d ue Goal Medication Recon ciliation. Due on due Goal Zoster vaccine ( ). Due on due Goal Order Annual PT. [...] Goal PHQ-9. Due on du e Goal INDUSTRIAL TRUCK OPERATOR Paperwork. Due on due Goal Lipid panel. Due on due Goal Review Allergy L ist. Due on due Goal Weight. Due on d ue Goal FIT. Due on due Goal SALES STRATEGY MANAGER Scanned. Due on due Goal Height. Due on d ue Goal CT-Colonography. Due on due Goal Update Social Hi story. Due on due Goal ALT (SGPT). Due on due Goal INDUSTRIAL TRUCK OPERATOR Paperwork. Due on due Goal OARS. [...] ue Goal FIT. Due on due Goal SALES STRATEGY MANAGER Scanned. Due on due Goal Lipid panel. [...] Goal PHQ-9. Due on du e Goal INDUSTRIAL TRUCK OPERATOR Paperwork. Due on due Goal ALT (SGPT). Due on due Goal Order Annual PT. Due on due Goal OARS. Due on due Goal SALES STRATEGY MANAGER Scanned. Due on due Goal Weight. Due on d ue Goal Unhealthy drug u se screening. Due on due Goal Height. Due on d ue Goal FIT-DNA. Due on due Goal Lipid panel. Due on due Goal Lifestyle educat ion regarding diet completed Goal SALES STRATEGY MANAGER Scanned. Due on due Goal INDUSTRIAL TRUCK OPERATOR Paperwork. Due on due Goal Medication [...] due Goal Creatinine. Due on due Goal INDUSTRIAL TRUCK OPERATOR Paperwork. Due on due Goal Weight. Due on d ue Goal CT-Colonography. Due on due Goal OARS. Due on due Goal SALES STRATEGY MANAGER Scanned. Due on due Goal Order Annual [...] due Goal CT-Colonography. Due on due Goal SALES STRATEGY MANAGER Scanned. Due on due Goal FIT. Due on due Goal Creatinine. Due on due Goal Review Allergy L ist. Due on due Goal Zoster vaccine ( 1st). Due on due Goal PHQ-9. Due on du e Goal Medication Recon ciliation. Due on due Goal OARS. Due on due Goal INDUSTRIAL TRUCK OPERATOR Paperwork. Due on due Goal Order Annual PT. Due on due Goal Update Social Hi story. Due on due Goal UDT. Due on due Goal Weight. Due on d ue Goal ALT (SGPT). Due on due Goal AST (SGOT). Due on due Goal Unhealthy drug u se screening. Due on due Goal Tobacco Use. Due on due Goal Height. Due on d ue Goal Lipid panel. Due on due Goal FIT-DNA. Due on due Goal Hepatitis C scre ening. Due on due Goal Lifestyle educat ion regarding diet completed Goal Creatinine. Due on due Goal UDT. Due on due Goal Height. Due on d ue Goal Zoster vaccine ( 1st). Due on due Goal Order Annual PT. Due on due Goal Review Allergy L ist. Due on due Goal Lipid panel. Due on due Goal ALT (SGPT). Due on due Goal Update Social Hi story. Due on due Goal Weight. Due on d ue Goal AST (SGOT). Due on due Goal SALES STRATEGY MANAGER Scanned. Due on due Goal OARS. Due on due Goal INDUSTRIAL TRUCK OPERATOR Paperwork. Due on due Goal Tobacco [...] due Goal Creatinine. Due on due Goal SALES STRATEGY MANAGER Scanned. Due on due Goal Medication Recon ciliation. Due on due Goal FIT. Due on due Goal INDUSTRIAL TRUCK OPERATOR Paperwork. Due on due Goal Hepatitis C scre ening. Due on due Goal Unhealthy drug u se screening. Due on due Goal CT-Colonography. Due on due Goal OARS. [...] e Goal OARS. Due on due Goal Creatinine. Due on due Goal AST (SGOT). Due on due Goal FIT. Due on due Goal Review Allergy L ist. Due on due Goal INDUSTRIAL TRUCK OPERATOR Paperwork. Due on due Goal CT-Colonography. Due on due Goal Medication Recon ciliation. Due on due Goal Weight. Due on d ue Goal UDT. Due on due Goal PHQ-9. Due on du e Goal Height. Due on d ue Goal Hepatitis C scre ening. Due on due Goal Unhealthy drug u se screening. Due on due Goal Tobacco Use. Due on due Goal FIT-DNA. Due on due Goal SALES STRATEGY MANAGER Scanned. Due on due Goal Update Social Hi story. Due on due Goal Order Annual PT. Due on due Goal Zoster vaccine ( ). Due on due Goal ALT (SGPT). Due on due Goal Lipid panel. Due on due Goal Order Annual PT. Due on due Goal ALT (SGPT). Due on due Goal OARS. Due on due Goal CT-Colonography. Due on due Goal SALES STRATEGY MANAGER Scanned. Due on due Goal AST (SGOT). Due on due Goal INDUSTRIAL TRUCK OPERATOR Paperwork. Due on due Goal Height. [...] du e Goal Tobacco Use. Due on 023 due Goal ALT (SGPT). Due on due [...] on due Goal Lipid panel. Due on 023 due Goal Update Social Hi story. Due on due Goal INDUSTRIAL TRUCK OPERATOR Paperwork. Due on due Goal Medication Recon ciliation. Due on due Goal SALES STRATEGY MANAGER Scanned. Due on due Goal Tobacco Use. Due on due Goal PHQ-9. Due on du e Goal Review Allergy L ist. Due on due Goal UDT. Due on due Goal Weight. Due on d ue Goal OARS. Due on due Goal Unhealthy drug u se screening. Due on due Goal Review Allergy L ist. Due on due Goal CT-Colonography. Due on due Goal INDUSTRIAL TRUCK OPERATOR Paperwork. Due on due Goal AST (SGOT). Due on due Goal SALES STRATEGY MANAGER Scanned. Due on due Goal Creatinine. Due on due Goal Order Annual PT. Due on due Goal UDT. Due on due Goal Tobacco Use. Due on due Goal FIT. Due on due Goal ALT (SGPT). Due on due Goal Weight. Due on [...] Medication Recon ciliation. Due on due Goal SALES STRATEGY MANAGER Scanned. Due on due Goal Unhealthy drug [...] Medication Recon ciliation. Due on due Goal INDUSTRIAL TRUCK OPERATOR Paperwork. Due on due Goal Update Social Hi story. Due on due Goal Weight. Due on d ue Goal OARS. Due on due Goal Height. [...] Goal AST (SGOT). Due on due Goal INDUSTRIAL TRUCK OPERATOR Paperwork. Due on due Goal PHQ-9. Due on du e Goal Unhealthy drug u se screening. Due on due Goal Update Social Hi story. Due on due Goal Creatinine. Due on due Goal SALES STRATEGY MANAGER Scanned. Due on due Goal Tobacco Use. Due on due Goal Hepatitis C scre ening. Due on due Goal FIT-DNA. Due on due Goal CT-Colonography. Due on due Goal FIT-DNA. Due on due Goal Order Annual PT. Due on due Goal OARS. Due on due Goal ALT (SGPT). Due on due Goal INDUSTRIAL TRUCK OPERATOR Paperwork. Due on due Goal UDT. Due on due Goal Creatinine. Due on due Goal AST (SGOT). Due on due Goal SALES STRATEGY MANAGER Scanned. Due on due Goal Medication Recon [...] due Goal FIT-DNA. Due on due Goal INDUSTRIAL TRUCK OPERATOR Paperwork. Due on due Goal Weight. Due on d ue Goal Creatinine. Due on due Goal SALES STRATEGY MANAGER Scanned. Due on due Goal Order Annual [...] due Goal FIT. Due on due Goal INDUSTRIAL TRUCK OPERATOR Paperwork. Due on due Goal Zoster vaccine ( 1st). Due on due Goal SALES STRATEGY MANAGER Scanned. Due on due Goal ALT (SGPT). [...] Goal AST (SGOT). Due on due Goal INDUSTRIAL TRUCK OPERATOR Paperwork. Due on due Goal UDT. Due on due Goal Order Annual PT. Due on due Goal SALES STRATEGY MANAGER Scanned. Due on due Goal Creatinine. Due [...] vaccine ( 1st). Due on due Goal INDUSTRIAL TRUCK OPERATOR Paperwork. Due on due Goal Order [...] Goal Tobacco Use. Due on due Goal SALES STRATEGY MANAGER Scanned. Due on due Goal AST (SGOT). Due on due Goal Update Social Hi story. Due on due Goal CT-Colonography. Due on due Goal Unhealthy drug u se screening. Due on due Goal SALES STRATEGY MANAGER Scanned. Due on due Goal Order Annual PT. Due on due Goal UDT. Due on due Goal ALT (SGPT). Due on due Goal AST (SGOT). Due on due Goal Weight. Due on d ue Goal OARS. Due on due Goal FIT-DNA. Due on due Goal Creatinine. Due on due Goal INDUSTRIAL TRUCK OPERATOR Paperwork. Due on due Goal Zoster [...] Order Annual PT. Due on due Goal SALES STRATEGY MANAGER Scanned. Due on due Goal INDUSTRIAL TRUCK OPERATOR Paperwork. Due on due Goal UDT. Due on due Goal ALT (SGPT). Due on due Goal AST (SGOT). Due on due Goal Creatinine. Due on due Goal OARS. Due on due Goal Hepatitis C scre [...] on d ue Goal Zoster vaccine ( ). Due on due Goal Tobacco Use. Due on 023 due Goal PHQ-9. Due on du e Goal Zoster vaccine ( ). Due on due Goal AST (SGOT). Due on due Goal Creatinine. Due on due Goal Medication Recon ciliation. Due on due Goal Review Allergy L ist. Due on due Goal Update Social Hi story. Due on due Goal FIT. Due on due Goal Hepatitis C scre ening. Due on due Goal INDUSTRIAL TRUCK OPERATOR Paperwork. Due on due Goal Weight. [...] Goal Lipid panel. Due on due Goal SALES STRATEGY MANAGER Scanned. Due on due Goal Creatinine. Due on due Goal ALT (SGPT). Due on due Goal AST (SGOT). Due on due Goal SALES STRATEGY MANAGER Scanned. Due on due Goal INDUSTRIAL TRUCK OPERATOR Paperwork. Due on due Goal Unhealthy drug u se screening. Due on due Goal Height. Due on d ue Goal FIT-DNA. Due on due Goal FIT. [...] due Goal FIT-DNA. Due on due Goal SALES STRATEGY MANAGER Scanned. Due on due Goal Update Social Hi story. Due on due Goal AST (SGOT). Due on due Goal Creatinine. Due on due Goal Order Annual PT. Due on due Goal Tobacco Use. Due on due Goal INDUSTRIAL TRUCK OPERATOR Paperwork. Due on due Goal UDT. [...] Social Hi story. Due on due Goal INDUSTRIAL TRUCK OPERATOR Paperwork. Due on due Goal Order Annual PT. Due on due Goal OARS. Due on due Goal SALES STRATEGY MANAGER Scanned. Due on due Goal Weight. Due on d ue Goal Hepatitis C scre ening. Due on due Goal Review Allergy L ist. Due on due Goal FIT. Due on due Goal Creatinine. Due on due Goal Tobacco Use. Due on due Goal AST (SGOT). Due on due Goal INDUSTRIAL TRUCK OPERATOR Paperwork. Due on due Goal AST (SGOT). Due on due Goal Order Annual PT. Due on due Goal UDT. Due on due Goal OARS. Due on due Goal ALT (SGPT). Due on due Goal SALES STRATEGY MANAGER Scanned. Due on due Goal Creatinine. Due on due Goal Unhealthy drug u se screening. Due on due Goal Height. Due on d ue Goal PHQ-9. Due on du e Goal FIT. Due on due Goal CT-Colonography. [...] Goal Lipid panel. Due on due Goal Tobacco Use. Due on due Goal FIT. Due on due Goal Update Social Hi story. Due on due Goal AST (SGOT). Due on due Goal OARS. Due on due Goal Height. Due on d ue Goal UDT. Due on due Goal FIT-DNA. Due on due Goal INDUSTRIAL TRUCK OPERATOR Paperwork. Due on due Goal Review [...] C scre ening. Due on due Goal SALES STRATEGY MANAGER Scanned. Due on due Goal SALES STRATEGY MANAGER Scanned. Due on due Goal Creatinine. Due on due Goal Order Annual PT. Due on due Goal ALT (SGPT). Due on due Goal UDT. Due on due Goal OARS. Due on due Goal AST (SGOT). Due on due Goal INDUSTRIAL TRUCK OPERATOR Paperwork. Due on due Goal Lipid [...] due Goal Creatinine. Due on due Goal SALES STRATEGY MANAGER Scanned. Due on due Goal Order Annual [...] e Goal FIT. Due on due Goal INDUSTRIAL TRUCK OPERATOR Paperwork. Due on due Goal Hepatitis [...] Goal AST (SGOT). Due on due Goal SALES STRATEGY MANAGER Scanned. Due on due Goal Hepatitis C scre ening. Due on due Goal Creatinine. Due on due Goal INDUSTRIAL TRUCK OPERATOR Paperwork. Due on due Goal Order [...] Goal Tobacco Use. Due on due Goal INDUSTRIAL TRUCK OPERATOR Paperwork. Due on due Goal UDT. Due on due Goal AST (SGOT). Due on due Goal Tobacco Use. Due on due Goal Order Annual PT. Due on due Goal CT-Colonography. Due on due Goal Hepatitis C scre ening. Due on due Goal ALT (SGPT). Due on due Goal FIT. Due on due Goal SALES STRATEGY MANAGER Scanned. Due on due Goal Creatinine. Due on due Goal Update Social Hi story. Due on due Goal Weight. Due on d ue Goal OARS. Due on due Goal FIT-DNA. [...] u se screening. Due on due Goal INDUSTRIAL TRUCK OPERATOR Paperwork. Due on due Goal ALT (SGPT). Due on due Goal Hepatitis C scre ening. Due on due Goal Tobacco Use. Due on due Goal UDT. Due on due Goal OARS. Due on due Goal Height. Due on d ue Goal SALES STRATEGY MANAGER Scanned. Due on due Goal CT-Colonography. Due on due Goal Order Annual PT. Due on due Goal Weight. Due on d ue Goal AST (SGOT). Due on due Goal FIT-DNA. Due on due Goal Update Social Hi story. Due on due Goal Zoster vaccine ( ). Due on due Goal Lipid panel. Due on due Goal PHQ-9. Due on du e Goal Review Allergy L ist. Due on due Goal Medication Recon ciliation. Due on due Goal INDUSTRIAL TRUCK OPERATOR Paperwork. Due on due Goal Creatinine. Due on due Goal OARS. Due on due Goal AST (SGOT). Due on due Goal Order Annual PT. Due on due Goal ALT (SGPT). Due on due Goal UDT. Due on due Goal SALES STRATEGY MANAGER Scanned. Due on due Goal Zoster vaccine ( ). Due on due Goal Height. Due on [...] due Goal UDT. Due on due Goal INDUSTRIAL TRUCK OPERATOR Paperwork. Due on due Goal Creatinine. Due on due Goal SALES STRATEGY MANAGER Scanned. Due on due Goal OARS. Due [...] Goal AST (SGOT). Due on due Goal INDUSTRIAL TRUCK OPERATOR Paperwork. Due on due Goal ALT (SGPT). Due on due Goal SALES STRATEGY MANAGER Scanned. Due on due Goal OARS. Due on due Goal Order Annual PT. Due on due Goal Weight. Due on d ue Goal Update Social Hi story. Due on due Goal UDT. Due on due Goal Height. Due on d ue Goal Weight. Due on d ue Goal UDT. Due on due Goal Creatinine. Due on due Goal SALES STRATEGY MANAGER Scanned. Due on due Goal PHQ-9. Due on du e Goal INDUSTRIAL TRUCK OPERATOR Paperwork. Due on due Goal Order Annual PT. Due on due Goal Update Social Hi story. Due on due Goal Tobacco Use. Due on due Goal OARS. Due on due Goal AST (SGOT). Due on due Goal ALT (SGPT). Due on due Goal Review Allergy L ist. Due on due Goal Medication Recon ciliation. Due on due Goal SALES STRATEGY MANAGER Scanned. Due on due Goal ALT (SGPT). Due on due Goal Medication Recon ciliation. Due on due Goal Review Allergy L ist. Due on due Goal AST (SGOT). Due on due Goal Creatinine. Due on due Goal Weight. Due on d ue Goal INDUSTRIAL TRUCK OPERATOR Paperwork. Due on due Goal PHQ-9. Due on du e Goal OARS. Due on due Goal Height. Due on d ue Goal UDT. Due on due Goal Tobacco Use. Due on due Goal Order Annual PT. Due on due Goal Update Social Hi story. Due on due Goal AST (SGOT). Due on due Goal INDUSTRIAL TRUCK OPERATOR Paperwork. Due on due Goal Update Social Hi story. Due on due Goal OARS. Due on due Goal ALT (SGPT). Due on due Goal PHQ-9. Due on du e Goal SALES STRATEGY MANAGER Scanned. Due on due Goal Creatinine. Due on due Goal Order Annual PT. Due on due Goal Height. Due on d ue Goal Tobacco Use. Due on due Goal Weight. Due on d ue Goal UDT. Due on due Goal Medication Recon ciliation. Due on due Goal Review Allergy L ist. Due on due Goal Tobacco Use. Due on due Goal ALT (SGPT). Due on due Goal UDT. Due on due Goal Medication Recon ciliation. Due on due Goal INDUSTRIAL TRUCK OPERATOR Paperwork. Due on due Goal Height. Due on d ue Goal Review Allergy L ist. Due on due Goal SALES STRATEGY MANAGER Scanned. Due on due Goal Update Social [...] Allergy L ist. Due on due Goal SALES STRATEGY MANAGER Scanned. Due on due Goal Update Social Hi story. Due on due Goal Tobacco Use. Due on due Goal INDUSTRIAL TRUCK OPERATOR Paperwork. Due on due Goal Height. Due on d ue Goal AST (SGOT). Due on due Goal OARS. Due on due Goal Creatinine. Due on due Goal SALES STRATEGY MANAGER Scanned. Due on due Goal Tobacco Use. Due on due Goal OARS. Due on due Goal UDT. Due on due Goal INDUSTRIAL TRUCK OPERATOR Paperwork. Due on due Goal Weight. [...] Allergy L ist. Due on due Goal INDUSTRIAL TRUCK OPERATOR Paperwork. Due on due Goal Tobacco [...] due Goal OARS. Due on due Goal SALES STRATEGY MANAGER Scanned. Due on due Goal ALT (SGPT). [...] Goal AST (SGOT). Due on due Goal INDUSTRIAL TRUCK OPERATOR Paperwork. Due on due Goal SALES STRATEGY MANAGER Scanned. Due on due Goal Update Social Hi story. Due on due Goal Height. Due on d ue Goal INDUSTRIAL TRUCK OPERATOR Paperwork. Due on due Goal Creatinine. [...] Goal Tobacco Use. Due on due Goal SALES STRATEGY MANAGER Scanned. Due on due Goal UDT. Due on due Goal Update Social Hi story. Due on due Goal Height. Due on d ue Goal INDUSTRIAL TRUCK OPERATOR Paperwork. Due on due Goal SALES STRATEGY MANAGER Scanned. Due on due Goal AST (SGOT). [...] Goal Medication Recon ciliation. Due on due Referral Ordered: Shahab Young MD -[facility]opathic [facility]opathic Physicians : Family Medicine (related to Hemiplegic migraine, intractable, without status migrainosus) ordered Referral Referred To: Shahab Young MD [address], [place], [phone] Ordered: Referrals: Allopathic & Osteopathic Physicians : [...] on: Ordered Future Order: Lab Order Drug Lign t Def 22+ Classes (G0483), Ordered on: Ordered Future Order: Lab Order COMPLIAN CE DRUG ANALYSIS, URINE, WITH MED REPORT ([id number]), Ordered on: Ordered History Of Present Illness [...] take this over. Has an appt with [facility] to discuss this in 2 weeks.States she [...] Patient c/o chronic hemiplegic migraine pain. DE SUOZA pain has been overall stable this past month. Reports 2 migraines since she was last seen on 03/03 and 04/14.States that she was able to manage her migraine on 03/03 with her last dose of Demerol, but her 04/14 migraine was torture as she did not have any remaining and [facility] can no longer rx her Demerol. States [...] to follow up more routinely per her [facility] contract for her Percocet. Denies side effects [...] concerns today. Comments: Jana sharif presents via [facility] today for virtual follow a up and [...] is head. Comments: Jana sharif presents via [facility] today for virtual follow a up and [...] vomiting. Comments: Jana sharif presents in clinic today [...] other concerns today. Comments: Jana sharif presents virtually for follow [...] previously followed with an orthopedic clinic in [place] and has had knee injections done with [...] previously followed with an orthopedic clinic in [place] and has had knee injections done with [...] and had to utilize Demerol.Continues Botox through [facility] with appreciable benefit. States [...] and vomiting. Comments: Jana sharif presents for follow up and medication refill. Patient c/o chronic hemiplegic migraine pain. Pain has been stable since last visit. She has not had any episodes this month. Denies recent flares or new concerns.S/p Botox on 09/28/2022 through [facility] with appreciable benefit. Next scheduled [...] month. S/p Botox on 09/28/2022 through [facility] with appreciable benefit. She has not needed [...] (L>R) and 09/07/2022 (R>L).S/p Botox 06/02/2022 through [facility] with appreciable benefit. States she missed [...] severe headache last week.S/p Botox 06/02/2022 through [facility] with appreciable benefit. She is [...] SOUZA episodes. S/p Botox through 06/02/2022 through [facility] with appreciable benefit. Medication provides moderate relief [...] migraines. Pain has been overall stable since [facility]. Reports having 2 migraines 05/01/22 and 05/05/22 since [facility]. Previously had not had a headache for 3 months. Hopes her headaches will improve this month.Reports Botox injections provided significant relief. Scheduled to repeat 06/02/22.Reports current medication regimen provides at least 98% pain relief. Denies side effects from current medication regimen. Presents on track with prescribed medication. Utilized Demerol once this month. Requests refill of medications. No other concerns today. headache Severity: 6. [...] migraines. 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 Additionally would like [facility] to takeover vistaril for anxiety. Patient is not accompanied today and has no further questions or other concerns. Headache (comments) Kari is h ere for [...] to speak.Has not trialed PT. Has trialed livestock caretaker and massage without significant benefit. Previously following with [facility] regarding Botox injections and CESIs. Reports previous imaging located at the [facility]. Currently utilizing demerol and Topamax to control migraines. Has been managed on demerol for over 40 years and typically uses two injections per month. Has trialed and failed other opiates, but demerol is only medication which ceases numbness. Rarely takes oxycodone (approximately #15 tablets every few months or so) which is also helpful. Kari is interested in medication management and would like [facility] to assume management of pain care. Headache [...]
--- OUTSIDE RECORDS SUMMARY | 2025-05-21 09:17 | XMS_ITS | Encounter Summary ---
Author Organization [place] Address [address] [place] [address] Care Team Providers Care Parimutuel Ticket Checker Name Role Phone Kimberly Tierney PA-C Primary Care Provider [phone] Joseph, March E TRACE EVIDENCE TECHNICIAN [facility] Unavailable [phone] Ruiz, March E TRACE EVIDENCE TECHNICIAN [facility] Unavailable [phone] Donald Sommers MD Unavailable [phone] [facility] Unavailable Beatriz Dyson PA-C Unavailable [phone] Reason for Referral * CV Testing (Routine) - Closed Specialty Diagnoses / Procedures Referred By Contac t Referred To Contact Cardiology Diagnoses S/P AVR Procedures Echocardiogram Complete ZZHC TTE W/DOPPLER, COMPLETE ZZHC ECHO COMPLETE W DOPPLER W CONTRAST ZZHC ECHO COMPLETE W DOPPLER W/O CONTRAST ZZHC IV PUSH SINGLE, INITIAL SUBSTANCE ZZHC US GUIDE FOR PERICARDIOCENTESIS ZZHC ECHO MYOCARD BX ZZC INJECTION, PERFLUTREN LIPID MICROSPHERES, PER ML ZZHC STATISTIC IV PUSH SINGLE INITIAL SUBSTANCE WV ECHO MYOCARD BX WV INJECTION, PERFLUTREN LIPID MICROSPHERES, PER ML WV TTE W/DOPPLER, COMPLETE WV IV PUSH SINGLE, INITIAL SUBSTANCE WV TTE W/DOPPLER, COMPLETE WV TTE W/DOPPLER, COMPLETE HC US GUIDE FOR PERICARDIOCENTESIS HC ECHO MYOCARD BX HC IV PUSH SINGLE, INITIAL SUBSTANCE HC STATISTIC IV PUSH SINGLE INITIAL SUBSTANCE HC ECHO COMPLETE W DOPPLER W CONTRAST HC ECHO COMPLETE W DOPPLER W/O CONTRAST Joseph MarchN [facility] [address] [place] [address] Phone: tel: fax: [facility] [address] [place] [address] Phone: tel: fax: Referral ID Status Reason Start Date Expiration Date Visits Re quested Visits Authorized [id number] Closed 11/21/2024 11/21/2025 1 1 Reason for Visit * CV Testing (Routine) - Closed Specialty Diagnoses / Procedures Referred By David t Referred To Contact Cardiology Diagnoses S/P AVR Procedures Echocardiogram Complete ZZHC TTE W/DOPPLER, COMPLETE ZZHC ECHO COMPLETE W DOPPLER W CONTRAST ZZHC ECHO COMPLETE W DOPPLER W/O CONTRAST ZZHC IV PUSH SINGLE, INITIAL SUBSTANCE ZZHC US GUIDE FOR PERICARDIOCENTESIS ZZHC ECHO MYOCARD BX ZZC INJECTION, PERFLUTREN LIPID MICROSPHERES, PER ML ZZHC STATISTIC IV PUSH SINGLE INITIAL SUBSTANCE WV ECHO MYOCARD BX WV INJECTION, PERFLUTREN LIPID MICROSPHERES, PER ML WV TTE W/DOPPLER, COMPLETE WV IV PUSH SINGLE, INITIAL SUBSTANCE WV TTE W/DOPPLER, COMPLETE WV TTE W/DOPPLER, COMPLETE HC US GUIDE FOR PERICARDIOCENTESIS HC ECHO MYOCARD BX HC IV PUSH SINGLE, INITIAL SUBSTANCE HC STATISTIC IV PUSH SINGLE INITIAL SUBSTANCE HC ECHO COMPLETE W DOPPLER W CONTRAST HC ECHO COMPLETE W DOPPLER W/O CONTRAST Joseph March, TRACE EVIDENCE TECHNICIAN [facility] PSYCHIATRIST [address] [place] [address] Phone: tel: fax: [facility] [address] [place] [address] Phone: tel: fax: Referral ID Status Reason Start Date Expiration Date Visits Re quested Visits Authorized [id number] Closed 11/21/2024 11/21/2025 1 1 Encounter Details Date Type Department Care Team (Latest Contact Info) Description 05/21/2025 9:17 AM CDT - 05/21/2025 11:59 PM CDT Hospital Encounter [facility] [address] [facility] [address] [place] [phone] Joseph Ann E, TRACE EVIDENCE TECHNICIAN [facility] PSYCHIATRIST [address] [place] [address] S/P AVR Discharge Disposition: Home or Self Care Social History Tobacco Use Types Packs/Day Years Used Date Smoking Tobacco: Former Cigarettes Q uit: 09/14/2007 Smokeless Tobacco: Never Alcohol Use Standard Drinks/Week Comments No 0 (1 standard drink = 0.6 oz pur e alcohol) PHQ-2 Answer Date Recorded PHQ-2 Score 0 09/20/2024 Adolescent Education Answer Date Record ed Getting School Help Needed Not on file 07/06 Food Insecurity Answer Date Recorded Within the past 12 months, d id you worry that your food would run out before you got money to buy more? No 05/09/2025 Within the past 12 months, d id the food you bought just not last and you didn t have money to get more? No 05/09/2025 Housing Stability Answer Date Recorded Do you have housing? (Yari g is defined as stable permanent housing and does not include staying outside in a car, in a tent, in an abandoned building, in an overnight detention, or couch-surfing.) Yes 05/09/2025 Are you worried about losing your housing? No 05/09/2025 Financial Resource Strain Answer Date R ecorded Within the past 12 months, h ave you or your family members you live with been unable to get utilities (heat, electricity) when it was really needed? No 05/09/2025 Transportation Needs Answer Date Record ed Within the past 12 months, h as lack of transportation kept you from medical appointments, getting your medicines, non-medical meetings or appointments, work, or from getting things that you need? No 05/09/2025 Interpersonal Safety Answer Date Record ed Do you feel physically and e motionally safe where you currently live? No 05/09/2025 Within the past 12 months, h ave you been hit, slapped, kicked or otherwise physically hurt by someone? No 05/09/2025 Within the past 12 months, h ave you been humiliated or emotionally abused in other ways by your partner or ex-partner? 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 5 albuterol (PROAIR HFA/PROVENTIL HFA/VENTOLIN HFA) 108 (90 Base) MCG/ACT inhaler Inhale 2 puffs into the lungs every 6 hours as needed for shortness of breath, wheezing or cough aspirin (ASA) 81 MG EC tabletIndications: S/P AVR Take 1 tablet (81 mg) by mouth daily 90 tablet 3 8 atorvastatin (LIPITOR) 80 MG tabletIndications: Hyperlipidemia LDL goal <70 Take 1 tablet (80 mg) by mouth daily. 90 tablet 3 4 bimatoprost (LUMIGAN) 0.03 % ophthalmic dropsIndications:O pen-Angle Glaucoma Place 1 drop into both eyes At Bedtime. Pt has own Indications: Wide-Angle Glaucoma Cholecalciferol (VITAMIN D-3 PO) Take by mouth daily. cycloSPORINE (RESTASIS) 0.05 % ophthalmic emulsion Place 1 drop into both eyes 2 times daily. diphenhydrAMINE (BENADRYL) 50 mg/mL Inject 1 mg/kg into the vein every 6 hours as needed for itching hydrOXYzine HCl (ATARAX) 25 MG tabletIndications: Closed stable burst fracture of eighth thoracic vertebra, initial encounter (H) Take 1 tablet (25 mg) by mouth 3 times daily. 5 levothyroxine (SYNTHROID/LEVOTHR OID) 100 MCG tablet Take 100 mcg by mouth daily Lidocaine (LIDOCARE) 4 % PatchIndications:C losed stable burst fracture of eighth thoracic vertebra, initial encounter (H) Place 2 patches over 12 hours onto the skin every 24 hours. To prevent lidocaine toxicity, patient should be patch free for 12 hrs daily. 5 losartan (COZAAR) 25 MG tablet Take 25 mg by mouth daily. methocarbamol (ROBAXIN) 500 MG tabletIndications: Closed stable burst fracture of eighth thoracic vertebra, initial encounter (H) Take 0.5 tablets (250 mg) by mouth 3 times daily. 5 metoprolol succinate ER (TOPROL XL) 25 MG 24 hr tabletIndications: Primary hypertension Take 0.5 tablets (12.5 mg) by mouth daily. 5 oxyCODONE-acetamin ophen (PERCOCET) 10-325 MG per tabletIndications: Closed stable burst fracture of eighth thoracic vertebra with routine healing, subsequent encounter Take 1 tablet by mouth every 4 hours as needed for severe pain. 30 tablet 5 senna-docusate (SENOKOT-S/PERICOL ALIREZA) 8.6-50 MG tabletIndications: Closed stable burst fracture of eighth thoracic vertebra with routine healing, subsequent encounter Take 1 tablet by mouth 2 times daily. 5 timolol (TIMOPTIC) 0.5 % ophthalmic solution Place 1 drop into both eyes daily. topiramate (TOPAMAX) 100 MG tablet Take 100 mg by mouth daily warfarin ANTICOAGULANT (COUMADIN) 3 MG tablet Take by mouth 1 tablet (3 mg) every Wednesday, Wednesday, , Wednesday, Wednesday, Wednesday. warfarin ANTICOAGULANT (COUMADIN/JANTOVEN ) 2 MG tablet Take by mouth 1 tablet (2 mg) every Wednesday. 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 1 mL 5 06/10/20 25 documented as of this encounter Plan of Treatment Not on file documented as of this encounter Procedures Procedure Name Priority Date/Time Associated Diagnosis Comments ECHO COMPLETE Routine 05/21/2025 10:13 AM CDT S/P AVR documented in this encounter Results * ECHO COMPLETE (05/21/2025 10:13 AM CDT) LVEF 65-70% CARDIOLOGY RESULTS Anatomical Region Laterality Modality Echocardiography 05/21/2025 8:39 AM CDT Narrative 05/21/2025 11:17 AM CDT [id number]^JOSEPH^ANN^Damion [facility] Echocardiography Laboratory [address] [place] [address] Name: TANVIR ISSA : 1950 Study Date: 05/21/2025 08:39 AM Age: 74 yrs Gender: Female Patient Location: [facility] Reason For Study: S/P AVR Ordering Physician: ANN RUIZ Referring Physician: Kimberly Tierney PA-C Performed By: Poly Costa RDCS BSA: 1.8 m2 Height: 64 in Weight: 174 lb HR: 52 Procedure Echocardiogram with two-dimensional, color and spectral Doppler. Interpretation Summary Technically very difficult study. Normal LV size and systolic function. Normal RV size and systolic function. No pericardial effusion. Patient has a mechanical 22 mm ATS supra annular mechanical aortic valve. Valve is poorly visualized. There is trace to mild aortic insufficiency noted. Mean gradient across the aortic valve is 11 to 12 mmHg. Acceleration time is normal. No other hemodynamically significant valve disease. Mild MR. Aorta is dilated at 44 mm. IVC is normal in size. Left Ventricle The left ventricle is normal in size. The visual ejection fraction is 65-70%. Right Ventricle The right ventricle is normal in size and function. Atria The left atrium is not well visualized. Right atrial size is normal. Mitral Valve The mitral valve is normal in structure and function. There is trace mitral regurgitation. Tricuspid Valve The tricuspid valve is not well visualized, but is grossly normal. The right ventricular systolic pressure is approximated at 24.5 mmHg plus the right atrial pressure. There is mild (1+) tricuspid regurgitation. Aortic Valve The aortic valve is not well visualized. There is a mechanical aortic valve. Pulmonic Valve The pulmonic valve is not well visualized. Vessels The aortic root is normal size. Ascending aorta dilatation is present. The inferior vena cava was normal in size with preserved respiratory variability. Pericardium There is no pericardial effusion. MMode/2D Measurements & Calculations IVSd: 1.1 cm LVIDd: 5.0 cm LVIDs: 3.2 cm LVPWd: 0.86 cm IVC diam: 1.6 cm FS: 35.5 % LV mass(C)d: 173.9 grams LV mass(C)dI: 94.3 grams/m2 LA dimension: 3.7 cm asc Aorta Diam: 4.4 cm LVOT diam: 2.0 cm LVOT area: 3.1 cm2 Asc Ao diam index BSA (cm/m2): 2.4 Asc Ao diam index Ht(cm/m): 2.7 LA Volume Index (BP): 31.4 ml/m2 RWT: 0.34 Doppler Measurements & Calculations MV E max james: 71.6 cm/sec MV A max james: 88.1 cm/sec MV E/A: 0.81 MV max P.9 mmHg MV mean P.3 mmHg MV V2 VTI: 36.5 cm MVA(VTI): 2.7 cm2 MV dec slope: 360.9 cm/sec2 MV dec time: 0.20 sec Ao V2 max: 249.7 cm/sec Ao max P.9 mmHg Ao V2 mean: 156.1 cm/sec Ao mean P.5 mmHg Ao V2 VTI: 54.6 cm RAHEL(I,D): 1.8 cm2 RAHEL(V,D): 1.7 cm2 AI P1/2t: 590.7 msec Ao acc time: 0.08 sec LV V1 max P.4 mmHg LV V1 max: 136.3 cm/sec LV V1 VTI: 31.4 cm MR PISA: 2.0 cm2 MR ERO: 0.11 cm2 MR volume: 25.2 ml SV(LVOT): 97.2 ml SI(LVOT): 52.7 ml/m2 PA acc time: 0.11 sec TR max james: 247.5 cm/sec TR max P.5 mmHg AV James Ratio (DI): 0.55 RAHEL Index (cm2/m2): 0.97 E/E': 9.4 Peak E' James: 7.6 cm/sec Report approved by: Elizabeth Zuñiga MD on 05/21/2025 11:17 AM Procedure Note Elizabeth Zuñiga MD - 05/21/2025 [id number]^JOSEPH^ [facility] Echocardiography Laboratory [address] [place] [address] Name: TANVIR ISSA : 1950 Study Date: 05/21/2025 08:39 AM Age: 74 yrs Gender: Female Patient Location: [facility] Reason For Study: S/P AVR Ordering Physician: ANN RUIZ Referring Physician: Kimberly Tierney PA-C Performed By: Poly Costa RDCS BSA: 1.8 m2 Height: 64 in Weight: 174 lb HR: 52 Procedure Echocardiogram with two-dimensional, color and spectral Doppler. Interpretation Summary Technically very difficult study. Normal LV size and systolic function. Normal RV size and systolic function. No pericardial effusion. Patient has a mechanical 22 mm ATS supra annular mechanical aorticvalve. Valve is poorly visualized. There is trace to mild aortic insufficiencynoted. Mean gradient across the aortic valve is 11 to 12 mmHg. Acceleration timeis normal. No other hemodynamically significant valve disease. Mild MR. Aorta is dilated at 44 mm. IVC is normal in size. Left Ventricle The left ventricle is normal in size. The visual ejection fraction is65-70%. Right Ventricle The right ventricle is normal in size and function. Atria The left atrium is not well visualized. Right atrial size is normal. Mitral Valve The mitral valve is normal in structure and function. There is tracemitral regurgitation. Tricuspid Valve The tricuspid valve is not well visualized, but is grossly normal. Theright ventricular systolic pressure is approximated at 24.5 mmHg plus theright atrial pressure. There is mild (1+) tricuspid regurgitation. Aortic Valve The aortic valve is not well visualized. There is a mechanical aorticvalve. Pulmonic Valve The pulmonic valve is not well visualized. Vessels The aortic root is normal size. Ascending aorta dilatation is present.The inferior vena cava was normal in size with preserved respiratoryvariability. Pericardium There is no pericardial effusion. MMode/2D Measurements & Calculations IVSd: 1.1 cm LVIDd: 5.0 cm LVIDs: 3.2 cm LVPWd: 0.86 cm IVC diam: 1.6 cm FS: 35.5 % LV mass(C)d: 173.9 grams LV mass(C)dI: 94.3 grams/m2 LA dimension: 3.7 cm asc Aorta Diam: 4.4 cm LVOT diam: 2.0 cm LVOT area: 3.1 cm2 Asc Ao diam index BSA (cm/m2): 2.4 Asc Ao diam index Ht(cm/m): 2.7 LA Volume Index (BP): 31.4 ml/m2 RWT: 0.34 Doppler Measurements & Calculations MV E max james: 71.6 cm/sec MV A max james: 88.1 cm/sec MV E/A: 0.81 MV max P.9 mmHg MV mean P.3 mmHg MV V2 VTI: 36.5 cm MVA(VTI): 2.7 cm2 MV dec slope: 360.9 cm/sec2 MV dec time: 0.20 sec Ao V2 max: 249.7 cm/sec Ao max P.9 mmHg Ao V2 mean: 156.1 cm/sec Ao mean P.5 mmHg Ao V2 VTI: 54.6 cm RAHEL(I,D): 1.8 cm2 RAHEL(V,D): 1.7 cm2 AI P1/2t: 590.7 msec Ao acc time: 0.08 sec LV V1 max P.4 mmHg LV V1 max: 136.3 cm/sec LV V1 VTI: 31.4 cm MR PISA: 2.0 cm2 MR ERO: 0.11 cm2 MR volume: 25.2 ml SV(LVOT): 97.2 ml SI(LVOT): 52.7 ml/m2 PA acc time: 0.11 sec TR max james: 247.5 cm/sec TR max P.5 mmHg AV James Ratio (DI): 0.55 RAHEL Index (cm2/m2): 0.97 E/E': 9.4 Peak E' James: 7.6 cm/sec Report approved by: Elizabeth Zuñiga MD on 05/21/2025 11:17 AM Ann Damion Ruiz APRN LOCUM TENENS PSYCHIATRIST CV ECHO ORDERABLES Edited Result - Final documented in this encounter Visit Diagnoses Diagnosis S/P AVR Heart valve replaced by other means documented in this encounter Care Teams Parimutuel Ticket Checker Relationship Specialty Start Date End Date Kimberly Tierney PA-C [address] [place] [address] PCP - General 07/20/23 Ann Ruiz APRN [facility] PSYCHIATRIST [address] [place] [address] Nurse Practitioner Cardiovascular Disease 04/14/24 Ann Ruiz, DANIAL [facility] PSYCH[facility]ST [address] [place] [address] Assigned Heart and Vascular Provider 10/02/24 Donald Sommers MD [address] [place] [address] Cardiovascular Disease 02/01/25 Emy Nash [facility] [id number] [place] [phone] 05/13/25 05/25/25 Beatriz Dyson PA-C [address] [place] [address] Physician Manager Financial Reporting Physician Manager Financial Reporting - Medical 05/13/25 05/25/25 documented as of this encounter
--- OUTSIDE RECORDS SUMMARY | 2025-05-21 11:00 | XMS_ITS | Encounter Summary ---
Author Organization [place] Address [facility] [place] [address] Care Team Providers Care Gear Repair Supervisor Name Role Phone Kimberly Tierney PA-C Primary Care Provider [phone] Joseph Ann E HEEL SEAT FITTER MACHINE BUILDING SURVEYOR Unavailable [phone] Joseph Ann E HEEL SEAT FITTER MACHINE BUILDING SURVEYOR Unavailable [phone] Donald Sommers MD Unavailable [phone] Emy Nash [facility] Unavailable Beatriz Dyson PA-C Unavailable [phone] Encounter Details Date Type Department Care Team (Late st Contact Info) Description 05/21/2025 11:00 AM CDT [facility] Heart [address] [address] Primary hypertension Social History Tobacco Use Types Packs/Day Years [...] Date Recorded Do you have housing? 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 Gender Identity Not on file Sexual Orientation Not on file documented as of this encounter Plan of Treatment Not on file documented as of this encounter Procedures Procedure Name Priority Date/Time Associated Diagnosis Comments BASIC METABOLIC PANEL Routine 05/21/2025 10:34 AM CDT Primary hypertension documented in this encounter Results * (ABNORMAL) Basic metabolic panel (05/21/2025 10:34 AM CDT) Sodium 139 135 - 145 mmol/L 05/21/2025 11:04 AM CDT LABORATORY Potassium 4.2 3.4 - 5.3 mmol/L 05/21/2025 11:04 AM CDT LABORATORY Chloride 110(H) 98 - 107 mmol/L 05/21/2025 11:04 AM CDT LABORATORY Carbon Dioxide (CO2) 19(L) 22 - 29 mmol/L 05/21/2025 11:04 AM CDT LABORATORY Anion Gap 10 7 - 15 mmol/L 05/21/2025 11:04 AM CDT LABORATORY Urea Nitrogen 23.0 8.0 - 23.0 mg/dL 05/21/2025 11:04 AM CDT LABORATORY Creatinine 1.29(H) 0.51 - 0.95 mg/dL 05/21/2025 11:04 AM CDT [facility] LAB[facility]AT[facility] GFR Estimate 44(L) >60 mL/min/1.7 3m2 05/21/2025 11:04 AM CDT [facility] Comment:eGFR calculated us2020 CKD-EPI equation. Calcium 9.9 8.8 - 10.4 mg/dL 05/21/2025 11:04 AM CDT LABORATORY Glucose 86 70 - 99 mg/dL 05/21/2025 11:04 AM CDT LABORATORY Blood STRUCTURE OF RIGHT UPPER LIMB / Unknown Venipuncture / Unknown 05/21/2025 10:34 AM CDT 05/21/2025 10:34 AM CDT March Joseph BARROW CNP LAB - BLOOD ORDERABLES Fin al Result LABORATORY [facility] Acute [facility] Lab [address] Lab (1st floor, no room number) [place] [phone], [facility] documented in this encounter Visit Diagnoses Diagnosis Primary hypertension Unspecified essential hypertension documented in this encounter Care Teams Gear Repair Supervisor Relationship Specialty Start Date End Date Kimberly Tierney PA-C [facility] [address] [place] [address] [address] PCP - General 07/20/23 Ann Ruiz APRN CNP [address] [place] [address] Nurse Practitioner Cardiovascular Disease 04/14/24 Ann Ruiz APRN BUILDING SURVEYOR [address] [place] [address] Assigned Heart and Vascular Provider 10/02/24 Donald Sommers MD [address] [place] [address] Cardiovascular Disease 02/01/25 Emy Nash [facility] [address] [place] [phone] 05/13/25 05/25/25 Beatriz Dyson PA-C [address] [place] [id number] Physician Laboratory Coordinator Physician Laboratory Coordinator - Medical 05/13/25 05/25/25 documented as of this encounter
--- OUTSIDE RECORDS SUMMARY | 2025-05-23 07:30 | XMS_ITS | Encounter Summary ---
Author Organization [facility] Address [address] [place] [address] Care Team Providers Care Dictating Machine Mechanic Name Role Phone Kimberly Tierney PA-C Primary Care Provider [phone] Joseph March E HEAVY TRUCK MECHANIC PULPING MACHINE OPERATOR Unavailable [phone] Joseph Ann E HEAVY TRUCK MECHANIC PULPING MACHINE OPERATOR Unavailable [phone] Donald Sommers MD Unavailable [phone] Emy Nash [facility] Unavailable Beatriz Dyson PA-C Unavailable [phone] Reason for Visit * Reason Comments Discharge Summary [facility] Encounter Details Date Type Department Care Team (Late st Contact Info) Description 05/23/2025 7:30 AM CDT Discharge Summary [facility] [address] [place] [id number] Beatriz Dyson PA-C [address] [place] [address] Discharge Summary [facility] Social History Tobacco Use Types Packs/Day Years [...] in an abandoned building, in an overnight intermediate, or couch-surfing.) Yes 05/09/2025 Are you worried [...] on file Legal Sex Female 3:37 AM 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 OPERATOR Gender Identity Not on file Sexual Orientation Not on file documented as of this encounter Last Filed Vital Signs Vital Sign Reading Time Taken Comments Blood Pressure 123/55 05/23/2025 7:47 AM CDT Pulse 62 05/23/2025 7:47 AM CDT Temperature 36.2 C (97.1 F) 05/23/2025 7:47 AM CDT Respiratory Rate 16 05/23/2025 7:47 AM CDT Oxygen Saturation 98% 05/23/2025 7:47 AM CDT Inhaled Oxygen Concentration - - Weight 79.3 kg (174 lb 12.8 oz) 05/23/2025 7:47 AM CDT Height 162.6 cm (5' 4) 05/23/2025 7:47 AM CDT Body Mass Index 30 05/23/2025 7:47 AM CDT documented in this encounter Progress Notes * Beatriz Dyson PA-C - 05/23/2025 7:30 AM CDT [facility] DISCHARGE SUMMARY PATIENT'S NAME: Kari Garcia DATE OF : 1950 Place of Service where encounter took place: [facility]) [[id number]] PRIMARY CARE PROVIDER AND CLINIC RESPONSIBLE AFTER TRANSFER: Kimberly Tierney PA-C, [facility] [address] [facility] [place] Transferring providers: Beatriz Dyson PA-C, Dr. Tanika Benoit MD Recent Hospitalization/ED: [facility] stay 05/08/25 to 05/12/25. Date of SNF Admission: May 12, 2025 Date of SNF (anticipated) Discharge: May 25, 2025 Discharged to: previous independent home Cognitive Scores: SLUMS: 5/30 and CPT: 22/5.6 Physical Function: Ambulating 400 ft with no assistive device and DB DME: No new DME needed CODE STATUS/ADVANCE DIRECTIVES DISCUSSION: Full Code ALLERGIES: Patient has no known allergies. NURSING FACILITY COURSE Medication Changes/Rationale: Percocet adjusted to 10-325 mg tablet Summary of nursing facility stay: Kari Garcia is a 74-year-old female with past medical history of migraines, GERD,CAD, hypertension, hypothyroidism who was recently hospitalized at [facility]. Presented for evaluation of a fall and associated back pain. Found to have a T8 compression fracture. Neurosurgery consulted and recommended conservative management. Pain medicine consulted and initiated on multimodal pain regimen. Had some sinus bradycardia and Toprol-XL was reduced. Deconditioning. Baseline to discharge to [facility] Kari was admitted to U. She participated in progressive therapies. Pain was controlled in her back. She will be discharged home with home care Her back is evaluated in her room. Continues to do well. Using Percocet 10-325 mg sparingly. Will discharge with remaining facility supply. Discussed slowly tapering methocarbamol to as needed after discharge. Reviewed metoprolol was reduced in the hospital. She continues on her home warfarin dose.She will call her anticoagulation clinic upon discharge Mechanical fall T8 burst compression fracture: Neurosurgery consulted and recommended conservative management with bracing. Pain medicine consulted and recommended Percocet 5-10/325 mg as needed. Continues Tylenol 500 mg 3 times daily scheduled Additionally Percocet 10-325 mg available every 4 hours as needed. Using 0-1 doses per day Continue scheduled methocarbamol and lidocaine patch. Discussed with patient can transition methocarbamol to as needed on TCU discharge Continue TLSO Continue vitamin D PT/OT Continue bowel regimen Follow-up with neurosurgery. 06/26 Sinus bradycardia: Metoprolol reduced 25-12.5 Continue metoprolol 12.5 mg daily Monitor heart rates. Currently 60-70. Patient denies dizziness Aortic stenosis status post mechanical AVR; Warfarin 2 mg Wednesday, 3 mg AOD Continues on home dose of warfarin Next INR 05/28 CAD HTN Metoprolol reduced as above Continue atorvastatin, losartan and metoprolol Monitor vitals BP reviewed and appropriate Hypothyroidism Continue levothyroxine Migraines: Follows with [facility] Increase Percocet as above Additionally uses Demerol at home as needed for severe migraines. Previously on Aimovig but tells me this is currently on hold due to insurance Continue Topamax Glaucoma: C/o new onset tunnel vision. Denied hitting her head or LOC with the fall. [facility]. Continue eyedrops Plans to follow-up with her housekeeping/laundry Discharge Medications: MED REC REQUIRED Post Medication Reconciliation Status: discharge medications reconciled and changed, per note/orders Current Outpatient Medications Medication Sig Dispense Refill acetaminophen (TYLENOL) 500 MG tablet Take 1 tablet (500 mg) by mouth 3 times daily. albuterol (PROAIR HFA/PROVENTIL HFA/VENTOLIN HFA) 108 (90 Base) MCG/ACT inhaler Inhale 2 puffs intothe lungs every 6 hours as needed for shortness of breath, wheezing or cough aspirin (ASA) 81 MG EC tablet Take 1 tablet (81 mg) by mouth daily 90 tablet 3 atorvastatin (LIPITOR) 80 MG tablet Take 1 tablet (80 mg) by mouth daily. 90 tablet 3 bimatoprost (LUMIGAN) 0.03 % ophthalmic drops Place 1 drop into both eyes At Bedtime. Pt has own Indications: Wide-Angle Glaucoma Cholecalciferol (VITAMIN D-3 PO) Take by mouth daily. cycloSPORINE (RESTASIS) 0.05 % ophthalmic emulsion Place 1 drop into both eyes 2 times daily. diphenhydrAMINE (BENADRYL) 50 mg/mL Inject 1 mg/kg into the vein every 6 hours as needed for itching erenumab-aooe (AIMOVIG) 70 MG/ML injection Inject 1 mL (70 mg) subcutaneously every 30 days. 1 mL 0 hydrOXYzine HCl (ATARAX) 25 MG tablet Take 1 tablet (25 mg) by mouth 3 times daily. levothyroxine (SYNTHROID/LEVOTHROID) 100 MCG tablet Take 100 mcg by mouth daily Lidocaine (LIDOCARE) 4 % Patch Place 2 patches over 12 hours onto the skin every 24 hours. To prevent lidocaine toxicity, patient should be patch free for 12 hrs daily. losartan (COZAAR) 25 MG tablet Take 25 mg by mouth daily. methocarbamol (ROBAXIN) 500 MG tablet Take 0.5 tablets (250 mg) by mouth 3 times daily. metoprolol succinate ER (TOPROL XL) 25 MG 24 hr tablet Take 0.5 tablets (12.5 mg) by mouth daily. oxyCODONE-acetaminophen (PERCOCET) 10-325 MG per tablet Take 1 tablet by mouth every 4 hours as needed for severe pain. 30 tablet 0 senna-docusate (SENOKOT-S/PERICOLACE) 8.6-50 MG tablet Take 1 tablet by mouth 2 times daily. timolol (TIMOPTIC) 0.5 % ophthalmic solution Place 1 drop into both eyes daily. topiramate (TOPAMAX) 100 MG tablet Take 100 mg by mouth daily warfarin ANTICOAGULANT (COUMADIN) 3 MG tablet Take by mouth 1 tablet (3 mg) every Wednesday, Wednesday, , Wednesday, Wednesday, Wednesday. warfarin ANTICOAGULANT (COUMADIN/JANTOVEN) 2 MG tablet Take by mouth 1 tablet (2 mg) every Wednesday. Controlled medications: Percocet 10-325 mg tablet. Patient will discharge with remaining facility supply. She will be approximately 20 tablets Past Medical History: Past Medical History: Diagnosis Date Abdominal pain Abnormal urinalysis cipro ordered by Dr. Rajinder Aortic valve disorders 09/16/12 AVR Depression Esophagitis GERD (gastroesophageal reflux disease) Heart murmur aortic valve stenosis Hiatal hernia much improved after lap band and hiatal hernia repair Hyperlipidaemia Hypertension Migraine headache YANELI (obstructive sleep apnea) doesn't use cpap Other and unspecified nonspecific immunological findings anti Fya ...blood bank notified Thyroid disease Trochanteric bursitis Physical Exam: Vitals: BP 123/55 Pulse 62 Temp 97.1 ??F (36.2 ??C) Resp 16 Ht 1.626 m (5' 4) Wt 79.3 kg(174 lb 12.8 oz) SpO2 98% BMI 30.00 kg/m?? BMI: Body mass index is 30 kg/m??. Physical Exam Vitals (Facility EMR) reviewed. Constitutional: General: She is not in acute distress. HENT: Head: Normocephalic and atraumatic. Eyes: General: No scleral icterus. Cardiovascular: Rate and Rhythm: Normal rate and regular rhythm. Pulmonary: Effort: Pulmonary effort is normal. Musculoskeletal: Right lower leg: No edema. Left lower leg: No edema. Skin: General: Skin is warm and dry. Findings: No rash. Neurological: Mental Status: She is alert. Mental status is at baseline. Psychiatric: Behavior: Behavior normal. SNF labs: Recent labs in [facility] reviewed by me today. and Most Recent 3 CBC's: Recent Labs Lab Test 05/09/25 0450 05/08/25 2110 09/20/24 1404 WBC 5.0 4.9 -- HGB 11.8 11.8 12.2 MCV 86 87 -- PLT 187 199 -- Most Recent 3 BMP's: Recent Labs Lab Test 05/21/25 1034 05/09/25 0450 05/08/25 2110 NA 139 139 138 POTASSIUM 4.2 4.6 4.0 CHLORIDE 110* 111* 110* CO2 19* 18* 19* BUN 23.0 21.5 20.7 CR 1.29* 1.22* 1.25* ANIONGAP 10 10 9 SHAKIRA 9.9 9.7 10.0 GLC 86 101* 102* Most Recent 2 LFT's: Recent Labs Lab Test 09/20/24 1404 AST 28 ALT 25 ALKPHOS 64 BILITOTAL 0.5 DISCHARGE PLAN: Follow up labs: INR 05/28 Medical Follow Up: Follow up with primary care provider in 1 weeks [facility] scheduled appointments: Appointments in Next Year Jun 19, 2025 8:45 AM (Arrive by 8:40 AM) Return Cardiology with Donald Sommers MD [facility] ([facility]) [phone] Jun 26, 2025 1:10 PM (Arrive by 12:55 PM) Xray General with [id number] [facility] ([facility] ) [phone] Jun 26, 2025 1:30 PM (Arrive by 1:15 PM) Return Adult Neurosurg with Freddie Fabian PA-C [facility] ([facility] ) [phone] Discharge Services: Home Care: Occupational Therapy, Physical Therapy, Registered Nurse, and Home Health Aide Discharge Instructions Verbalized to Patient at Discharge: Weight bearing restrictions: TLSO when OOB Change Methocarbamol to prn after TCU discharge TOTAL DISCHARGE TIME: Greater than 30 minutes Electronically signed by: Beatriz Dyson PA-C Documentation of Face to Face and Certification for Home Health Services I certify that services are/were furnished while this patient was under the care of a physician andthat a physician or an allowed non-physician practitioner (NPP), had a whjp-nr-rejj encounter that meets the physician pjtx-ha-uese encounter requirements. The encounter was in whole, or in part, related to the primary reason for home health. The patient is confined to his/her home and needs intermittent care home, physical therapy, speech-language pathology, or the continued need for occupational therapy. A plan of care has been established by a physician and is periodically reviewed by a physician. Date of Hcot-bx-Lhjb Encounter: 05/23/2025. I certify that, based on my findings, the following services are medically necessary home health services: Nursing, Occupational Therapy, and Physical Therapy. My clinical findings support the need for the above skilled services because: Requires assistance of another person or specialized equipment to access medical services because patient: Requires supervision of another for safe transfer... Patient to re-establish plan of care with their PCP within 7-10 days after leaving the facility to reestablish care. Medicare certified PECOS provider: Beatriz Dyson PA-C Date: May 23, 2025 documented in this encounter Plan of Treatment Not on file documented as of this encounter Visit Diagnoses Diagnosis Closed stable burst fracture of eighth thoracic vertebra with routine healing, subsequent encounter- Primary Primary hypertension Unspecified essential hypertension Bradycardia Other specified cardiac dysrhythmias Aortic valve replaced Heart valve replaced by other means documented in this encounter Care Teams Dictating Machine Mechanic Relationship Specialty Start Date End Date Kimberly Tierney PA-C [address] [place] [address] PCP - General 07/20/23 Ann Ruiz, HEAVY TRUCK MECHANIC PULPING MACHINE OPERATOR [address] [place] [id number] Nurse Practitioner Cardiovascular Disease 04/14/24 Ann Ruiz, HEAVY TRUCK MECHANIC PULPING MACHINE OPERATOR [address] [place] [id number] Assigned Heart and Vascular Provider 10/02/24 Donald Sommers MD [address] [place] [id number] Cardiovascular Disease 02/01/25 Emy leblanc [facility] [address] [place] [phone] 05/13/25 05/25/25 Beatriz Dyson PA-C [address] [place] [address] Physician Amusement Ride Operator Physician Amusement Ride Operator - Medical 05/13/25 05/25/25 documented as of this encounter
--- OUTSIDE RECORDS SUMMARY | 2025-06-04 09:00 | XMS_ITS | Encounter Summary ---
Author Organization [facility] Address [address] [place] [address] Care Team Providers Care Callisthenics Instructor Name Role Phone Sal Torrez MD Unavailable [phone] Kimberly Tierney Primary Care Provider [phone] Clinic, No Primary Unavailable Unavailable Reason for Visit * Reason Comments Headache Encounter Details Date Type Department Care Team (Late st Contact Info) Description 06/04/2025 9:00 AM CDT Office Visit [facility] - [address] [place] [phone] Sal Torrez MD [address] [place] [address] [place] [address] Intractable migraine with aura without status migrainosus (Primary Dx) Social History Tobacco Use Types Packs/Day Years Used Date Smoking Tobacco: Never Smokeless Tobacco: Never Comments Unknown Sex and Gender Information Value Date Recorded Sex Assigned at Not on file Legal Sex Female 1:00 PM CDT Gender Identity Not on file Sexual Orientation Not on file documented as of this encounter Progress Notes * aSl Torrez MD - 06/04/2025 9:00 AM CDT History of Present Illness: Patient was last seen 02/08/2024 for chronic migraine, starting Aimovig. This has been very helpful. Migraines are down to only about 3 migraines every 4-6 months. No issues with Aimovig, no side effects. No other health events or illnesses. She continues to work with [employer]. No new symptoms or issues. Past trials include - Botox, metoprolol, topiramate Medications: Current Outpatient Medications on File Prior to Visit Medication Sig Dispense Refill albuterol HFA (PROVENTIL;VENTOLIN HFA) 90 mcg/actuation Inhl inhaler INHALE 2 PUFFS EVERY 4 HOURS NEEDED aspirin 81 mg oral enteric coated tablet Take 1 tablet (81 mg) by mouth once daily. atorvastatin (LIPITOR) 80 mg oral tablet Take 1 tablet (80 mg) by mouth. bimatoprost 0.03% (LUMIGAN) 0.03 % Opht Drop Instill 1 drop into the eye Daily. cefdinir (OMNICEF) 300 mg oral capsule TAKE 1 CAPSULE BY MOUTH TWICE A DAY cholecalciferol, vitamin D3, 25 mcg, 1000 unit, 25 mcg (1,000 unit) oral tablet TAKE 1 TABLET BY MOUTH EVERY DAY. REPEAT VITAMIN D LEVEL IN NOV 2021 cyclobenzaprine (FLEXERIL) 5 mg oral tablet TAKE 1 TABLET BY MOUTH 3 TIMES A DAY NEEDED diphenhydrAMINE (BENADRYL) 50 mg/mL Injection Soln INJECT INTRAMUSCULARLY WITH DEMEROL, MAX OF 2/MONTH dorzolamide-timolol, PF, (COSOPT) 2-0.5 % Opht INSTILL 1 DROP INTO RIGHT EYE TWICE A DAY erenumab (AIMOVIG AUTOINJECTOR) 70 mg/mL SubQ AtIn auto-injector INJECT SUBCUTANEOUSLY ONCE MONTHLY1 mL 5 famotidine (PEPCID) 20 mg oral tablet TAKE 1 TAB BY MOUTH DAILY AT BEDTIME fremanezumab-vfrm (AJOVY AUTOINJECTOR) 225 mg/1.5 mL SubQ AtIn Inject 1.5 mL under the skin as directed. Inject one autoinjector every month. 1.5 mL 11 HYDROcodone-acetaminophen (NORCO) 5-325 mg oral tablet Take 1 tablet by mouth every 6 (six) hours as needed. hydrOXYzine HCl (ATARAX) 50 mg oral tablet levothyroxine (SYNTHROID) 100 mcg oral tablet Take 1 tablet (100 mcg) by mouth. losartan (COZAAR) 25 mg oral tablet Take 1 tablet (25 mg) by mouth once daily. LUMIGAN 0.01 % Opht ophthalmic (EYE) solution INSTILL 1 DROP INTO BOTH EYES IN THE EVENING Meperidine, PF, 100 mg/mL Injection Soln methylPREDNISolone (MEDROL DOSPAK) 4 mg oral dospak TAKE 6 TABLETS ON DAY 1 DIRECTED ON PACKAGE AND DECREASE BY 1 TAB EACH DAY FOR A TOTAL OF 6 DAYS metoprolol succinate, XL, (TOPROL XL) 25 mg oral extended release tablet 24 HR Take 1 tablet (25 mg) by mouth once daily. metoprolol tartrate (LOPRESSOR) 25 mg oral tablet Daily oxyCODONE-acetaminophen (PERCOCET) 5-325 mg oral tablet predniSONE (DELTASONE) 20 mg oral tablet TAKE 1 TABLET BY MOUTH DAILY FOR 3 DAYS. RESTASIS 0.05 % Opht ophthalmic (EYE) emulsion Instill 1 drop into the LEFT eye. timolol (TIMOPTIC) 0.5% ophthalmic (EYE) drops INSTILL 1 DROP BY OPHTHALMIC ROUTE TWO TIMES A DAY INTO BOTH EYES topiramate (TOPAMAX) 100 mg oral tablet TAKE 1 TABLET BY MOUTH DAILY AT BEDTIME. warfarin (COUMADIN) 2 mg oral tablet TAKE DIRECTED: RFANCOIS 4 MG, M 4 MG, TU 3 MG, W 4 MG, TH 3 MG, F4 MG, SA 3 MG warfarin (COUMADIN) 3 mg oral tablet Take 1 tablet (3 mg) by mouth as directed. Warfarin 4 mg oral tablet Take 1 tablet (4 mg) by mouth as directed. No current facility-administered medications on file prior to visit. Allergies: No Known Allergies Past Medical History: Past Medical History: Diagnosis Date Migraine Thyroid disorder NEUROLOGICAL: MENTAL STATUS: Alert and oriented. Thought process and content unremarkable. Follows commands appropriately. Speech fluent. CN: II: Visual martinez intact. PERRLA. III, IV, : EOMI. V: Symmetric facial sensation to light touch. VII: Face symmetric except for baseline left eye ptosis XII: Tongue midline with symmetric movements. MOTOR: RIGHT UE: LEFT UE Deltoid 5/5 5/5 Finger abd 5/5 5/5 RIGHT LE: LEFT LE: HF 5/5 5/5 DF 5/5 5/5 REFLEXES: Reflexes are very difficult to elicit in the extremities. Technical factors such as difficulty relaxing her limbs may be playing a significant role in this. SENSATION: Light touch intact and symmetric. CEREBELLAR: Normal F-N-F.No dysmetria. No nystagmus. GAIT:Stable primary gait albeit somewhat stiff wearing back brace Impression/Recommendations: 74 year old female presents as a follow up. She has suffered from migraine (past notes had indicated hemiplegic) since early adolescence. Aimovig has been very helpful and will be continued. Her migraines have substantially improved. She continues to follow with a pain clinic as well for other sources of pain. No other changes needed at this time. Follow up in one year if stable I am the single focal point of care for a condition that requires longitudinal relationship and personalized care for condition(s) specified within this medical record. I spent 25 minutes on the date of encounter with the patient and before and after the visit on activities detailed in the above note which may include reviewing the EMR, documenting clinical information, and communicating with other health long term acute care registered nurse. Sal Torrez MD [facility] 2024: Documentation of current mediations reviewed every visit 2. Does patient use tobacco? No 3. Patient has had no falls in calendar year 4. Does patient have Dementia? No documented in this encounter Plan of Treatment Not on file documented as of this encounter Visit Diagnoses Diagnosis Intractable migraine with aura without status migrainosus- Primary Migraine with aura, with intractable migraine, so stated, without mention of status migrainosus documented in this encounter Care Teams Callisthenics Instructor Relationship Specialty Start Date End Date Kimberly Tierney PA [address] [place] [address] PCP - General 01/12/22 Clinic, No Primary [address] [place] [address] PCP - Primary Care Clinic 01/12/22 Sal Torrez MD [address] [facility] [address] [place] [address] Neurology 01/12/22 documented as of this encounter
--- OUTSIDE RECORDS SUMMARY | 2025-06-19 08:45 | XMS_ITS | Encounter Summary ---
Author Organization [place] Address [address] [facility] [place] [address] Care Team Providers Care Equipment Monitor Phototypesetting Name Role Phone Kimberly Tierney PA-C Primary Care Provider [phone] Joseph, March E LOG BUNCHER SHIRRING TENDER Unavailable [phone] Ruiz, March E LOG BUNCHER SHIRRING TENDER Unavailable [phone] Donald Sommers MD Unavailable [phone] Reason for Referral * CV Testing (Routine) - Pending Review Specialty Diagnoses / Procedures Referred By David t Referred To Contact Diagnoses S/P AVR Procedures Echocardiogram Complete ZZHC TTE W/DOPPLER, COMPLETE ZZHC ECHO COMPLETE W DOPPLER W CONTRAST ZZHC ECHO COMPLETE W DOPPLER W/O CONTRAST ZZHC IV PUSH SINGLE, INITIAL SUBSTANCE ZZHC US GUIDE FOR PERICARDIOCENTESIS ZZHC ECHO MYOCARD BX ZZC INJECTION, PERFLUTREN LIPID MICROSPHERES, PER ML ZZHC STATISTIC IV PUSH SINGLE INITIAL SUBSTANCE TX ECHO MYOCARD BX TX INJECTION, PERFLUTREN LIPID MICROSPHERES, PER ML TX TTE W/DOPPLER, COMPLETE TX IV PUSH SINGLE, INITIAL SUBSTANCE TX TTE W/DOPPLER, COMPLETE TX TTE W/DOPPLER, COMPLETE HC US GUIDE FOR PERICARDIOCENTESIS HC ECHO MYOCARD BX HC IV PUSH SINGLE, INITIAL SUBSTANCE HC STATISTIC IV PUSH SINGLE INITIAL SUBSTANCE HC ECHO COMPLETE W DOPPLER W CONTRAST HC ECHO COMPLETE W DOPPLER W/O CONTRAST Donald Sommers MD [address] [place] [address] Phone: tel: fax: Referral ID Status Reason Start Date Expiration Date V isits Requested Visits Authorized [id number] Pending Review 06/19/2025 06/19/2026 1 1 * Consultation (Routine: Next available opening) - Pending Review Specialty Diagnoses / Procedures Referred By Contac t Referred To Contact Cardiovascular Disease Diagnoses S/P AVR Donald Sommers MD [address] [place] [address] Phone: tel: fax: Referral ID Status Reason Start Date Expiration Date V isits Requested Visits Authorized [id number] Pending Review 06/19/2025 06/19/2026 1 1 Question Answer Follow-up with: Self Patient Scheduling Instructions: [facility] will call you to coordinate your care as prescribed by your provider. If you have concerns about scheduling, please call [phone]. Comments [facility] will call you to coordinate your care as prescribed by your provider. If you have concerns about scheduling, please call [phone]. Reason for Visit * Reason Comments Follow Up * Consultation (Routine: Next available opening) - Pending Review Specialty Diagnoses / Procedures Referred By Contac t Referred To Contact Cardiovascular Disease Diagnoses Primary hypertension S/P AVR Ann Ruiz E, LOG BUNCHER SHIRRING TENDER [address] [place] [address] Phone: tel: fax: Referral ID Status Reason Start Date Expiration Date V isits Requested Visits Authorized [id number] Pending Review 11/21/2024 11/21/2025 1 1 Encounter Details Date Type Department Care Team (Late st Contact Info) Description 06/19/2025 8:45 AM CDT Office Visit [facility] [address] [place] [id number] Ann Ruiz E, LOG BUNCHER SHIRRING TENDER [address] [place] [address] Donald Sommers MD [address] [place] [address] Primary hypertension; S/P AVR Social History Tobacco Use Types Packs/Day Years [...] Answer Date Recorded Do you have housing? 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 Gender Identity Not on file Sexual Orientation Not on file documented as of this encounter Last Filed Vital Signs Vital Sign Reading Time Taken Comments Blood Pressure 134/82 06/19/2025 8:41 AM CDT Pulse 58 06/19/2025 8:41 AM CDT Temperature - - Respiratory Rate - - Oxygen Saturation 99% 06/19/2025 8:41 AM CDT Inhaled Oxygen Concentration - - Weight 80 kg (176 lb 4.8 oz) 06/19/2025 8:41 AM CDT Height 162.6 cm (5' 4) 06/19/2025 8:41 AM CDT Body Mass Index 30.26 06/19/2025 8:41 AM CDT documented in this encounter Progress Notes * Donald Sommers MD - 06/19/2025 8:45 AM CDT HPI and Plan: Ms Garcia is a very pleasant 74-year-old female with history of mechanical aortic valve replacement 2012 severe aortic valve stenosis in the setting of bicuspid aortic valve, mild to moderately dilated ascending already measuring 4.4 cm which has been stable for some time, hypertension. Today she iscoming for routine follow-up. About a month or so ago patient had a mechanical fall while standing on a stool and had burst fracture of T8 vertebra for which she is now wearing a brace for about 3 months total duration. She had recently had an echocardiogram that was technically difficult study butoverall normal functioning mechanical aortic valve with stable size of ascending aorta measuring 4.4 cm with normal LV function. She is on baby aspirin, Coumadin, she is tolerating combination quite well. When she was admitted after the fall due to bradycardia her beta-krish dose was decreased from 25 mg twice daily to 12.5 mg twice daily. She denies any dizziness presyncope or syncope. She is a dditionally on losartan, Lipitor. She does not use any tobacco. Prior to AVR she had coronary angiogram that showed minimal nonobstructive coronary disease. She also has CKD stage III. Assessment and plan Status post mechanical AVR. Normal functioning valve on recent echocardiogram. Tripp mechanical heart sounds without significant murmur heard today. On aspirin, Coumadin. Recommend continuing same. Going forward if patient notice any bleeding issue or increased bruising low threshold to discontinueaspirin. Continue predental workup antibiotic prophylaxis Ascending order dilatation measuring 4.4 cm. Stable in size. Recommend repeating echocardiogram 1 year time Hypertension overall reasonably controlled on low-dose beta-krish losartan Coronary disease, minimal nonobstructive coronary disease on coronary angiogram prior to AVR, coronary calcification on recent CT chest. Clinically no anginal symptoms. On aspirin, high intensity statin, LDL has been reasonably controlled around 73. Going forward if she notice any exertional symptoms would recommend stress testing otherwise continue medical therapy for CAD. Recent mechanical fall leading to T8 vertebral burst fracture on conservative management with a brace for total duration of 3 months. Recommendations Overall cardiac status amaya she is stable. Normal functioning mechanical valve on recent echocardiogram. Tripp mechanical heart sounds on cardiac auscultation today without any significant murmur. No anginal symptoms. Continue current Cardi medication of aspirin, Coumadin, low-dose beta-krish, high intensity statin, losartan Follow-up in a year with an echocardiogram, sooner if she notes any change in clinical status. Orders Placed This Encounter Procedures Follow-Up with Cardiology Echocardiogram Complete No orders of the defined types were placed in this encounter. There are no discontinued medications. Encounter Diagnoses Name Primary? Primary hypertension S/P AVR CURRENT MEDICATIONS: Current Outpatient Medications Medication Sig Dispense Refill [...] for itching hydrOXYzine HCl (ATARAX) 25 MG tablet Take [...] mouth 1 tablet (2 mg) every Wednesday. ALLERGIES No Known Allergies PAST MEDICAL HISTORY: Past Medical History: Diagnosis Date Abdominal pain Abnormal urinalysis cipro ordered by Dr. Calvillo Aortic valve disorders 09/16/12 AVR Depression Esophagitis GERD (gastroesophageal reflux disease) Heart murmur aortic valve stenosis Hiatal hernia much improved after lap band and hiatal hernia repair Hyperlipidaemia Hypertension Migraine headache YANELI (obstructive sleep apnea) doesn't use cpap Other and unspecified nonspecific immunological findings anti Fya ...blood bank notified Thyroid disease Trochanteric bursitis PAST SURGICAL HISTORY: Past Surgical History: Procedure Laterality Date ABDOMEN SURGERY lap band with hiatal hernia repair ANESTHESIA OUT OF OR MRI N/A 01/25/2019 Procedure: ANESTHESIA OUT OF OR MRI; Surgeon: GENERIC ANESTHESIA PROVIDER; Location: OR aortic root/ascending aorta dilation APPENDECTOMY ESOPHAGOSCOPY, GASTROSCOPY, DUODENOSCOPY (EGD), COMBINED 07/06/2011 Procedure:COMBINED ESOPHAGOSCOPY, GASTROSCOPY, DUODENOSCOPY (EGD), BIOPSY SINGLE OR MULTIPLE; Surgeon:SANTO HERNANDEZ; Location: GI GI SURGERY Lap band ORTHOPEDIC SURGERY left shoulder, leftwrist REPLACE VALVE AORTIC 09/16/2012 Procedure: REPLACE VALVE AORTIC; AORTIC VALVE REPLACMENT, ATS 22MM MECHANICAL VALVE; Surgeon: Glenroy Calvillo MD; Location: OR FAMILY HISTORY: Family History Family history unknown: Yes SOCIAL HISTORY: Social History Socioeconomic History Marital status: Spouse name: None Number of children: None Years of education: None Highest education level: None Tobacco Use Smoking status: Former Current packs/day: 0.00 Types: Cigarettes Quit date: 09/14/2007 Years since quittin.7 Smokeless tobacco: Never Substance and Sexual Activity Alcohol use: No Drug use: No Sexual activity: Never Other Topics Concern Caffeine Concern Yes Comment: one cup Sleep Concern No Stress Concern Yes Special Diet Yes Comment: special diet on coumadin Exercise Yes Comment: walkilng Social Drivers of Health Financial Resource Strain: Low Risk (05/09/2025) Financial Resource Strain Within the past 12 months, have you or your family members you live with been unable to get utilities (heat, electricity) when it was really needed?: No Food Insecurity: Low Risk (05/09/2025) Food Insecurity Within the past 12 months, did you worry that your food would run out before you got money to buy more?: No Within the past 12 months, did the food you bought just not last and you didn???t have money to getmore?: No Transportation Needs: Low Risk (05/09/2025) Transportation Needs Within the past 12 months, has lack of transportation kept you from medical appointments, getting your medicines, non-medical meetings or appointments, work, or from getting things that you need?: No Interpersonal Safety: High Risk (05/09/2025) Interpersonal Safety Do you feel physically and emotionally safe where you currently live?: No Within the past 12 months, have you been hit, slapped, kicked or otherwise physically hurt by someone?: No Within the past 12 months, have you been humiliated or emotionally abused in other ways by your partner or ex-partner?: No Housing Stability: Low Risk (05/09/2025) Housing Stability Do you have housing? : Yes Are you worried about losing your housing?: No Review of Systems: Skin: Eyes: ENT: Respiratory: Negative Cardiovascular: Negative Gastroenterology: Genitourinary: Musculoskeletal: Neurologic: Psychiatric: Heme/Lymph/Imm: Endocrine: Physical Exam: Vitals: BP 134/82 (BP Location: Right arm, Patient Position: Sitting, Cuff Size: Adult Regular) Pulse 58 Ht 1.626 m (5' 4) Wt 80 kg (176 lb 4.8 oz) SpO2 99% BMI 30.26 kg/m?? GEN patient appears comfortable Neck normal JVP Cardiovascular system crisp mechanical heart sounds, no murmur rub or gallop Respiratory system clear to auscultation Extremities no edema CC Ann Ruiz APRN CNP [address] [place] [address] documented in this encounter Plan of Treatment Scheduled Orders Name Type Priority Associated Diagnoses Order Schedule Echocardiogram Complete Echocardiography Routine S/P AVR Expected: 06/19/2026 (Approximate), Expires: 09/18/2026 Scheduled Referrals Name Type Priority Associated Diagnoses Orde r Schedule Follow-Up with Cardiology Referral Routine: Next available opening S/P AVR Expected: 06/19/2026 (Approximate), Expires: 06/19/2026 documented as of this encounter Visit Diagnoses Diagnosis Primary hypertension Unspecified essential hypertension S/P AVR Heart valve replaced by other means documented in this encounter Care Teams Equipment Monitor Phototypesetting Relationship Specialty Start Date End Date Kimberly Tierney PA-C [facility] [address] [place] [address] PCP - General 07/20/23 Ann Ruiz APRN SHIRRING TENDER [address] [place] [address] Nurse Practitioner Cardiovascular Disease 04/14/24 Ann Ruiz APRN CNP [address] [place] [address] Assigned Heart and Vascular Provider 10/02/24 Donald Sommers MD [address] [place] [address] Cardiovascular Disease 02/01/25 documented as of this encounter
--- OUTSIDE RECORDS SUMMARY | 2025-06-26 13:10 | XMS_ITS | Encounter Summary ---
Author Organization [place] Address [address] [facility] [place] [address] Care Team Providers Care Automated Access Systems Technician Name Role Phone Kimberly Tierney PA-C Primary Care Provider [phone] Joseph, Ann E CONCRETE SMOOTHER GRANITE BLOCK PAVER Unavailable [phone] Joseph, Ann E CONCRETE SMOOTHER GRANITE BLOCK PAVER Unavailable [phone] Donald Sommers MD Unavailable [phone] Reason for Visit * Diagnostic Imaging XR (Routine) - Closed Specialty Diagnoses / Procedures Referred By David siegel Referred To Contact Radiology. Diagnoses Closed stable burst fracture of eighth thoracic vertebra, initial encounter (H) Procedures XR Thoracic Spine 2 Views Yovana Shaw PA-C [facility] [address] [address] Phone: tel: fax: Referral ID Status Reason Start Date Expiration Date Visits Re quested Visits Authorized [id number] Closed 05/11/2025 05/11/2026 1 1 Encounter Details Date Type Department Care Team (Latest Contact Info) Description 06/26/2025 1:10 PM CDT Ancillary Procedure [facility] [address] [place] [address] Yovana Shaw PA-C [facility] [address] [address] Closed stable burst fracture of eighth thoracic vertebra, initial encounter (H) Social History Tobacco Use Types Packs/Day Years Used Date Smoking Tobacco: Former Cigarettes Q uit: 09/14/2007 Smokeless Tobacco: Never Alcohol Use Standard Drinks/Week Comments No 0 (1 standard drink = 0.6 oz pur e alcohol) PHQ-2 Answer Date Recorded PHQ-2 Score 1 06/26/2025 Adolescent Education Answer Date Record ed Getting [...] in an abandoned building, in an overnight fpc, or couch-surfing.) Yes 05/09/2025 Are you worried [...] on file 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 Gender Identity Not on file Sexual Orientation Not on file documented as of this encounter Plan of Treatment Not on file documented as of this encounter Procedures Procedure Name Priority Date/Time Associated Diagnosis Comments XR THORACIC SPINE 2 VIEWS Routine 06/26/2025 1:26 PM CDT Closed stable burst fracture of eighth thoracic vertebra, initial encounter (H) documented in this encounter Results * XR Thoracic Spine 2 Views (06/26/2025 1:26 PM CDT) Anatomical Region Laterality Modality C-spine, T-spine, L-spine, Chest Computed Radiography 06/26/2025 1:26 PM CDT Impressions 06/28/2025 10:03 AM CDT IMPRESSION: No significant change in chronic anterior wedging compression fracture at T8. No new fracture. Exaggerated thoracic kyphosis. Normal disc spaces for age. Sternotomy changes. Narrative 06/28/2025 10:03 AM CDT EXAM: XR THORACIC SPINE 2 VIEWS LOCATION: [facility] DATE: 06/26/2025 INDICATION: t8 burst fx, upright XR COMPARISON: 05/09/2025. Procedure Note Talia Bennett MD - 06/28/2025 EXAM: XR THORACIC SPINE 2 VIEWS LOCATION: [facility] DATE: 06/26/2025 INDICATION: t8 burst fx, upright XR COMPARISON: 05/09/2025. IMPRESSION: No significant change in chronic anterior wedging compressionfracture at T8. No new fracture. Exaggerated thoracic kyphosis. Normaldisc spaces for age. Sternotomy changes. Yovana Shaw PA-C [facility] JEN Final Result documented in this encounter Visit Diagnoses Diagnosis Closed stable burst fracture of eighth thoracic vertebra, initial encounter (H) documented in this encounter Care Teams Automated Access Systems Technician Relationship Specialty Start Date End Date Kimberly Tierney PA-C [facility] [address] [place] [address] PCP - General 07/20/23 Ann Ruiz APRN GRANITE BLOCK PAVER [address] [place] [address] Nurse Practitioner Cardiovascular Disease 04/14/24 Ann Ruiz APRN GRANITE BLOCK PAVER [address] [place] [address] Assigned Heart and Vascular Provider 10/02/24 Donald Sommers MD [address] [place] [address] Cardiovascular Disease 02/01/25 documented as of this encounter
--- OUTSIDE RECORDS SUMMARY | 2025-06-26 13:30 | XMS_ITS | Encounter Summary ---
Author Organization [place] Address [address] [facility] [place] [address] Care Team Providers Care Programmer Business Name Role Phone Kimberly Tierney PA-C Primary Care Provider [phone] Joseph Ann E GAS METER PROVER POISING INSPECTOR Unavailable [phone] Joseph, Ann E GAS METER PROVER POISING INSPECTOR Unavailable [phone] Donald Sommers MD Unavailable [phone] Reason for Visit * Reason Comments RECHECK Hospital follow up T 8 burst fracture Encounter Details Date Type Department Care Team (Late st Contact Info) Description 06/26/2025 1:30 PM CDT Office Visit [facility] [address] [place] [address] Freddie Fabian PA-C [address] [place], [place] [address] Closed stable burst fracture of eighth thoracic vertebra, initial encounter (H) (Primary Dx) Social History Tobacco Use Types [...] in an abandoned building, in an overnight longterm, or couch-surfing.) Yes 05/09/2025 Are you worried [...] on file 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 Gender Identity Not on file Sexual Orientation Not on file documented as of this encounter Last Filed Vital Signs Vital Sign Reading Time Taken Comments Blood Pressure 143/84 06/26/2025 1:25 PM CDT Pulse 61 06/26/2025 1:25 PM CDT Temperature - - Respiratory Rate - - Oxygen Saturation 100% 06/26/2025 1:25 PM CDT Inhaled Oxygen Concentration - - Weight 79.8 kg (176 lb) 06/26/2025 1:25 PM CDT Height 162.6 cm (5' 4) 06/26/2025 1:25 PM CDT Body Mass Index 30.21 06/26/2025 1:25 PM CDT documented in this encounter Progress Notes * Freddie Fabian PA-C - 06/26/2025 1:30 PM CDT NEUROSURGERY CLINIC PROGRESS NOTE DATE OF VISIT: 06/26/2025 HPI: Kari Garcia is a pleasant 74 year old female who presents to the clinic today for a six-week follow-up visit. We initially evaluated her on 05/09/2025 with back pain after fall. Patient states she was experiencing a migraine headache and went to hang a blanket over her window, slipped off a stool and landed on her back. Imaging obtained in the ED revealed a T8 burst fracture. She was placed into an OFT TLSO. Currently patient endorses minimal pain in the lower thoracic spine. Denies radiation of pain into the lower extremities. Denies weakness in the lower extremities, saddle anesthesia, or bowel or bladder dysfunction. Patient does have known history of osteoporosis, takes Vit D supplementation. The patient is anti-coagulated with Warfarin. Current Outpatient Medications Medication Sig Dispense Refill [...] mouth 1 tablet (2 mg) every Wednesday. No current facility-administered medications for this visit. No Known Allergies Past Medical History: Diagnosis Date Abdominal pain [...] ...blood bank notified Thyroid disease Trochanteric bursitis Review Of Systems Skin: negative Eyes: negative Ears/Nose/Throat: negative Respiratory: No shortness of breath, dyspnea on exertion, cough, or hemoptysis Cardiovascular: negative Gastrointestinal: negative Musculoskeletal: negative Neurologic: negative Psychiatric: negative Hematologic/Lymphatic/Immunologic: negative Endocrine: negative OBJECTIVE: BP (!) 143/84 Pulse 61 Ht 1.626 m (5' 4) Wt 79.8 kg (176 lb) SpO2 100% BMI 30.21 kg/m?? Imaging: XR THORACIC SPINE 2 VIEWS LOCATION: [facility] DATE: 06/26/2025 INDICATION: t8 burst fx, upright XR COMPARISON: 05/09/2025. IMPRESSION: No significant change in chronic anterior wedging compression fracture at T8. No new fracture. Exaggerated thoracic kyphosis. Normal disc spaces for age. Sternotomy changes. Radiographic Findings: Full radiological report in chart. I personally reviewed the images with thepatient today. Exam: Patient appears comfortable and in no apparent distress. Moving all extremities. Gait is non-antalgic. CN II-XII grossly intact, alert and appropriate with conversation and following commands Bilateral upper extremities with full strength including hand intrinsics and grasp. Sensation intact throughout. Bilateral lower extremities 5/5 strength including plantar and dorsiflexion. Normal sensation throughout bilaterally. PLAN: Kari Garcia is six weeks out from a traumatic T8 burst fracture. Today the patient reports minimal pain in the lower thoracic spine. Denies radiation of pain into the lower extremities. Denies weakness in the lower extremities, saddle anesthesia, or bowel or bladder dysfunction. The patient has remained compliant with the restrictions which included not lifting anything greater than 5-10 lbs. Today we discussed increasing activity from 10 lbs by 2-5 lbs per week, but encouraged continuing to avoid excessive bending, twisting, and turning at the waist and to avoid jostling and jarring activities. Ms. Garcia will return to the clinic in six weeks with repeat imaging. The patient gave verbal understanding and is in agreement with the above plan. She will call or return to the clinic for any worsening or changes in symptoms. Respectfully, DARRYL García PA-C documented in this encounter Nursing Notes * Lacy Snider - 06/26/2025 1:30 PM CDT Kari Garcia is a 74 year old female who presents for: Chief Complaint Patient presents with RECHECK Hospital follow up T8 burst fracture Initial Vitals: BP (!) 143/84 Pulse 61 Ht 5' 4 (1.626 m) Wt 176 lb (79.8 kg) SpO2 100% BMI 30.21 kg/m?? Estimated body mass index is 30.21 kg/m?? as calculated from the following: Height as of this encounter: 5' 4 (1.626 m). Weight as of this encounter: 176 lb (79.8 kg).. Body surface area is 1.9 meters squared. BP completed using cuff size: regular No Pain (0) Lacy Snider documented in this encounter Plan of Treatment Not on file documented as of this encounter Visit Diagnoses Diagnosis Closed stable burst fracture of eighth thoracic vertebra, initial encounter (H)- Primary documented in this encounter Care Teams Programmer Business Relationship Specialty Start Date End Date Kimberly Tierney PA-C [address] [place] [address] PCP - General 07/20/23 Ann Ruiz, DANIAL POISING INSPECTOR [address] [place] [address] Nurse Practitioner Cardiovascular Disease 04/14/24 Ann Ruiz, DANIAL POISING INSPECTOR [address] [place] [address] Assigned Heart and Vascular Provider 10/02/24 Donald Sommers MD [address] [place] [address] Cardiovascular Disease 02/01/25 documented as of this encounter
--- OUTSIDE RECORDS SUMMARY | 2025-07-02 13:15 | XMS_ITS | Encounter Summary ---
Author Organization [place] Address [address] [place] [address] Care Team Providers Care Vacuum Tester Cans Name Role Phone Kimberly Tierney PA-C Primary Care Provider [phone] Joseph Ann E DANIAL MARKET EDITOR Unavailable [phone] Joseph Ann E EVIDENCE SPECIALIST MARKET EDITOR Unavailable [phone] Donald Sommers MD Unavailable [phone] Emy Nash [facility] Unavailable Beatriz Dyson PA-C Unavailable [phone] Encounter Details Date Type Department Care Team (Latest Contact Info) Description 05/21/2025 Travel Social History Tobacco Use Types Packs/Day Years [...] Answer Date Recorded Do you have housing? 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 Gender Identity Not on file Sexual Orientation Not on file documented as of this encounter Plan of Treatment Not on file documented as of this encounter Visit Diagnoses Not on filedocumented in this encounter Care Teams Vacuum Tester Cans Relationship Specialty Start Date End Date Kimberly Tierney PA-C [address] [facility] [address] PCP - General 07/20/23 Ann Ruiz APRN CNP [address] [place] [address] Nurse Practitioner Cardiovascular Disease 04/14/24 Ann Ruiz APRN CNP [address] [place] [address] Assigned Heart and Vascular Provider 10/02/24 Donald Sommers MD [address] [facility] [address] [place] [address] Cardiovascular Disease 02/01/25 [facility] [address] [place] [phone] 05/13/25 05/25/25 Beatriz Dyosn PA-C [address] [place] [address] Physician Telecommunication Operator Physician Telecommunication Operator - Medical 05/13/25 05/25/25 documented as of this encounter
--- OUTSIDE RECORDS SUMMARY | 2025-07-02 13:15 | XMS_ITS | Encounter Summary ---
Author Organization [place] Address [facility] [place] [address] Care Team Providers Care Municipal Maintenance Worker Name Role Phone Kimberly Tierney PA-C Primary Care Provider [phone] Joseph March E ENVELOPE FOLD OPERATOR TAPEMAN Unavailable [phone] Joseph, Ann E ENVELOPE FOLD OPERATOR TAPEMAN Unavailable [phone] Donald Sommers MD Unavailable [phone] Emy Nash [facility] Unavailable Beatriz Dyson PA-C Unavailable [phone] Reason for Visit * Reason Comments Geriatrics Tracker Encounter Details Date Type Department Care Team (Late st Contact Info) Description 05/13/2025 Documentation Only [facility] [address] [place] [phone] Yovana Perez [address] [place] [address] Geriatrics Tracker Social History Tobacco Use Types Packs/Day Years [...] in an abandoned building, in an overnight mcfp, or couch-surfing.) Yes 05/09/2025 Are you worried [...] on file Legal Sex Female 3:37 AM 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 SERVICE 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 Gender Identity Not on file Sexual Orientation Not on file documented as of this encounter Plan of Treatment Not on file documented as of this encounter Visit Diagnoses Not on filedocumented in this encounter Care Teams Municipal Maintenance Worker Relationship Specialty Start Date End Date Kimberly Tierney PA-C [facility] [address] [place] [address] PCP - General 07/20/23 Ann Ruiz APRN CNP [address] [place] [address] Nurse Practitioner Cardiovascular Disease 04/14/24 Ann Ruiz, ENVELOPE FOLD OPERATOR TAPEMAN [address] [place] [address] Assigned Heart and Vascular Provider 10/02/24 Donald Sommers MD [address] [place] [address] [place] [address] Cardiovascular Disease 02/01/25 Emy Nash [facility] [address] [place] [phone] 05/13/25 05/25/25 Beatriz Dyson PA-C [address] [place] [address] Physician Journeyman Machinist Physician Journeyman Machinist - Medical 05/13/25 05/25/25 documented as of this encounter
--- OUTSIDE RECORDS SUMMARY | 2025-07-02 13:16 | XMS_ITS | Clinical Summary ---
Author Organization [facility] Address [address] [place] [address] Care Team Providers Care Edge Polisher Name Role Phone Sal Torrez MD Unavailable [phone] Kimberly Tierney Primary Care Provider [phone] Clinic, No Primary Unavailable Unavailable Allergies No known active allergies Medications albuterol HFA (PROVENTIL;PRABHJOT TOLIN HFA) 90 mcg/actuation Inhl inhaler INHALE 2 PUFFS EVERY 4 HOURS NEEDED 11/26/19 22 Active aspirin 81 mg oral enteric coated tablet Take 1 tablet (81 mg) by mouth once daily. 01/02/20 22 Active atorvastatin (LIPITOR) 80 mg oral tablet Take 1 tablet (80 mg) by mouth. 12/10/19 22 Active bimatoprost 0.03% (LUMIGAN) 0.03 % Opht Drop Instill 1 drop into the eye Daily. Active cefdinir (OMNICEF) 300 mg oral capsule TAKE 1 CAPSULE BY MOUTH TWICE A DAY 11/26/19 22 Active cyclobenzaprin e (FLEXERIL) 5 mg oral tablet TAKE 1 TABLET BY MOUTH 3 TIMES A DAY NEEDED 11/04/19 22 Active dorzolamide-ti molol, PF, (COSOPT) 2-0.5 % Opht INSTILL 1 DROP INTO RIGHT EYE TWICE A DAY 11/24/19 22 Active HYDROcodone-ac etaminophen (NORCO) 5-325 mg oral tablet Take 1 tablet by mouth every 6 (six) hours as needed. 06/09/20 18 Active levothyroxine (SYNTHROID) 100 mcg oral tablet Take 1 tablet (100 mcg) by mouth. 01/02/20 22 Active losartan (COZAAR) 25 mg oral tablet Take 1 tablet (25 mg) by mouth once daily. 12/11/19 22 Active Meperidine, PF, 100 mg/mL Injection Soln 01/15/20 Active methylPREDNISo lone (MEDROL DOSPAK) 4 mg oral dospak TAKE 6 TABLETS ON DAY 1 DIRECTED ON PACKAGE AND DECREASE BY 1 TAB EACH DAY FOR A TOTAL OF 6 DAYS 11/04/19 22 Active metoprolol succinate, XL, (TOPROL XL) 25 mg oral extended release tablet 24 HR Take 1 tablet (25 mg) by mouth once daily. 01/20/20 Active oxyCODONE-acet aminophen (PERCOCET) 5-325 mg oral tablet 01/15/20 Active timolol (TIMOPTIC) 0.5% ophthalmic (EYE) drops INSTILL 1 DROP BY OPHTHALMIC ROUTE TWO TIMES A DAY INTO BOTH EYES 01/21/20 22 Active topiramate (TOPAMAX) 100 mg oral tablet TAKE 1 TABLET BY MOUTH DAILY AT BEDTIME. 12/11/19 22 Active warfarin (COUMADIN) 2 mg oral tablet TAKE DIRECTED: FRANCOIS 4 MG, M 4 MG, TU 3 MG, W 4 MG, TH 3 MG, F 4 MG, SA 3 MG 12/25/19 22 Active metoprolol tartrate (LOPRESSOR) 25 mg oral tablet Daily Activ e diphenhydrAMIN E (BENADRYL) 50 mg/mL Injection Soln INJECT INTRAMUSCULARLY WITH DEMEROL, MAX OF 2/MONTH 08/27/20 21 Active cholecalcifero l, vitamin D3, 25 mcg, 1000 unit, 25 mcg (1,000 unit) oral tablet TAKE 1 TABLET BY MOUTH EVERY DAY. REPEAT VITAMIN D LEVEL IN NOV 2021 04/22/20 22 Active hydrOXYzine HCl (ATARAX) 50 mg oral tablet 03/13/20 23 Active RESTASIS 0.05 % Opht ophthalmic (EYE) emulsion Instill 1 drop into the LEFT eye. 04/08/20 23 Active warfarin (COUMADIN) 3 mg oral tablet Take 1 tablet (3 mg) by mouth as directed. 08/11/20 23 Active Warfarin 4 mg oral tablet Take 1 tablet (4 mg) by mouth as directed. 09/01/20 23 Active famotidine (PEPCID) 20 mg oral tablet TAKE 1 TAB BY MOUTH DAILY AT BEDTIME 12/09/19 24 Active predniSONE (DELTASONE) 20 mg oral tablet TAKE 1 TABLET BY MOUTH DAILY FOR 3 DAYS. 12/15/19 24 Active LUMIGAN 0.01 % Opht ophthalmic (EYE) solution INSTILL 1 DROP INTO BOTH EYES IN THE EVENING 11/19/19 24 Active fremanezumab-v frm (AJOVY AUTOINJECTOR) 225 mg/1.5 mL SubQ AtIn Inject 1.5 mL under the skin as directed. Inject one autoinjector every month. 1.5 mL 01/05/20 24 Active erenumab (AIMOVIG AUTOINJECTOR) 70 mg/mL SubQ AtIn auto-injector INJECT SUBCUTANEOUSLY ONCE MONTHLY 1 mL 06/04/20 25 Active Active Problems Problem Noted Date Diagnosed Date Abdominal aortic aneurysm (AAA) 01/29/2022 Chronic anticoagulation 01/29/2022 Depression 01/29/2022 GERD (gastroesophageal reflux disease) 2 Glaucoma 01/29/2022 Heart murmur 01/29/2022 Overview (01/29/2022): aortic valve stenosis Hiatal hernia 01/29/2022 Overview (01/29/2022): much improved after lap band and hiatal hernia repair Status following gastric banding surgery for vivek ght loss 01/29/2022 Lattice degeneration, 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 January 2013: Right knee pes bursa cortisone, vastly improved with pes bursa injection but only for 1 week. February 2013: right knee joint injection. History of aortic valve replacement 09/16/2012 S/P gastric bypass 03/01/2012 Incidental pulmonary nodule, > 3mm and < 8mm 04/2012 Personal history of tobacco use, presenting hazards to health 11/17/2011 Hyperlipidemia 09/01/2011 Overview (01/29/2022): Diagnosis updated by automated process. Provider to review and confirm. Hemiplegic migraine 12/28/2005 Encounters Date Type Department Care Team Description 06/07/2025 Community Care Management [facility] Care [address] [place] [address] Alert, Hp Link 06/04/2025 9:00 AM CDT Office Visit [facility] - [address] [place] [phone] Sal Torrez MD Intractable migraine with aura without status migrainosus (Primary Dx) from Last 3 Months Immunizations Immunization Administration Dates Next Due Influenza High Dose (Fluzone Quadrivalent PF) Influenza recombinant (FluBlok Quadrivalent PF) 07/17/2021 Pfizer 12+ Yrs Monovalent COVID Vaccine (purple cap) 03/18/2021,02/25/2021 Pneumococcal PPSV23 09/23/2012,09/27/2001 Family History Medical History Relation Comments Migraines Mother Aneurysm Sister 1 Aneurysm Sister 2 Relation Status Comments Maternal Grandfather Alive Mother Alive Sister 1 Sister 2 Alive Social History Tobacco Use Types Packs/Day Years Used Date Smoking Tobacco: Never Smokeless Tobacco: Never Comments Unknown Sex and Gender Information Value Date Recorded Sex Assigned at Not on file Legal Sex Female 1:00 PM CDT Gender Identity Not on file Sexual Orientation Not on file Last Filed Vital Signs Vital Sign Reading Time Taken Comments Blood Pressure - - Pulse - - Temperature - - Respiratory Rate 14 01/05/2024 1:20 PM CDT Oxygen Saturation - - Inhaled Oxygen Concentration - - Weight 81.6 kg (180 lb) 02/08/2024 11:24 AM CDT Height 160 cm (5' 3) 02/08/2024 11:24 AM CDT Body Mass Index 31.89 02/08/2024 11:24 AM CDT Plan of Treatment Health Maintenance Due Date Last Done Comments Colonoscopy 1950 Hepatitis C Screening 1950 Medicare Wellness Visit 1950 Depression Follow-Up (PHQ-9) 1951 Yearly Review of HCD 2002 Osteoporosis Screening 12/13/2008 12/13/2006 Thyroid-Stimulating Hormone (TSH) 04/14/2012 04/14/2011 RSV Vaccines (1 - Risk 60-74 years 1-dose series) 2012 Pneumococcal 50+ Years (2 of 2 - PCV) 09/23/2013 09/23/2012, 09/27/2001 Zoster Vaccine (2 of 2) 06/19/2022 04/24/2022 COVID-19 Vaccine (3 - season) 2025 03/18/2021, 02/25/2021 Influenza Vaccine (#1) 2025 , 08/28/2022, 07/17/2021, Additional history exists Mammogram Screening 08/09/2025 08/09/2023, 08/09/2023, 03/20/2022, Additional history exists Adult Tetanus Booster 12/08/2033 12/09/2023 , 09/16/2012, 01/20/2008, Additional history exists Meningococcal B Vaccine Aged Out No l onger eligible based on patient's age to complete this topic Insurance [facility] Member Subscriber Plan / Payer (Ef fective 2021-Present) Name:Kari Garcia Relation to Subscriber:Self Name:Kari Garcia Payer ID:[id number] (NAIC) _[id number] Type:Medicare Advantage Address: [address] [address] Care Teams Edge Polisher Relationship Specialty Start Date End Date Kimberly Tierney PA [address] [place] [address] PCP - General 01/12/22 Clinic, No Primary [address] [place] [address] PCP - Primary Care Clinic 01/12/22 Sal Torrez MD [address] [facility] [address] [place] [address] Neurology 01/12/22
--- OUTSIDE RECORDS SUMMARY | 2025-07-02 13:16 | XMS_ITS | Encounter Summary ---
Author Organization [place] Address [address] [facility] [place] [address] Care Team Providers Care Fence Rider Name Role Phone Claritza Flaherty MD Primary Care Provider [phone] Maria L Ornelas MD Primary Care Provider Unavailabl e Ariel Young MD Primary Care Provider + VatDonald degroot MD Unavailable [phone] Alesha Ballesteros PA-C Unavailable + [phone] Kimberly Tierney-C Primary Care Provider [phone] Donald Sommers MD Unavailable [phone] Ruiz, March E CHUTE MAN PROOFSHEET CORRECTOR Unavailable [phone] Joseph, Ann E CHUTE MAN PROOFSHEET CORRECTOR Unavailable [phone] VatDonald degroot MD Unavailable [phone] Emy Nash [facility] Unavailable Beatriz Dyson PA-C Unavailable [phone] Encounter Details Date Type Department Care Team (Late st Contact Info) Description 08/10/2012 Office Visit-[facility] [place] [address] [facility] [address] [place] [address] Layo Landry MD XXX XXX [address] [facility] [address] [place] [address] Social History Tobacco Use Types Packs/Day Years Used Date Smoking Tobacco: Former Alcohol Use Standard Drinks/Week Comments No 0 (1 standard drink = 0.6 oz pur e alcohol) Comments No Sex and Gender Information Value Date Recorded Sex Assigned at Not on file 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 DATE: 08/10/2012 TANVIR ISSA DATE OF : 1950 AGE: [age] years old Referring Physician: CLARITZA FLAHERTY Referring Clinic: [facility] CURRENT DIAGNOSES 1. Aortic Valve Disorders, [...] was followed by my colleague at the [facility] (Dr. Jourdan Aguirre) until his chcf several years ago. The patient transferred her care to me here in [place] as it is closer to her home. [...] Use - always; Residence - lives in [place] year round; Place of - [place]; Hours Worked - none; REVIEW OF SYSTEMS [...] also discussed with her the need of senior living antibiotic pr ophylaxis for an artificial valve. [...] on filedocumented in this encounter Care Teams Fence Rider Relationship Specialty Start Date End Date Claritza Flaherty MD PCP - General 07/16/12 07/29/16 Maria L Ornelas MD PCP - General Family Practice 07/30/16 09/22/18 Ariel Young MD PCP - General 09/23/18 07/19/23 Kimberly Tierney PA-C [address] [place] [address] PCP - General 07/20/23 Donald Sommers MD [address] [facility] [address] [place] [address] Assigned Heart and Vascular Provider 10/27/20 04/23/23 Alesha Ballesteros PA-C [address] [id number] Assigned Surgical Provider 12/25/20 01/17/22 Donald Sommers MD [address] [place] [address] Assigned Heart and Vascular Provider 07/24/23 10/01/24 Ann Ruiz, DANIAL PROOFSHEET CORRECTOR [address] [place] [address] Nurse Practitioner Cardiovascular Disease 04/14/24 Ann Ruiz, DANIAL PROOFSHEET CORRECTOR [address] [place] [address] Assigned Heart and Vascular Provider 10/02/24 Donald Sommers MD [address] [place] [address] Cardiovascular Disease [facility] [address] [place] [phone] 05/13/25 05/25/25 Beatriz Dyson PA-C [address] [place] [address] Physician Refinery Pipeline Operator Physician Refinery Pipeline Operator - Medical 05/13/25 05/25/25 documented as of this encounter
--- OUTSIDE RECORDS SUMMARY | 2025-07-02 13:16 | XMS_ITS | Encounter Summary ---
Author Organization [place] Address [facility] [place] [address] Care Team Providers Care Php Mysql Web Developer Name Role Phone Doctor, None Primary Care Provider Unavailabl e Doctor, None Primary Care Provider Unavailabl e Kade Gay [id number] Primary Care Pro vider Unavailable Claritza Delgado MD Primary Care Provider [phone] Maria L Ornelas MD Primary Care Provider Unavailabl e Ariel Young MD Primary Care Provider + Donadl Sommers MD Unavailable [phone] Alesha Ballesteros PA-C Unavailable + [phone] Kimberly Tierney PA-C Primary Care Provider [phone] Donald Sommers MD Unavailable [phone] Joseph, March E JEWELRY SALES COORDINATOR GIANT TIRE REPAIRER Unavailable [phone] Joseph, March E JEWELRY SALES COORDINATOR GIANT TIRE REPAIRER Unavailable [phone] Donald Sommers MD Unavailable [phone] Emy Nash [facility] Unavailable Beatriz Dyson PA-C Unavailable [phone] Encounter Details Date Type Department Care Team (Late st Contact Info) Description 07/09/2010 Office Visit-[facility] Heart [address] [place] [address] Layo Landry MD XXX XXX [address] [place] [address] Social History Tobacco Use Types Packs/Day Years Used Date Smoking Tobacco: Never Comments No Sex and Gender Information Value Date Recorded Sex Assigned at Not on file Legal Sex Female 3:37 AM HOSPICE FELLOW Gender Identity Not on file Sexual Orientation Not on file documented as of this encounter Progress Notes * Layo Landry MD - 07/21/2010 11:43 AM CDT Progress Note Created by: Layo Landry M.D. DATE: 07/09/2010 TANVIR ISSA DATE OF : 1950 AGE: [age] years old Referring Physician: KADE ARCHER Referring Clinic: [facility] CURRENT DIAGNOSES [...] care to thecardiology clinic here at the [facility] site. The patient gave me consent to contact you with this letter. The patient is a very pleasant 59-year-old female who has a history of aortic stenosis. She states,she was evaluated for migraine headaches over 20 years ago and at that time was found to have a heart murmur. She has been followed at the [facility] by Dr. Aguirre and others since at [...] days a week; Residence - lives in [place] year round; Place of - [place]; REVIEW OF SYSTEMS GENERAL denies recent weight [...] on filedocumented in this encounter Care Teams Php Mysql Web Developer Relationship Specialty Start Date End Date Yumiko Morelos MD PCP - General 11/25/01 12/28/10 Yumiko Morelos MD PCP - General 12/30/10 05/24/11 Kade Gay Use [id number] [place] [address] PCP - General 05/25/11 07/15/12 Clarit[place] [address] PCP - General 07/16/12 07/29/16 Maria L Ornelas MD [place] [address] PCP - General Family Practice 07/30/16 09/22/18 Ariel Young MD [place] [address] PCP - General 09/23/18 07/19/23 Kimberly Tierney PA-C [facility] [address] [facility] [place] [address] PCP - General 07/20/23 Donald Sommers MD [address] [place] [address] Assigned Heart and Vascular Provider 10/27/20 04/23/23 Alesha Ballesteros PA-C [address] [place] [address]75 Assigned Surgical Provider 12/25/20 01/17/22 Donald Sommers MD [address] [place] [address] Assigned Heart and Vascular Provider 07/24/23 10/01/24 Ann Ruiz APRN GIANT TIRE REPAIRER [address] [place] [address] Nurse Practitioner Cardiovascular Disease 04/14/24 Ann Ruiz APRN GIANT TIRE REPAIRER [address] [place] [address] Assigned Heart and Vascular Provider 10/02/24 Donald Sommers MD [address] [place] [address] Cardiovascular Disease 02/01/25 Emy Nash [facility] [address] [place] [phone] 05/13/25 05/25/25 Beatriz Dyson PA-C [address] [place] [address] Physician Reservoir Caretaker Physician Reservoir Caretaker - Medical 05/13/25 05/25/25 documented as of this encounter
--- OUTSIDE RECORDS SUMMARY | 2025-07-02 13:16 | XMS_ITS | Encounter Summary ---
Author Organization [place] Address [address] [place] [address] Care Team Providers Care Operational Risk Consultant Name Role Phone Kade Gay 151914 Primary Care Pro vider Unavailable Claritza Delgado MD Primary Care Provider [phone] Maria L Ornelas MD Primary Care Provider Unavailabl e Ariel Young MD Primary Care Provider + Donald Sommers MD Unavailable [phone] Alesha Ballesteros PA-C Unavailable + [phone] Kimberly Tierney-C Primary Care Provider [phone] Donald Sommers MD Unavailable [phone] Joseph March E HEDIS ANALYST PAN DEVULCANIZER Unavailable [phone] Joseph, March E HEDIS ANALYST PAN DEVULCANIZER Unavailable [phone] Donald Sommers MD Unavailable [phone] Emy Nash [facility] Unavailable Beatriz Dyson PA-C Unavailable [phone] Encounter Details Date Type Department Care Team (Late st Contact Info) Description 07/28/2011 Office Visit-[facility] Heart [place] [address] [facility] [address] [place] [address] Layo Landry MD XXX XXX [address] [place] [address] Social History Tobacco Use Types Packs/Day Years Used Date Smoking Tobacco: Former Alcohol Use Standard Drinks/Week Comments No 0 (1 standard drink = 0.6 oz pur e alcohol) Comments No Sex and Gender Information Value Date Recorded Sex Assigned at Not on file Legal Sex Female 3:37 AM COIL CONNECTOR REPAIRER Gender Identity Not on file Sexual Orientation Not on file documented as of this encounter Progress Notes * Layo Landry MD - 08/14/2011 1:28 PM CDT Progress Note Created by: Layo Landry M.D. DATE: 07/28/2011 TANVIR ISSA DATE OF : 1950 AGE: [age] years old Referring Physician: KADE ARCHER Referring Clinic: [facility] CURRENT [...] followed by Dr. Jourdan Aguirre at the [facility]. The patient elected to have followup here in [place], as Dr. Aguirre was about to retire. [...] Use - always; Residence - lives in [place] year round; Place of - [place]; Hours Worked - none; REVIEW OF SYSTEMS [...] surgery at this time. Her stenosis is [id number] but asymptomatic. She is not having any [...] on filedocumented in this encounter Care Teams Operational Risk Consultant Relationship Specialty Start Date End Date Kade Gay [id number] [place] [address] PCP - General 05/25/11 07/15/12 Claritza [place] [address] PCP - General 07/16/12 07/29/16 Maria [place] [address] PCP - General Family Practice 07/30/16 09/22/18 [place] [address] PCP - General 09/23/18 07/19/23 Kimberly Tierney PA-C [facility] [address] [facility] [place] [address] PCP - General 07/20/23 Donald Sommers MD [address] [place] [address] Assigned Heart and Vascular Provider 10/27/20 04/23/23 Alesha Ballesteros PA-C [address] [place] [address] Assigned Surgical Provider 12/25/20 01/17/22 Donald Sommers MD [address] [place] [address] Assigned Heart and Vascular Provider 07/24/23 10/01/24 Ann Ruiz APRN PAN DEVULCANIZER [address] [place] [address] Nurse Practitioner Cardiovascular Disease 04/14/24 Ann Ruiz APRN PAN DEVULCANIZER [address] [place] [address] Assigned Heart and Vascular Provider 10/02/24 Donald Sommers MD [address] [facility] [address] [place] [address] Cardiovascular Disease 02/01/25 Emy leblanc [facility] [address] [place] [phone] 05/13/25 05/25/25 Beatriz Dyson PA-C [address] [place] [address] Physician Shearing Shed Hand Physician Shearing Shed Hand - Medical 05/13/25 05/25/25 documented as of this encounter
--- OUTSIDE RECORDS SUMMARY | 2025-07-02 13:16 | XMS_ITS | Encounter Summary ---
Author Organization [place] Address [address] [facility] [place] [address] Care Team Providers Care Manager Quality Compliance Name Role Phone Claritza Delgado MD Primary Care Provider [phone] Maria L Ornelas MD Primary Care Provider Unavailabl e Ariel Young MD Primary Care Provider + VatDonald degroot MD Unavailable [phone] Alesha Ballesteros PA-C Unavailable + [phone] Kimberly Tierney-C Primary Care Provider [phone] Donald Sommers MD Unavailable [phone] Ruiz, March E SPAR CAP BEVELER RESEARCH GEOLOGIST Unavailable [phone] Joseph, Ann E SPAR CAP BEVELER RESEARCH GEOLOGIST Unavailable [phone] VatDonald degroot MD Unavailable [phone] Emy Nash [facility] Unavailable Beatriz Dyson PA-C Unavailable [phone] Encounter Details Date Type Department Care Team (Late st Contact Info) Description 10/21/2012 Office Visit-[facility] [place] [address] [facility] [address] [place] [address] Layo Landry MD XXX XXX [address] [facility] [address] [place] [address] Social History Tobacco Use Types Packs/Day Years Used Date Smoking Tobacco: Former Cigarettes 0 03/15/2007 - 09/14/2007 Comments:4 cigarettes a crista h for 6 months Alcohol Use Standard Drinks/Week Comments No 0 (1 standard drink = 0.6 oz pur e alcohol) Comments No Sex and Gender Information Value Date Recorded Sex Assigned at Not on file Legal Sex Female 3:37 AM PAINTINGS RESTORER Gender Identity Not on file Sexual Orientation Not on file documented as of this encounter Progress Notes * Layo Landry MD - 11/29/2012 9:21 AM CST Progress Note Created by: Layo Landry M.D. DATE: 10/21/2012 TANVIR ISSA DATE OF : 1950 AGE: [age] years old Referring Physician: CLARITZA DELGADO Referring Clinic: [facility] CURRENT DIAGNOSES 1. Aortic Valve [...] a possible 20% narrowing of a septal high risk ob. The patient underwent successful aortic valve replacement [...] for INR monitoring which apparently is done through your office. 6. Her blood pressure is [...] on filedocumented in this encounter Care Teams Manager Quality Compliance Relationship Specialty Start Date End Date Claritza Delgado MD PCP - General 07/16/12 07/29/16 Maria L Ornelas MD PCP - General Family Practice 07/30/16 09/22/18 Ariel Young MD PCP - General 09/23/18 07/19/23 Kimberly Tierney PA-C [address] [place] [address] PCP - General 07/20/23 Donald Sommers MD [address] [place] [address] [place] [address] Assigned Heart and Vascular Provider 10/27/20 04/23/23 Alesha Ballesteros PA-C [address] [place] [address]215 Assigned Surgical Provider 12/25/20 01/17/22 Donald Sommers MD [address] [place] [address] [place] [address] Assigned Heart and Vascular Provider 07/24/23 10/01/24 Ann Ruiz, SPAR CAP BEVELER RESEARCH GEOLOGIST [address] [place] [address] Nurse Practitioner Cardiovascular Disease 04/14/24 Ann Ruiz, SPAR CAP BEVELER RESEARCH GEOLOGIST [address] [place] [address] Assigned Heart and Vascular Provider 10/02/24 Donald Sommers MD [address] [facility] [address] [place] [address] Cardiovascular Disease 02[facility]01[facility]25 [facility] [address] [place] [phone] 05/13/25 05/25/25 Beatriz Dyson PA-C [address] [place] [address] Physician Technical Support Specialist Physician Technical Support Specialist - Medical 05/13/25 05/25/25 documented as of this encounter
--- OUTSIDE RECORDS SUMMARY | 2025-07-02 13:16 | XMS_ITS | Clinical Summary ---
Author Organization [facility] Address [address] [place] [address] Care Team Providers Care Furniture Upholstery Mechanic Name Role Phone Kimberly Tierney PA-C Primary Care Provider [phone] Allergies No known active allergies Medications XALATAN [...] Thoracic post aortic valve replacement. Followed by [facility] Elevated LFTs 10/21/2013 Arthritis of knee 01/15/2013 [...] on file Legal Sex Female 7:02 AM LOAD OUT WORKER Gender Identity Not on file Sexual Orientation Not on file Obstetrics History Last Filed Vital Signs Vital Sign Reading Time Taken Comments Blood Pressure 123/76 08/31/2019 11:08 AM LOAD OUT WORKER Pulse 56 08/31/2019 11:08 AM LOAD OUT WORKER Temperature 36.6 C (97.9 F) 08/31/2019 11:06 AM LOAD OUT WORKER Respiratory Rate 14 06/02/2017 3:29 PM CDT Oxygen Saturation 98% 08/31/2019 11: 06 AM LOAD OUT WORKER Inhaled Oxygen Concentration - - Weight 83.8 kg (184 lb 12.8 oz) 019 11:06 AM LOAD OUT WORKER Height 160 cm (5' 2.99) 08/31/2019 11: 06 AM LOAD OUT WORKER Body Mass Index 32.74 08/31/2019 11:06 AM LOAD OUT WORKER Plan of Treatment Health Maintenance Due Date [...] 09/16/2022 09/16/2012, 01/09, 08/27/2007, Additional history exists Mammogram for age 45-75 08/09/2024 08/09/20 23, 03/20/2022, 10/15/2020, Additional history exists COVID-19 vaccine series (3 - 2025-26 season) 2025 03/18/2021, 02/25/2021 Influenza Vaccine (#1) 2025 7, 06/29/2016, 08/29/2015, Additional history exists RSV vaccine for adults or (1 - 1-dose 75+ series) 2027 Hepatitis B series for 19+ Aged Out [...] For Patients: As a result of the Century Cures Act, medical imaging exams and procedure reports are released immediately into your electronic medical record. You may view this report before your referring provider. If you have questions, please contact your health care provider. XR MAMMO GEORGIANA BILAT SCREEN [[id number]] CLINICAL HISTORY: This is an asymptomatic 72 y.o. patient. INDICATION FOR EXAM: Mammogram Screening. TECHNIQUE: CC & MLO views were obtained. This study was evaluated with the assistance of Computer-Aided Detection. Breast Tomosynthesis was used in interpretation. COMPARISON FILM: Yes 03/20/22 [facility] 10/15/20 [facility] FINDINGS: The breasts are almost entirely fatty. There are no dominant masses, suspicious micro calcifications or areas of architectural distortion. Kimberly Tierney PA-C MAMMO Final Result * OCCULT BLOOD IFOBT STOOL (02/26/2018 8:00 AM CDT) STOOL BLOOD ,IFOBT Negative Negative 03/03/2018 11:22 AM CDT [facility] Stool STOOL SPECIMEN / Unknown Non-Blood / Unknown 02/26/2018 8:00 AM CDT 03/03/2018 8:23 AM CDT Maria L Ornelas MD LABORATORY Final Resul t [facility] [address] [place] [address], [place] [phone] * LIPID PANEL W REFLEX MEASURED LDL (07/27/2017 3:06 PM CDT) CHOLESTEROL,TOTAL 163 100 - 199 mg/dL 07/27/2017 8:05 PM CDT [facility] TRAL LABORATORY TRIGLYCERIDES 96 <150 mg/dL 07/27/2017 8:05 PM CDT [facility] TRAL LABORATORY HDL CHOLESTEROL 44 >40 mg/dL 7 8:05 PM CDT [facility] NON-HDL CHOLESTEROL 119 <145 mg/dl 07/27/2017 8:05 PM CDT [facility] CHOL/HDL RATIO 3.70 <4.50 07/27/2017 8:05 PM CDT [facility] TRAL LABORATORY LDL CHOLESTEROL 100 <=130 mg/dL 07/27/2017 8:05 PM CDT [facility] TRAL LABORATORY PROVIDER ORDERED STATUS RANDOM 07/27/2017 8:05 PM CDT [facility] TRAL LABORATORY Blood BLOOD SPECIMEN / Unknown Venipuncture / Unknown 07/27/2017 3:06 PM CDT 07/27/2017 3:06 PM CDT us Maria L Ornelas MD CHEMISTRY Final Resul t [facility] [address] [place] [address], from Last 3 Months or Most Recently Relevant to Health Maintenance Insurance [facility] Care Teams Furniture Upholstery Mechanic Relationship Specialty Start Date End Date Kimberly Tierney PA-C [address] [place] [address] PCP - General Physician Collect On Delivery Clerk 03/19/22
--- OUTSIDE RECORDS SUMMARY | 2025-07-02 13:16 | XMS_ITS | Encounter Summary ---
Author Organization [place] Address [address] [facility] [place] [address] Care Team Providers Care Dye Tank Tender Name Role Phone Claritza Flaherty MD Primary Care Provider [phone] Maria L Ornelas MD Primary Care Provider Unavailabl e Ariel Young MD Primary Care Provider + VatDonald degroot MD Unavailable [phone] Alesha Ballesteros PA-C Unavailable + [phone] Kimberly Tierney-C Primary Care Provider [phone] Donald Sommers MD Unavailable [phone] Ruiz, March E GEOGRAPHIC INFORMATION SYSTEMS MANAGER SET UP MACHINIST Unavailable [phone] Joseph, Ann E GEOGRAPHIC INFORMATION SYSTEMS MANAGER SET UP MACHINIST Unavailable [phone] VatDonald degroot MD Unavailable [phone] Emy Nash [facility] Unavailable Beatriz Dyson PA-C Unavailable [phone] Encounter Details Date Type Department Care Team (Late st Contact Info) Description 05/30/2013 Office Visit-[facility] [place] [address] [facility] [address] [place] [phone] Layo Landry MD XXX XXX [address] [facility] [address] [place] [address] Social History Tobacco Use Types Packs/Day Years Used Date Smoking Tobacco: Former Cigarettes 0 03/15/2007 - 09/14/2007 Comments:4 cigarettes a crista h for 6 months Alcohol Use Standard Drinks/Week Comments No 0 (1 standard drink = 0.6 oz pur e alcohol) Comments No Sex and Gender Information Value Date Recorded Sex Assigned at Not on file Legal Sex Female 3:37 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 DATE: 05/30/2013 TANVIR ISSA DATE OF : 1950 AGE: [age] years old Referring Physician: CLARITZA FLAHERTY Referring Clinic: [facility] CURRENT DIAGNOSES 1. Aortic Valve Disorders, 424.1 [...] who underwent aortic valve replacement surgery at [facility] in September,, because of aortic stenosis. The [...] always; Occupation -disabled; Residence - lives in [place] year round and lives alone; Place of - [place]; Ema rs Worked - none; REVIEW OF SYSTEMS GENERAL [...] on filedocumented in this encounter Care Teams Dye Tank Tender Relationship Specialty Start Date End Date Claritza Flaherty MD PCP - General 07/16/12 07/29/16 Maria L Ornelas MD PCP - General Family Practice 07/30/16 09/22/18 Ariel Young MD PCP - General 09/23/18 07/19/23 Kimberly Tierney PA-C [facility] [address] [place] [address] [place] [address] PCP - General 07/20/23 Donald Sommers MD [address] [facility] [address] [place], [place] [address] Assigned Heart and Vascular Provider 10/27/20 04/23/23 Alesha Ballesteros PA-C [address] [place] [address] Assigned Surgical Provider 12/25/20 01/17/22 Donald Sommers MD [address] [place] [address] Assigned Heart and Vascular Provider 07/24/23 10/01/24 Ann Ruiz APRN SET UP MACHINIST [address] [place] [address] Nurse Practitioner Cardiovascular Disease 04/14/24 Ann Ruiz APRN SET UP MACHINIST [address] [place] [address] Assigned Heart and Vascular Provider 10/02/24 Donald Sommers MD [address] [address] [place] [address] Cardiovascular Disease 02/01/25 Emy leblanc [facility] [address] [place] [phone] 05/13/25 05/25/25 Beatriz Dyson PA-C [address] [place] [address] Physician Weather Reporter Physician Weather Reporter - Medical 05/13/25 05/25/25 documented as of this encounter
--- OUTSIDE RECORDS SUMMARY | 2025-07-02 13:16 | XMS_ITS | Encounter Summary ---
Author Organization [place] Address [address] [place] [address] Care Team Providers Care Ophthalmologist Name Role Phone Kimberly Tierney PA-C Primary Care Provider [phone] Joseph Ann E DANIAL TRIBAL COUNCIL MEMBER Unavailable [phone] Joseph Ann E FORMSTONE FITTER TRIBAL COUNCIL MEMBER Unavailable [phone] Donald Sommers MD Unavailable [phone] Emy Nash [facility] Unavailable Beatriz Dyson PA-C Unavailable [phone] Encounter Details Date Type Department Care Team (Latest Contact Info) Description 05/23/2025 Travel Social History Tobacco Use Types Packs/Day [...] in an abandoned building, in an overnight senior living, or couch-surfing.) Yes 05/09/2025 Are you worried [...] on file Legal Sex Female 3:37 AM TRENCH DIGGER HELPER Gender Identity Not on file Sexual Orientation Not on file documented as of this encounter Plan of Treatment Not on file documented as of this encounter Visit Diagnoses Not on filedocumented in this encounter Care Teams Ophthalmologist Relationship Specialty Start Date End Date Kimberly Tierney PA-C [address] [facility] [address] PCP - General 07/20/23 Ann Ruiz APRN CNP [address] [place] [address] Nurse Practitioner Cardiovascular Disease 04/14/24 Ann Ruiz APRN CNP [address] [place] [address] Assigned Heart and Vascular Provider 10/02/24 Donald Sommers MD [address] [facility] [address] [place] [address] Cardiovascular Disease 02/01/25 [facility] [address] [place] [phone] 05/13/25 05/25/25 Beatriz Dyson PA-C [address] [place] [address] Physician Machine Designer Physician Machine Designer - Medical 05/13/25 05/25/25 documented as of this encounter
--- OUTSIDE RECORDS SUMMARY | 2025-07-02 13:16 | XMS_ITS | Encounter Summary ---
Author Organization [facility] Address [address] [place] [address] Care Team Providers Care Open Hearth Furnace Operator Name Role Phone Sal Torrez MD Unavailable [phone] Kimberly Tierney Primary Care Provider Clinic, No Primary Unavailable Unavailable Encounter Details Date Type Department Care Team (Late st Contact Info) Description 06/07/2025 Community Care Management [facility] Care [address] [place] [address] Alert, Hp Link Social History Tobacco Use Types Packs/Day Years [...] on filedocumented in this encounter Care Teams Open Hearth Furnace Operator Relationship Specialty Start Date End Date Kimberly Tierney PA [address] [place] [address] PCP - General 01/12/22 Clinic, No Primary [address] [place] [address] PCP - Primary Care Clinic 01/12/22 Sal Torrez MD [address] [facility] [address] [place] [address] Neurology 01/12/22 documented as of this encounter
--- OUTSIDE RECORDS SUMMARY | 2025-07-02 13:16 | XMS_ITS | Encounter Summary ---
Author Organization [place] Address [facility] [place] [address] Care Team Providers Care Credit Risk Modeler Name Role Phone Claritza Delgado MD Primary Care Provider [phone] Maria L Ornelas MD Primary Care Provider Unavailabl e Ariel Young MD Primary Care Provider + Donald Sommers MD Unavailable [phone] Alesha Ballesteros PA-C Unavailable + [phone] Kimberly Tierney-C Primary Care Provider [phone] Donald Sommers MD Unavailable [phone] Ruiz, March E BRASS FINISHER AIRPORT UTILITY WORKER Unavailable [phone] Joseph, Ann E BRASS FINISHER AIRPORT UTILITY WORKER Unavailable [phone] Donald Sommers MD Unavailable [phone] Emy Nash [facility] Unavailable Beatriz Dyson PA-C Unavailable [phone] Encounter Details Date Type Department Care Team (Late st Contact Info) Description 08/25/2012 Office Visit-P INTERFACE P DEPT Glenroy Calvillo MD XXX RESIGNED XXX [place] [address] Social History Tobacco Use Types Packs/Day Years Used Date Smoking Tobacco: Former Alcohol Use Standard Drinks/Week Comments No 0 (1 standard drink = 0.6 oz pur e alcohol) Comments No Sex and Gender Information Value Date Recorded Sex Assigned at Not on file Legal Sex Female 3:37 AM HAND SHOE CUTTER Gender Identity Not on file Sexual Orientation Not on file documented as of this encounter Progress Notes * Glenroy Calvillo MD - 08/25/2012 3:30 PM CST Shipping And Receiving Associate: RajinderCliftong Status: Final - Signature Encounter: 2012-08-25 15:30:00.000 Type: CV Surgery Letter Department of Surgery Division of Cardiovascular and Thoracic Surgery Grant Mail Code [address] [facility] [address] [facility] Cardiothoracic Surgery [address] [facility] [address] [facility] [address] August 25, 2012 Layo Landry MD [facility] [address] [facility]. , [address] [place] [address] Claritza Delgado MD [facility]--[address] [address] RE: Kari Garcia : 1950 NELI: 08/25/2012 [...] She does not drink. She lives in [place]. She walks her dog 4-5 days a [...] by:Glenroy Calvillo M.D. Sep 13 2012 1:48PM HAND SHOE CUTTER SHOE CUTTER SHOE CUTTER documented in this encounter Plan of Treatment Not on file documented as of this encounter Visit Diagnoses Not on filedocumented in this encounter Care Teams Credit Risk Modeler Relationship Specialty Start Date End Date Claritza Delgado MD PCP - General 07/16/12 07/29/16 Maria L Ornelas MD PCP - General Family Practice 07/30/16 09/22/18 Ariel Young MD PCP - General 09/23/18 07/19/23 Kimberly Tierney PA-C [facility] [address] [place] [address] PCP - General 07/20/23 Donald Sommers MD [address] [facility] [address] [place], [place] [address] Assigned Heart and Vascular Provider 10/27/20 04/23/23 Alesha Ballesteros PA-C [address] [place] [address] Assigned Surgical Provider 12/25/20 01/17/22 Donald Sommers MD [address] [place] [address] [place] [address] Assigned Heart and Vascular Provider 07/24/23 10/01/24 Ann Ruiz, BRASS FINISHER AIRPORT UTILITY WORKER [address] [place] [address] Nurse Practitioner Cardiovascular Disease 04/14/24 Ann Ruiz, BRASS FINISHER AIRPORT UTILITY WORKER [address] [place] [address] Assigned Heart and Vascular Provider 10/02/24 Donald Sommers MD [address] [place] [address] Cardiovascular Disease 02/01/25 [facility] [address] [place] [phone] 05/13/25 05/25/25 Beatriz Dyson PA-C [address] [place] [address] Physician Roller Coaster Designer Physician Roller Coaster Designer - Medical 05/13/25 05/25/25 documented as of this encounter
--- OUTSIDE RECORDS SUMMARY | 2025-07-02 13:16 | XMS_ITS | Encounter Summary ---
Author Organization [place] Address [facility] [place] [address] Care Team Providers Care Bellows Assembler Name Role Phone Ariel Young MD Primary Care Provider + Donald Sommers MD Unavailable [phone] Kimberly Tierney PA-C Primary Care Provider [phone] Donald Sommers MD Unavailable [phone] Joseph March E CARE NAVIGATOR HOB MILL OPERATOR Unavailable [phone] Joseph, Ann E CARE NAVIGATOR HOB MILL OPERATOR Unavailable [phone] Donald Sommers MD Unavailable [phone] Emy Nash [facility] Unavailable Beatriz Dyson-C Unavailable [phone] Encounter Details Date Type Department Care Team (Late st Contact Info) Description 01/26/2023 MyC Medical Advice [facility] [place] [id number] [facility] [address] [place] [address] Cheyanne Woods, RN Social History Tobacco [...] on file Legal Sex Female 3:37 AM PLASTERER STUCCO Gender Identity Not on file Sexual Orientation [...] on filedocumented in this encounter Care Teams Bellows Assembler Relationship Specialty Start Date End Date Ariel Young MD PCP - General 09/23/18 07/19/23 Kimberly Tierney PA-C [address] [place] [address] PCP - General 07/20/23 Donald Sommers MD [address] [address] [place] [address] Assigned Heart and Vascular Provider 10/27/20 04/23/23 Donald Sommers MD [address] [place] [address] [place] [address] Assigned Heart and Vascular Provider 07/24/23 10/01/24 Ann Ruiz E, CARE NAVIGATOR HOB MILL OPERATOR [address] [place] [address] Nurse Practitioner Cardiovascular Disease 04/14/24 Ann Ruiz, CARE NAVIGATOR HOB MILL OPERATOR [address] [place] [address] Assigned Heart and Vascular Provider 10/02/24 Donald Sommers MD [address] [facility] [address] [place] [address] Cardiovascular Disease 02/01/25 Emy Nash [facility] [address] [place] [phone] 05/13/25 05/25/25 Beatriz Dyson PA-C [address] [place] [address] Physician Therapist Physical Physician Therapist Physical - Medical 05/13/25 05/25/25 documented as of this encounter
--- OUTSIDE RECORDS SUMMARY | 2025-07-02 13:16 | XMS_ITS | Encounter Summary ---
Author Organization [place] Address [facility] [place] [address] Care Team Providers Care Insurance Associate Name Role Phone Claritza Delgado MD Primary Care Provider [phone] Maria L Ornelas MD Primary Care Provider Unavailabl e Ariel Young MD Primary Care Provider + Donald Sommers MD Unavailable [phone] Alesha Ballesteros PA-C Unavailable + [phone] Kimberly Tierney-C Primary Care Provider [phone] Donald Sommers MD Unavailable [phone] Ruiz, March E COMPRESSOR MECHANIC SYSTEM SUPPORT TECHNICIAN Unavailable [phone] Ruiz, Ann E COMPRESSOR MECHANIC SYSTEM SUPPORT TECHNICIAN Unavailable [phone] Donald Sommers MD Unavailable [phone] Emy [facility] Unavailable Beatriz Dyson PA-C Unavailable [phone] Encounter Details Date Type Department Care Team (Late st Contact Info) Description 10/13/2012 Office Visit-[facility] INTER[facility] P DEPT Trey Shaw MD [address] [facility] [address] [place] [address] Social History Tobacco Use Types Packs/Day Years Used Date Smoking Tobacco: Former Cigarettes 0 03/15/2007 - 09/14/2007 Comments:4 cigarettes a crista h for 6 months Alcohol Use Standard Drinks/Week Comments No 0 (1 standard drink = 0.6 oz pur e alcohol) Comments No Sex and Gender Information Value Date Recorded Sex Assigned at Not on file Legal Sex Female 3:37 AM GIFT PACKER Gender Identity Not on file Sexual Orientation Not on file documented as of this encounter Progress Notes * Trey Shaw MD - 10/13/2012 2:00 PM CST Airport Utility Worker: Trey Shaw Status: Final - Signature Encounter: 2012-10-13 14:00:00.000 [...] Dr. Calvillo. Pura Alfred PA-C Pager # [phone] Electronically signed by:Pura Guillermo Oct 17 2012 5:02PM GIFT PACKER PACKER PACKER documented in this encounter Plan of Treatment Not on file documented as of this encounter Visit Diagnoses Not on filedocumented in this encounter Care Teams Insurance Associate Relationship Specialty Start Date End Date Claritza Delgado MD PCP - General 07/16/12 07/29/16 Maria L Ornelas MD PCP - General Family Practice 07/30/16 09/22/18 Ariel Young MD PCP - General 09/23/18 07/19/23 Kimberly Tierney PA-C [place] [address] [place] [address] PCP - General 07/20/23 Donald Sommers MD [address] [place] [address] Assigned Heart and Vascular Provider 10/27/20 04/23/23 Alesha aBllesteros PA-C [address] [facility] [address] [facility] [address] [place] [address] Assigned Surgical Provider 12/25/20 01/17/22 Donald Sommers MD [address] [place] [address] Assigned Heart and Vascular Provider 07/24/23 10/01/24 Ann Ruiz, COMPRESSOR MECHANIC SYSTEM SUPPORT TECHNICIAN [address] [place] [address] Nurse Practitioner Cardiovascular Disease 04/14/24 Ann Ruiz, COMPRESSOR MECHANIC SYSTEM SUPPORT TECHNICIAN [address] [place] [address] Assigned Heart and Vascular Provider 10/02/24 Donald Sommers MD [address] [place] [address] Cardiovascular Disease 02/01/25 Emy leblanc [facility] [address] [place] [phone] 05/13/25 05/25/25 Beatriz Dyson PA-C [address] [place] [address] Physician Tape Cutter Physician Tape Cutter - Medical 05/13/25 05/25/25 documented as of this encounter
--- OUTSIDE RECORDS SUMMARY | 2025-07-02 13:16 | XMS_ITS | Encounter Summary ---
Author Organization [place] Address [address] [facility] [place] [address] Care Team Providers Care Ore Dressing Engineer Name Role Phone Kimberly Tierney PA-C Primary Care Provider [phone] Joseph Ann E TOY CONSULTANT HEALTHCARE RECEPTIONIST Unavailable [phone] Joseph March E TOY CONSULTANT HEALTHCARE RECEPTIONIST Unavailable [phone] Donald Sommers MD Unavailable [phone] Emy Nash [facility] Unavailable Beatriz Dyson PA-C Unavailable [phone] Encounter Details Date Type Department Care Team (Late st Contact Info) Description 05/21/2025 Results Follow-Up [facility] [address] [place] [address] Joseph Ann E, TOY CONSULTANT HEALTHCARE RECEPTIONIST [address] [facility] [address] [place], [place] [address] Subj: Message about your results Social History Tobacco Use Types Packs/Day Years [...] in an abandoned building, in an overnight custodial, or couch-surfing.) Yes 05/09/2025 Are you worried [...] on file Legal Sex Female 3:37 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 DRILLING 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 Gender Identity Not on file Sexual Orientation Not on file documented as of this encounter Plan of Treatment Not on file documented as of this encounter Visit Diagnoses Not on filedocumented in this encounter Care Teams Ore Dressing Engineer Relationship Specialty Start Date End Date Kimberly Tierney PA-C [facility] [address] [facility] [place] [address] PCP - General 07/20/23 Ann Ruiz, TOY CONSULTANT HEALTHCARE RECEPTIONIST [address] [place] [address] Nurse Practitioner Cardiovascular Disease 04/14/24 Ann Ruiz APRN HEALTHCARE RECEPTIONIST [address] [place] [address] Assigned Heart and Vascular Provider 10/02/24 Donald Sommers MD [address] [place] [address] Cardiovascular Disease 02/01/25 Emy Nash [facility] [id number] [place] [phone] 05/13/25 05/25/25 Beatriz Dyson PA-C [address] [place] [address] Physician Kraft Digester Operator Physician Kraft Digester Operator - Medical 05/13/25 05/25/25 documented as of this encounter
--- OUTSIDE RECORDS SUMMARY | 2025-07-02 13:17 | XMS_ITS | Encounter Summary ---
Author Organization [place] Address [address] [facility] [place] [address] Care Team Providers Care Rent Collector Name Role Phone Kimberly Tierney PA-C Primary Care Provider [phone] Ann Ruiz APRN UPHOLSTERY RESTORER Unavailable [phone] Joseph Ann E DANIAL UPHOLSTERY RESTORER Unavailable [phone] Donald Sommers MD Unavailable [phone] Encounter Details Date Type Department Care Team (Latest Contact Info) Description 06/16/2025 Travel Social History Tobacco Use Types Packs/Day [...] in an abandoned building, in an overnight skilled nursing, or couch-surfing.) Yes 05/09/2025 Are you worried [...] on file Legal Sex Female 3:37 AM CITY DIRECTOR Gender Identity Not on file Sexual Orientation Not on file documented as of this encounter Plan of Treatment Not on file documented as of this encounter Visit Diagnoses Not on filedocumented in this encounter Care Teams Rent Collector Relationship Specialty Start Date End Date Kimberly Tierney PA-C [address] [place] [address] PCP - General 07/20/23 Ann Ruiz, DANIAL UPHOLSTERY RESTORER [address] [place] [address] Nurse Practitioner Cardiovascular Disease 04/14/24 Ann Ruiz, DANIAL UPHOLSTERY RESTORER [address] [place] [address] Assigned Heart and Vascular Provider 10/02/24 Donald Sommers MD [address] [facility] [address] [place] [address] Cardiovascular Disease 02/01/25 documented as of this encounter
--- OUTSIDE RECORDS SUMMARY | 2025-07-02 13:17 | XMS_ITS | Encounter Summary ---
Author Organization [place] Address [address] [place] [address] Care Team Providers Care Dental Office Coordinator Name Role Phone Kimberly Tierney PA-C Primary Care Provider [phone] Ann Ruiz APRN DUST SAMPLER Unavailable [phone] Joseph Ann E DANIAL DUST SAMPLER Unavailable [phone] Donald Sommers MD Unavailable [phone] Encounter Details Date Type Department Care Team (Latest Contact Info) Description 06/19/2025 Travel Social History Tobacco Use Types Packs/Day [...] in an abandoned building, in an overnight penitentiary, or couch-surfing.) Yes 05/09/2025 Are you worried [...] on file Legal Sex Female 3:37 AM RADIOGRAPHY TECHNICIAN Gender Identity Not on file Sexual Orientation Not on file documented as of this encounter Plan of Treatment Not on file documented as of this encounter Visit Diagnoses Not on filedocumented in this encounter Care Teams Dental Office Coordinator Relationship Specialty Start Date End Date Kimberly Tierney PA-C [address] [facility] [place] [address] PCP - General 07/20/23 Ann Ruiz, DANIAL DUST SAMPLER [address] [place] [address] Nurse Practitioner Cardiovascular Disease 04/14/24 Ann Ruiz, DANIAL DUST SAMPLER [address] [place] [address] Assigned Heart and Vascular Provider 10/02/24 Donald Sommers MD [address] [facility] [address] [place] [address] Cardiovascular Disease 02/01/25 documented as of this encounter
--- OUTSIDE RECORDS SUMMARY | 2025-07-02 13:17 | XMS_ITS | Encounter Summary ---
Author Organization [place] Address [address] [facility] [place] [address] Care Team Providers Care Fiberglass Boat Maker Name Role Phone Kimberly Tierney PA-C Primary Care Provider [phone] Ann Ruiz APRN SOFTWARE QUALITY ASSURANCE ENGINEER Unavailable [phone] Joseph Ann E DANIAL SOFTWARE QUALITY ASSURANCE ENGINEER Unavailable [phone] Donald Sommers MD Unavailable [phone] Encounter Details Date Type Department Care Team (Latest Contact Info) Description 06/26/2025 Travel Social History Tobacco Use Types Packs/Day [...] in an abandoned building, in an overnight nursing home, or couch-surfing.) Yes 05/09/2025 Are you worried [...] on file 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 Gender Identity Not on file Sexual Orientation Not on file documented as of this encounter Plan of Treatment Not on file documented as of this encounter Visit Diagnoses Not on filedocumented in this encounter Care Teams Fiberglass Boat Maker Relationship Specialty Start Date End Date Kimberly Tierney PA-C [address] [place] [address] PCP - General 07/20/23 Ann Ruiz, DANIAL SOFTWARE QUALITY ASSURANCE ENGINEER [address] [place] [address] Nurse Practitioner Cardiovascular Disease 04/14/24 Ann Ruiz, DANIAL SOFTWARE QUALITY ASSURANCE ENGINEER [address] [place] [address] Assigned Heart and Vascular Provider 10/02/24 Donald Sommers MD [address] [facility] [address] [place] [address] Cardiovascular Disease 02/01/25 documented as of this encounter
--- OUTSIDE RECORDS SUMMARY | 2025-07-02 13:17 | XMS_ITS | Clinical Summary ---
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
--- OUTSIDE RECORDS SUMMARY | 2025-07-02 13:17 | XMS_ITS | Encounter Summary ---
Author Organization [place] Address [facility] [place] [address] Care Team Providers Care Senior Analysis Specialist Name Role Phone Kimberly Tierney PA-C Primary Care Provider [phone] Ann Ruiz APRN SUGAR REPROCESS OPERATOR HEAD Unavailable [phone] Ann Ruiz E DANIAL SUGAR REPROCESS OPERATOR HEAD Unavailable [phone] Donald Sommers MD Unavailable [phone] Encounter Details Date Type Department Care Team (Latest Contact Info) Description 06/21/2025 Travel Social History Tobacco Use Types Packs/Day Years Used Date Smoking Tobacco: Former Cigarettes Q uit: 09/14/2007 Smokeless Tobacco: Never Alcohol Use Standard Drinks/Week Comments No 0 (1 standard drink = 0.6 oz pur e alcohol) PHQ-2 Answer Date Recorded PHQ-2 Total Score (Adult) - Positive if 3 or more points; Administer PHQ-9 if positive 1 06/21/2025 Adolescent Education Answer Date Record ed Getting [...] in an abandoned building, in an overnight jail, or couch-surfing.) Yes 05/09/2025 Are you worried [...] on file 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 Gender Identity Not on file Sexual Orientation Not on file documented as of this encounter Plan of Treatment Not on file documented as of this encounter Visit Diagnoses Not on filedocumented in this encounter Care Teams Senior Analysis Specialist Relationship Specialty Start Date End Date Kimberly Tierney PA-C [address] [place] [address] PCP - General 07/20/23 Joseph Ann E, BLOW MOLD OPERATOR SUGAR REPROCESS OPERATOR HEAD [address] [place] [address] Nurse Practitioner Cardiovascular Disease 04/14/24 Ann Ruiz, BLOW MOLD OPERATOR SUGAR REPROCESS OPERATOR HEAD [address] [place] [address] Assigned Heart and Vascular Provider 10/02/24 Donald Sommers MD [address] [facility] [address] [place] [address] Cardiovascular Disease 02/01/25 documented as of this encounter
--- OUTSIDE RECORDS SUMMARY | 2025-07-02 13:18 | XMS_ITS | Encounter Summary ---
Author Organization [place] Address [facility] [place] [address] Care Team Providers Care Certified Athletic Trainer Name Role Phone Ariel Young MD Primary Care Provider + Donald Sommers MD Unavailable [phone] Alesha Ballesteros PA-C Unavailable + [phone] Kimberly Tierney PA-C Primary Care Provider [phone] Donald Sommers MD Unavailable [phone] Ruiz, Ann E ASSEMBLER MOVEMENT RING SPINNER Unavailable [phone] Ruiz, Ann E ASSEMBLER MOVEMENT RING SPINNER Unavailable [phone] Donald Sommers MD Unavailable [phone] Emy Nash [facility] Unavailable Beatriz Dysno PA-C Unavailable [phone] Encounter Details Date Type Department Care Team (Late st Contact Info) Description 07/12/2020 MyC Medical Advice [facility] [address] [place] [address] Sandy Swartz CMA Social History [...] on file 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 Gender Identity Not on file Sexual [...] on filedocumented in this encounter Care Teams Certified Athletic Trainer Relationship Specialty Start Date End Date Ariel Young MD PCP - General 09/23/18 07/19/23 Kimberly Tierney PA-C [facility] [address] [place] [address] [place] [address] PCP - General 07/20/23 Donald Sommers MD [address] [place] [address] Assigned Heart and Vascular Provider 10/27/20 04/23/23 Alesha Ballesteros PA-C [address] [place] [address] Assigned Surgical Provider 12/25/20 01/17/22 Donald Sommers MD [address] [place] [address] Assigned Heart and Vascular Provider 07/24/23 10/01/24 Ann Ruiz APRN RING SPINNER [address] [place] [address] Nurse Practitioner Cardiovascular Disease 04/14/24 Ann Ruiz APRN RING SPINNER [address] [place] [address] Assigned Heart and Vascular Provider 10/02/24 Donald Sommers MD [address] [facility] [address] [place] [address] Cardiovascular Disease 02/01/25 Emy leblanc [facility] [address] [place] [phone] 05/13/25 05/25/25 Beatriz Dyson PA-C [address] [place] [address] Physician Embosser Apprentice Physician Embosser Apprentice - Medical 05/13/25 05/25/25 documented as of this encounter
--- OUTSIDE RECORDS SUMMARY | 2025-07-02 13:18 | XMS_ITS | Clinical Summary ---
Author Organization [facility] Address [address] [place] [address] Care Team Providers Care Beater Worker Helper Name Role Phone Kimberly Tierney PA-C Primary Care Provider [phone] Joseph Ann E DANIAL MANAGER SALES AND MARKETING Unavailable [phone] Joseph March E ORACLE DATABASE DEVELOPER MANAGER SALES AND MARKETING Unavailable [phone] Donald Sommers MD Unavailable [phone] Allergies No known active allergies Medications timolol (TIMOPTIC) 0.5 % ophthalmic solution Place 1 drop into both eyes daily. Active bimatoprost (LUMIGAN) 0.03 % ophthalmic dropsIndications: Open-Angle Glaucoma Place 1 drop into both eyes At Bedtime. Pt has own Indications: Wide-Angle Glaucoma Active topiramate (TOPAMAX) 100 MG tablet Take 100 mg by mouth daily Active aspirin (ASA) 81 MG EC tabletIndications :S/P AVR Take 1 tablet (81 mg) by mouth daily 90 tablet 3 09/27/20 18 Active warfarin ANTICOAGULANT (COUMADIN) 3 MG tablet Take by mouth 1 tablet (3 mg) every Wednesday, Wednesday, , Wednesday, Wednesday, Wednesday. Active diphenhydrAMINE (BENADRYL) 50 mg/mL Inject 1 [...] mouth daily Active Cholecalciferol (VITAMIN D-3 PO) Take by mouth daily. Active cycloSPORINE (RESTASIS) 0.05 % ophthalmic emulsion Place 1 drop into both eyes 2 times daily. Active atorvastatin (LIPITOR) 80 MG tabletIndications :Hyperlipidemia LDL goal <70 Take 1 tablet (80 mg) by mouth daily. 90 tablet 3 09/20/20 24 Active losartan (COZAAR) 25 MG tablet Take 25 mg by mouth daily. Active warfarin ANTICOAGULANT (COUMADIN/JANTOVE N) 2 MG tablet Take by mouth 1 tablet (2 mg) every Wednesday. Active hydrOXYzine HCl (ATARAX) 25 MG tabletIndications :Closed stable burst fracture of eighth thoracic vertebra, initial encounter (H) Take 1 tablet (25 mg) by mouth 3 times daily. 05/12/20 25 Active metoprolol succinate ER (TOPROL XL) 25 MG 24 hr tabletIndications :Primary hypertension Take 0.5 tablets (12.5 mg) by mouth daily. 05/13/20 25 Active Lidocaine (LIDOCARE) 4 % PatchIndications: Closed stable burst fracture of eighth thoracic vertebra, initial encounter (H) Place 2 patches over 12 hours onto the skin every 24 hours. To prevent lidocaine toxicity, patient should be patch free for 12 hrs daily. 05/12/20 25 Active methocarbamol (ROBAXIN) 500 MG tabletIndications :Closed stable burst fracture of eighth thoracic vertebra, initial encounter (H) Take 0.5 tablets (250 mg) by mouth 3 times daily. 05/12/20 25 Active oxyCODONE-acetami nophen (PERCOCET) 10-325 MG per tabletIndications :Closed stable burst fracture of eighth thoracic vertebra with routine healing, subsequent encounter Take 1 tablet by mouth every 4 hours as needed for severe pain. 30 tablet 05/14/20 25 Active acetaminophen (TYLENOL) 500 MG tabletIndications :Closed stable burst fracture of eighth thoracic vertebra with routine healing, subsequent encounter Take 1 tablet (500 mg) by mouth 3 times daily. 05/14/20 25 Active senna-docusate (SENOKOT-S/VITALIY LACE) 8.6-50 MG tabletIndications :Closed stable burst fracture of eighth thoracic vertebra with routine healing, subsequent encounter Take 1 tablet by mouth 2 times daily. 05/14/20 25 Active erenumab-aooe (AIMOVIG) 70 MG/ML injectionIndicati ons:Other migraine without status migrainosus, intractable Inject 1 mL (70 mg) subcutaneously every 30 days. 1 mL 05/11/20 25 025 Active Problems Problem Noted Date Diagnosed Date Closed stable burst fracture of eighth thoracic vertebra, initial encounter 05/08/2025 Hyperlipidemia 08/08/2014 Overview (08/12/2015): Diagnosis updated by [...] Encounters Date Type Department Care Team Description 06/26/2025 1:30 PM CDT Office Visit [facility] [address] [place] [address] [phone] Freddie Fabian PA-C Closed stable burst fracture of eighth thoracic vertebra, initial encounter (H) (Primary Dx) 06/26/2025 1:10 PM CDT Ancillary Procedure [facility] [address] [place] [phone] Yovana Shaw PA-C Closed stable burst fracture of eighth thoracic vertebra, initial encounter (H) 06/26/2025 Travel 06/21/2025 Travel 06/19/2025 8:45 AM CDT Office Visit [facility] [address] [facility] [address] [place] [address] Ann Ruiz APRN CNP Vats, Shashank, MD Primary hypertension; S/P AVR 06/19/2025 Travel 06/16/2025 Travel 05/23/2025 7:30 AM CDT Discharge Summary Residential [address] [phone] Beatriz Dyson PA-C Discharge Summary Residential 05/23/2025 Travel 05/21/2025 11:00 AM CDT Lab [address] [place] [address] Primary hypertension 05/21/2025 9:17 AM CDT - 05/21/2025 11:59 PM CDT Hospital Encounter [facility] [address] [place] [address] [address] [place] [address] Ann Ruiz APRN CNP S/P AVR Discharge Disposition: Home or Self Care 05/21/2025 Results Follow-Up [address] [place] [address] Ann Ruiz APRN CNP Subj: Message about your results 05/21/2025 Travel 05/17/2025 10:00 AM CDT Transitional Care Unit Visit [address] [phone] Beatriz Dyson PA-C Closed stable burst fracture of eighth thoracic vertebra with routine healing, subsequent encounter (Primary Dx); Primary hypertension; Bradycardia 05/17/2025 Travel 05/14/2025 9:00 AM CDT Transitional Care Unit Visit [address] [phone] Beatriz Dyson PA-C Closed stable burst fracture of eighth thoracic vertebra with routine healing, subsequent encounter (Primary Dx); Aortic valve replaced; Primary hypertension; Thyroid disease; Bradycardia; Migraine without status migrainosus, not intractable, unspecified migraine type; Glaucoma, unspecified glaucoma type, unspecified laterality 05/14/2025 Travel 05/13/2025 Telephone [facility] [address] [place] [phone] Odette Rasmussen APRN MANAGER SALES AND MARKETING INR RESULTS 05/13/2025 Documentation Only [facility] [address] [place] [phone] Yovana Perez Geriatrics Tracker 05/12/2025 Telephone [facility] [address] [place] [phone] Kelin Viera CNP 05/08/2025 7:00 PM CDT - 05/12/2025 2:02 PM CDT Hospital Encounter [facility] [address] [place] [address] Summer Smith MD Kalinoski-Dubos e, Dawood Antonio MD Closed stable burst fracture of eighth thoracic vertebra, initial encounter (H) (Primary Dx); Fall, initial encounter; Acute right-sided thoracic back pain; Pulmonary nodule; Bilateral pleural effusion; Aneurysm of ascending aorta without rupture; Other migraine without status migrainosus, intractable; Primary hypertension Discharge Disposition: Fdc Facility 05/08/2025 Travel from Last 3 Months Immunizations Immunization Administration Dates Next Due Influenza (H1N1) 11/20/2009 Influenza (High Dose) Trival ent,PF (Fluzone) 07/03/2024,08/08/2019,09/16/2018,2013 Influenza (IIV3) PF 10/17/2013, 2,11/20/2009,2008,10/27/2006,09/27/2001,08/06/1999 Pneumococcal 23 valent 09/23/2012,09/27/2001 TD,PF 7+ (Tenivac) 02/05/2004 TDAP (Adacel,Boostrix) 01/20/2008 Zoster recombinant adjuvante d (Shingrix) 04/24/2022 Family History Relation Status Comments Father Mother [...] in an abandoned building, in an overnight fci, or couch-surfing.) Yes 05/09/2025 Are you worried [...] on file Legal Sex Female 3:37 AM CLAIMS AGENT RIGHT OF WAY Gender Identity Not on file Sexual Orientation Not on file Last Filed Vital Signs Vital Sign Reading Time Taken Comments Blood Pressure 143/84 06/26/2025 1:25 PM CDT Pulse 61 06/26/2025 1:25 PM CDT Temperature 36.2 C (97.1 F) 05/23/2025 7:47 AM CDT Respiratory Rate 16 05/23/2025 7:47 AM CDT Oxygen Saturation 100% 06/26/2025 1:25 PM CDT Inhaled Oxygen Concentration - - Weight 79.8 kg (176 lb) 06/26/2025 1:25 PM CDT Height 162.6 cm (5' 4) 06/26/2025 1:25 PM CDT Body Mass Index 30.21 06/26/2025 1:25 PM CDT Plan of Treatment Health Maintenance Due Date Last Done Comments ADVANCE CARE PLANNING 1950 ANNUAL REVIEW OF HM ORDERS 1950 CT COLONOGRAPHY 1950 FLEX SIG 1950 COLONOSCOPY 1962 HEPATITIS C SCREENING 1970 TSH W/FREE T4 REFLEX 04/14/2012 04/14/2011, 06/24/2009, 11/09/2008, Additional history exists PNEUMOCOCCAL VACCINE 50+ YEARS (2 of 2 - PCV) 09/23/2013 09/23/2012, 09/27/2001 FALL RISK ASSESSMENT 2017 MEDICARE ANNUAL WELLNESS VISIT 2017 FIT 02/26/2019 02/26/2018 DEXA 12/13/2021 12/13/2006, 12/13/2006 ZOSTER VACCINE (2 of 2) 06/19/2022 04/24/2022 COVID-19 VACCINE (3 - season) 2025 03/18/2021, 02/25/2021 INFLUENZA VACCINE (#1) 2025 , 08/28/2022, 08/27/2022, Additional history exists MAMMO SCREENING 08/09/2025 08/09/2023, 07/13, 03/20/2022, Additional history exists LIPID 09/20/2025 09/20/2024, 06/11, 11/06/2011, Additional history exists BMP 05/21/2026 05/21/2025, 04/12, 05/08/2025, Additional history exists RSV VACCINE (1 - 1-dose 75+ series) 2027 COLORECTAL CANCER SCREENING 01/11/2028 sDNA (Cologuard) 01/11/2028 01/10/2025, 11/2024, 07/28/2021 DIABETES SCREENING 05/21/2028 05/21/2025, 0 05/09/2025, 05/08/2025, Additional history exists DTAP/TDAP/TD VACCINE (4 - Td or Tdap) 12/08/2033 12/09/2023, 09/16/2012, 01/20/2008, Additional history exists LUNG CANCER SCREENING Discontinued 05/08/2025, 015 PHQ-2 (once per calendar year) Completed 06/26/2025, 09/20/2024, 07/20/2023, Additional history exists HPV VACCINE (No Doses Required) Completed MENINGITIS VACCINE Aged Out No longer eligible based on patient's age to complete this topic Medical Devices Implanted Type Area Geochemistry Teacher Device Identifier Shelf Expiration Date Model / Serial / Lot Valve Aortic Ats 22mm [facility] [id number] Implanted:Qty: 1 on 09/16/2012 by Glenroy Calvillo MD at N/A: [employer] 06/09/2015 [id number] / [id number] / Procedures Procedure Name Priority Date/Time Associated Diagnosis Comments XR THORACIC SPINE 2 VIEWS Routine 06/26/2025 1:26 PM CDT Closed stable burst fracture of eighth thoracic vertebra, initial encounter (H) BASIC METABOLIC PANEL Routine 05/21/2025 10:34 AM CDT Primary hypertension ECHO COMPLETE Routine 05/21/2025 10:13 AM CDT S/P AVR QUANTIFERON-TB GOLD PLUS Routine 05/16/2025 7:57 AM CDT Encounter for screening for respiratory tuberculosis TRIP CHARGE - LAB ONLY Routine 05/16/2025 7:57 AM CDT Encounter for screening for respiratory tuberculosis QUANTIFERON TB GOLD PLUS Routine 05/16/2025 7:57 AM CDT Encounter for screening for respiratory tuberculosis QUANTIFERON TB GOLD PLUS PURPLE TUBE Routine 05/16/2025 7:57 AM CDT Encounter for screening for respiratory tuberculosis QUANTIFERON TB GOLD PLUS YELLOW TUBE Routine 05/16/2025 7:57 AM CDT Encounter for screening for respiratory tuberculosis QUANTIFERON TB GOLD PLUS GREEN TUBE Routine 05/16/2025 7:57 AM CDT Encounter for screening for respiratory tuberculosis QUANTIFERON TB GOLD PLUS QUIROS TUBE Routine 05/16/2025 7:57 AM CDT Encounter for screening for respiratory tuberculosis QUANTIFERON TB GOLD PLUS PRIMARY Routine 05/16/2025 7:57 AM CDT Encounter for screening for respiratory tuberculosis QUANTIFERON TB GOLD PLUS COLLECTION Routine 05/16/2025 7:57 AM CDT Encounter for screening for respiratory tuberculosis INR Routine 05/12/2025 5:51 AM CDT INR Routine 05/11/2025 5:[address] LUMBAR SPINE W/O CONTRAST Routine 05/10/2025 4:46 PM CDT EKG 12-LEAD, TRACING ONLY Routine 05/10/2025 11:30 AM CDT INR Routine 05/10/2025 5:16 AM CDT XR THORACIC LUMBAR STANDING 2 VIEWS Routine 05/09/2025 7:33 PM CDT MR THORACIC SPINE W/O CONTRAST STAT 05/09/2025 11:00 AM CDT CBC WITH PLATELETS Routine 05/09/2025 4: 50 AM CDT BASIC METABOLIC PANEL (LIMITED OCCURRENCES) Routine 05/09/2025 4:50 AM CDT INR Routine 05/09/2025 4:50 AM CDT CBC WITH PLATELETS AND DIFFERENTIAL (LIMITED OCCURRENCES) STAT 05/08/2025 9:10 PM CDT CBC WITH PLATELETS AND DIFFERENTIAL STAT 05/08/2025 9:10 PM CDT INR STAT 05/08/2025 9:10 PM CDT BASIC METABOLIC PANEL (LIMITED OCCURRENCES) STAT 05/08/2025 9:[address] THORACIC SPINE W/O CONTRAST STAT 05/08/2025 7:[address] CHEST W/O CONTRAST STAT 05/08/2025 7:36 PM CDT LIPID PROFILE Routine 09/20/2024 2:04 PM CLAIMS AGENT RIGHT OF WAY Hyperlipidemia LDL goal <70 TSH WITH FREE T4 REFLEX Routine 04/14/2011 12:18 PM CDT HC MAMMO SCREEN BILATATERAL, INCL CAD WHEN PERF Routine 03/12/2009 2:12 PM CDT HC DEXA BONE DENSITY, >=1 SITE, AXIAL SKELETON Routine 12/13/2006 3:26 PM CLAIMS AGENT RIGHT OF WAY from Last 3 Months or Most Recently Relevant to Health Maintenance Results * XR Thoracic Spine 2 Views [...] EXAM: XR THORACIC SPINE 2 VIEWS LOCATION: [facility] DATE: 06/26/2025 INDICATION: t8 burst fx, upright XR COMPARISON: 05/09/2025. Procedure Note Talia Bennett MD - 06/28/2025 EXAM: XR THORACIC SPINE 2 VIEWS LOCATION: [facility] DATE: 06/26/2025 INDICATION: t8 burst fx, upright XR COMPARISON: 05/09/2025. IMPRESSION: No significant change in chronic anterior wedging compressionfracture at T8. No new fracture. Exaggerated thoracic kyphosis. Normaldisc spaces for age. Sternotomy changes. Yovana Shaw PA-C IMG DIAGNOSTIC IMAGING ORDER JEN Final Result * (ABNORMAL) Basic metabolic panel (05/21/2025 10:34 AM CDT) Sodium 139 135 - 145 mmol/L 05/21/2025 11:04 AM T LABORATORY Potassium 4.2 3.4 - 5.3 mmol/L 05/21/2025 11:04 AM T LABORATORY Chloride 110(H) 98 - 107 mmol/L 05/21/2025 11:04 AM T LABORATORY Carbon Dioxide (CO2) 19(L) 22 - 29 mmol/L 05/21/2025 11:04 AM CDT LABORATORY Anion Gap 10 7 - 15 mmol/L 05/21/2025 11:04 AM CDT LABORATORY Urea Nitrogen 23.0 8.0 - 23.0 mg/dL 05/21/2025 11:04 AM T LABORATORY Creatinine 1.29(H) 0.51 - 0.95 mg/dL 05/21/2025 11:04 AM CDT LABORATORY GFR Estimate 44(L) >60 mL/min/1.7 3m2 05/21/2025 11:04 AM CDT LABORATORY Comment:eGFR calculated usin 2020 CKD-EPI equation. Calcium 9.9 8.8 - 10.4 mg/dL 05/21/2025 11:04 AM CDT LABORATORY Glucose 86 70 - 99 mg/dL 05/21/2025 11:04 AM T LABORATORY Blood STRUCTURE OF RIGHT UPPER LIMB / Unknown Venipuncture / Unknown 05/21/2025 10:34 AM CDT 05/21/2025 10:34 AM CDT Ann Ruiz ORACLE DATABASE DEVELOPER MANAGER SALES AND MARKETING LAB - BLOOD ORDERABLES Fin al Result [facility] [address] [facility] Lab (1st floor, no room number) [place] [address], [facility] * ECHO COMPLETE (05/21/2025 10:13 AM CDT) LVEF 65-70% CARDIOLOGY RESULTS Anatomical Region Laterality Modality Echocardiography 05/21/2025 8:39 AM CDT Narrative 05/21/2025 11:17 AM CDT [id number]^JOSEPH^ANN^E [facility] [address] [place] [address] Name: TANVIR ISSA : 1950 Study Date: 05/21/2025 08:39 AM Age: 74 yrs Gender: Female Patient Location: [facility] Reason For Study: S/P AVR Ordering Physician: [...] Procedure Note Elizabeth Zuñiga MD - 05/21/2025 [id number]^JOSEPH^ANN^ [facility] [address] [place] [address] Name: TANVIR ISSA : 1950 Study Date: 05/21/2025 08:39 AM Age: 74 yrs Gender: Female Patient Location: [facility] Reason For Study: S/P AVR Ordering Physician: [...] Elizabeth Zuñiga MD on 05/21/2025 11:17 AM us Ann Ruiz ORACLE DATABASE DEVELOPER MANAGER SALES AND MARKETING CV ECHO ORDERABLES Edited Result - Final * Trip Charge - LAB ONLY (05/16/2025 7:57 AM CDT) Other TOPOGRAPHY UNKNOWN / Unknown Billing only / Unknown 05/16/2025 7:57 AM CDT 05/16/2025 11:33 AM CDT us Tanika Benoit DO LAB CHARGE PERFORMABLES Ariana vega Result [facility] [address] [id number] * Quantiferon TB Gold Plus (05/16/2025 7:57 AM CDT) Quantiferon-TB Gold Plus Negative Negative 05/18/2025 6:06 AM CDT SPECIALTY CORE/PROT/END O Comment: No interferon gamma response to M.tuberculosis antigens was detected. Infection with M.tuberculosis is unlikely, however a single negative result does not exclude infection. In patients at high risk for infection, a second test should be considered in accordance with the 2017 ATS/IDSA/CDC Clinical Pract ice Guidelines for Diagnosis of Tuberculosis in Adults and Children TB1 Ag minus Nil Value 0.03 IU/mL 05/18/2025 6:06 AM CDT UM SPECIALTY CORE/PROT/END O TB2 Ag minus Nil Value 0.03 IU/mL 05/18/2025 6:06 AM CDT SPECIALTY CORE/PROT/END O Mitogen minus Nil Result 9.92 IU/mL 05/18/2025 6:06 AM CDT SPECIALTY CORE/PROT/END O Nil Result 0.08 IU/mL 05/18/2025 6:06 AM CDT SPECIALTY CORE/PROT/END O Blood STRUCTURE OF RIGHT UPPER LIMB / Unknown Venipuncture / Unknown 05/16/2025 7:57 AM CDT 05/16/2025 1:26 PM CDT us Tanika Benoit DO LAB - MICRO GENERAL ORDERABL ES Final Result UM SPECIALTY CORE/PROT/ENDO UM Specialty Core/Prot/Endo [address] [facility], [address] [place] [address] * Quantiferon TB Gold Plus Purple Tube (05/16/2025 7:57 AM CDT) Quantiferon Mitogen 10.00 IU/mL 05/17/2025 9:52 PM CDT SPECIALTY CORE/PROT/ENDO Blood STRUCTURE OF RIGHT UPPER LIMB / Unknown Venipuncture / Unknown 05/16/2025 7:57 AM CDT 05/16/2025 1:26 PM CDT us Tanika Benoit DO LAB - MICRO GENERAL ORDERABL ES Final Result UM SPECIALTY CORE/PROT/ENDO UM Specialty Core/Prot/Endo [address] [facility], [address] * Quantiferon TB Gold Plus Yellow Tube (05/16/2025 7:57 AM CDT) Quantiferon TB2 Tube 0.11 05/17/2025 9:53 PM CDT SPECIALTY CORE/PROT/ENDO Blood STRUCTURE OF RIGHT UPPER LIMB / Unknown Venipuncture / Unknown 05/16/2025 7:57 AM CDT 05/16/2025 1:26 PM CDT Tanika Nadia Benoit DO LAB - MICRO GENERAL ORDERABL ES Final Result UM SPECIALTY CORE/PROT/ENDO UM Specialty Core/Prot/Endo [address] [facility], [address] * Quantiferon TB Gold Plus Green Tube (05/16/2025 7:57 AM CDT) Quantiferon TB1 Tube 0.11 IU/mL 05/17/2025 9:53 PM CDT SPECIALTY CORE/PROT/ENDO Blood STRUCTURE OF RIGHT UPPER LIMB / Unknown Venipuncture / Unknown 05/16/2025 7:57 AM CDT 05/16/2025 1:26 PM CDT us Tanika Benoit DO LAB - MICRO GENERAL ORDERABL ES Final Result UM SPECIALTY CORE/PROT/ENDO Specialty Core/Prot/Endo [address] [facility], [address] * Quantiferon TB Gold Plus Quiros Tube (05/16/2025 7:57 AM CDT) Quantiferon Nil Tube 0.08 IU/mL 05/17/2025 9:53 PM CDT SPECIALTY CORE/PROT/ENDO Blood STRUCTURE OF RIGHT UPPER LIMB / Unknown Venipuncture / Unknown 05/16/2025 7:57 AM CDT 05/16/2025 1:26 PM CDT us Tanika Nadia Benoit DO LAB - MICRO GENERAL ORDERABL ES Final Result UM SPECIALTY CORE/PROT/ENDO UM Specialty Core/Prot/Endo [address] [facility] [address] [facility], [address] * Quantiferon TB Gold Plus Collection (05/16/2025 7:57 AM CDT) Blood STRUCTURE OF RIGHT UPPER LIMB / Unknown Venipuncture / Unknown 05/16/2025 7:57 AM CDT 05/16/2025 11:33 AM CDT us Tanika Zuniga Kaycee TUCKER LAB - MICRO GENERAL ORDERABL ES Final Result Performing Organization Address City/[facility]/ZIP Co de Phone Number UM SPECIALTY CORE/PROT/ENDO UM Specialty Core/Prot/Endo [address] [facility], [address] [place] [address] * Quantiferon TB Gold Plus Primary (05/16/2025 7:57 AM CDT) Blood STRUCTURE OF RIGHT UPPER LIMB / Unknown Venipuncture / Unknown 05/16/2025 7:57 AM CDT 05/16/2025 1:26 PM CDT us Tanika Zuniga Kaycee TUCKER LAB - MICRO GENERAL ORDERABL ES Final Result UM SPECIALTY CORE/PROT/ENDO UM Specialty Core/Prot/Endo [address] [facility] [address] [facility], [address] * (ABNORMAL) INR (05/12/2025 5:51 AM CDT) Only the most recent of5 resultswithin the time period is included. INR 3.00(H) 0.85 - 1.15 05/12/2025 6:24 AM CDT [facility] PT 30.6(H) 11.8 - 14.8 Seconds 05/12/2025 6:24 AM CDT [facility] Blood STRUCTURE OF RIGHT UPPER LIMB / Unknown Venipuncture / Unknown 05/12/2025 5:51 AM CDT 05/12/2025 6:05 AM CDT us Dawood Kuhn MD LAB - BLOOD ORDERA BLES Final Result [facility] [address] Lab (1st floor, no room number) [place] [address], [facility] * CT Lumbar Spine w/o Contrast (05/10/2025 4:46 PM CDT) Anatomical Region Laterality Modality Spine, SUBRAD CT NEURO, UMP CT SPINE, RAD CT Computed Tomography 05/10/2025 4:46 PM CDT Impressions 05/10/2025 10:03 PM CDT IMPRESSION: 1. Mild age indeterminate but likely old compression fractures involving the inferior endplate of L2 and superior endplates of L3 and L4. 2. No high-grade spinal canal or neural foraminal stenosis. Narrative 05/10/2025 10:03 PM CDT EXAM: CT LUMBAR SPINE W/O CONTRAST LOCATION: [facility] DATE: 05/10/2025 INDICATION: evaluate low back pain after a fall COMPARISON: CT of the abdomen and pelvis dated 11/10/2011 TECHNIQUE: Routine CT Lumbar Spine without IV contrast. Multiplanar reformats. Dose reduction techniques were used. FINDINGS: VERTEBRA: Mild age indeterminate but likely old compression fractures involving the inferior endplate of L2 and superior endplates of L3 on L4. Remaining vertebral body heights are maintained. No other fractures are identified. Very mild levoscoliosis. Otherwise normal vertebral alignment. No posttraumatic subluxation. Mild to moderate facet hypertrophic changes from L4 to S1. Hemangiomas in the L1 and L2 vertebrae. Osteopenia. CANAL/FORAMINA: No central canal stenosis. Mild bilateral L4-L5 foraminal narrowing due to mild disc bulge and facet hypertrophic changes. PARASPINAL: Mild degenerative arthritis sacroiliac joints. Punctate 1-2 mm nonobstructing calcification lower pole left kidney probable simple cysts including peripelvic cysts in both kidneys. Mild atherosclerosis abdominal aorta and iliac arteries. Diverticula in the visualized portions of the sigmoid colon. Prominent fecal material throughout the colon suggests constipation. Procedure Note Deric Noel MD - 05/10/2025 EXAM: CT LUMBAR SPINE W/O CONTRAST LOCATION: [facility] DATE: 05/10/2025 INDICATION: evaluate low back pain after a fall COMPARISON: CT of the abdomen and pelvis dated 11/10/2011 TECHNIQUE: Routine CT Lumbar Spine without IV contrast. Multiplanarreformats. Dose reduction techniques were used. FINDINGS: VERTEBRA: Mild age indeterminate but likely old compression fracturesinvolving the inferior endplate of L2 and superior endplates of L3 on L4.Remaining vertebral body heights are maintained. No other fractures areidentified. Very mild levoscoliosis. Otherwise normal vertebral alignment. No posttraumatic subluxation. Mildto moderate facet hypertrophic changes from L4 to S1. Hemangiomas in theL1 and L2 vertebrae. Osteopenia. CANAL/FORAMINA: No central canal stenosis. Mild bilateral L4-L5 foraminalnarrowing due to mild disc bulge and facet hypertrophic changes. PARASPINAL: Mild degenerative arthritis sacroiliac joints. Punctate 1-2 mmnonobstructing calcification lower pole left kidney probable simple cystsincluding peripelvic cysts in both kidneys. Mild atherosclerosis abdominalaorta and iliac arteries. Diverticula in the visualized portions of the sigmoid colon. Prominentfecal material throughout the colon suggests constipation. IMPRESSION: 1. Mild age indeterminate but likely old compression fractures involvingthe inferior endplate of L2 and superior endplates of L3 and L4. 2. No high-grade spinal canal or neural foraminal stenosis. Leslie Vigil RESTAURANT SHIFT LEADER IMG CT ORDERABLES Final Resu lt * EKG 12-lead, tracing only (05/10/2025 11:30 AM CDT) Systolic Blood Pressure mmHg RADIOLOGY RESULTS Diastolic Blood Pressure mmHg RADIOLOGY RESULTS Ventricular Rate 51 BPM RAD IOLOGY RESULTS Atrial Rate 51 BPM RADIOLOG Y RESULTS IN Interval 174 ms RADIOLOG Y RESULTS QRS Duration 78 ms RADIOLO GY RESULTS QT 462 ms RADIOLOGY RESULTS QTc 425 ms RADIOLOGY RESULTS P Darwin 21 degrees RADIOLOGY RESULTS R AXIS 47 degrees RADIOLOGY RESULTS T Darwin 36 degrees RADIOLOGY RESULTS Interpretation ECG Sinus bradycardia Nonspecific T wave abnormality Abnormal ECG Confirmed by MD HU MICHAEL ([id number]) on 05/10/2025 4:37:54 PM RADIOLOGY RESULTS 05/10/2025 11:3 0 AM CDT 05/10/2025 4:37 PM CDT us Tanika Romo PA-C ECG ORDERABLES Edited Res ult - Final RADIOLOGY RESULTS * XR Thoracic Lumbar Standing 2 Views (05/09/2025 7:33 PM CDT) Anatomical Region Laterality Modality C-spine, T-spine, L-spine Digita l Radiography 05/09/2025 7:33 PM CDT Impressions 05/10/2025 12:06 AM CDT IMPRESSION: The patient had a brace in place which leads to suboptimal visualization of fine detail. There is good anatomic alignment. Again visualized is the subacute fracture the T8 vertebral body along its inferior endplate. Its height is fairly stable in the interval. There is also a stable severe compression fracture of the T5 vertebral body. Narrative 05/10/2025 12:06 AM CDT EXAM: XR THORACIC LUMBAR STANDING 2 VIEWS LOCATION: [facility] DATE: 05/09/2025 INDICATION: TLSO Closed stable burst fx of T8 COMPARISON: 05/08/2025. Procedure Note Sarah Gama MD - 05/10/2025 EXAM: XR THORACIC LUMBAR STANDING 2 VIEWS LOCATION: [facility] DATE: 05/09/2025 INDICATION: TLSO Closed stable burst fx of T8 COMPARISON: 05/08/2025. IMPRESSION: The patient had a brace in place which leads to suboptimalvisualization of fine detail. There is good anatomic alignment. Againvisualized is the subacute fracture the T8 vertebral body along itsinferior endplate. Its height is fairly stable in the interval. There is also a stable severe compression fractureof the T5 vertebral body. us Atif Burch MD IMG DIAGNOSTIC IMAGING ORDER JEN Final Result * Thoracic spine MRI w/o contrast (05/09/2025 11:00 AM CDT) Anatomical Region Laterality Modality Spine, SUBRAD MR NEURO, UMP MR SPINE, RAD MR Magnetic Resonance 05/09/2025 11:0 0 AM CDT Impressions 05/09/2025 11:08 AM CDT IMPRESSION: 1. 40-50% inferior endplate acute/subacute compression fracture of T8 with associated moderate marrow edema and 2 mm retropulsion of the posterior cortex of T8 into the spinal canal. 2. Mild spinal canal narrowing at T8-T9. 3. Moderate chronic compression fracture of T5 and T11. Mild chronic compression fracture of T9. 4. No high-grade neuroforaminal narrowing. Narrative 05/09/2025 11:08 AM CDT EXAM: MR THORACIC SPINE W/O CONTRAST LOCATION: [facility] DATE: 05/09/2025 INDICATION: acute and chronic fractures COMPARISON: Thoracic spine CT 05/08/2025 TECHNIQUE: Routine Thoracic Spine MRI without IV contrast. FINDINGS: Mild dextrocurvature of the upper to midthoracic spine. Normal sagittal alignment. Small hemangiomas at L1 and L2. 40-50% inferior endplate compression fracture of T8 with associated moderate marrow edema and 2 mm retropulsion of the posterior cortex of T8 into the spinal canal. Moderate chronic compression fracture of T5 and T11. Mild chronic compression fracture of T9. Small scattered small Schmorl's from T9 to T12. The anterior longitudinal ligament, the posterior longitudinal ligament, the ligamentum flavum and the posterior ligamentous complex are intact. Mild spinal canal narrowing at T8-T9. No abnormal cord signal. No high-grade right-sided neuroforaminal narrowing. No high-grade left-sided neuroforaminal narrowing. The posterior paraspinal soft tissues are grossly within normal limits. Small bilateral pleural effusions and associated bilateral basilar atelectasis. Normal diameter of the descending aorta. Procedure Note Barbara Brgag MD - 05/09/2025 EXAM: MR THORACIC SPINE W/O CONTRAST LOCATION: [facility] DATE: 05/09/2025 INDICATION: acute and chronic fractures COMPARISON: Thoracic spine CT 05/08/2025 TECHNIQUE: Routine Thoracic Spine MRI without IV contrast. FINDINGS: Mild dextrocurvature of the upper to midthoracic spine. Normalsagittal alignment. Small hemangiomas at L1 and L2. 40-50% inferiorendplate compression fracture of T8 with associated moderate marrow edemaand 2 mm retropulsion of the posterior cortex of T8 into the spinal canal. Moderate chronic compression fracture of T5 and T11. Mild chroniccompression fracture of T9. Small scattered small Schmorl's from T9 toT12. The anterior longitudinal ligament, the posterior longitudinal ligament,the ligamentum flavum and the posterior ligamentous complex are intact. Mild spinal canal narrowing at T8-T9. No abnormal cord signal. Nohigh-grade right-sided neuroforaminal narrowing. No high-grade left-sidedneuroforaminal narrowing. The posterior paraspinal soft tissues are grossly within normal limits.Small bilateral pleural effusions and associated bilateral basilaratelectasis. Normal diameter of the descending aorta. IMPRESSION: 1. 40-50% inferior endplate acute/subacute compression fracture of T8with associated moderate marrow edema and 2 mm retropulsion of theposterior cortex of T8 into the spinal canal. 2. Mild spinal canal narrowing at T8-T9. 3. Moderate chronic compression fracture of T5 and T11. Mild chroniccompression fracture of T9. 4. No high-grade neuroforaminal narrowing. Summer Smith MD [facility] [place] MRI ORDERABLES Final Result * (ABNORMAL) Basic Metabolic Panel (Limited Occurrences) (05/09/2025 4:50 AM CDT) Only the most recent of2 resultswithin the time period is included. [facility] Signature Sodium 139 135 - 145 mmol/L 05/09/2025 5:36 AM CDT LABORATORY Potassium 4.6 3.4 - 5.3 mmol/L 05/09/2025 5:36 AM CDT LABORATORY Chloride 111(H) 98 - 107 mmol/L 05/09/2025 5:36 AM CDT LABORATORY Carbon Dioxide (CO2) 18(L) 22 - 29 mmol/L 05/09/2025 5:36 AM CDT LABORATORY Anion Gap 10 7 - 15 mmol/L 05/09/2025 5:36 AM CDT LABORATORY Urea Nitrogen 21.5 8.0 - 23.0 mg/dL 05/09/2025 5:36 AM CDT [facility] Creatinine 1.22(H) 0.51 - 0.95 mg/dL 05/09/2025 5:36 AM CDT [facility] GFR Estimate 47(L) >60 mL/min/1.7 3m2 05/09/2025 5:36 AM CDT [facility] Comment:eGFR calculated usin 2020 CKD-EPI equation. Calcium 9.7 8.8 - 10.4 mg/dL 05/09/2025 5:36 AM CDT [facility] Glucose 101(H) 70 - 99 mg/dL 05/09/2025 5:36 AM CDT [facility] Blood BLOOD SPECIMEN / Unknown Venipuncture / Unknown 05/09/2025 4:50 AM CDT 05/09/2025 5:09 AM CDT Dawood Kuhn MD LAB - BLOOD ORDERA BLES Final Result [facility] LABORATORY [facility] [address] Lab (1st floor, no room number) [place] [address] * (ABNORMAL) CBC with platelets (05/09/2025 4:50 AM CDT) WBC Count 5.0 4.0 - 11.0 10e3/uL 05/09/2025 5:13 AM CDT [facility] RBC Count 4.11 3.80 - 5.20 10e6/uL 05/09/2025 5:13 AM CDT [facility] Hemoglobin 11.8 11.7 - 15.7 g/dL 05/09/2025 5:13 AM CDT [facility] Hematocrit 35.5 35.0 - 47.0 % 05/09/2025 5:13 AM CDT [facility] MCV 86 78 - 100 fL 05/09/2025 5:13 AM CDT [facility] MCH 28.7 26.5 - 33.0 pg 05/09/2025 5:13 AM CDT [facility] MCHC 33.2 31.5 - 36.5 g/dL 05/09/2025 5:13 AM CDT [facility] RDW 15.1(H) 10.0 - 15.0 % 05/09/2025 5:13 AM CDT [facility] Platelet Count 187 150 - 450 10e3/uL 05/09/2025 5:13 AM CDT [facility] Blood BLOOD SPECIMEN / Unknown Venipuncture / Unknown 05/09/2025 4:50 AM CDT 05/09/2025 5:08 AM CDT us Dawood Kuhn MD LAB - BLOOD ORDERA BLES Final Result [facility] LABORAT[facility] [address] Lab (1st floor, no room number) [place] [address], [facility] * CBC with platelets and differential (05/08/2025 9:10 PM CDT) WBC Count 4.9 4.0 - 11.0 10e3/uL 05/08/2025 9:16 PM CDT [facility] RBC Count 4.21 3.80 - 5.20 10e6/uL 05/08/2025 9:16 PM CDT [facility] Hemoglobin 11.8 11.7 - 15.7 g/dL 05/08/2025 9:16 PM CDT [facility] Hematocrit 36.7 35.0 - 47.0 % 05/08/2025 9:16 PM CDT [facility] MCV 87 78 - 100 fL 05/08/2025 9:16 PM CDT [facility] MCH 28.0 26.5 - 33.0 pg 05/08/2025 9:16 PM CDT [facility] MCHC 32.2 31.5 - 36.5 g/dL 05/08/2025 9:16 PM CDT [facility] RDW 15.0 10.0 - 15.0 % 05/08/2025 9:16 PM CDT [facility] Platelet Count 199 150 - 450 10e3/uL 05/08/2025 9:16 PM CDT [facility] % Neutrophils 63 % 05/08/2025 9:16 PM CDT [facility] % Lymphocytes 22 % 05/08/2025 9:16 PM CDT [facility] % Monocytes 9 % 05/08/2025 9:16 PM CDT [facility] % Eosinophils 5 % 05/08/2025 9:16 PM CDT [facility] % Basophils 0 % 05/08/2025 9:16 PM CDT [facility] % Immature Granulocytes 0 % 05/08/2025 9:16 PM CDT [facility] NRBCs per 100 WBC 0 <1 /100 025 9:16 PM CDT [facility] Absolute Neutrophils 3.1 1.6 - 8.3 10e3/uL 05/08/2025 9:16 PM CDT [facility] Absolute Lymphocytes 1.1 0.8 - 5.3 10e3/uL 05/08/2025 9:16 PM CDT [facility] Absolute Monocytes 0.5 0.0 - 1.3 10e3/uL 05/08/2025 9:16 PM CDT [facility] Absolute Eosinophils 0.3 0.0 - 0.7 10e3/uL 05/08/2025 9:16 PM CDT [facility] Absolute Basophils 0.0 0.0 - 0.2 10e3/uL 05/08/2025 9:16 PM CDT [facility] Absolute Immature Granulocytes 0.0 <=0.4 10e3/uL 05/08/2025 9:16 PM CDT [facility] Absolute NRBCs 0.0 10e3/uL 05/08/2025 9:16 PM CDT [facility] Blood STRUCTURE OF RIGHT UPPER LIMB / Unknown Venipuncture / Unknown 05/08/2025 9:10 PM CDT 05/08/2025 9:13 PM CDT Summer Smith MD LAB - BLOOD ORDERABLES F inal Result LABORATORY [facility] [address] Lab (1st floor, no room number) [place] [address], [facility] * CT Thoracic Spine w/o Contrast (05/08/2025 7:38 PM CDT) Anatomical Region Laterality Modality Spine, SUBRAD CT NEURO, UMP CT SPINE, RAD CT Computed Tomography 05/08/2025 7:38 PM CDT Impressions 05/08/2025 8:04 PM CDT IMPRESSION: 1. Acute burst-type fracture involving the inferior T8 endplate with approximately 45-50% vertebral body height loss and mild retropulsion. No evidence of posterior element involvement. 2. Diffuse osseous demineralization with chronic additional fractures, as detailed, grossly unchanged since 2017. 3. No high-grade spinal canal or foraminal stenosis. Narrative 05/08/2025 8:04 PM CDT EXAM: CT THORACIC SPINE W/O CONTRAST LOCATION: [facility] DATE: 05/08/2025 INDICATION: Right-sided thoracic back pain after fall COMPARISON: Radiographs dated 06/10/2017 TECHNIQUE: Routine CT Thoracic Spine without IV contrast. Multiplanar reformats. Dose reduction techniques were used. FINDINGS: VERTEBRA: Diffuse osseous demineralization limiting the assessment of fine osseous detail. Acute burst-type fracture involving the inferior T8 endplate with estimated vertebral body height loss of 45-50% anteriorly and 2 mm retropulsion. No evidence of posterior element involvement. Allowing for differences in technique, grossly unchanged chronic-appearing fracture involving the superior and inferior T5 endplates with approximately 55% vertebral body height loss. Grossly unchanged mild depression of the inferior T6-T7 endplates with approximately 10% vertebral body height loss without cortical buckling/lucency to suggest acuity. Unchanged prominent superior T11 endplate Schmorl's node with mild chronic-appearing anterior wedging and approximately 20% vertebral body height loss. No traumatic listhesis. Exaggerated thoracic kyphosis and mild dextroconvex curvature. CANAL/FORAMINA: No high-grade spinal canal or foraminal stenosis. PARASPINAL: Mild prevertebral soft tissue swelling centered at T8. Findings of the visualized thorax are reported separately. Procedure Note Filiberto Araya MD - 05/08/2025 EXAM: CT THORACIC SPINE W/O CONTRAST LOCATION: [facility] DATE: 05/08/2025 INDICATION: Right-sided thoracic back pain after fall COMPARISON: Radiographs dated 06/10/2017 TECHNIQUE: Routine CT Thoracic Spine without IV contrast. Multiplanarreformats. Dose reduction techniques were used. FINDINGS: VERTEBRA: Diffuse osseous demineralization limiting the assessment of fineosseous detail. Acute burst-type fracture involving the inferior [id number] with estimated vertebral body height loss of 45-50% anteriorlyand 2 mm retropulsion. No evidence of posterior element involvement. Allowing for differences in technique,grossly unchanged chronic-appearing fracture involving the superior andinferior T5 endplates with approximately 55% vertebral body height loss.Grossly unchanged mild depression of the inferior T6-T7 endplates with approximately 10% vertebral body heightloss without cortical buckling/lucency to suggest acuity. Unchangedprominent superior T11 endplate Schmorl's node with mild chronic-appearinganterior wedging and approximately 20% vertebral body height loss. No traumatic listhesis. Exaggeratedthoracic kyphosis and mild dextroconvex curvature. CANAL/FORAMINA: No high-grade spinal canal or foraminal stenosis. PARASPINAL: Mild prevertebral soft tissue swelling centered at T8.Findings of the visualized thorax are reported separately. IMPRESSION: 1. Acute burst-type fracture involving the inferior T8 endplate withapproximately 45-50% vertebral body height loss and mild retropulsion. Noevidence of posterior element involvement. 2. Diffuse osseous demineralization with chronic additional fractures, asdetailed, grossly unchanged since 2017. 3. No high-grade spinal canal or foraminal stenosis. Summer Smith MD IMG CT ORDERABLES Final Result * Chest CT w/o contrast (05/08/2025 7:36 PM CDT) Anatomical Region Laterality Modality Chest, SUBRAD CT BODY, UMP CT CHEST, RAD CT Computed Tomography 05/08/2025 7:36 PM CDT Impressions 05/08/2025 8:00 PM CDT IMPRESSION: 1. Small bilateral pleural effusions. 2. 4.3 cm fusiform aneurysmal dilation of the ascending aorta. 3. Coronary artery disease and atherosclerotic vascular disease. 4. 2 to 3 mm solid right middle lobe pulmonary nodules, likely infectious or inflammatory, recommend follow-up as below. REFERENCE: Guidelines for Management of Incidental Pulmonary Nodules Detected on CT Images: From the Fleischner Society 2017. Guidelines apply to incidental nodules in patients who are 35 years or older. Guidelines do not apply to lung cancer screening, patients with immunosuppression, or patients with known primary cancer. MULTIPLE NODULES Nodule size <6 mm Low-risk patients: No follow-up needed. High-risk patients: Optional follow-up CT at 12 months. Narrative 05/08/2025 8:00 PM CDT EXAM: CT CHEST W/O CONTRAST LOCATION: [facility] DATE: 05/08/2025 INDICATION: right thoracic pain, fall COMPARISON: 09/03/2015. TECHNIQUE: CT chest without IV contrast. Multiplanar reformats were obtained. Dose reduction techniques were used. CONTRAST: None. FINDINGS: LUNGS AND PLEURA: Scattered 2 to 3 mm pulmonary nodules in the right middle and right upper lobe, the largest measuring 3 mm, likely infectious or inflammatory, recommend follow-up as below. Small bilateral pleural effusions. MEDIASTINUM/AXILLAE: Fusiform aneurysmal dilation of the ascending aorta measuring up to 4.3 cm. Status post median sternotomy and aortic valve replacement. No pericardial effusion. Normal size heart. No lymphadenopathy. CORONARY ARTERY CALCIFICATION: Severe. UPPER ABDOMEN: Gastric band. MUSCULOSKELETAL: Age-indeterminate compression deformities of T5, 8, and T11, please see dedicated CT T spine performed same day. Procedure Note Colin Harding MD - 05/08/2025 EXAM: CT CHEST W/O CONTRAST LOCATION: [facility] DATE: 05/08/2025 INDICATION: right thoracic pain, fall COMPARISON: 09/03/2015. TECHNIQUE: CT chest without IV contrast. Multiplanar reformats wereobtained. Dose reduction techniques were used. CONTRAST: None. FINDINGS: LUNGS AND PLEURA: Scattered 2 to 3 mm pulmonary nodules in the rightmiddle and right upper lobe, the largest measuring 3 mm, likely infectiousor inflammatory, recommend follow-up as below. Small bilateral pleuraleffusions. MEDIASTINUM/AXILLAE: Fusiform aneurysmal dilation of the ascending aortameasuring up to 4.3 cm. Status post median sternotomy and aortic valvereplacement. No pericardial effusion. Normal size heart. Nolymphadenopathy. CORONARY ARTERY CALCIFICATION: Severe. UPPER ABDOMEN: Gastric band. MUSCULOSKELETAL: Age-indeterminate compression deformities of T5, 8, andT11, please see dedicated CT T spine performed same day. IMPRESSION: 1. Small bilateral pleural effusions. 2. 4.3 cm fusiform aneurysmal dilation of the ascending aorta. 3. Coronary artery disease and atherosclerotic vascular disease. 4. 2 to 3 mm solid right middle lobe pulmonary nodules, likely infectiousor inflammatory, recommend follow-up as below. REFERENCE: Guidelines for Management of Incidental Pulmonary Nodules Detected on CTImages: From the Fleischner Society 2017. Guidelines apply to incidental nodules in patients who are 35 years orolder. Guidelines do not apply to lung cancer screening, patients withimmunosuppression, or patients with known primary cancer. MULTIPLE NODULES Nodule size <6 mm Low-risk patients: No follow-up needed. High-risk patients: Optional follow-up CT at 12 months. Summer Smith MD IMG CT ORDERABLES Final Result * Lipid Profile (09/20/2024 2:[address]) Cholesterol 156 <200 mg/dL 09/20/2024 9:[address] [facility] Triglycerides 134 <150 mg/dL 09/20/2024 9:[address] [facility] Direct Measure HDL 56 >=50 mg/dL 2023 9:[address] [facility] LDL Cholesterol Calculated 73 <100 mg/dL 09/20/2024 9:[address] [facility] Non HDL Cholesterol 100 <130 mg/dL 09/20/2024 9:[address] [facility] Patient Fasting > 8hrs? No 09/20/2024 9:16 [address] [facility] Blood STRUCTURE OF LEFT UPPER LIMB / Unknown Venipuncture / Unknown 09/20/2024 2:04 [address] 09/20/2024 2:04 [address] Narrative [facility] - 09/20/2024 9:[address] Cholesterol Desirable: < 200 mg/dL Borderline High: [...] 219 mg/dL Very High: >= 220 mg/dL Ann Bruno Joseph BARROW CNP LAB - BLOOD ORDERABLES Fin al Result LABORATORY [facility] [place] [facility] [address], [address] [place] [address], [facility]ORAT[facility] [address] Lab (1st floor, no room number) [place] [address] * TSH with free T4 reflex (04/14/2011 12:18 PM CDT) TSH 4.60 0.4 - 5.0 mU/L [facility] 04/14/2011 12:1 8 PM CDT 04/14/2011 12:19 PM CDT Kade Bosch MD LAB - BLOOD ORDERABLES Ariana l Result Performing Organization Address [facility] Co de Phone Number [facility] [address] [place] [address] * SCREENING MAMMOGRAPHY DIGITAL (BILAT) (03/12/2009 2:12 [...] initial interpretation and agree with the findings. Kade Bosch MD SPECIAL IMAGING STUDIES Aric elaina * DEXA,BONE DENSITY,AXIAL SKELETON (12/13/2006 3:26 PM [address] OF WAY) Anatomical Region Laterality Modality Other 12/13/2006 3:26 [address] OF [address] Impressions 12/15/2006 4:42 PM [address] OF [address] Conclusions: Patient Name: Tanvir Issa Ordering Provider: Dr. Ondina Bosch MR#: [id number] : 54 DOScan: 12/13/06 [id number] Comparison: 02/11/04 Densitometer make/model: [id number] Technical quality: For the purpose of this exam, the lumbar spine is represented by L1 - L2. Wrist was not scanned in 2003 As the non-dominant left wrist had been fractured, the dominant right wrist was scanned. Left hip slightly more abducted on 2006 scan. TO VIEW READABLE FORMATTED RESULTS TABLE, GO TO: [employer] (CHART VIEWER), DXA SCAN - MINENKO 1. Based on the lowest and valid [...] osteoporosis. 7. Clinical correlation recommended. Principal result hanger off: Lazaro Negro MD, CCD [employer]man[employer] production associate Division of Rheumatic and Autoimmune Diseases [facility] [phone] Kade Bosch MD SPECIAL IMAGING STUDIES Aric elaina from Last 3 Months or Most Recently Relevant to Health Maintenance Insurance [facility] Advance Directives For more information, please contact: [phone] * Full Code (Latest Code Status on File) Date Activated Date Inactivated Comments 05/12/2025 10:27 AM Question Answer Comments Code status determined by: Discussion with patie nt/ legal decision maker * Full Code Date Activated Date Inactivated Comments 05/09/2025 12:03 AM 05/12/2025 10:27 AM All basic a nd advanced life-sustaining interventions are performed as appropriate Question Answer Comments Code status determined by: Discussion with patie nt/ legal decision maker * Full Code Date Activated Date Inactivated Comments 09/23/2012 10:37 AM 01/25/2019 8:13 AM Care Teams Beater Worker Helper Relationship Specialty Start Date End Date Kimberly Tierney PA-C [facility] [address] [place] [address] PCP - General 07/20/23 Ann Ruiz, [employer]LE DATABASE DEVELOPER MANAGER [employer] [address] [place] [id number] Nurse Practitioner Cardiovascular Disease 04/14/24 Ann Ruiz, [employer]ACLE DATABASE DEVELOPER MANAGER [employer] [address] [place] [address] Assigned Heart and Vascular Provider 10/02/24 Donald Sommers MD [address] [place] [address] Cardiovascular Disease 02/01/25
--- OUTSIDE RECORDS SUMMARY | 2025-07-02 13:18 | XMS_ITS | Encounter Summary ---
Author Organization [place] Address [facility] [place] [address] Care Team Providers Care Laser Engineer Name Role Phone Claritza Delgado MD Primary Care Provider [phone] Maria L Ornelas MD Primary Care Provider Unavailabl e Ariel Young MD Primary Care Provider + VatDonald degroot MD Unavailable [phone] Alesha Ballesteros PA-C Unavailable + [phone] Kimberly Tierney-C Primary Care Provider [phone] Donald Sommers MD Unavailable [phone] Joseph, March E GELATIN DYNAMITE PACKING OPERATOR CONTROL TOWER RADIO OPERATOR Unavailable [phone] Joseph, Ann E GELATIN DYNAMITE PACKING OPERATOR CONTROL TOWER RADIO OPERATOR Unavailable [phone] VatDoanld degroot MD Unavailable Emy Nash [facility] Unavailable Beatriz Dyson PA-C Unavailable [phone] Encounter Details Date Type Department Care Team (Late st Contact Info) Description 09/06/2012 Office Visit-[facility] [place] [id number] [facility] [address] [place] [address] Unknown, Doctor, Social History Tobacco Use Types Packs/Day Years Used Date Smoking Tobacco: Former Cigarettes Comments:4 cigarettes a crista h for 6 months Alcohol Use Standard Drinks/Week Comments No 0 (1 standard drink = 0.6 oz pur e alcohol) Comments No Sex and Gender Information Value Date Recorded Sex Assigned at Not on file Legal Sex Female 3:37 AM SCREEN EXAMINER Gender Identity Not on file Sexual Orientation Not on file documented as of this encounter Progress Notes * Unknown, DoctorMD - 09/06/2012 7:56 AM CST Progress Note Created by: Marjan Fabian PA-C DATE: 09/06/2012 Dictated stat to TANVIR OSBORN DATE OF : 1950 AGE: [id number] years old Referring Physician: CLARITZA DELGADO Referring Clinic: [facility] CURRENT DIAGNOSES 1. Aortic Valve Disorders, [...] Use - always; Residence - lives in [place] year round; Place of - [place]; Hours Worked - none; REVIEW OF SYSTEMS [...] on filedocumented in this encounter Care Teams Laser Engineer Relationship Specialty Start Date End Date Claritza Delgado MD PCP - General 07/16/12 07/29/16 Maria L Onrelas MD PCP - General Family Practice 07/30/16 09/22/18 Ariel Young MD PCP - General 09/23/18 07/19/23 Kimberly Tierney PA-C [address] [place] [address] PCP - General 07/20/23 Donald Sommers MD [address] [place] [address] Assigned Heart and Vascular Provider 10/27/20 04/23/23 Alesha Ballesteros PA-C [address] [place] [address] [address] [place] [address] Assigned Surgical Provider 12/25/20 01/17/22 Donald Sommers MD [address] [place] [address] Assigned Heart and Vascular Provider 07/24/23 10/01/24 Ann Ruiz, DANIAL CONTROL TOWER RADIO OPERATOR [address] [place] [address] Nurse Practitioner Cardiovascular Disease 04/14/24 Ann Ruiz, DANIAL CONTROL TOWER RADIO OPERATOR [address] [place] [address] Assigned Heart and Vascular Provider 10/02/24 Donald Sommers MD [address] [place] [address] Cardiovascular Disease 02/01/[address] [facility] [address] [place] [id number] 05/13/25 05/25/25 Beatriz Dyson PA-C [address] [place] [id number] Physician Computer System Validation Specialist Physician Computer System Validation Specialist - Medical 05/13/25 05/25/25 documented as of this encounter
--- OUTSIDE RECORDS SUMMARY | 2025-07-02 13:18 | XMS_ITS | Clinical Summary ---
[facility] Address [address] [place] [address] Care Team Providers Care Glue Machine Operator Name Role Phone Dawood Gambino MD Primary Care Provider Unavail able Source Comments You are receiving this document as you are listed as the primary care provider,follow-up provider, or the patient has been referred to you for consultation.This is in compliance with the Medicare and[facility] EHR Incentive Program,which states Providers who transition their patient to another setting of careor provider of care or refers their patient to another provider of care shouldprovide summary care record for each transition of care or referral. [email or web address] Allergies No known active allergies Medications ibuprofen [...] Vaccine (2 - Tdap) 09/16/2022 09/16/2012, 02/05/2004 Medicare Annual Wellness Visit 10/11/2024 COVID-19 Vaccine (1 - 2023-2 5 season) 2025 Influenza Vaccine (#1) 2025 RSV Vaccine (1 - 1-dose 75+ [...] patient's age to complete this topic [place] [address] [place] [address] [employer] MED[employer]ARE Care Teams Glue Machine Operator Relationship Specialty Start Date End Date Dawood Gambino MD PCP - General 01/11/11
[2025-07-02 13:24] VITALS: BP 142/90; PULSE 67; RESP 16; TEMP 35.7; O2SAT 100
--- NOTE | 2025-07-02 14:14 | CRLHL7_ITS ---
For Patients: As a result of the Century Cures Act, medical imaging exams and procedure reports are released immediately into your electronic medical record. You may view this report before your referring provider. If you have questions, please contact your health care provider. INDICATION: Right upper quadrant pain TECHNIQUE: Axial images were obtained from the diaphragm to the pubic symphysis. Reformats were obtained in the coronal and sagittal plane. IV Contrast: None Oral Contrast: None COMPARISON: None. FINDINGS: Lower chest: Status post aortic valve replacement. Pulmonary nodules at the right middle and right lower lobes, largest measuring 2 millimeters. Liver: Unremarkable. Normal in size and attenuation. No masses. Gallbladder and bile ducts: Unremarkable. No stones or inflammation. No biliary dilatation. Spleen: 7 millimeter splenic cyst. Pancreas: Unremarkable. No mass or inflammation. Adrenal glands: Unremarkable. No nodules. Kidneys: 1 millimeter nonobstructing stone left kidney. Bilateral renal cysts. No hydronephrosis. No ureteral stones seen. Vasculature: Atherosclerosis without abdominal aortic aneurysm. GI tract: Status post gastric lap band. Stomach decompressed. No dilated loops of large or small intestine. Colonic diverticulosis without localizing inflammation. Pelvis: Unremarkable. Bones: Calcifications within the subcutaneous tissues, possibly prior injection site or areas of scarring. Mild sclerosis within the left superior pubic ramus and a linear pattern possibly an old healed fracture. Prominent Schmorl`s node T11. Median sternotomy wires partially included on the exam. IMPRESSION: 1. Nephrolithiasis without evidence of ureteral stone or hydronephrosis. 2. No dilated loops of large or small intestine. Colonic diverticulosis. 3. Right basilar pulmonary nodules measuring up to 2 millimeters. In a low risk patient, no further follow-up is required. In a high-risk patient, follow-up chest CT can be considered in 12 months. Please note that all CT scans at this facility use dose modulation, iterative reconstruction, and/or weight-based dosing when appropriate to reduce radiation dose to as low as reasonably achievable. Dictated by Mark Siu MD @ 07/02/2025 3:20:42 PM (Electronically Signed)
--- NOTE | 2025-07-02 14:19 | ED.ABDPAIN ---
HPI - Abdominal Pain General Date Seen: 07/02/25 <Ricky Nowak MD - Last Filed: 07/03/25 08:43> Chief Complaint: Abdominal Pain <Ricky Nowak MD - Last Filed: 07/03/25 08:43> Stated Complaint: pain in right side <Ricky Nowak MD - Last Filed: 07/03/25 08:43> Time Seen by Provider: 07/02/25 14:05 <Ricky Nowak MD - Last Filed: 07/03/25 08:43> Source: patient, RN notes reviewed and old records reviewed <Ricky Nowak MD - Last Filed: 07/03/25 08:43> Mode of arrival: ambulatory <Ricky Nowak MD - Last Filed: 07/03/25 08:43> Limitations: no limitations <Ricky Nowak MD - Last Filed: 07/03/25 08:43> History of Present Illness HPI narrative: Patient is a 74-year-old female who presents here with right upper quadrant pain that she has had now been for couple months she says is gradually worsening, there all the time worse when she takes a deep breath in, which she lays flat she feels a bulge in this area. She said this is been for couple months, she does have a history of a fall in April of which she has a T8 fracture and wears an [place] brace. She was taking pain medications that time, she thought she might be constipated but has been taking MiraLax for the last week and still has the discomfort. She says there is no radiation of pain anywhere, does not go to her back is not worsen when she eats, there has been no nausea no vomiting. She has found no pain medications at work for this. She called her clinic today and they directed her here, Patient has a history of hemiplegic migraines were she gets chronic narcotics along with IM Demerol <iRcky Nowak MD - Last Filed: 07/03/25 08:43> MD elicited complaint: abdominal pain <Ricky Nowak MD - Last Filed: 07/03/25 08:43> Pain Consistency: constant <Ricky Nowak MD - Last Filed: 07/03/25 08:43> Location: RUQ <Ricky Nowak MD - Last Filed: 07/03/25 08:43> Severity: moderate <Ricky Nowak MD - Last Filed: 07/03/25 08:43> Quality: stabbing <Ricky Nowak MD - Last Filed: 07/03/25 08:43> Radiation: RUQ <Ricky Nowak MD - Last Filed: 07/03/25 08:43> Migration to: no migration <Ricky Nowak MD - Last Filed: 07/03/25 08:43> Exacerbating factors: movement <Ricky Nowak MD - Last Filed: 07/03/25 08:43> Associated symptoms: denies other symptoms <Ricky Nowak MD - Last Filed: 07/03/25 08:43> Related Data Home Medications: Home Medications ?Medication ?Instructions ?Recorded ?Confirmed meperidine 100 mg/mL injection 100 mg IM ONCE PRN 05/06/22 05/30/25 solution bimatoprost 0.01 % eye drops drp ophthalmic (eye) 08/28/22 05/30/25 ([place]umigan) oxycodone-acetaminophen 5 mg-325 1 tab PO PRN 08/28/22 05/30/25 mg tablet timolol maleate 0.25 % eye drops 1 drp ophthalmic (eye) BID 08/28/22 05/30/25 diphenhydramine HCl 50 mg/mL 50 mg IM Q4-6H PRN 04/21/23 05/30/25 injection solution metoprolol succinate 25 mg 25 mg PO QDAY 01/04/25 05/30/25 tablet,extended release 24 hr Previous Rx's ?Medication ?Instructions ?Recorded warfarin 2 mg tablet 2 mg PO DIRECTED #90 tabs 02/11/23 cholecalciferol (vitamin D3) 25 See Rx Instructions .Route 01/04/24 mcg (1,000 unit) tablet .COMPLEX #90 tabs hydroxyzine HCl 50 mg tablet 50 mg PO 3XD PRN for 07/06/24 nausea/vomiting #270 tabs warfarin 4 mg tablet 4 mg PO DIRECTED #40 tabs 08/23/24 albuterol sulfate 90 mcg/actuation 2 inh inhalation Q6-8H #8.5 grams 01/03/25 aerosol inhaler atorvastatin 80 mg tablet 80 mg PO .HS #90 tabs 01/03/25 famotidine 20 mg tablet 20 mg PO QHS #90 tabs 01/03/25 levothyroxine 100 mcg tablet 100 mcg PO DAILY #90 tabs 01/03/25 losartan 25 mg tablet 25 mg PO DAILY #90 tabs 01/03/25 topiramate 100 mg tablet 100 mg PO QHS #90 tabs 01/03/25 warfarin 3 mg tablet 3 mg PO DAILY #90 tabs 01/05/25 aspirin 81 mg tablet,delayed 81 mg PO DAILY #90 tabs 03/06/25 release amoxicillin 500 mg capsule 2,000 mg (4 x 500 mg) PO ONCE #4 03/21/25 caps warfarin 2 mg tablet 2 mg PO .qd #90 tabs 03/28/25 <Ricky Nowak MD - Last Filed: 07/03/25 08:43> Review of Systems Status of ROS Reports: 10 or more systems reviewed and unremarkable except as noted in History and below <Ricky Nowak MD - Last Filed: 07/03/25 08:43> [facility] Medical History: Medical History Pulmonary nodule ?R91.1 - Solitary pulmonary nodule (ICD-10) History of spinal fracture ?Z87.81 - Personal history of (healed) traumatic fracture (ICD-10) Epistaxis ?R04.0 - Epistaxis (ICD-10) Depression ?F32.A - Depression, unspecified (ICD-10) Incidental pulmonary nodule ?R91.1 - Solitary pulmonary nodule (ICD-10) History of compression fracture of spine ?Z87.81 - Personal history of (healed) traumatic fracture (ICD-10) <Ricky Nowak MD - Last Filed: 07/03/25 08:43> Surgical History: Surgical History History of right cataract extraction ?Z98.41 - Cataract extraction status, right eye (ICD-10) History of repair of left rotator cuff (02/22/19) ?Z98.890 - Other specified postprocedural states (ICD-10) Status post transposition of nerve ?Z98.890 - Other specified postprocedural states (ICD-10) History of cataract extraction with lens replacement History of colonoscopy ?Z98.890 - Other specified postprocedural states (ICD-10) History of tubal ligation ?Z98.51 - Tubal ligation status (ICD-10) History of appendectomy ?Z90.49 - Acquired absence of other specified parts of digestive tract (ICD-10) History of laparoscopic adjustable gastric banding ?Z98.84 - Bariatric surgery status (ICD-10) History of aortic valve replacement ?Z95.2 - Presence of prosthetic heart valve (ICD-10) <Ricky Nowak MD - Last Filed: 07/03/25 08:43> Family History: Family History Mother Diabetes Father Heart disease <Ricky Nowak MD - Last Filed: 07/03/25 08:43> Social History: Social History Narrative: does not drink alcohol, does not use illicit drugs, nonsmoker What is your current living situation?: I presently have a place to live Problems where you live: no known problems In the past 12 months, utilities in danger of being shut off: no In past 12 months, lack of transportation kept you from medical appts, meetings, work, or getting things needed for daily living: no In the past 12 mos, have been you worried that your food would run out before you had money to buy more?: never true In the past 12 mos, the food you bought just didn't last and you didn't have money to buy more?: never true Smoking Status: Never smoker Do you use any of these nicotine containing products: None Second hand tobacco smoke exposure: No How often do you have a drink containing alcohol: never AUDIT-C Alcohol total score: 0 Non-prescribed substance use: denies use How often does anyone, including family, friends and others, physically hurt you: never How often does anyone, including family, friends and others, insult or talk down to you: never How often does anyone, including family, friends and others, threaten you with harm: never How often does anyone, including family, friends and others, scream or curse at you: never <Ricky Nowak MD - Last Filed: 07/03/25 08:43> Exam Narrative: Exam Narrative: On examination she is in no apparent distress she is seen in room 4, speaking to me normally pupils equal round reactive to light there is no scleral icterus redness oropharynx normal her chest is good air entry bilaterally no wheezing crackles noted she has mechanical valve, I can hear the click, of S2. No murmurs are noted, her abdomen shows some tenderness in the right upper quadrant on palpation I can almost feel a little bit of of swelling, although I got her to lay down and not able to reduce whenever it is, and I wonder if this is maybe an abdominal hernia. Does not appear to be overlying any of her incisions from her abdominal procedures. No other masses are noted bowel sounds are normal there is no peritoneal signs, but of a positive Multani's test when she takes a deep breath in. Lower extremities are otherwise normal, there is no evidence of any edema swelling. <Ricky Nowak MD - Last Filed: 07/03/25 08:43> Const: Vital Signs, click to edit/add: Vital Signs - 24 hr 07/02/25 13:24 07/02/25 15:53 Temperature 96.3 F L Pulse Rate [Pulse Oximeter] 67 58 L Respiratory Rate 16 16 Blood Pressure [Ri ght Upper Arm] 142/90 H 143/76 H Pulse Oximetry 100 100 Oxygen Delivery Me thod Room Air <Ricky Nowak MD - Last Filed: 07/03/25 08:43> Vital Signs, click to edit/add: Vital Signs - 24 hr 07/02/25 13:24 07/02/25 15:53 Temperature 96.3 F L Pulse Rate [Pulse Oximeter] 67 58 L Respiratory Rate 16 16 Blood Pressure [Ri ght Upper Arm] 142/90 H 143/76 H Pulse Oximetry 100 100 Oxygen Delivery Me thod Room Air <Hal Holcomb MD - Last Filed: 07/02/25 17:22> Documenting provider has reviewed patient's vital signs: yes <Ricky Nowak MD - Last Filed: 07/03/25 08:43> Course Reevaluation(s) Time of Reevaluation #1: 16:05 <Ricky Nowak MD - Last Filed: 07/03/25 08:43> Reevaluation #1: Patient signed over to my partner to follow up labs and ultrasound <Ricky Nowak MD - Last Filed: 07/03/25 08:43> Vital Signs Vital signs: Initial Vital Signs Temperature 96.3 F L 07/02/25 13:24 Temperature Source Temporal Artery Scan 07/02/25 13:24 Pulse Rate 67 07/02/25 13:24 Pulse Rhythm Regular 07/02/25 13:24 Respiratory Rate 16 07/02/25 13:24 Blood Pressure 142/90 H 07/02/25 13:24 Blood Pressure Mean 107 H 07/02/25 13:24 Blood Pressure Position Sitting 07/02/25 13:24 Pulse Oximetry 100 07/02/25 13:24 Oxygen Delivery Method Room Air 07/02/25 13:24 Vital Signs Temperature 96.3 F L 07/02/25 13:24 Pulse Rate 67 07/02/25 13:24 Respiratory Rate 16 07/02/25 13:24 Blood Pressure 142/90 H 07/02/25 13:24 Pulse Oximetry 100 07/02/25 13:24 Oxygen Delivery Method Room Air 07/02/25 13:24 Temperature 96.3 F L 07/02/25 13:24 Pulse Rate 58 L 07/02/25 15:53 Respiratory Rate 16 07/02/25 15:53 Blood Pressure 143/76 H 07/02/25 15:53 Pulse Oximetry 100 07/02/25 15:53 Oxygen Delivery Method Room Air 07/02/25 13:24 <Ricky Nowak MD - Last Filed: 07/03/25 08:43> Initial Vital Signs Temperature 96.3 F L 07/02/25 13:24 Temperature Source Temporal Artery Scan 07/02/25 13:24 Pulse Rate 67 07/02/25 13:24 Pulse Rhythm Regular 07/02/25 13:24 Respiratory Rate 16 07/02/25 13:24 Blood Pressure 142/90 H 07/02/25 13:24 Blood Pressure Mean 107 H 07/02/25 13:24 Blood Pressure Position Sitting 07/02/25 13:24 Pulse Oximetry 100 07/02/25 13:24 Oxygen Delivery Method Room Air 07/02/25 13:24 Vital Signs Temperature 96.3 F L 07/02/25 13:24 Pulse Rate 67 07/02/25 13:24 Respiratory Rate 16 07/02/25 13:24 Blood Pressure 142/90 H 07/02/25 13:24 Pulse Oximetry 100 07/02/25 13:24 Oxygen Delivery Method Room Air 07/02/25 13:24 Temperature 96.3 F L 07/02/25 13:24 Pulse Rate 58 L 07/02/25 15:53 Respiratory Rate 16 07/02/25 15:53 Blood Pressure 143/76 H 07/02/25 15:53 Pulse Oximetry 100 07/02/25 15:53 Oxygen Delivery Method Room Air 07/02/25 13:24 <Hal Holcomb MD - Last Filed: 07/02/25 17:22> MDM - Abdominal Pain MDM Narrative Medical decision making narrative: During the evaluation of this patient I considered multiple differential diagnosis including life-threatening differentials which are appendicitis, aortic aneurysm, mesenteric ischemia, bowel perforation, ectopic , volvulus and bowel obstruction, other differential diagnosis include but are not limited to inflammatory bowel disease, cholecystitis, pancreatitis, hepatitis, gastritis, GERD, diverticulitis, peptic ulcer disease, pyelonephritis/UTI, renal colic/stone, pelvic inflammatory disease, cervicitis, endometritis, intrauterine , dysfunctional uterine bleeding, ovarian cyst/torsion, spontaneous as well as other etiologies <Ricky Nowak MD - Last Filed: 07/03/25 08:43> During the evaluation of this patient I considered multiple differential diagnosis including life-threatening differentials which are appendicitis, aortic aneurysm, mesenteric ischemia, bowel perforation, ectopic , volvulus and bowel obstruction, other differential diagnosis include but are not limited to inflammatory bowel disease, cholecystitis, pancreatitis, hepatitis, gastritis, GERD, diverticulitis, peptic ulcer disease, pyelonephritis/UTI, renal colic/stone, pelvic inflammatory disease, cervicitis, endometritis, intrauterine , dysfunctional uterine bleeding, ovarian cyst/torsion, spontaneous as well as other etiologies CT and ultrasound images returned with no acute findings to explain this patient's pain. Additionally lab results are also reassuring. The patient has very distinct reproducible pain on her right lower anterior ribs when palpating in this area and when taking a deep breath. She did have a fracture of her T8 vertebrae which also may be radiating into this area. She is currently wearing of rib brace and wonders if this may be contributing to her discomfort. She does have pain medicine that she can use if needed. 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 <Hal Holcomb MD - Last Filed: 07/02/25 17:22> Medical Records Attestation: I reviewed the patient's medical records. <Ricky Nowak MD - Last Filed: 07/03/25 08:43> Lab Data Labs: Lab Results 07/02/25 07/02/25 Range/Units 14:15 14:27 WBC 3.83 L (4.50-11.00) K/uL RBC 4.30 (4.00-5.20) m/uL Hgb 12.5 (12.0-16.0) gm/dL Hct 37.9 (33.0-51.0) % MCV 88 (80-100) fL MCH 29 (26-34) pg MCHC 33 (32-36) gm/dL RDW Coeff of Fan 14.4 (11.5-15.5) % Plt Count 233 (140-440) K/uL Neut % (Auto) 69.1 (42.0-72.0) % Lymph % (Auto) 20.4 (20-44) % [place] % (Auto) 8.4 (0.0-11.0) % Eos % (Auto) 1.3 (0.0-7.0) % Baso % (Auto) 0.5 (0.0-3.0) % Neut # (Auto) 2.60 (1.7-7.0) K/uL Lymph # (Auto) 0.80 L (0.90-2.90) K/uL [place] # (Auto) 0.30 (0.00-0.90) K/UL Eos # (Auto) 0.00 (0.00-0.50) K/uL Baso # (Auto) 0.00 (0.00-0.30) K/uL Abs Immat Gran (auto) 0.00 (0.00-0.30) K/uL Imm/Tot Granulo (auto) 0.3 % Sodium 138 (135-149) mmol/L Potassium 4.1 (3.6-5.1) mmol/L Chloride 109 (96-114) mmol/L Carbon Dioxide 20 (20-32) mmol/L Anion Gap 9 (7-15) mEq/L BUN 22 (7-30) mg/dL Creatinine 1.3 (0.5-1.5) mg/dL Estimated GFR 44 ml/min Glucose 110 (60-115) mg/dL Calcium 10.4 (8.4-10.6) mg/dL Total Bilirubin 0.7 (0.1-1.5) mg/dL Direct Bilirubin 0.2 (0.0-0.5) mg/dL AST 30 (12-35) U/L ALT 23 (4-35) U/L Alkaline Phosphatase 95 (40-150) U/L C-Reactive Protein < 0.5 L (0.5-1.0) mg/dL Total Protein 7.3 (6.0-8.3) g/dL Albumin 4.1 (3.3-5.0) g/dL Amylase 113 H (18-89) U/L Lipase 327 H (23-300) U/L POC Troponin I 0.01 (0.01-0.04) ng/ml <Ricky Nowak MD - Last Filed: 07/03/25 08:43> Lab Results 07/02/25 07/02/25 Range/Units 14:15 14:27 WBC 3.83 L (4.50-11.00) K/uL RBC 4.30 (4.00-5.20) m/uL Hgb 12.5 (12.0-16.0) gm/dL Hct 37.9 (33.0-51.0) % MCV 88 (80-100) fL MCH 29 (26-34) pg MCHC 33 (32-36) gm/dL RDW Coeff of Fan 14.4 (11.5-15.5) % Plt Count 233 (140-440) K/uL Neut % (Auto) 69.1 (42.0-72.0) % Lymph % (Auto) 20.4 (20-44) % [place] % (Auto) 8.4 (0.0-11.0) % Eos % (Auto) 1.3 (0.0-7.0) % Baso % (Auto) 0.5 (0.0-3.0) % Neut # (Auto) 2.60 (1.7-7.0) K/uL Lymph # (Auto) 0.80 L (0.90-2.90) K/uL [place] # (Auto) 0.30 (0.00-0.90) K/UL Eos # (Auto) 0.00 (0.00-0.50) K/uL Baso # (Auto) 0.00 (0.00-0.30) K/uL Abs Immat Gran (auto) 0.00 (0.00-0.30) K/uL Imm/Tot Granulo (auto) 0.3 % Sodium 138 (135-149) mmol/L Potassium 4.1 (3.6-5.1) mmol/L Chloride 109 (96-114) mmol/L Carbon Dioxide 20 (20-32) mmol/L Anion Gap 9 (7-15) mEq/L BUN 22 (7-30) mg/dL Creatinine 1.3 (0.5-1.5) mg/dL Estimated GFR 44 ml/min Glucose 110 (60-115) mg/dL Calcium 10.4 (8.4-10.6) mg/dL Total Bilirubin 0.7 (0.1-1.5) mg/dL Direct Bilirubin 0.2 (0.0-0.5) mg/dL AST 30 (12-35) U/L ALT 23 (4-35) U/L Alkaline Phosphatase 95 (40-150) U/L C-Reactive Protein < 0.5 L (0.5-1.0) mg/dL Total Protein 7.3 (6.0-8.3) g/dL Albumin 4.1 (3.3-5.0) g/dL Amylase 113 H (18-89) U/L Lipase 327 H (23-300) U/L POC Troponin I 0.01 (0.01-0.04) ng/ml <Hal Holcomb MD - Last Filed: 07/02/25 17:22> Imaging Data CT scan - abdomen: Attestation: I have reviewed the pertinent imaging results. <Ricky Nowak MD - Last Filed: 07/03/25 08:43> Radiologist's impression: [address] [address] Diagnostic Imaging Report Patient: Kari Garcia MR#: [id number] : 1950 Acct:[id number] Loc: ED Service Date: 07/02/[address]: Ordering Physician: Ricky Nowak M.D. Date of Service: 07/02/25 Procedure(s): CT abdomen pelvis wo con Accession Number(s): [id number] cc: Kimberly DONALD; Ricky Nowak M.D.~ For Patients: As a result of the Cures Act, medical imaging exams and procedure reports are released immediately into your electronic medical record. You may view this report before your referring provider. If you have questions, please contact your health care provider. INDICATION: Right upper quadrant pain TECHNIQUE: Axial images were obtained from the diaphragm to the pubic symphysis. Reformats were obtained in the coronal and sagittal plane. IV Contrast: None Oral Contrast: None COMPARISON: None. FINDINGS: Lower chest: Status post aortic valve replacement. Pulmonary nodules at the right middle and right lower lobes, largest measuring 2 millimeters. Liver: Unremarkable. Normal in size and attenuation. No masses. Gallbladder and bile ducts: Unremarkable. No stones or inflammation. No biliary dilatation. Spleen: 7 millimeter splenic cyst. Pancreas: Unremarkable. No mass or inflammation. Adrenal glands: Unremarkable. No nodules. Kidneys: 1 millimeter nonobstructing stone left kidney. Bilateral renal cysts. No hydronephrosis. No ureteral stones seen. Vasculature: Atherosclerosis without abdominal aortic aneurysm. GI tract: Status post gastric lap band. Stomach decompressed. No dilated loops of large or small intestine. Colonic diverticulosis without localizing inflammation. Pelvis: Unremarkable. Bones: Calcifications within the subcutaneous tissues, possibly prior injection site or areas of scarring. Mild sclerosis within the left superior pubic ramus and a linear pattern possibly an old healed fracture. Prominent Schmorl`s node T11. Median sternotomy wires partially included on the exam. IMPRESSION: 1. Nephrolithiasis without evidence of ureteral stone or hydronephrosis. 2. No dilated loops of large or small intestine. Colonic diverticulosis. 3. Right basilar pulmonary nodules measuring up to 2 millimeters. In a low risk patient, no further follow-up is required. In a high-risk patient, follow-up chest CT can be considered in 12 months. Please note that all CT scans at this facility use dose modulation, iterative reconstruction, and/or weight-based dosing when appropriate to reduce radiation dose to as low as reasonably achievable. Dictated by Mark Siu MD @ 07/02/2025 3:20:42 PM (Electronically Signed) <Ricky Nowak MD - Last Filed: 07/03/25 08:43> ECG Data Attestation: I personally reviewed and interpreted this ECG as follows: <Ricky Nowak MD - Last Filed: 07/03/25 08:43> ECG interpretation date: 07/02/25 <Ricky Nowak MD - Last Filed: 07/03/25 08:43> Interpretation: EKG shows mild sinus bradycardia with a ventricular rate of 54, normal QRS at 76 milliseconds, QT at 460 QTC of 436. No acute ST wave changes. <Ricky Nowak MD - Last Filed: 07/03/25 08:43> Discharge Plan Discharge Clinical Impression: Acute chest wall pain <Ricky Nowak MD - Last Filed: 07/03/25 08:43> Patient Disposition: Home, Self-Care <Ricky Nowak MD - Last Filed: 07/03/25 08:43> Condition: Stable <Ricky Nowak MD - Last Filed: 07/03/25 08:43> Additional Instructions: Use pain medicines as prescribed and needed. Follow up with MD or return if worsening. Okay to discontinue wearing the rib brace as this may contribute to your current symptoms. <Ricky Nowak MD - Last Filed: 07/03/25 08:43> Prescriptions: No Action diphenhydramine HCl 50 mg/mL solution 50 mg IM Q4-6H PRN timolol maleate 0.25 % drops 1 drp ophthalmic (eye) BID oxycodone-acetaminophen 5-325 mg tablet 1 tab PO PRN [place] 0.01 % drops ophthalmic (eye) albuterol sulfate 90 mcg/actuation HFA aerosol inhaler 2 inh inhalation Q6-8H Qty: 8.5 3RF atorvastatin 80 mg tablet 80 mg PO .HS Qty: 90 3RF famotidine 20 mg tablet 20 mg PO QHS Qty: 90 3RF levothyroxine 100 mcg tablet 100 mcg PO DAILY Qty: 90 3RF losartan 25 mg tablet 25 mg PO DAILY Qty: 90 3RF topiramate 100 mg tablet 100 mg PO QHS Qty: 90 3RF meperidine 100 mg/mL solution 100 mg IM ONCE PRN warfarin 2 mg tablet 2 mg PO DIRECTED Qty: 90 0RF Protocol: Dose Management Condition: Wednesday Dose/Route: 3 mg Instruction: 1 x 3 mg tablet Condition: Wednesday Dose/Route: 2 mg Instruction: 1 x 2 mg tablet Condition: Wednesday Dose/Route: 3 mg Instruction: 1 x 3 mg tablet Condition: Wednesday Dose/Route: 3 mg Instruction: 1 x 3 mg tablet Condition: Dose/Route: 3 mg Instruction: 1 x 3 mg tablet Condition: Wednesday Dose/Route: 3 mg Instruction: 1 x 3 mg tablet Condition: Wednesday Dose/Route: 3 mg Instruction: 1 x 3 mg tablet Protocol Text: Adjustment Start Date: Wednesday06/13/25 INR Value: 2.5 INR Date: 06/13/25 Recheck Date: 07/11/25 Rx Instructions: Take 3mg , , Wed; 4mg Wed, Wed, Wed, Wed. cholecalciferol (vitamin D3) 25 mcg (1,000 unit) tablet See Rx Instructions .ROUTE .COMPLEX Qty: 90 3RF Dose Instruction: TAKE 1 TABLET BY MOUTH EVERY DAY Rx Instructions: TAKE 1 TABLET BY MOUTH EVERY DAY hydroxyzine HCl 50 mg tablet 50 mg PO 3XD PRN (Reason: for nausea/vomiting) Qty: 270 3RF warfarin 4 mg tablet 4 mg PO DIRECTED Qty: 40 0RF Protocol: Dose Management Condition: Wednesday Dose/Route: 3 mg Instruction: 1 x 3 mg tablet Condition: Wednesday Dose/Route: 2 mg Instruction: 1 x 2 mg tablet Condition: Wednesday Dose/Route: 3 mg Instruction: 1 x 3 mg tablet Condition: Wednesday Dose/Route: 3 mg Instruction: 1 x 3 mg tablet Condition: Dose/Route: 3 mg Instruction: 1 x 3 mg tablet Condition: Wednesday Dose/Route: 3 mg Instruction: 1 x 3 mg tablet Condition: Wednesday Dose/Route: 3 mg Instruction: 1 x 3 mg tablet Protocol Text: Adjustment Start Date: Wednesday06/13/25 INR Value: 2.5 INR Date: 06/13/25 Recheck Date: 07/11/25 Rx Instructions: Take 1.5 mg on , 4 mg on Wed/Wed/Wed and 3 mg ROW metoprolol succinate 25 mg tablet extended release 24 hr 25 mg PO QDAY warfarin 3 mg tablet 3 mg PO DAILY Qty: 90 1RF Protocol: Dose Management Condition: Wednesday Dose/Route: 3 mg Instruction: 1 x 3 mg tablet Condition: Wednesday Dose/Route: 2 mg Instruction: 1 x 2 mg tablet Condition: Wednesday Dose/Route: 3 mg Instruction: 1 x 3 mg tablet Condition: Wednesday Dose/Route: 3 mg Instruction: 1 x 3 mg tablet Condition: Dose/Route: 3 mg Instruction: 1 x 3 mg tablet Condition: Wednesday Dose/Route: 3 mg Instruction: 1 x 3 mg tablet Condition: Wednesday Dose/Route: 3 mg Instruction: 1 x 3 mg tablet Protocol Text: Adjustment Start Date: Wednesday06/13/25 INR Value: 2.5 INR Date: 06/13/25 Recheck Date: 07/11/25 Rx Instructions: take 3 mg by mouth daily aspirin 81 mg tablet,delayed release (DR/EC) 81 mg PO DAILY Qty: 90 3RF amoxicillin 500 mg capsule 2,000 mg PO ONCE Qty: 4 2RF Rx Instructions: take 4 capsules 60minutes prior to dental appointment warfarin 2 mg tablet 2 mg PO .qd Qty: 90 0RF Protocol: Dose Management Condition: Wednesday Dose/Route: 3 mg Instruction: 1 x 3 mg tablet Condition: Wednesday Dose/Route: 2 mg Instruction: 1 x 2 mg tablet Condition: Wednesday Dose/Route: 3 mg Instruction: 1 x 3 mg tablet Condition: Wednesday Dose/Route: 3 mg Instruction: 1 x 3 mg tablet Condition: Dose/Route: 3 mg Instruction: 1 x 3 mg tablet Condition: Wednesday Dose/Route: 3 mg Instruction: 1 x 3 mg tablet Condition: Wednesday Dose/Route: 3 mg Instruction: 1 x 3 mg tablet Protocol Text: Adjustment Start Date: Wednesday06/13/25 INR Value: 2.5 INR Date: 06/13/25 Recheck Date: 07/11/25 <Ricky Nowak MD - Last Filed: 07/03/25 08:43> Follow Up/Referrals: TierneyKimberly omalley PA-C [Primary Care Provider, Family Practice] <Ricky Nowak MD - Last Filed: 07/03/25 08:43> Stand Alone Forms: MyHealth Info Instructions <Ricky Nowak MD - Last Filed: 07/03/25 08:43>
[2025-07-02 14:43] LABS: Troponin, Point-of-Care* 0.01 ng/ml (0.01-0.04)
[2025-07-02 14:56] LABS: Hematocrit* 37.9 % (33.0-51.0); Hemoglobin* 12.5 gm/dL (12.0-16.0); Immature Granulocytes Pct Auto 0.3 %; Mean Corpuscular HGB Conc 33 gm/dL (32-36); Mean Corpuscular Hemoglobin 29 pg (26-34); Mean Corpuscular Volume 88 fL (80-100); RDW Coefficient of Variation % 14.4 % (11.5-15.5); Red Blood Count* 4.30 m/uL (4.00-5.20); White Blood Count* 3.83 K/uL (4.50-11.00)
[2025-07-02 15:08] LABS: Immature Granulocytes Abs Auto 0.00 K/uL (0.00-0.30); Lymphocytes Absolute Auto 0.80 K/uL (0.90-2.90); Slide Review Reflex No
--- NOTE | 2025-07-02 15:25 | CRLHL7_ITS ---
For Patients: As a result of the Cures Act, medical imaging exams and procedure reports are released immediately into your electronic medical record. You may view this report before your referring provider. If you have questions, please contact your health care provider. INDICATION: Right upper quadrant pain. TECHNIQUE: Ultrasound abdomen limited. Sonographic images of the gallbladder were obtained using villarreal-scale and color Doppler images. COMPARISON: CT abdomen/pelvis earlier same day, dated 07/02/2025. FINDINGS: Bile ducts: The common bile duct measures 0.5 cm. Gallbladder: No cholelithiasis, significant gallbladder wall thickening, or pericholecystic fluid identified. Negative sonographic Multani`s sign. IMPRESSION: No cholelithiasis. No sonographic evidence of acute cholecystitis. Dictated by Travis Bruce MD @ 07/02/2025 4:51:54 PM (Electronically Signed)
[2025-07-02 15:53] VITALS: BP 143/76; PULSE 58; RESP 16; O2SAT 100
[2025-07-02 16:02] LABS: Albumin* 4.1 g/dL (3.3-5.0); Chloride* 109 mmol/L (96-114); Sodium* 138 mmol/L (135-149)
[2025-07-02 16:03] LABS: Potassium* 4.1 mmol/L (3.6-5.1)
[2025-07-02 16:05] LABS: Blood Urea Nitrogen* 22 mg/dL (7-30); Creatinine* 1.3 mg/dL (0.5-1.5); Estimated Glomerular Filt Rate 44 ml/min
[2025-07-02 16:06] LABS: Alanine Aminotransferase* 23 U/L (4-35); Alkaline Phosphatase* 95 U/L (40-150); Anion Gap 9 mEq/L (7-15); Aspartate Amino Transferase* 30 U/L (12-35); Bilirubin Direct* 0.2 mg/dL (0.0-0.5); Bilirubin Total* 0.7 mg/dL (0.1-1.5); Calcium* 10.4 mg/dL (8.4-10.6); Carbon Dioxide* 20 mmol/L (20-32); Glucose* 110 mg/dL (60-115); Total Protein* 7.3 g/dL (6.0-8.3)
== END 2025-07-02 17:31 | disposition home or self-care (01) ==
PROVIDERS: Emergency Provider Family Medicine; PCP Physician Assistant Medical
DX: R07.9 Chest pain, unspecified (principal)
CPT/HCPCS: 36415; 74176; 76705; 80048; 80076; 82150; 83690; 84484; 85025; 86140; 93005; 99284; 99285